=== PATIENT | male | born 1955 | race Two or more races ===

== ENCOUNTER 2016-11-09 20:05 | Emergency (ER) | payer MEDICAID ==
[2016-11-09 20:11] VITALS: BP 90/58; BMI 29.2
--- NOTE | 2016-11-09 20:56 | DR.GENAD ---
HPI - PCP Primary Care Physician: NÉSTOR PECK - Complaint/Symptoms Chief Complaint:: PT C/O RT CHEST AND RT ARM NECK PAIN FOR 3 MONTHS, PT STATES" THE DR SAID I HAD A PINCHED NERVE i DON'T BELIEVE IT. THE PAIN KEEPS ME AWAKE AT NIGHT" - Source History Provided: Patient - Mode of Arrival Mode of Arrival: Ambulatory - Timing Onset of Chief Complaint: 08/23/16 PMH - PMH Past Medical History: Yes Past Medical History: Anxiety, Arthritis Past Surgical History: Yes Surgical History: Appendectomy, CABG/Valve Surgery, Cholecystectomy, Lithotripsy - Family History History of Family Medical Conditions: Yes Family Medical History: Diabetes Mellitus, Cancer, [place], Hypertension - Social History Alcohol Use: None Do you use any recreational Drugs:: No Lives With: Family Lives Where: Home - infectious screening In the last 2 months have you had wt loss of >10#?: NO Have you had fever, night sweats or hemotysis?: No Have you traveled outside the country in the last 6 months?: No Isolation: Standard ROS - Review of Systems Constitutional: No Symptoms Reported Eyes: No Symptoms Reported ENTM: No Symptoms Reported Respiratoy: No Symptoms Reported Cardiovascular: No Symptoms Reported Gastrointestinal/Abdominal: No Symptoms Reported Genitourinary: No Symptoms Reported Neurological: No Symptoms Reported Musculoskeletal: Back Pain, Neck, Arm Integumentary: No Symptoms Reported Hematologic/Lymphatic: No Symptoms Reported Endocrine: No Symptoms Reported Psychiatric: No Symptoms Reported All Other Systems: Reviewed and Negative PE - Vital Signs Vitals: Temperature 98.6 F Pulse Rate 71 Respiratory Rate 18 Blood Pressure [Left Arm] 121/72 Blood Pressure 90/58 O2 Sat by Pulse Oximetry 100 - General Limitations: No Limitations General Appearance: Alert, In No Apparent Distress - Head Head Exam: Normal Inspection, Atraumatic - Eyes Eye exam: Normal Appearance, PERRL, EOMI - ENT ENT Exam: Normal Exam External Ear Exam: Normal External Inspection TM/Canal Exam: Bilateral Normal Nose Exam: Normal Nose Exam Mouth Exam: Normal Inspection Throat Exam: Normal Inspection - Neck Neck Exam: Normal Inspection, Tenderness - Chest Chest Inspection: Normal Inspection - Respiratory Respiratory Exam: Normal Lung Sounds Bilat Respiratory Exam: Bilateral Clear to Auscultation - Cardiovascular Cardiovascular Exam: Regular Rate, Normal Rhythm - Abdominal Exam Abdominal Exam: Normal Inspection Abdominal Tenderness: negative: RUQ, RLQ, LUQ, LLQ, Epigastrium, Suprapubic, Diffuse, Mild, Moderate, Severe, Other - Extremities Extremities Exam: Normal Inspection, Full ROM - Back Back Exam: Normal Inspection - Neurologic Neurological Exam: Alert, Oriented X3, CN II-XII Intact MDM - Additional Information Findings: Reviewed with patient the many previous x rays and or MRI taken and discuss ROR - XRAY XRAY Interpreted by: Radiologist (Review of previous results MRI dated 04/17/14: C3-C4;broad based, posterior, disc osteophyte complex which combines with facet DJD to create moderate spinal canal narrowing and moderate bilateral narrowing.C4-C5; Broad-based, posterior, disc osteophyte complex with combbiines with facet DJD to create moderate spinal canal narrowing and moderate bilateral foraminal narrowing.C5-C6; Broad based, posterior disc osteophyte complex which combines with facet DJD to create moderate spinal canal narrowing and moderate bilateral foraminal narrowing./C6-C7; browa-based, posterior, disc osteophyte complex which combines with facet DJD to create moderate spinal canal narrowing and moderate bilateral foraminal narrowing.: M oderate cervical spondylotic change with C3-C7 central disc osteophyte complexes and facet DJD which creates ,pderate fprra,mckenzie; amd s[mckenzie; cama; marrpwomg at tje ;bernabe;s as detaomed/) - Diagnosis Discharge Problem: DJD (degenerative joint disease), cervical DJD (degenerative joint disease) of cervical spine Qualifiers: Spinal osteoarthritis complication: with radiculopathy Qualified Code(s): M47.22 - Other spondylosis with radiculopathy, cervical region - Discharge Plan Condition: Stable - Follow ups/Referrals Follow ups/Referrals: NFD,None [Primary Care Provider] - 3 days - Instructions
[2016-11-09] MEDS ORDERED: TORADOL 60 MG VIAL IM ONE (21:27)
[2016-11-09] MEDS ORDERED: TORADOL 60 MG VIAL ONE (21:29)
== END 2016-11-09 21:42 | disposition home or self-care (01) ==
LOC: ER 20:05
DX: M47.22 Other spondylosis with radiculopathy, cervical region (principal)
CPT/HCPCS: 96372; 99282; 99283; J1885

== ENCOUNTER 2016-11-28 22:37 | Emergency (ER) | payer SELFPAY ==
[2016-11-28 22:45] VITALS: BP 93/60; BMI 30.9
== END 2016-11-29 01:10 | disposition left against medical advice (07) ==
LOC: ER 22:37
DX: R05 Cough (principal)
CPT/HCPCS: 99281

== ENCOUNTER → 2017-02-12 | Outpatient (CLI) | payer SELFPAY ==
--- NOTE | 2017-02-13 08:08 | RAD ---
HISTORY: Arthrosis, right arm pain Study: Right shoulder three view Comparison: None Findings: The appearance of the clavicle and AC joint are unremarkable. The glenohumeral articulation is norm al in its appearance. No acute cortical disruption or dislocation can be identified. The visualize d portions of the scapula are unremarkable. In addition, the visualized portions of the right hemit horax appear normal. IMPRESSION: 1. Negative exam. Reported By:
--- NOTE | 2017-02-13 08:28 | RAD ---
HISTORY: Right shoulder pain Study: Cervical spine four view Comparison: None Findings: The prevertebral soft tissues are normal. The alignment is normal. The vertebral bodies are of avera ge height. The disc spaces are preserved. The posterior elements are intact. The joints are normal. Bilateral carotid vascular calcifications are incidentally noted. Clinical correlation should determ ine the need for carotid sonography. IMPRESSION: No significant abnormality Reported By:
== END ==
LOC: RAD 17:37
PROVIDERS: ATTEND Nurse Practitioner Family
DX: M19.011 Primary osteoarthritis, right shoulder (principal)
CPT/HCPCS: 72040; 73030

== ENCOUNTER → 2017-03-12 | Outpatient (CLI) | payer SELFPAY ==
[2017-03-12 09:43] LABS: HEMOGLOBIN A1C 10.1 % (4.5-6.2)
[2017-03-12 09:48] LABS: BASOPHILS # (AUTO) 0.1 X10^3/uL (0.0-0.1); BASOPHILS % (AUTO) 1.5 % (0.2-1.0); EOSINOPHILS # (AUTO) 0.2 x10^3/uL (0.0-0.2); EOSINOPHILS % (AUTO) 2.8 % (0.9-2.9); HEMATOCRIT 47.2 % (42.0-54.0); HEMOGLOBIN 16.7 g/dL (13.5-18.0); LYMPHOCYTES # (AUTO) 1.8 X10^3/uL (1.3-2.9); LYMPHOCYTES % (AUTO) 23.6 % (21.0-51.0); MEAN CORPUSCULAR HEMOGLOBIN 31.1 pg (27.0-34.0); MEAN CORPUSCULAR HGB CONC 35.4 g/dL (33.0-35.0); MEAN CORPUSCULAR VOLUME 87.9 fL (80.0-100.0); MEAN PLATELET VOLUME 10.4 fL (7.4-11.0); MONOCYTES # (AUTO) 0.5 x10^3/uL (0.3-0.8); MONOCYTES % (AUTO) 6.3 % (0.0-13.0); NEUTROPHILS # (AUTO) 5.2 x10^3/uL (2.2-4.8); NEUTROPHILS % (AUTO) 65.8 % (42.0-75.0); PLATELET COUNT 205 X10^3/uL (150.0-450.0); RED BLOOD COUNT 5.37 X10^6/uL (4.7-6.0); RED CELL DISTRIBUTION WIDTH 13.2 % (11.6-16.5); WHITE BLOOD COUNT 7.8 X10^3/uL (3.6-10.0)
[2017-03-12 09:52] LABS: ALANINE AMINOTRANSFERASE 68 Units/L (12-78); ALBUMIN 3.9 g/dL (3.4-5.0); ALKALINE PHOSPHATASE 138 Units/L (46-116); ASPARTATE AMINO TRANSFERASE 31 Units/L (15-37); BLOOD UREA NITROGEN 10 mg/dL (7-18); CALCIUM 8.9 mg/dL (8.5-10.1); CARBON DIOXIDE 28.4 mmol/L (21-32); CHLORIDE 97 mmol/L (98-107); CHOLESTEROL 256 mg/dL (0-200); COR NA(FOR HYPERGLY) 141 mmol/L (136-145); CREATININE 0.98 mg/dL (0.70-1.30); GLUCOSE 319 mg/dL (65-99); HDL CHOLESTEROL 43 mg/dL (40-60); SODIUM 136 mmol/L (136-145); TOTAL PROTEIN 8.1 g/dL (6.4-8.2); TRIGLYCERIDES 280 mg/dL (0-150); eGFR BLACK RACES > 60 (>60); eGFR NON BLACK RACES > 60 (>60)
== END | disposition home or self-care (01) | DRG 305 ==
LOC: LAB 09:16
PROVIDERS: ATTEND Nurse Practitioner Family
DX: I10 Essential (primary) hypertension (principal); E78.00 Pure hypercholesterolemia, unspecified; E11.65 Type 2 diabetes mellitus with hyperglycemia; E11.40 Type 2 diabetes mellitus with diabetic neuropathy, unspecified
CPT/HCPCS: 36415; 80053; 80061; 83036; 85025

== ENCOUNTER → 2017-03-18 | Outpatient (CLI) | payer SELFPAY ==
--- NOTE | 2017-03-18 12:05 | VAS ---
HISTORY: Dizziness Study: Carotid ultrasound Comparison: April 01, 2015 Technique: Multiple pearson scale and color flow Doppler images of the right and left carotid arterial system were obtained. The vertebral arterial system was evaluated as well. Findings: Scattered plaque is demonstrated within the carotid bulbs bilaterally left greater than right. The p eak systolic velocity of the right ICA is 75 cm/sec. The peak systolic velocity of the left ICA is 1 03 cm/sec. The ICA/CCA ratio on the right is 1.0. The ICA/CCA ratio on the left is 1.1. Bilateral an tegrade vertebral flow was noted. IMPRESSION: 1. No hemodynamically significant stenosis is appreciated. Reported By:
== END ==
LOC: RAD 09:55
PROVIDERS: ATTEND Nurse Practitioner Family
DX: R42 Dizziness and giddiness (principal); R93.7 Abnormal findings on diagnostic imaging of other parts of musculoskeletal system
CPT/HCPCS: 93880

== ENCOUNTER 2017-04-07 14:49 | Inpatient (IN) | payer SELFPAY ==
[2017-04-07] MEDS ORDERED: NS 1000 ML 1,000 ML ONE ×2 (14:54→15:11)
[2017-04-07] MEDS ORDERED: NS 1000 ML 1,000 ML IV ONE ×2 (15:07→15:16)
--- NOTE | 2017-04-07 15:08 | DR.GENAD ---
HPI - Nurses notes reviewed Nurses Notes Review: Yes PMH - PMH Past Medical History: [place] Past Surgical History: Yes Surgical History: Appendectomy, CABG/Valve Surgery, Cholecystectomy - Family History Family Medical History: Diabetes Mellitus, Cancer, [place], Heart Failure, Hypertension - Social History Do you use any recreational Drugs:: No PE - Vital Signs Vitals: Temperature 98.7 F Pulse Rate [Right Brachial] 82 Pulse Rate 90 Respiratory Rate 16 Blood Pressure [Left Arm] 135/74 Blood Pressure 57/38 O2 Sat by Pulse Oximetry 99 ROR - Labs Reviewed Result Diagrams: 04/07/17 14:59 04/07/17 14:59 Laboratory: WBC 13.1 X10^3/uL (3.6-10.0) H 04/07/17 14:59 RBC 5.58 X10^6/uL (4.7-6.0) 04/07/17 14:59 Hgb 17.1 g/dL (13.5-18.0) 04/07/17 14:59 Hct 48.9 % (42.0-54.0) 04/07/17 14:59 MCV 87.6 fL (80.0-100.0) 04/07/17 14:59 MCH 30.7 pg (27.0-34.0) 04/07/17 14:59 MCHC 35.0 g/dL (33.0-35.0) 04/07/17 14:59 RDW 13.2 % (11.6-16.5) 04/07/17 14:59 Plt Count 231 X10^3/uL (150.0-450.0) 04/07/17 14:59 MPV 10.1 fL (7.4-11.0) 04/07/17 14:59 Neut % 71.9 % (42.0-75.0) 04/07/17 14:59 Lymph % 20.7 % (21.0-51.0) L 04/07/17 14:59 [place] % 4.6 % (0.0-13.0) 04/07/17 14:59 Eos % 1.6 % (0.9-2.9) 04/07/17 14:59 Baso % 1.2 % (0.2-1.0) H 04/07/17 14:59 Neut # 9.4 x10^3/uL (2.2-4.8) H 04/07/17 14:59 Lymph # 2.7 X10^3/uL (1.3-2.9) 04/07/17 14:59 [place] # 0.6 x10^3/uL (0.3-0.8) 04/07/17 14:59 Eos # 0.2 x10^3/uL (0.0-0.2) 04/07/17 14:59 Baso # 0.2 X10^3/uL (0.0-0.1) H 04/07/17 14:59 Absolute Nucleated RBC 0.1 /100WBC 04/07/17 14:59 INR Target Range - 04/07/17 14:59 INR 1.01 (0.8-1.3) 04/07/17 14:59 PTT 27.0 SECONDS (22.9-36.5) 04/07/17 14:59 PTT Comment - 04/07/17 14:59 Sodium 135 mmol/L (136-145) L 04/07/17 14:59 Corrected Sodium 136 mmol/L (136-145) 04/07/17 14:59 Potassium 3.8 mmol/L (3.5-5.1) 04/07/17 14:59 Chloride 97 mmol/L (98-107) L 04/07/17 14:59 Carbon Dioxide 25.0 mmol/L (21-32) 04/07/17 14:59 BUN 29 mg/dL (7-18) H 04/07/17 14:59 Creatinine 2.54 mg/dL (0.70-1.30) H 04/07/17 14:59 Est GFR (MDRD) Af Amer 33 (>60) L 04/07/17 14:59 Est GFR (MDRD) Non-Af 27 (>60) L 04/07/17 14:59 Glucose 160 mg/dL (65-99) H 04/07/17 14:59 Calcium 8.8 mg/dL (8.5-10.1) 04/07/17 14:59 Corrected Calcium TNP 04/07/17 14:59 Total Bilirubin 1.30 mg/dL (0.2-1.0) H 04/07/17 14:59 AST 25 Units/L (15-37) 04/07/17 14:59 ALT 33 Units/L (12-78) 04/07/17 14:59 Alkaline Phosphatase 92 Units/L (46-116) 04/07/17 14:59 Creatine Kinase 34 Units/L (39-308) L 04/07/17 14:59 CK-MB (CK-2) < 1.0 ng/mL (0-4.0) 04/07/17 14:59 CK/CKMB % Calc 2.9 % (<4) 04/07/17 14:59 Troponin I < 0.02 ng/mL (0-1.5) 04/07/17 14:59 Total Protein 7.9 g/dL (6.4-8.2) 04/07/17 14:59 Albumin 4.0 g/dL (3.4-5.0) 04/07/17 14:59 Globulin 3.9 g/dL (2.5-4.5) 04/07/17 14:59 Albumin/Globulin Ratio 1.0 Ratio (1.1-2.1) L 04/07/17 14:59 - Discharge Plan Condition: Stable - Follow ups/Referrals Follow ups/Referrals: CORNELIUS KOLB [Primary Care Provider] - 3 days - Instructions
[2017-04-07 15:17] VITALS: BMI 29.9
[2017-04-07 15:24] LABS: BASOPHILS # (AUTO) 0.2 X10^3/uL (0.0-0.1); BASOPHILS % (AUTO) 1.2 % (0.2-1.0); EOSINOPHILS # (AUTO) 0.2 x10^3/uL (0.0-0.2); EOSINOPHILS % (AUTO) 1.6 % (0.9-2.9); HEMATOCRIT 48.9 % (42.0-54.0); HEMOGLOBIN 17.1 g/dL (13.5-18.0); LYMPHOCYTES # (AUTO) 2.7 X10^3/uL (1.3-2.9); LYMPHOCYTES % (AUTO) 20.7 % (21.0-51.0); MEAN CORPUSCULAR HEMOGLOBIN 30.7 pg (27.0-34.0); MEAN CORPUSCULAR VOLUME 87.6 fL (80.0-100.0); MEAN PLATELET VOLUME 10.1 fL (7.4-11.0); MONOCYTES # (AUTO) 0.6 x10^3/uL (0.3-0.8); MONOCYTES % (AUTO) 4.6 % (0.0-13.0); NEUTROPHILS # (AUTO) 9.4 x10^3/uL (2.2-4.8); NEUTROPHILS % (AUTO) 71.9 % (42.0-75.0); PLATELET COUNT 231 X10^3/uL (150.0-450.0); RED BLOOD COUNT 5.58 X10^6/uL (4.7-6.0); RED CELL DISTRIBUTION WIDTH 13.2 % (11.6-16.5); WHITE BLOOD COUNT 13.1 X10^3/uL (3.6-10.0)
--- NOTE | 2017-04-07 15:25 | RAD ---
HISTORY: Chest pain Study: Chest one view Comparison: September 07, 2016 Findings: The trachea is midline. The cardiac silhouette is unremarkable. The lungs are hypoinflated but merced ar.. The bony thorax is unremarkable. The patient is status post median sternotomy and CABG. IMPRESSION: Lungs mildly hypoinflated but free of acute infiltrates Reported By:
[2017-04-07 15:36] LABS: BLOOD UREA NITROGEN 29 mg/dL (7-18); CALCIUM 8.8 mg/dL (8.5-10.1); CHLORIDE 97 mmol/L (98-107); COR NA(FOR HYPERGLY) 136 mmol/L (136-145); CREATININE 2.54 mg/dL (0.70-1.30); GLUCOSE 160 mg/dL (65-99); SODIUM 135 mmol/L (136-145); TROPONIN I < 0.02 ng/mL (0-1.5); eGFR BLACK RACES 33 (>60); eGFR NON BLACK RACES 27 (>60)
[2017-04-07 15:40] LABS: ALANINE AMINOTRANSFERASE 33 Units/L (12-78); ALKALINE PHOSPHATASE 92 Units/L (46-116); ASPARTATE AMINO TRANSFERASE 25 Units/L (15-37); CKMB % 2.9 % (<4); CREATINE KINASE 34 Units/L (39-308); CREATINE KINASE MB < 1.0 ng/mL (0-4.0); TOTAL PROTEIN 7.9 g/dL (6.4-8.2)
[2017-04-07] MEDS ORDERED: ZOFRAN INJ 4 MG VIAL IVP PRN (16:55)
[2017-04-07] MEDS ORDERED: PHENERGAN INJ 25 MG IVP PRN (16:55)
[2017-04-07] MEDS ORDERED: PEPCID 20 MG IV PREMIX* 20 MG/50 ML BAG IV PRN (16:55)
[2017-04-07] MEDS ORDERED: MORPHINE SULFATE INJ 2 MG IVP PRN (17:00)
[2017-04-07] MEDS: NS 1000 ML 1,000 ML IV SCH (18:27)
[2017-04-07 19:45] LABS: BILIRUBIN,URINE NEGATIVE (NEGATIVE); BLOOD/HEMOGLOBIN,URINE 1+ (NEGATIVE); GLUCOSE, URINE 2+ (NEGATIVE); KETONES,URINE NEGATIVE (NEGATIVE); LEUKOCYTE ESTERASE ,URINE 1+ (NEGATIVE); NITRITES,URINE NEGATIVE (NEGATIVE); PROTEIN,URINE 1+ (NEGATIVE); UROBILINOGEN,URINE NORMAL (NORMAL)
[2017-04-07 19:52] LABS: APPEARANCE,URINE HAZY (CLEAR); BACTERIA,URINE TRACE /HPF (NEGATIVE); COLOR,URINE YELLOW (YELLOW); RBC,URINE 0-2 /HPF (NEGATIVE); SQUAMOUS EPITHELIAL CELL,UR FEW /HPF (NEGATIVE)
[2017-04-07 20:57] LABS: CRYPTOSPORIDIUM PARVUM ANTIGEN NEGATIVE (NEGATIVE); GIARDIA LAMBLIA ANTIGEN NEGATIVE (NEGATIVE)
[2017-04-07] MEDS ORDERED: HumuLIN R SUBCUT PRN (21:04)
[2017-04-08] MEDS: NS 1000 ML 1,000 ML IV SCH ×3 (03:00→14:08)
[2017-04-08 05:58] LABS: ALANINE AMINOTRANSFERASE 30 Units/L (12-78); ALBUMIN 3.2 g/dL (3.4-5.0); ALKALINE PHOSPHATASE 88 Units/L (46-116); ASPARTATE AMINO TRANSFERASE 23 Units/L (15-37); BLOOD UREA NITROGEN 18 mg/dL (7-18); CALCIUM 8.1 mg/dL (8.5-10.1); CARBON DIOXIDE 26.7 mmol/L (21-32); CHLORIDE 105 mmol/L (98-107); COR CA(FOR HYPOALB) 8.7 mg/dL (8.5-10.1); COR NA(FOR HYPERGLY) 141 mmol/L (136-145); CREATININE 1.08 mg/dL (0.70-1.30); GLUCOSE 176 mg/dL (65-99); SODIUM 139 mmol/L (136-145); TOTAL PROTEIN 6.7 g/dL (6.4-8.2); eGFR BLACK RACES > 60 (>60); eGFR NON BLACK RACES > 60 (>60)
[2017-04-08 06:09] LABS: BASOPHILS # (AUTO) 0.1 X10^3/uL (0.0-0.1); BASOPHILS % (AUTO) 1.1 % (0.2-1.0); EOSINOPHILS # (AUTO) 0.3 x10^3/uL (0.0-0.2); EOSINOPHILS % (AUTO) 2.8 % (0.9-2.9); HEMATOCRIT 43.8 % (42.0-54.0); HEMOGLOBIN 15.4 g/dL (13.5-18.0); LYMPHOCYTES # (AUTO) 2.3 X10^3/uL (1.3-2.9); LYMPHOCYTES % (AUTO) 25.2 % (21.0-51.0); MEAN CORPUSCULAR HEMOGLOBIN 30.7 pg (27.0-34.0); MEAN CORPUSCULAR HGB CONC 35.2 g/dL (33.0-35.0); MEAN CORPUSCULAR VOLUME 87.1 fL (80.0-100.0); MEAN PLATELET VOLUME 10.4 fL (7.4-11.0); MONOCYTES # (AUTO) 0.5 x10^3/uL (0.3-0.8); MONOCYTES % (AUTO) 5.4 % (0.0-13.0); NEUTROPHILS # (AUTO) 5.9 x10^3/uL (2.2-4.8); NEUTROPHILS % (AUTO) 65.5 % (42.0-75.0); PLATELET COUNT 180 X10^3/uL (150.0-450.0); RED BLOOD COUNT 5.03 X10^6/uL (4.7-6.0); RED CELL DISTRIBUTION WIDTH 12.9 % (11.6-16.5)
--- NOTE | 2017-04-08 09:53 | CT ---
STUDY: CT HEAD WITHOUT CONTRAST HISTORY: Dizziness. Hypertension. COMPARISON: Head CT dated August 14, 2015. TECHNIQUE: Multiple axial images of the head were obtained from the skull base to the vertex without administration of IV contrast. Automated exposure control (AEC) was utilized to adjust the MA and/o r kV. Findings: The sulci, cisterns and ventricles are prominent consistent with mild diffuse volume loss. There are scattered foci of low attenuation in the periventricular and subcortical white matter of both hemispheres. This is a nonspecific finding which likely represents microangiopathic change in a patient of this age. There is no evidence of acute territorial infarction, hemorrhage, mass, mass effect or midline shift . There are no abnormal extra-axial fluid collections. There is no evidence of acute osseous abnorma lity or significant soft tissue swelling. IMPRESSION: 1. No evidence of acute intracranial abnormality. 2. Nonspecific white matter change and mild volume loss as described. 3. If there remains strong clinical concern for acute intracranial abnormality, then an MRI examinat ion should be considered for further evaluation. Reported By:
[2017-04-08 12:59] VITALS: BP 167/83
[2017-04-08] MEDS ORDERED: SNACK - Diabetic Appropriate PO SCH (20:00)
== END 2017-04-08 14:25 | disposition home or self-care (01) | DRG 312 ==
LOC: ER 14:58 → MED/SURG 16:52
PROVIDERS: ADMIT Internal Medicine; ATTEND Internal Medicine
DX: R55 Syncope and collapse (principal); E78.2 Mixed hyperlipidemia; R53.1 Weakness; I25.810 Atherosclerosis of coronary artery bypass graft(s) without angina pectoris; E11.65 Type 2 diabetes mellitus with hyperglycemia; I95.89 Other hypotension; E86.0 Dehydration; K52.89 Other specified noninfective gastroenteritis and colitis; R19.7 Diarrhea, unspecified; R94.31 Abnormal electrocardiogram [ECG] [EKG]; Z79.899 Other long term (current) drug therapy
CPT/HCPCS: 36415; 70450; 71010; 80053; 81001; 82270; 82550; 82553; 84484; 85025; 85610; 85730; 87040; 87045; 87205; 87328; 87329; 87336; 87427; 87493; 87899; 93005; 93010; 96365; 96367; 96374; 99284; A4222; J2270

== ENCOUNTER → 2017-07-01 | Outpatient (CLI) | payer SELFPAY ==
[2017-07-01 10:07] LABS: BASOPHILS # (AUTO) 0.1 X10^3/uL (0.0-0.1); BASOPHILS % (AUTO) 1.2 % (0.2-1.0); EOSINOPHILS # (AUTO) 0.2 x10^3/uL (0.0-0.2); EOSINOPHILS % (AUTO) 2.3 % (0.9-2.9); HEMATOCRIT 45.7 % (42.0-54.0); LYMPHOCYTES # (AUTO) 1.6 X10^3/uL (1.3-2.9); LYMPHOCYTES % (AUTO) 19.3 % (21.0-51.0); MEAN CORPUSCULAR HEMOGLOBIN 31.5 pg (27.0-34.0); MEAN CORPUSCULAR HGB CONC 35.1 g/dL (33.0-35.0); MEAN CORPUSCULAR VOLUME 89.7 fL (80.0-100.0); MEAN PLATELET VOLUME 9.3 fL (7.4-11.0); MONOCYTES # (AUTO) 0.4 x10^3/uL (0.3-0.8); MONOCYTES % (AUTO) 4.8 % (0.0-13.0); NEUTROPHILS # (AUTO) 5.9 x10^3/uL (2.2-4.8); NEUTROPHILS % (AUTO) 72.4 % (42.0-75.0); PLATELET COUNT 236 X10^3/uL (150.0-450.0); RED CELL DISTRIBUTION WIDTH 13.5 % (11.6-16.5); WHITE BLOOD COUNT 8.2 X10^3/uL (3.6-10.0)
[2017-07-01 10:13] LABS: CREATININE,URINE 192.58 mg/dL (40-278); MICROALBUMIN,URINE 61.9 mg/L
[2017-07-01 10:15] LABS: ALANINE AMINOTRANSFERASE 44 Units/L (12-78); ALBUMIN 3.7 g/dL (3.4-5.0); ALKALINE PHOSPHATASE 106 Units/L (46-116); ASPARTATE AMINO TRANSFERASE 27 Units/L (15-37); BLOOD UREA NITROGEN 14 mg/dL (7-18); CARBON DIOXIDE 31.5 mmol/L (21-32); CHLORIDE 99 mmol/L (98-107); CHOL/HDL RATIO 5.2 (0.0-5.0); CHOLESTEROL 213 mg/dL (0-200); COR NA(FOR HYPERGLY) 141 mmol/L (136-145); CREATININE 0.97 mg/dL (0.70-1.30); HDL CHOLESTEROL 41 mg/dL (40-60); HEMOGLOBIN A1C 8.6 % (4.5-6.2); SODIUM 138 mmol/L (136-145); TOTAL PROTEIN 7.5 g/dL (6.4-8.2); TRIGLYCERIDES 159 mg/dL (0-150); eGFR BLACK RACES > 60 (>60); eGFR NON BLACK RACES > 60 (>60)
== END ==
LOC: LAB 09:29
PROVIDERS: ATTEND Nurse Practitioner Family
DX: I10 Essential (primary) hypertension (principal); E11.40 Type 2 diabetes mellitus with diabetic neuropathy, unspecified; E11.65 Type 2 diabetes mellitus with hyperglycemia
CPT/HCPCS: 36415; 80053; 80061; 82043; 83036; 85025

== ENCOUNTER 2017-07-08 08:12 | Observation (INO) | payer SELFPAY ==
[2017-07-08 08:17] VITALS: BMI 28.3
--- NOTE | 2017-07-08 08:50 | DR.GENAD ---
HPI - PCP Primary Care Physician: Jose KOLB - HPI Comment HPI Comment: Hurting in head, neck and right shoulder. He that his right knee gave out this morning while he was on the porch at home. He tumbled down unto the concrete striking his head. He claims to have lost consciousness. Duration unknown (but maybe for a few minutes). He feels whoozy still. There was no associated papitations, diaphoresis or c/p preceeding this event. Event happened about 0615 hrs today. - Complaint/Symptoms Chief Complaint:: PT. FELL OFF OF A 3 FOOT PORCH THIS MORNING, LOSING CONSCIOUSNESS AND HITTING THE DIRT. PT. C/O HEADACHE, NECK PAIN, RIGHT ARM PAIN , AND DIZZINESS. ABRASION NOTED TO TOP RIGHT SIDE OF HEAD. - Nurses notes reviewed Nurses Notes Review: Yes - Source History Provided: Patient - Mode of Arrival Mode of Arrival: Ambulatory - Timing Onset of Chief Complaint: 07/08/17 Came on: Suddenly - Modifying Factors Worsens:: nothing Improves:: nothing - Associated Signs and Symptoms Associated Signs and Symptoms: dizziness PMH - PMH Past Medical History: Yes Past Medical History: Coronary Artery Disease, Diabetes, Hypertension, [place] Past Surgical History: Yes Surgical History: Appendectomy, CABG/Valve Surgery, Cholecystectomy - Family History History of Family Medical Conditions: Yes Family Medical History: Diabetes Mellitus, Cancer, [place], Heart Failure, Hypertension - Social History Does patient currently use any type of tobacco product: Yes Have you used tobacco products in the last 12 months: Yes Type of Tobacco Use: Cigarettes Does any household member use tobacco: Yes Alcohol Use: None Do you use any recreational Drugs:: No Lives With: Significant Other Lives Where: Home - infectious screening In the last 2 months have you had wt loss of >10#?: NO Have you had fever, night sweats or hemotysis?: No Have you traveled outside the country in the last 6 months?: No Isolation: Standard ROS - Review of Systems Constitutional: No Symptoms Reported Eyes: No Symptoms Reported ENTM: No Symptoms Reported Respiratoy: No Symptoms Reported Cardiovascular: No Symptoms Reported Gastrointestinal/Abdominal: No Symptoms Reported Genitourinary: No Symptoms Reported Neurological: Headache, Dizziness Musculoskeletal: Neck Pain, Shoulder (right side) Integumentary: Other (abrasion on right side of forehead) Hematologic/Lymphatic: No Symptoms Reported Endocrine: No Symptoms Reported Psychiatric: No Symptoms Reported All Other Systems: Reviewed and Negative PE - Vital Signs Vitals: Temperature 97 F Pulse Rate [Left Brachial] 57 Pulse Rate 68 Respiratory Rate 17 Blood Pressure [Right Arm] 122/61 Blood Pressure [Left Arm] 112/63 Blood Pressure 120/60 O2 Sat by Pulse Oximetry 98 ROR - Labs Reviewed Result Diagrams: 07/08/17 09:16 07/08/17 09:16 Laboratory: Sodium 134 mmol/L (136-145) L 07/08/17 09:16 Corrected Sodium 140 mmol/L (136-145) 07/08/17 09:16 Potassium 3.5 mmol/L (3.5-5.1) 07/08/17 09:16 Chloride 95 mmol/L (98-107) L 07/08/17 09:16 Carbon Dioxide 27.6 mmol/L (21-32) 07/08/17 09:16 BUN 12 mg/dL (7-18) 07/08/17 09:16 Creatinine 0.91 mg/dL (0.70-1.30) 07/08/17 09:16 Est GFR (MDRD) Af Amer > 60 (>60) 07/08/17 09:16 Est GFR (MDRD) Non-Af > 60 (>60) 07/08/17 09:16 Glucose 362 mg/dL (65-99) H 07/08/17 09:16 Calcium 9.0 mg/dL (8.5-10.1) 07/08/17 09:16 Corrected Calcium TNP 07/08/17 09:16 Total Bilirubin 0.80 mg/dL (0.2-1.0) 07/08/17 09:16 AST 65 Units/L (15-37) H 07/08/17 09:16 ALT 72 Units/L (12-78) 07/08/17 09:16 Alkaline Phosphatase 139 Units/L (46-116) H 07/08/17 09:16 Total Protein 7.4 g/dL (6.4-8.2) 07/08/17 09:16 Albumin 3.6 g/dL (3.4-5.0) 07/08/17 09:16 Globulin 3.8 g/dL (2.5-4.5) 07/08/17 09:16 Albumin/Globulin Ratio 0.9 Ratio (1.1-2.1) L 07/08/17 09:16 - XRAY XRAY Interpreted by: Radiologist (1). X-Ray rt. Shoulder: OA, calcific peritendonitis. 2). CT C-Spine: normal allignment, no fractureor acute disease. 3). CT Brain: No intracranial disease.) - Diagnosis Discharge Problem: Syncope and collapse - Discharge Plan Disposition: ADMITTED INPATIENT Condition: Stable - Follow ups/Referrals Follow ups/Referrals: CORNELIUS KOLB [Primary Care Provider] - 3 days - Instructions
[2017-07-08] MEDS ORDERED: ANTIVERT TAB 25 MG PO ONE (09:14)
[2017-07-08] MEDS ORDERED: FIORICET TAB PO ONE ×2 (09:32)
[2017-07-08] MEDS ORDERED: ANTIVERT TAB 25 MG ONE (09:32)
--- NOTE | 2017-07-08 09:52 | RAD ---
Examination: Right shoulder, three views History: Fell Comparison reference: 02/12/2017 Findings:There is no evidence for fracture or dislocation. There is degenerative narrowing of glenohu meral and AC joints. There is a faint calcification suggested in the soft tissues adjacent to the gre ater tuberosity. Sternal wires are present from previous surgery; 1 of the manubrial wires is fractur ed. Impression: No acute shoulder injury identified. Osteoarthritis. Minimal periarticular calcification consistent with calcific peritendinitis. Reported By:
[2017-07-08 10:02] LABS: ALANINE AMINOTRANSFERASE 72 Units/L (12-78); ALBUMIN 3.6 g/dL (3.4-5.0); ALKALINE PHOSPHATASE 139 Units/L (46-116); ASPARTATE AMINO TRANSFERASE 65 Units/L (15-37); BLOOD UREA NITROGEN 12 mg/dL (7-18); CARBON DIOXIDE 27.6 mmol/L (21-32); CHLORIDE 95 mmol/L (98-107); COR NA(FOR HYPERGLY) 140 mmol/L (136-145); CREATININE 0.91 mg/dL (0.70-1.30); SODIUM 134 mmol/L (136-145); TOTAL PROTEIN 7.4 g/dL (6.4-8.2); eGFR BLACK RACES > 60 (>60); eGFR NON BLACK RACES > 60 (>60)
--- NOTE | 2017-07-08 10:24 | CT ---
History: Fall from porch with pain right side of neck and head Study: CT head without contrast. Sagittal and coronal reformations were provided. Comparison: April 08, 2017 Findings: There is no interval change. The ventricles and sulci are minimally prominent without mass effect. There is no intracranial hemorrhage or mass or edema or subdural collection of fluid. The sybil varium is intact. The mastoid sinuses and paranasal sinuses are grossly clear. Impression: No acute intracranial disease Reported By:
--- NOTE | 2017-07-08 10:26 | CT ---
History: Fall off porch with right neck pain Study: CT cervical spine without contrast. Sagittal and coronal reformations were provided. Findings: There is normal alignment without fracture. There is moderate anterior osteophyte formation at T1-2. There are mild degenerative osteophytes about the lower cervical facet joints. The spinous processes are intact. There is heavy atherosclerotic calcification in the common carotid bifurcations and carotid sinuses. Impression: No evidence for fracture or acute disease. Reported By:
[2017-07-08 11:43] LABS: BASOPHILS # (AUTO) 0.1 X10^3/uL (0.0-0.1); BASOPHILS % (AUTO) 1.1 % (0.2-1.0); EOSINOPHILS # (AUTO) 0.2 x10^3/uL (0.0-0.2); HEMATOCRIT 44.1 % (42.0-54.0); HEMOGLOBIN 15.4 g/dL (13.5-18.0); LYMPHOCYTES % (AUTO) 18.2 % (21.0-51.0); MEAN CORPUSCULAR HEMOGLOBIN 31.3 pg (27.0-34.0); MEAN CORPUSCULAR VOLUME 89.5 fL (80.0-100.0); MEAN PLATELET VOLUME 10.4 fL (7.4-11.0); MONOCYTES # (AUTO) 0.6 x10^3/uL (0.3-0.8); MONOCYTES % (AUTO) 5.3 % (0.0-13.0); NEUTROPHILS # (AUTO) 8.1 x10^3/uL (2.2-4.8); NEUTROPHILS % (AUTO) 73.4 % (42.0-75.0); PLATELET COUNT 215 X10^3/uL (150.0-450.0); RED BLOOD COUNT 4.93 X10^6/uL (4.7-6.0); RED CELL DISTRIBUTION WIDTH 13.3 % (11.6-16.5)
[2017-07-08 12:03] LABS: CKMB % 1.2 % (<4); CREATINE KINASE 81 Units/L (39-308); CREATINE KINASE MB < 1.0 ng/mL (0-4.0); TROPONIN I < 0.02 ng/mL (0-1.5)
[2017-07-08] MEDS: NS 1000 ML 1,000 ML IV SCH (12:36)
[2017-07-08] MEDS: HumuLIN R SUBCUT PRN ×3 (13:57→20:18)
[2017-07-08] MEDS: ROXICODONE TAB 15 MG PO PRN (20:19)
[2017-07-09] MEDS: NS 1000 ML 1,000 ML IV SCH (00:12)
[2017-07-09 05:44] LABS: BASOPHILS # (AUTO) 0.1 X10^3/uL (0.0-0.1); BASOPHILS % (AUTO) 1.2 % (0.2-1.0); EOSINOPHILS # (AUTO) 0.3 x10^3/uL (0.0-0.2); EOSINOPHILS % (AUTO) 3.5 % (0.9-2.9); HEMATOCRIT 42.5 % (42.0-54.0); HEMOGLOBIN 14.6 g/dL (13.5-18.0); LYMPHOCYTES # (AUTO) 2.3 X10^3/uL (1.3-2.9); LYMPHOCYTES % (AUTO) 28.7 % (21.0-51.0); MEAN CORPUSCULAR HEMOGLOBIN 31.3 pg (27.0-34.0); MEAN CORPUSCULAR HGB CONC 34.4 g/dL (33.0-35.0); MEAN CORPUSCULAR VOLUME 90.9 fL (80.0-100.0); MEAN PLATELET VOLUME 10.1 fL (7.4-11.0); MONOCYTES # (AUTO) 0.4 x10^3/uL (0.3-0.8); MONOCYTES % (AUTO) 4.7 % (0.0-13.0); NEUTROPHILS # (AUTO) 4.9 x10^3/uL (2.2-4.8); NEUTROPHILS % (AUTO) 61.9 % (42.0-75.0); PLATELET COUNT 224 X10^3/uL (150.0-450.0); RED BLOOD COUNT 4.68 X10^6/uL (4.7-6.0); RED CELL DISTRIBUTION WIDTH 12.9 % (11.6-16.5); WHITE BLOOD COUNT 7.9 X10^3/uL (3.6-10.0)
[2017-07-09] MEDS: ROXICODONE TAB 15 MG PO PRN (05:47)
[2017-07-09] MEDS: HumuLIN R SUBCUT PRN (05:47)
[2017-07-09 06:08] LABS: ALANINE AMINOTRANSFERASE 57 Units/L (12-78); ALBUMIN 3.2 g/dL (3.4-5.0); ALKALINE PHOSPHATASE 110 Units/L (46-116); ASPARTATE AMINO TRANSFERASE 50 Units/L (15-37); BLOOD UREA NITROGEN 12 mg/dL (7-18); CALCIUM 8.5 mg/dL (8.5-10.1); CARBON DIOXIDE 27.3 mmol/L (21-32); CHLORIDE 102 mmol/L (98-107); COR CA(FOR HYPOALB) 9.1 mg/dL (8.5-10.1); COR NA(FOR HYPERGLY) 143 mmol/L (136-145); SODIUM 139 mmol/L (136-145); TOTAL PROTEIN 6.5 g/dL (6.4-8.2); eGFR BLACK RACES > 60 (>60); eGFR NON BLACK RACES > 60 (>60)
[2017-07-09 08:09] VITALS: BP 127/73
[2017-07-09] MEDS ORDERED: GLUCOVANCE 5/500MG PO SCH (09:00)
[2017-07-09] MEDS ORDERED: ZESTRIL TAB 10 MG PO SCH (09:00)
[2017-07-09] MEDS ORDERED: ZANTAC PO SCH (09:00)
[2017-07-09] MEDS ORDERED: TOPROL XL PO SCH (09:00)
[2017-07-09] MEDS ORDERED: CLARITIN PO SCH (09:00)
[2017-07-09] MEDS ORDERED: POTASSIUM CHLORIDE LIQ 20 MEQ UDC PO PRN (09:45)
[2017-07-09] MEDS ORDERED: K-RIDER 10 MEQ/NS 100 ML 10 MEQ/100 ML BAG IV PRN (09:45)
[2017-07-09] MEDS ORDERED: K-LYTE EFFERVESCENT PO PRN (09:45)
--- NOTE | 2017-07-09 11:30 | DR.CARTERS ---
Short Stay Summary - Short Stay Summary for: Short Stay Summary for Date of:: 07/09/17 - Admission Date Date of Admission: 07/08/17 - Discharge Date Discharge Date: 07/09/17 - Admission Diagnoses (1) Syncope and collapse Status: Acute - Hospital Course Hospital Course: DAY 1 OF STAY: IS A 62 YEAR OLD MALE, PATIENT OF [facility]. HE PRESENTED TO THE EMERGENCY ROOM WITH COMPLAINTS OF FALLING OFF OF A PORCH , HITTING HIS HEAD, AND LOSING CONSCIOUSNESS APPROXIMATELY 2 HOURS PRIOR TO ARRIVAL. ON ARRIVAL TO THE ER, HE REPORTED HEADACHE, NECK PAIN, RIGHT ARM PAIN, DIZZINESS, AND AN ABRASION TO THE TOP RIGHT SIDE OF HEAD. HE DENIED PALPITATIONS , DIAPHORESIS, OR CHEST PAIN PRECEEDING THE EVENT. ON EXAMINATION, PUPILS PERRLA. HE IS NOTED WITH GOOD STRENGTH TO BILATERAL UPPER AND LOWER EXTREMITIES. LUNGS WERE CLEAR TO AUSCULTATION. ABDOMEN ROUND, SOFT, AND NON- TENDER WITH NORMAL BOWEL SOUNDS NOTED IN ALL QUADRANTS. VITALS ON ARRIVAL WERE 97.0-68-17-97%-120/60. ABNORMAL LAB VALUES INCLUDE THE FOLLOWING: WBC 11.0, SODIUM 134, CHLORIDE 95, GLUCOSE 362, AST 65, ALK PHOS 139, A/G RATIO 0.9. CARDIAC ENZYMES UNREMARKABLE. BRAIN CT REPORTED NO ACUTE INTRACRANIAL DISEASE. CERVICAL SPINE CT REPORTED NO EVIDENCE FOR FRACTURE OR ACUTE DISEASE, HOWEVER, HEAVY ATHEROSCLEROTIC CALCIFICATION IN THE COMMON CAROTID BIFURCATIONS AND CAROTID SINUSES NOTED. SHOULDER XRAY REPORTED NO ACUTE SHOULDER INJURY IDENTIFIED. OSTEROARTHRITIS. MINIMAL PERIARTICULAR CALCIFICATION CONSISTENT WITH CALCIFIC PERITENDINITIS. EKG REPORTED SINUS RHYTHM WITH HR 60. HE WAS GIVEN FIORICET 2 TABS AND ANTIVERT 25MG IN THE ER WITH NO IMPROVEMENT IN SYMPTOMS NOTED. HE WAS ADMITTED FOR FURTHER TREATMENT AND EVALUATION. HE WAS STARTED ON NORMAL SALINE AT 80ML/HR, ROXICODONE 15MG PO QID PRN (HOME MEDICATION ) WAS RESUMED, AND HUMULIN R SLIDING SCALE. WE PLANNED TO FOLLOW UP WITH AM LABS AND CONTINUE TO MONITOR PATIENT. DAY 2 OF STAY: PATIENT IS ALERT AND ORIENTED, LYING IN BED ON MORNING ROUNDS. HE DENIES COMPLAINTS OF HEADACHE OR DIZZINESS THIS MORNING. HE DOES CONTINUE WITH RIGHT ARM/SHOULDER PAIN, BUT REPORTS THAT IT HAS IMPROVED. ON EXAMINATION, LUNGS ARE CLEAR TO AUSCULTATION. ABDOMEN ROUND, SOFT, NON-TENDER WITH NORMAL BOWEL SOUNDS NOTED IN ALL QUADRANTS. VITAL SIGNS THIS MORNING ARE 97.7-60-20-94% -127/73. ABNORMAL LAB VALUES INCLUDE THE FOLLOWING: RBC 4.68, POTASSIUM 3.3, GLUCOSE 247, AST 50, ALBUMIN 3.2. WE PLANNED FOR DISCHARGE. INSTRUCTIONS FOR MEDICATIONS AND FOLLOW UP WERE DISCUSSED WITH PATIENT. HE VERBALIZED UNDERSTANDING. WE WILL DISCHARGE HIM ON ECOTRIN 325MG PO DAILY AND ATORVASTATIN 20MG PO HS FOR FINDINGS OF ATHEROSCLEROTIC CALCIFICATION. WE WILL ORDER FOR AN ECHO, BRAIN CTA, CAROTID US, AND NUCLEAR STRESS TEST TO BE DONE ON AN OUTPAITENT BASIS. HE IS INSTRUCTED TO FOLLOW UP WITH SALBADOR MAGANA ON AT 2:00PM. PATIENT DISCHARGED TO HOME WITH FAMILY IN STABLE CONDITION. - Discharge Medications Discharge Medications: Metoprolol Succinate Ext Rel [TOPROL XL 25 MG *] 1 tab PO DAILY 07/08/17 [ History] Aspirin EC [ECOTRIN 325 MG *] 325 mg PO DAILY #90 tab 07/09/17 [Rx] Atorvastatin Calcium [Lipitor] 20 mg PO HS #30 tab 07/09/17 [Rx] - Discharge Plan Disposition: HOME, SELF-CARE Condition: Stable Prescriptions: Aspirin EC [ECOTRIN 325 MG *] 325 mg PO DAILY #90 tab Atorvastatin Calcium [Lipitor] 20 mg PO HS #30 tab - Follow up/Referrals Follow up/Referrals: CORNELIUS KOLB [Primary Care Provider] - 07/20/17 2:00 pm - Instructions Instructions: Smoking Cessation, Tips for Success, [id number], Fall Prevention in the Home, [id number], Transient Ischemic Attack, Iahw-hb-Odgi, Type 2 Diabetes Mellitus, Adult, [id number]-Vhmc, Syncope, [id number] Additional Instructions: SCHEDULE APPOINTMENTS OUTPATIENT FOR CAROTID US, CTA HEAD, ECHO, NUCLEAR STRESS TEST. ACTIVITY TOLERATED. DIET TOLERATED. Forms: Patient Portal
[2017-07-09] MEDS ORDERED: NEURONTIN CAP 400 MG PO SCH (14:00)
[2017-07-09] MEDS ORDERED: LANTUS SC SCH (21:00)
== END 2017-07-09 11:40 | disposition home or self-care (01) | DRG 312 ==
LOC: ER 08:21 → MED/SURG 11:47
PROVIDERS: ADMIT Internal Medicine; ATTEND Internal Medicine
DX: R55 Syncope and collapse (principal); R51 Headache; M54.2 Cervicalgia; R42 Dizziness and giddiness; W17.89XA Other fall from one level to another, initial encounter; Y92.098 Other place in other non-institutional residence as the place of occurrence of the external cause; S00.81XA Abrasion of other part of head, initial encounter; R94.31 Abnormal electrocardiogram [ECG] [EKG]
CPT/HCPCS: 36415; 70450; 72125; 73030; 80053; 82550; 82553; 84484; 85025; 93005; 93010; 96365; 99284; A4222; G0378; J1815

== ENCOUNTER → 2017-10-21 | Outpatient (CLI) | payer SELFPAY ==
[2017-10-21 10:59] LABS: BASOPHILS # (AUTO) 0.1 X10^3/uL (0.0-0.1); BASOPHILS % (AUTO) 1.4 % (0.2-1.0); EOSINOPHILS # (AUTO) 0.3 x10^3/uL (0.0-0.2); EOSINOPHILS % (AUTO) 3.3 % (0.9-2.9); HEMATOCRIT 45.6 % (42.0-54.0); HEMOGLOBIN 16.1 g/dL (13.5-18.0); LYMPHOCYTES # (AUTO) 1.7 X10^3/uL (1.3-2.9); LYMPHOCYTES % (AUTO) 19.7 % (21.0-51.0); MEAN CORPUSCULAR HGB CONC 35.3 g/dL (33.0-35.0); MEAN CORPUSCULAR VOLUME 87.8 fL (80.0-100.0); MEAN PLATELET VOLUME 9.5 fL (7.4-11.0); MONOCYTES # (AUTO) 0.5 x10^3/uL (0.3-0.8); MONOCYTES % (AUTO) 5.5 % (0.0-13.0); NEUTROPHILS % (AUTO) 70.1 % (42.0-75.0); PLATELET COUNT 257 X10^3/uL (150.0-450.0); RED BLOOD COUNT 5.19 X10^6/uL (4.7-6.0); RED CELL DISTRIBUTION WIDTH 12.6 % (11.6-16.5); WHITE BLOOD COUNT 8.6 X10^3/uL (3.6-10.0)
[2017-10-21 11:11] LABS: CREATININE,URINE 70.86 mg/dL (40-278); MICROALBUMIN,URINE 12.3 mg/L
[2017-10-21 11:14] LABS: HEMOGLOBIN A1C 9.7 %
[2017-10-21 11:18] LABS: ALANINE AMINOTRANSFERASE 74 Units/L (12-78); ALBUMIN 3.9 g/dL (3.4-5.0); ALKALINE PHOSPHATASE 162 Units/L (46-116); ASPARTATE AMINO TRANSFERASE 66 Units/L (15-37); BLOOD UREA NITROGEN 15 mg/dL (7-18); CALCIUM 8.8 mg/dL (8.5-10.1); CARBON DIOXIDE 29.7 mmol/L (21-32); CHLORIDE 95 mmol/L (98-107); CHOL/HDL RATIO 2.8 (0.0-5.0); CHOLESTEROL 135 mg/dL (0-200); COR NA(FOR HYPERGLY) 140 mmol/L (136-145); CREATININE 1.05 mg/dL (0.70-1.30); HDL CHOLESTEROL 48 mg/dL (40-60); SODIUM 134 mmol/L (136-145); TRIGLYCERIDES 113 mg/dL (0-150); eGFR BLACK RACES > 60 (>60); eGFR NON BLACK RACES > 60 (>60)
[2017-10-21 11:27] LABS: TOTAL PSA 0.27 ng/mL (0.13-4.0)
== END ==
LOC: LAB 10:28
PROVIDERS: ATTEND Nurse Practitioner Family
DX: R35.8 Other polyuria (principal); I10 Essential (primary) hypertension; E11.40 Type 2 diabetes mellitus with diabetic neuropathy, unspecified; E11.65 Type 2 diabetes mellitus with hyperglycemia
CPT/HCPCS: 36415; 80053; 80061; 82043; 83036; 84153; 85025

== ENCOUNTER 2018-07-04 16:15 | Observation (INO) ==
[2018-07-04] MEDS ORDERED: NS 1000 ML 1,000 ML IV ONE ×3 (16:35→22:10)
[2018-07-04] MEDS ORDERED: NS 1000 ML 1,000 ML ONE ×3 (16:37→22:10)
[2018-07-04 16:38] LABS: BASOPHILS % (AUTO) 0.3 % (0.2-1.0); EOSINOPHILS # (AUTO) 0.3 x10^3/uL (0.0-0.2); EOSINOPHILS % (AUTO) 3.2 % (0.9-2.9); HEMATOCRIT 46.9 % (42.0-54.0); HEMOGLOBIN 16.5 g/dL (13.5-18.0); LYMPHOCYTES # (AUTO) 1.8 X10^3/uL (1.3-2.9); LYMPHOCYTES % (AUTO) 20.8 % (21.0-51.0); MEAN CORPUSCULAR HGB CONC 35.2 g/dL (33.0-35.0); MEAN CORPUSCULAR VOLUME 90.9 fL (80.0-100.0); MEAN PLATELET VOLUME 10.1 fL (7.4-11.0); MONOCYTES # (AUTO) 0.5 x10^3/uL (0.3-0.8); MONOCYTES % (AUTO) 5.7 % (0.0-13.0); PLATELET COUNT 268 X10^3/uL (150.0-450.0); RED BLOOD COUNT 5.16 X10^6/uL (4.7-6.0); RED CELL DISTRIBUTION WIDTH 12.8 % (11.6-16.5); WHITE BLOOD COUNT 8.6 X10^3/uL (3.6-10.0)
--- NOTE | 2018-07-04 16:49 | DR.DIZZY ---
HPI Time seen Time Seen by Provider: 07/04/18 16:49 PCP Primary Care Physician: SALBADOR GARCIA Complaint Chief Complaint Doctor Comments: HYPOTENSION NOTED AT PATIENTS [employer] OFFICE WHERE HE WENT FOR CONSULTATION FOR FLU SHOT. Chief Complaint:: EMS OUT TO PT WITH LOW B/P AT THE [facility] AND UPON ARRIVAL OF EMS PTS B/P WAS 78/48 AND PT DID NOT WANT TO COME TO ER AND JENNIFER TOLD HIM TO COME AND BE CHECKED OUT ,,, PT WAS AT THE [facility] FOR A FLU APPT AND PT HAD A NEAR SYNCOME EPISODE AND HIS BP WAS FOUND TO BE LOW.. Self Treatment fo Chief Complaint: UPON ARRIVAL PT IS ALERT ORIENTED SKIN W/D NO DISTRESS NOTED ,,BR Nurses Notes Reviewed Nurses Notes Review: Yes Source History Provided: Patient Mode of Arrival Mode of Arrival: EMS Timing Onset of Chief Complaint: 07/04/18 Came on: Suddenly Duration Duration: Constant Location of Weakness Weakness Location: Generalized Context Onset: At rest Does pt take pot. toxic medication?: No History of: DM and ND Stroke Symptoms: None Severity Severity: Normal activity level Modifying factors Worsens: Change in Position PMH PMH Past Medical History: Yes Past Medical History: Coronary Artery Disease, Diabetes, Hypertension and ND Past Surgical History: Yes Surgical History: Angioplasty/Stents, Appendectomy, CABG/Valve Surgery and Cholecystectomy Family History History of Family Medical Conditions: Yes Family Medical History: Diabetes Mellitus, Cancer, ND, Coronary Artery Disease and Hypertension Social History Does patient currently use any type of tobacco product: Yes Have you used tobacco products in the last 12 months: Yes Type of Tobacco Use: Cigarettes How many years tobacco product used: 20 Does any household member use tobacco: No Alcohol Use: None Do you use any recreational Drugs:: No Lives With: Family Lives Where: Home infectious screening In the last 2 months have you had wt loss of >10#?: NO Have you had fever, night sweats or hemotysis?: No Have you traveled outside the country in the last 6 months?: No Isolation: Standard ROS Review of Systems Constitutional: Weakness and Fatigue Eyes: No Symptoms Reported ENTM: No Symptoms Reported Respiratoy: No Symptoms Reported Cardiovascular: No Symptoms Reported Gastrointestinal/Abdominal: No Symptoms Reported Genitourinary: No Symptoms Reported Neurological: Weakness Musculoskeletal: No Symptoms Reported Integumentary: No Symptoms Reported Hematologic/Lymphatic: No Symptoms Reported Endocrine: No Symptoms Reported Psychiatric: No Symptoms Reported All Other Systems: Reviewed and Negative PE Vital Signs Vitals: Temperature 98.1 F Pulse Rate [Apical] 67 Pulse Rate [Left Brachial] 58 Pulse Rate 61 Respiratory Rate 17 Blood Pressure [Right Arm] 163/77 Blood Pressure [Left Arm] 106/51 Blood Pressure 93/52 O2 Sat by Pulse Oximetry 99 General Limitations: No Limitations General Appearance: In No Apparent Distress Head Head Exam: Normal Inspection and Atraumatic Eyes Eye exam: Normal Appearance, PERRL and EOMI; negative Scleral Icterus and Conjunctival Injection Pupils: Regular, Round: Bilateral and Reactive: Bilateral Sclera/Conjunctival: Normal Inspection: Bilateral ENT ENT Exam: Normal Exam and Normal Oropharynx Neck Neck Exam: Normal Inspection and Trachea Midline Chest Chest Inspection: Symmetric Chest Wall Rise Respiratory Respiratory Exam: Normal Lung Sounds Bilat Respiratory Exam: Bilateral: Clear to Auscultation Cardiovascular Cardiovascular Exam: Regular Rate and Normal Rhythm Abdominal Exam Abdominal Exam: Normal Inspection, Normal Bowel Sounds and Soft; negative Tende rness Rectal Rectal Exam: Deferred Extremeties Extremities Exam: Normal Inspection Back Back Exam: Normal Inspection Neurologic Neurological Exam: Alert and Oriented X3; negative Motor Sensory Deficit Patient Oriented To: Person, Place and Time Cranial Nerve Exam: EOM Function (II, III, IV, ): Normal, Facial Sensation (V): Normal, Facial Palsy (VII): Normal, Gag reflex (XI): Normal and Tongue Deviation: Normal Motor Strength - LUE: 5/5 Motor Strength - RUE: 5/5 Motor Strength - LLE: 5/5 Motor Strength - RLE: 5/5 Psychiatric Psychiatric Exam: Normal Affect and Normal Mood Skin Skin Exam: Dry MDM Additional Information Obtained Additional Information Obtained From: Family Differential Diagnosis Differential Diagnosis: Anemia, CVA, Dehydration, Dysrhythmia, Electrolyte disorder, Hypoglycemia, Myocardial infarction, Pulmonary embolus and TIA COURSE Treatment Treatment: SEE ORDERS. Education/Counseling Education/Counseling: Patient and Family Educated On: Diagnosis ROR Labs Reviewed Laboratory Results Reviewed?: Yes Result Diagrams: 07/05/18 05:45 07/05/18 05:45 Laboratory: WBC 7.0 X10^3/uL (3.6-10.0) 07/05/18 05:45 RBC 4.84 X10^6/uL (4.7-6.0) 07/05/18 05:45 Hgb 15.2 g/dL (13.5-18.0) 07/05/18 05:45 Hct 43.8 % (42.0-54.0) 07/05/18 05:45 MCV 90.5 fL (80.0-100.0) 07/05/18 05:45 MCH 31.4 pg (27.0-34.0) 07/05/18 05:45 MCHC 34.7 g/dL (33.0-35.0) 07/05/18 05:45 RDW 13.1 % (11.6-16.5) 07/05/18 05:45 Plt Count 214 X10^3/uL (150.0-450.0) 07/05/18 05:45 MPV 10.6 fL (7.4-11.0) 07/05/18 05:45 Neut % (Auto) 65.3 % (42.0-75.0) 07/05/18 05:45 Lymph % (Auto) 23.4 % (21.0-51.0) 07/05/18 05:45 [place] % (Auto) 6.0 % (0.0-13.0) 07/05/18 05:45 Eos % (Auto) 4.0 % (0.9-2.9) H 07/05/18 05:45 Baso % (Auto) 1.3 % (0.2-1.0) H 07/05/18 05:45 Neut # (Auto) 4.6 x10^3/uL (2.2-4.8) 07/05/18 05:45 Lymph # (Auto) 1.6 X10^3/uL (1.3-2.9) 07/05/18 05:45 [place] # (Auto) 0.4 x10^3/uL (0.3-0.8) 07/05/18 05:45 Eos # (Auto) 0.3 x10^3/uL (0.0-0.2) H 07/05/18 05:45 Baso # (Auto) 0.1 X10^3/uL (0.0-0.1) 07/05/18 05:45 Absolute Nucleated RBC 0.0 /100WBC 07/05/18 05:45 INR Target Range - 11/12/18 16:15 INR 0.95 (0.8-1.3) 07/04/18 16:15 APTT 28.4 SECONDS (22.9-36.5) 07/04/18 16:15 PTT Comment - 07/04/18 16:15 Sodium 135 mmol/L (136-145) L 07/05/18 05:45 Corrected Sodium 142 mmol/L (136-145) 07/05/18 05:45 Potassium 3.8 mmol/L (3.5-5.1) 07/05/18 05:45 Chloride 103 mmol/L (98-107) 07/05/18 05:45 Carbon Dioxide 23.8 mmol/L (21-32) 07/05/18 05:45 BUN 8 mg/dL (7-18) 07/05/18 05:45 Creatinine 0.74 mg/dL (0.70-1.30) 07/05/18 05:45 Est GFR (MDRD) Af Amer > 60 (>60) 07/05/18 05:45 Est GFR (MDRD) Non-Af > 60 (>60) 07/05/18 05:45 Glucose 376 mg/dL (65-99) H 07/05/18 05:45 POC Glucose (mg/dL) 313 mg/dL (65-99) H 07/05/18 11:49 Hemoglobin A1c 10.4 % 07/05/18 05:45 Lactic Acid 1.5 mmol/L (0.4-2.0) 07/04/18 16:45 Calcium 7.4 mg/dL (8.5-10.1) L 07/05/18 05:45 Corrected Calcium 8.4 mg/dL (8.5-10.1) L 07/05/18 05:45 Magnesium 1.8 mg/dL (1.7-2.9) 07/04/18 16:15 Total Bilirubin 0.80 mg/dL (0.2-1.0) 07/05/18 05:45 AST 90 Units/L (15-37) H 07/05/18 05:45 ALT 100 Units/L (12-78) H 07/05/18 05:45 Alkaline Phosphatase 271 Units/L (46-116) H 07/05/18 05:45 Creatine Kinase 38 Units/L (39-308) L 07/05/18 05:45 CK-MB (CK-2) < 1.0 ng/mL (0-4.0) 07/05/18 05:45 CK/CKMB % Calc 2.6 % (<4) 07/05/18 05:45 Troponin I < 0.02 ng/mL (0-1.5) 07/05/18 05:45 Total Protein 6.3 g/dL (6.4-8.2) L 07/05/18 05:45 Albumin 2.8 g/dL (3.4-5.0) L 07/05/18 05:45 Globulin 3.5 g/dL (2.5-4.5) 07/05/18 05:45 Albumin/Globulin Ratio 0.8 Ratio (1.1-2.1) L 07/05/18 05:45 Specimen Type Random urine 07/04/18 22:03 Urine Color Yellow (YELLOW) 07/04/18 22: Urine Appearance Clear (CLEAR) 07/04/18 22: Urine pH 5.0 (5.0 - 8.0) 07/04/18 22:03 Ur Specific [place] 1.010 (1.000-1.030) 07/04/18 22:03 Urine Protein 1+ (NEGATIVE) 07/04/18 22: Urine Glucose (UA) 4+ (NEGATIVE) 07/04/18 22: Urine Ketones Negative (NEGATIVE) 07/04/18 22:03 Urine Occult Blood Negative (NEGATIVE) 07/04/18 22: Urine Nitrite Negative (NEGATIVE) 07/04/18 22: Urine Bilirubin Negative (NEGATIVE) 07/04/18 22: Urine Urobilinogen Normal (NORMAL) 07/04/18 22:03 Ur Leukocyte Esterase Negative (NEGATIVE) 07/04/18 22:03 Urine RBC 3-5 /HPF (NONE SEEN) 07/04/18 22:03 Urine WBC 0-2 /HPF (NONE SEEN) 07/04/18 22:03 Ur Squamous Epith Cells Negative /HPF (NEGATIVE) 07/04/18 22:03 Urine Bacteria Trace /HPF (NEGATIVE) 07/04/18 22:03 Urine Sperm Few /HPF (NEGATIVE) 07/04/18 22:03 Ur Culture Indicated? No/not indicated 07/04/18 22:03 Urine Opiates Screen Negative (NEG=<300) 07/04/18 22:03 Urine Methadone Screen Negative (NEG=<300) 07/04/18 22:03 Ur Barbiturates Screen Negative (NEG=<200) 07/04/18 22:03 Ur Phencyclidine Scrn Negative (NEG=<25) 07/04/18 22:03 Ur Amphetamines Screen Negative (NEG=<1000) 07/04/18 22:03 U Benzodiazepines Scrn Negative (NEG=<200) 07/04/18 22:03 Urine Cocaine Screen Negative (NEG=<300) 07/04/18 22:03 U Marijuana (THC) Screen Negative (NEG=<50) 07/04/18 22:03 Acetone, Semi-Quant Negative (NEGATIVE) 07/04/18 16:15 Hepatitis A IgM Ab Negative (Negative) 07/04/18 16:15 Hep Bs Antigen Negative (Negative) 07/04/18 16:15 Hep Bs Ag Confirmation TNP 07/04/18 16:15 Hep B Core IgM Ab Negative (Negative) 07/04/18 16:15 Hepatitis C Ab Index 0.08 IV 07/04/18 16:15 Hepatitis C Interp Negative (Negative) 07/04/18 16:15 Hepatitis Interpret See note 07/04/18 16:15 XRAY XRAY Interpreted by: Radiologist XRAY Findings: REPORT NOTED. Diagnosis Discharge Problem: Acute hypotension, Hyperglycemia Instructions Instructions: Steps to Quit Smoking, Skrs-lw-[id number] Hypotension, Xodq-gh-Hjot Near-Syncope, Thws-dm-Vmoo Forms: Patient Portal
[2018-07-04 17:07] LABS: BLOOD UREA NITROGEN 10 mg/dL (7-18); CALCIUM 8.6 mg/dL (8.5-10.1); CARBON DIOXIDE 27.7 mmol/L (21-32); CHLORIDE 96 mmol/L (98-107); COR NA(FOR HYPERGLY) 136 mmol/L (136-145); CREATININE 1.18 mg/dL (0.70-1.30); SODIUM 130 mmol/L (136-145); TROPONIN I < 0.02 ng/mL (0-1.5); eGFR NON BLACK RACES > 60 (>60)
[2018-07-04 17:11] LABS: ALANINE AMINOTRANSFERASE 96 Units/L (12-78); ALBUMIN 3.7 g/dL (3.4-5.0); ALKALINE PHOSPHATASE 264 Units/L (46-116); ASPARTATE AMINO TRANSFERASE 59 Units/L (15-37); CKMB % 2.6 % (<4); CREATINE KINASE 38 Units/L (39-308); CREATINE KINASE MB < 1.0 ng/mL (0-4.0); MAGNESIUM 1.8 mg/dL (1.7-2.9); TOTAL PROTEIN 7.7 g/dL (6.4-8.2)
--- NOTE | 2018-07-04 17:16 | CT ---
HISTORY: Low back pressure, near syncope, headache Study: CT brain without contrast Comparison: May 04, 2018 Technique: Multiple axial images of the brain were obtained from the skull base to the vertex without administration of IV contrast. Findings: Imaging of the brain demonstrates no intracranial hemorrhage, mass effect, or midline shift. No extra-axial fluid collection is identified. There is no CT evidence to suggest acute or early subacute infarct. Global atrophy is noted with mild ex vacuo dilatation of the ventricles. There are low attenuating foci within the periventricular white matter, likely reflecting chronic small vessel disease. The basilar cisterns are patent. The bony structures are intact. IMPRESSION: 1. No acute intraparenchymal cyst evident. Chronic changes as above Reported By:
--- NOTE | 2018-07-04 18:53 | RAD ---
HISTORY: Hypotension, near syncope Study: Single view chest Comparison: 05/26/2018 Findings: Chronic sternotomy changes are noted post CABG. No infiltrate, effusion or pneumothorax identified. The cardiac and mediastinal contours are within normal limits. The soft tissues are unremarkable. IMPRESSION: 1. No acute cardiopulmonary abnormality. Reported By:
[2018-07-04 22:20] LABS: BILIRUBIN,URINE NEGATIVE (NEGATIVE); BLOOD/HEMOGLOBIN,URINE NEGATIVE (NEGATIVE); GLUCOSE, URINE 4+ (NEGATIVE); KETONES,URINE NEGATIVE (NEGATIVE); LEUKOCYTE ESTERASE ,URINE NEGATIVE (NEGATIVE); NITRITES,URINE NEGATIVE (NEGATIVE); PROTEIN,URINE 1+ (NEGATIVE); UROBILINOGEN,URINE NORMAL (NORMAL)
[2018-07-04 22:25] LABS: APPEARANCE,URINE CLEAR (CLEAR); BACTERIA,URINE TRACE /HPF (NEGATIVE); COLOR,URINE YELLOW (YELLOW); SPERM,URINE FEW /HPF (NEGATIVE); SQUAMOUS EPITHELIAL CELL,UR NEGATIVE /HPF (NEGATIVE)
[2018-07-04] MEDS ORDERED: ROXICODONE TAB 15 MG PO PRN (23:11)
[2018-07-04] MEDS ORDERED: ELAVIL PO SCH (23:11)
[2018-07-04] MEDS ORDERED: ANTIVERT TAB 25 MG PO PRN (23:11)
[2018-07-04 23:16] VITALS: BMI 28.3
[2018-07-04] MEDS: NS 1000 ML 1,000 ML IV SCH (23:23)
[2018-07-04] MEDS: NEURONTIN CAP 400 MG PO SCH (23:27)
[2018-07-05 00:09] LABS: CKMB % 2.6 % (<4); CREATINE KINASE 38 Units/L (39-308); CREATINE KINASE MB < 1.0 ng/mL (0-4.0); TROPONIN I < 0.02 ng/mL (0-1.5)
[2018-07-05] MEDS ORDERED: ROXICODONE TAB 5 MG PO PRN ×2 (05:29→13:38)
[2018-07-05] MEDS: NEURONTIN CAP 400 MG PO SCH (05:38)
[2018-07-05 06:35] LABS: BASOPHILS # (AUTO) 0.1 X10^3/uL (0.0-0.1); BASOPHILS % (AUTO) 1.3 % (0.2-1.0); EOSINOPHILS # (AUTO) 0.3 x10^3/uL (0.0-0.2); HEMATOCRIT 43.8 % (42.0-54.0); HEMOGLOBIN 15.2 g/dL (13.5-18.0); LYMPHOCYTES # (AUTO) 1.6 X10^3/uL (1.3-2.9); LYMPHOCYTES % (AUTO) 23.4 % (21.0-51.0); MEAN CORPUSCULAR HEMOGLOBIN 31.4 pg (27.0-34.0); MEAN CORPUSCULAR HGB CONC 34.7 g/dL (33.0-35.0); MEAN CORPUSCULAR VOLUME 90.5 fL (80.0-100.0); MEAN PLATELET VOLUME 10.6 fL (7.4-11.0); MONOCYTES # (AUTO) 0.4 x10^3/uL (0.3-0.8); NEUTROPHILS # (AUTO) 4.6 x10^3/uL (2.2-4.8); NEUTROPHILS % (AUTO) 65.3 % (42.0-75.0); PLATELET COUNT 214 X10^3/uL (150.0-450.0); RED BLOOD COUNT 4.84 X10^6/uL (4.7-6.0); RED CELL DISTRIBUTION WIDTH 13.1 % (11.6-16.5)
[2018-07-05 07:02] LABS: ALANINE AMINOTRANSFERASE 100 Units/L (12-78); ALBUMIN 2.8 g/dL (3.4-5.0); ALKALINE PHOSPHATASE 271 Units/L (46-116); ASPARTATE AMINO TRANSFERASE 90 Units/L (15-37); BLOOD UREA NITROGEN 8 mg/dL (7-18); CALCIUM 7.4 mg/dL (8.5-10.1); CARBON DIOXIDE 23.8 mmol/L (21-32); CHLORIDE 103 mmol/L (98-107); COR CA(FOR HYPOALB) 8.4 mg/dL (8.5-10.1); COR NA(FOR HYPERGLY) 142 mmol/L (136-145); CREATININE 0.74 mg/dL (0.70-1.30); SODIUM 135 mmol/L (136-145); TOTAL PROTEIN 6.3 g/dL (6.4-8.2); eGFR NON BLACK RACES > 60 (>60)
[2018-07-05 07:41] LABS: CKMB % 2.6 % (<4); CREATINE KINASE 38 Units/L (39-308); CREATINE KINASE MB < 1.0 ng/mL (0-4.0); TROPONIN I < 0.02 ng/mL (0-1.5)
[2018-07-05] MEDS ORDERED: ASPIRIN EC 81 MG PO SCH (09:00)
[2018-07-05] MEDS ORDERED: CLARITIN PO SCH (09:00)
[2018-07-05] MEDS ORDERED: ZANTAC PO SCH (09:00)
[2018-07-05] MEDS ORDERED: LIPITOR TAB 40 MG PO SCH (09:00)
[2018-07-05] MEDS: NS 1000 ML 1,000 ML IV SCH (12:05)
[2018-07-05] MEDS ORDERED: HumuLIN R SUBCUT PRN ×2 (12:57→13:37)
[2018-07-05] MEDS ORDERED: HumuLIN R SC PRN (13:24)
[2018-07-05] MEDS ORDERED: NEURONTIN CAP 400 MG PO SCH (14:00)
[2018-07-05 14:49] VITALS: BP 163/77
[2018-07-05] MEDS ORDERED: SNACK - Diabetic Appropriate PO SCH ×2 (20:00)
[2018-07-05] MEDS ORDERED: LANTUS SC SCH (21:00)
[2018-07-05] MEDS ORDERED: FLEXERIL TAB 10 MG PO SCH (21:00)
[2018-07-05] MEDS ORDERED: TRICOR TAB 145 MG PO SCH (21:00)
[2018-07-05] MEDS ORDERED: FENOFIBRATE 120 MG PO SCH (21:00)
[2018-07-05] MEDS ORDERED: ELAVIL PO SCH (21:00)
[2018-07-06] MEDS ORDERED: NS 1000 ML 1,000 ML IV SCH
[2018-07-06] MEDS ORDERED: LIPITOR TAB 40 MG PO SCH (09:00)
[2018-07-06] MEDS ORDERED: ASPIRIN EC 81 MG PO SCH (09:00)
[2018-07-06] MEDS ORDERED: CLARITIN PO SCH (09:00)
[2018-07-06] MEDS ORDERED: ZANTAC PO SCH (09:00)
[2018-07-08 00:40] LABS: HEPATITIS A ANTIBODY IGM Negative (Negative)
[2018-07-09 07:19] LABS: HEPATITIS B CORE IGM Negative (Negative); HEPATITIS B SURFACE ANTIGEN Negative (Negative)
--- NOTE | 2018-07-13 02:20 | DR.CARTERS ---
Short Stay Summary - Short Stay Summary for: Short Stay Summary for Date of:: 07/04/18 - Admission Date Date of Admission: 07/04/18 - Discharge Date Discharge Date: 07/05/18 - Admission Diagnoses (1) Near syncope Status: Acute (2) Acute hypotension Status: Acute (3) Hyperglycemia Status: Acute - Hospital Course Hospital Course: PATIENT PRESENTED TO ED VIA EMS WITH LOW B/P AT THE [facility] AND UPON ARRIVAL OF EMS PTS B/P WAS 78/48 AND PT DID NOT WANT TO COME TO ER AND JENNIFER,[employer] JOU[employer] TOLD HIM TO COME AND BE CHECKED OUT. PATIENT WAS ADMITTED FOR OBSERVATION. PATIENTS BP DID IMPROVE. GENTLE HYDRATION WAS GIVEN. LABS WERE MONITORED INCLUDING BS WHICH WAS ELEVATED. SYMPTOMS RESOLVED AND PATIENT WAS DISCHARGED HOME. - Discharge Medications Discharge Medications: Home Medication List aspirin [Aspir-81] 81 mg PO DAILY 07/04/18 [History] butalbital-acetaminophen 1 tab PO Q8H PRN 07/04/18 [History] fenofibrate 120 mg PO HS 07/04/18 [History] nitroglycerin 0.4 mg SUBLINGUAL PRN PRN 07/04/18 [History] Glucovance 5/500mg 2 tab PO HS #60 tab 07/05/18 [Rx] lisinopril 10 mg PO QDAY #30 tab 07/05/18 [Rx] metoprolol succinate 12.5 mg PO QDAY 30 Days #30 tab 07/05/18 [Rx] Prescriptions: Glucovance 5/500mg MICHAEL,ANDREA lisinopril MICHAEL,ANDREA metoprolol succinate MICHAEL,ANDREA - Discharge Plan Disposition: 01 HOME, SELF-CARE Condition: Stable Prescriptions: Glucovance 5/500mg 2 tab PO HS #60 tab lisinopril 10 mg PO QDAY #30 tab metoprolol succinate 12.5 mg PO QDAY 30 Days #30 tab - Follow up/Referrals Follow up/Referrals: CORNELIUS KOLB [Primary Care Provider] - 07/08/18 9:30 am - Instructions Instructions: Steps to Quit Smoking, Vuzh-dc-Imdc, Hypotension, Lxsm-ek-Rucl, Near-Syncope, Eaza-yw-Wcsi Additional Instructions: RESUME HOME MEDICATION BLOOD SUGAR CONTROL BLOOD PRESSURE CONTROL ENCOURAGE ORAL HYDRATION FOLLOW UP WITH DR THORPE follow UP WITH PCP OR DR SMITH IN ONE WEEK FOR BLOOD SUGAR MANAGEMENT Forms: Patient Portal
== END 2018-07-05 14:20 | disposition home or self-care (01) ==
LOC: ER 16:15 → ICU 16:15
PROVIDERS: ADMIT Internal Medicine; ATTEND Internal Medicine
CPT/HCPCS: 36415; 70450; 71010; 71045; 80053; 80074; 80307; 81001; 82009; 82550; 82553; 83036; 83605; 83735; 84484; 85025; 85610; 85730; 93005; 93010; 96365; 96367; 99217; 99284; A4222; G0378; G0434; J7030

== ENCOUNTER 2018-12-18 16:19 | Inpatient (IN) ==
[2018-12-18] MEDS ORDERED: NS 1000 ML 1,000 ML IV ONE ×2 (16:35→17:37)
--- NOTE | 2018-12-18 16:46 | DR.GENAD ---
HPI Time Seen Time Seen by Provider: 12/18/18 16:31 PMH PMH Past Medical History: Coronary Artery Disease, Diabetes, Hypertension and ID Past Surgical History: Yes Surgical History: Cholecystectomy and Other Family History Family Medical History: Diabetes Mellitus, Cancer and Hypertension Social History Do you use any recreational Drugs:: No PE Vital Signs Vitals: Temperature 98.2 F Pulse Rate [Right Brachial] 72 Pulse Rate 72 Respiratory Rate 24 Blood Pressure [Right Arm] 119/61 Blood Pressure [Left Arm] 106/51 Blood Pressure 76/52 O2 Sat by Pulse Oximetry 97 ROR Labs Reviewed Result Diagrams: 12/18/18 16:30 12/18/18 16:30 Laboratory: WBC 29.8 X10^3/uL (3.6-10.0) H 12/18/18 16:30 RBC 5.19 X10^6/uL (4.7-6.0) 12/18/18 16:30 Hgb 16.1 g/dL (13.5-18.0) 12/18/18 16:30 Hct 47.4 % (42.0-54.0) 12/18/18 16:30 MCV 91.3 fL (80.0-100.0) 12/18/18 16:30 MCH 31.1 pg (27.0-34.0) 12/18/18 16:30 MCHC 34.1 g/dL (33.0-35.0) 12/18/18 16:30 RDW 13.7 % (11.6-16.5) 12/18/18 16:30 Plt Count 205 X10^3/uL (150.0-450.0) 12/18/18 16:30 Plt Count Comment Adequate (ADEQUATE) 12/18/18 16:30 MPV 10.0 fL (7.4-11.0) 12/18/18 16:30 Neut % (Auto) 95.3 % (42.0-75.0) H 12/18/18 16:30 Lymph % (Auto) 1.4 % (21.0-51.0) L 12/18/18 16:30 [place] % (Auto) 3.0 % (0.0-13.0) 12/18/18 16:30 Eos % (Auto) 0.1 % (0.9-2.9) L 12/18/18 16:30 Baso % (Auto) 0.2 % (0.2-1.0) 12/18/18 16:30 Neut # (Auto) 28.4 x10^3/uL (2.2-4.8) H 12/18/18 16:30 Lymph # (Auto) 0.4 X10^3/uL (1.3-2.9) L 12/18/18 16:30 [place] # (Auto) 0.9 x10^3/uL (0.3-0.8) H 12/18/18 16:30 Eos # (Auto) 0.0 x10^3/uL (0.0-0.2) 12/18/18 16:30 Baso # (Auto) 0.1 X10^3/uL (0.0-0.1) 12/18/18 16:30 Absolute Nucleated RBC 0.0 /100WBC 12/18/18 16:30 Total Counted 100 12/18/18 16:30 Neutrophils % (Manual) 73 % (39-76) 12/18/18 16:30 Band Neutrophils % 21 % (0-10) H 12/18/18 16:30 Lymphocytes % (Manual) 3 % (13-43) L 12/18/18 16:30 Monocytes % (Manual) 3 % (4-9) L 12/18/18 16:30 Plt Morphology Comment Normal (NORMAL) 12/18/18 16:30 RBC Morphology Normal (NORMAL) 12/18/18 16:30 INR Target Range - 12/18/18 16:30 INR 1.31 (0.8-1.3) H 12/18/18 16:30 APTT 33.7 SECONDS (22.9-36.5) 12/18/18 16:30 PTT Comment - 12/18/18 16:30 D-Dimer 904 ng/mL (0-400) H* 12/18/18 16:30 Sodium 137 mmol/L (136-145) 12/18/18 16:30 Corrected Sodium 139 mmol/L (136-145) 12/18/18 16:30 Potassium 3.7 mmol/L (3.5-5.1) 12/18/18 16:30 Chloride 98 mmol/L (98-107) 12/18/18 16:30 Carbon Dioxide 22.7 mmol/L (21-32) 12/18/18 16:30 BUN 21 mg/dL (7-18) H 12/18/18 16:30 Creatinine 1.83 mg/dL (0.70-1.30) H 12/18/18 16:30 Est GFR (MDRD) Af Amer 48 (>60) L 12/18/18 16:30 Est GFR (MDRD) Non-Af 40 (>60) L 12/18/18 16:30 Glucose 187 mg/dL (65-99) H 12/18/18 16:30 Lactic Acid 2.3 mmol/L (0.4-2.0) H 12/18/18 17:36 Calcium 9.0 mg/dL (8.5-10.1) 12/18/18 16:30 Corrected Calcium TNP 12/18/18 16:30 Magnesium 1.0 mg/dL (1.7-2.9) L 12/18/18 16:30 Total Bilirubin 8.50 mg/dL (0.2-1.0) H 12/18/18 16:30 AST 118 Units/L (15-37) H 12/18/18 16:30 ALT 167 Units/L (12-78) H 12/18/18 16:30 Alkaline Phosphatase 274 Units/L (46-116) H 12/18/18 16:30 Creatine Kinase 45 Units/L (39-308) 12/18/18 16:30 CK-MB (CK-2) < 1.0 ng/mL (0-4.0) 12/18/18 16:30 CK/CKMB % Calc 2.2 % (<4) 12/18/18 16:30 Troponin I < 0.02 ng/mL (0-1.5) 12/18/18 16:30 Total Protein 7.4 g/dL (6.4-8.2) 12/18/18 16:30 Albumin 3.5 g/dL (3.4-5.0) 12/18/18 16:30 Globulin 3.9 g/dL (2.5-4.5) 12/18/18 16:30 Albumin/Globulin Ratio 0.9 Ratio (1.1-2.1) L 12/18/18 16:30 Specimen Type Clean catch urine 12/18/18 18:31 Urine Color Brown (YELLOW) 12/18/18 18:31 Urine Appearance Cloudy (CLEAR) 12/18/18 18:31 Urine pH 6.0 (5.0 - 8.0) 12/18/18 18:31 Ur Specific [place] 1.015 (1.000-1.030) 12/18/18 18:31 Urine Protein 3+ (NEGATIVE) 12/18/18 18:31 Urine Glucose (UA) 1+ (NEGATIVE) 12/18/18 18:31 Urine Ketones 1+ (NEGATIVE) 12/18/18 18:31 Urine Occult Blood 2+ (NEGATIVE) 12/18/18 18:31 Urine Nitrite Positive (NEGATIVE) 12/18/18 18:31 Urine Bilirubin 3+ (NEGATIVE) 12/18/18 18:31 Urine Urobilinogen 3+ (NORMAL) 12/18/18 18:31 Ur Leukocyte Esterase 2+ (NEGATIVE) 12/18/18 18:31 Urine RBC 0-2 /HPF (NONE SEEN) 12/18/18 18:31 Urine WBC 5-10 /HPF (NONE SEEN) 12/18/18 18:31 Ur Squamous Epith Cells Many /HPF (NEGATIVE) 12/18/18 18:31 Ur Transition Epith Cell Many /HPF (NEGATIVE) 12/18/18 18:31 Ur Renal Epithelial Cell Rare /HPF (NEGATIVE) 12/18/18 18:31 Amorphous Sediment 2+ /HPF (NEGATIVE) 12/18/18 18:31 Urine Bacteria 1+ /HPF (NEGATIVE) 12/18/18 18:31 Hyaline Casts Few /LPF (NEGATIVE) 12/18/18 18:31 Granular Casts Few /LPF (NEGATIVE) 12/18/18 18:31 Urine Mucus Moderate /HPF (NEGATIVE) 12/18/18 18:31 Ur Culture Indicated? Yes/culture set up 12/18/18 18:31 Urine Opiates Screen Negative (NEG=<300) 12/18/18 19:13 Urine Methadone Screen Negative (NEG=<300) 12/18/18 19:13 Ur Barbiturates Screen Negative (NEG=<200) 12/18/18 19:13 Ur Phencyclidine Scrn Negative (NEG=<25) 12/18/18 19:13 Ur Amphetamines Screen Negative (NEG=<1000) 12/18/18 19:13 U Benzodiazepines Scrn Negative (NEG=<200) 12/18/18 19:13 Urine Cocaine Screen Negative (NEG=<300) 12/18/18 19:13 U Marijuana (THC) Screen Negative (NEG=<50) 12/18/18 19:13
[2018-12-18 16:49] LABS: BASOPHILS # (AUTO) 0.1 X10^3/uL (0.0-0.1); BASOPHILS % (AUTO) 0.2 % (0.2-1.0); EOSINOPHILS % (AUTO) 0.1 % (0.9-2.9); HEMATOCRIT 47.4 % (42.0-54.0); HEMOGLOBIN 16.1 g/dL (13.5-18.0); LYMPHOCYTES # (AUTO) 0.4 X10^3/uL (1.3-2.9); LYMPHOCYTES % (AUTO) 1.4 % (21.0-51.0); MEAN CORPUSCULAR HEMOGLOBIN 31.1 pg (27.0-34.0); MEAN CORPUSCULAR HGB CONC 34.1 g/dL (33.0-35.0); MEAN CORPUSCULAR VOLUME 91.3 fL (80.0-100.0); MONOCYTES # (AUTO) 0.9 x10^3/uL (0.3-0.8); NEUTROPHILS # (AUTO) 28.4 x10^3/uL (2.2-4.8); NEUTROPHILS % (AUTO) 95.3 % (42.0-75.0); PLATELET COUNT 205 X10^3/uL (150.0-450.0); RED BLOOD COUNT 5.19 X10^6/uL (4.7-6.0); RED CELL DISTRIBUTION WIDTH 13.7 % (11.6-16.5); WHITE BLOOD COUNT 29.8 X10^3/uL (3.6-10.0)
[2018-12-18 16:55] LABS: BAND NEUTROPHILS % 21 % (0-10); PLATELET MORPHOLOGY COMMENT NORMAL (NORMAL)
[2018-12-18 16:59] LABS: BLOOD UREA NITROGEN 21 mg/dL (7-18); CARBON DIOXIDE 22.7 mmol/L (21-32); CHLORIDE 98 mmol/L (98-107); COR NA(FOR HYPERGLY) 139 mmol/L (136-145); CREATININE 1.83 mg/dL (0.70-1.30); SODIUM 137 mmol/L (136-145); TROPONIN I < 0.02 ng/mL (0-1.5); eGFR NON BLACK RACES 40 (>60)
[2018-12-18 17:03] LABS: ALANINE AMINOTRANSFERASE 167 Units/L (12-78); ALBUMIN 3.5 g/dL (3.4-5.0); ALKALINE PHOSPHATASE 274 Units/L (46-116); ASPARTATE AMINO TRANSFERASE 118 Units/L (15-37); CREATINE KINASE 45 Units/L (39-308); CREATINE KINASE MB < 1.0 ng/mL (0-4.0); TOTAL PROTEIN 7.4 g/dL (6.4-8.2)
--- NOTE | 2018-12-18 17:05 | RAD ---
Examination: Portable AP chest History: Chest and back pain Comparison 07/04/2018 Findings: The heart is not significantly enlarged. Sternal wires again noted, 1 of the manubrial wires is fractured. The lungs are grossly clear. There is no definite consolidation, pneumothorax or large pleural effusion. Impression: No acute chest abnormality identified on portable examination. Reported By:
[2018-12-18 17:09] LABS: CKMB % 2.2 % (<4)
[2018-12-18] MEDS ORDERED: NS 1000 ML 1,000 ML ONE ×2 (17:34→20:32)
[2018-12-18 18:51] LABS: BILIRUBIN,URINE 3+ (NEGATIVE); BLOOD/HEMOGLOBIN,URINE 2+ (NEGATIVE); GLUCOSE, URINE 1+ (NEGATIVE); KETONES,URINE 1+ (NEGATIVE); LEUKOCYTE ESTERASE ,URINE 2+ (NEGATIVE); NITRITES,URINE POSITIVE (NEGATIVE); PROTEIN,URINE 3+ (NEGATIVE); UROBILINOGEN,URINE 3+ (NORMAL)
--- NOTE | 2018-12-18 19:20 | CT ---
HISTORY: Abdominal pain Study: CT abdomen and pelvis without contrast Comparison: MRCP dated 10/10/2018. CT chest dated 05/26/2018. Technique: Multiple axial images of the abdomen and pelvis were obtained from the lung bases to the pubic symphysis without the administration of IV contrast. Findings: Basilar scar formation is evident with possible mild developing fibrotic change. The gallbladder is surgically absent. No focal hepatic abnormality. Spleen, adrenals and pancreas are unremarkable. Mild bilateral perinephric stranding may be seen with chronic medical renal disease without suspicious mass or convincing evidence of acute process. No obstructive uropathy identified. The appendix is surgically absent. Stool is present within the colon. The prostate is mildly prominent. Urinary bladder is unremarkable. Moderate severity aortoiliac atherosclerotic disease is observed. 12 mm left basilar pulmonary nodule is again demonstrated and similar in appearance to prior examination. Small fat filled periumbilical hernia. Bilateral L5 pars defects and grade 1 anterolisthesis observed. IMPRESSION: No acute abnormality identified within the abdomen or pelvis to explain pain. Prior appendectomy and cholecystectomy. Additional ancillary findings as above. Reported By:
[2018-12-18 20:15] LABS: APPEARANCE,URINE CLOUDY (CLEAR); COLOR,URINE BROWN (YELLOW)
[2018-12-18 20:16] LABS: AMORPHOUS SEDIMENT,UR 2+ /HPF (NEGATIVE); BACTERIA,URINE 1+ /HPF (NEGATIVE); GRANULAR CASTS,URINE FEW /LPF (NEGATIVE); HYALINE CASTS, URINE FEW /LPF (NEGATIVE); RBC,URINE 0-2 /HPF (NONE SEEN); RENAL EPITHELIAL CELLS,URINE RARE /HPF (NEGATIVE); SQUAMOUS EPITHELIAL CELL,UR MANY /HPF (NEGATIVE); TRANSITIONAL EPI CELLS,URINE MANY /HPF (NEGATIVE)
[2018-12-18 20:17] LABS: MUCUS,URINE MODERATE /HPF (NEGATIVE)
[2018-12-18] MEDS ORDERED: MAXIPIME VIAL 1 GRAM IVP ONE (20:27)
[2018-12-18] MEDS ORDERED: MAXIPIME VIAL 1 GRAM ONE (20:32)
[2018-12-18] MEDS: NS 1000 ML 1,000 ML IV SCH (20:41)
[2018-12-18 22:39] VITALS: BMI 28.7
[2018-12-18] MEDS: NICOTINE PATCH TD SCH (22:53)
[2018-12-18] MEDS ORDERED: VANCOMYCIN HCL 1 GM VIAL 1 G in D5W 250 ML IV 250 ML IV SCH (23:13)
[2018-12-18] MEDS ORDERED: VANCOMYCIN HCL 500 MG VIAL 750 MG in NS 250 ML IV 250 ML IV SCH (23:30)
[2018-12-18] MEDS ORDERED: PHARMACY CONSULT - VANCOMYCIN XX SCH (23:45)
[2018-12-18] MEDS: ROXICODONE TAB 5 MG PO PRN (23:56)
[2018-12-19] MEDS ORDERED: MICRO K EXTEN CAP 10 MEQ PO PRN (00:56)
[2018-12-19] MEDS ORDERED: POTASSIUM CHL 40 MEQ/NS 0.45% 500 ML IV PRN (00:56)
[2018-12-19] MEDS ORDERED: POTASSIUM CHL 60 MEQ/NS 0.45% 500 ML IV PRN (00:56)
[2018-12-19] MEDS ORDERED: KLOR-CON PO PRN (00:56)
[2018-12-19] MEDS ORDERED: K-RIDER 10 MEQ/NS 100 ML 10 MEQ/100 ML BAG IV PRN (00:56)
[2018-12-19] MEDS ORDERED: POTASSIUM CHLORIDE LIQ 20 MEQ UDC PO PRN (00:56)
[2018-12-19] MEDS ORDERED: K-DUR TAB 20 MEQ ONE (00:59)
[2018-12-19] MEDS ORDERED: MAGNESIUM SULFATE 1 GRAM/100 mL PREMIX 1 G/100 ML BAG IV ONE ×4 (01:00→04:01)
[2018-12-19] MEDS: K-DUR TAB 20 MEQ PO PRN ×2 (01:01→05:49)
[2018-12-19] MEDS: MAGNESIUM SULFATE 1 GRAM/100 mL PREMIX 1 GM/100 ML BAG IV PRN ×6 (01:02→06:00)
[2018-12-19] MEDS ORDERED: MAGNESIUM SULFATE 1 GRAM/100 mL PREMIX 2 G/200 ML BAG IV ONE (04:55)
[2018-12-19 05:20] LABS: BASOPHILS # (AUTO) 0.1 X10^3/uL (0.0-0.1); BASOPHILS % (AUTO) 0.5 % (0.2-1.0); HEMATOCRIT 43.2 % (42.0-54.0); HEMOGLOBIN 14.7 g/dL (13.5-18.0); LYMPHOCYTES # (AUTO) 0.4 X10^3/uL (1.3-2.9); LYMPHOCYTES % (AUTO) 1.6 % (21.0-51.0); MEAN CORPUSCULAR HEMOGLOBIN 30.9 pg (27.0-34.0); MEAN PLATELET VOLUME 9.8 fL (7.4-11.0); MONOCYTES # (AUTO) 0.6 x10^3/uL (0.3-0.8); MONOCYTES % (AUTO) 2.3 % (0.0-13.0); NEUTROPHILS # (AUTO) 22.8 x10^3/uL (2.2-4.8); NEUTROPHILS % (AUTO) 95.6 % (42.0-75.0); PLATELET COUNT 141 X10^3/uL (150.0-450.0); RED BLOOD COUNT 4.75 X10^6/uL (4.7-6.0); RED CELL DISTRIBUTION WIDTH 13.7 % (11.6-16.5); WHITE BLOOD COUNT 23.9 X10^3/uL (3.6-10.0)
[2018-12-19 05:33] LABS: ALANINE AMINOTRANSFERASE 111 Units/L (12-78); ALBUMIN 2.6 g/dL (3.4-5.0); ALKALINE PHOSPHATASE 201 Units/L (46-116); ASPARTATE AMINO TRANSFERASE 65 Units/L (15-37); BLOOD UREA NITROGEN 16 mg/dL (7-18); CALCIUM 8.1 mg/dL (8.5-10.1); CARBON DIOXIDE 23.2 mmol/L (21-32); CHLORIDE 100 mmol/L (98-107); COR CA(FOR HYPOALB) 9.2 mg/dL (8.5-10.1); COR NA(FOR HYPERGLY) 138 mmol/L (136-145); CREATININE 0.92 mg/dL (0.70-1.30); MAGNESIUM 2.3 mg/dL (1.7-2.9); SODIUM 135 mmol/L (136-145); eGFR NON BLACK RACES > 60 (>60)
[2018-12-19] MEDS: HumuLIN R SC PRN ×2 (05:46→11:55)
[2018-12-19 06:20] LABS: BAND NEUTROPHILS % 15 % (0-10); PLATELET MORPHOLOGY COMMENT NORMAL (NORMAL)
[2018-12-19] MEDS: ROXICODONE TAB 5 MG PO PRN ×2 (07:31→16:23)
[2018-12-19] MEDS: CHECK PATCH XX SCH ×2 (09:15→21:28)
[2018-12-19] MEDS: MAXIPIME 1 GM IV SCH (09:17)
[2018-12-19] MEDS: NICOTINE PATCH TD SCH (09:17)
[2018-12-19] MEDS: VANCOMYCIN HCL 1 GM VIAL 1 G in NS 250 ML IV 250 ML IV SCH ×2 (09:18→21:26)
[2018-12-19] MEDS: MOTRIN TAB 600 MG PO PRN ×2 (10:08→20:41)
[2018-12-19] MEDS: NS 1000 ML 1,000 ML IV SCH (16:24)
[2018-12-19] MEDS: MORPHINE SULFATE INJ 2 MG INJ IVP PRN (18:36)
[2018-12-20] MEDS: NS 1000 ML 1,000 ML IV SCH ×6 (00:47→23:53)
[2018-12-20 06:17] LABS: BASOPHILS % (AUTO) 0.2 % (0.2-1.0); EOSINOPHILS # (AUTO) 0.2 x10^3/uL (0.0-0.2); EOSINOPHILS % (AUTO) 1.3 % (0.9-2.9); HEMATOCRIT 38.2 % (42.0-54.0); LYMPHOCYTES # (AUTO) 0.5 X10^3/uL (1.3-2.9); MEAN CORPUSCULAR HEMOGLOBIN 30.9 pg (27.0-34.0); MEAN CORPUSCULAR HGB CONC 34.2 g/dL (33.0-35.0); MEAN CORPUSCULAR VOLUME 90.5 fL (80.0-100.0); MEAN PLATELET VOLUME 10.4 fL (7.4-11.0); MONOCYTES # (AUTO) 0.5 x10^3/uL (0.3-0.8); MONOCYTES % (AUTO) 3.4 % (0.0-13.0); NEUTROPHILS # (AUTO) 14.4 x10^3/uL (2.2-4.8); NEUTROPHILS % (AUTO) 92.1 % (42.0-75.0); PLATELET COUNT 99 X10^3/uL (150.0-450.0); RED BLOOD COUNT 4.22 X10^6/uL (4.7-6.0); RED CELL DISTRIBUTION WIDTH 13.6 % (11.6-16.5)
[2018-12-20 06:36] LABS: WHITE BLOOD COUNT 15.6 X10^3/uL (3.6-10.0)
[2018-12-20 06:44] LABS: ALANINE AMINOTRANSFERASE 71 Units/L (12-78); ALBUMIN 2.1 g/dL (3.4-5.0); ALKALINE PHOSPHATASE 194 Units/L (46-116); ASPARTATE AMINO TRANSFERASE 47 Units/L (15-37); BLOOD UREA NITROGEN 15 mg/dL (7-18); CALCIUM 8.1 mg/dL (8.5-10.1); CARBON DIOXIDE 21.2 mmol/L (21-32); CHLORIDE 104 mmol/L (98-107); COR CA(FOR HYPOALB) 9.6 mg/dL (8.5-10.1); COR NA(FOR HYPERGLY) 138 mmol/L (136-145); CREATININE 0.98 mg/dL (0.70-1.30); SODIUM 137 mmol/L (136-145); TOTAL PROTEIN 5.6 g/dL (6.4-8.2); eGFR NON BLACK RACES > 60 (>60)
[2018-12-20 06:58] LABS: BAND NEUTROPHILS % 2 % (0-10); PLATELET MORPHOLOGY COMMENT NORMAL (NORMAL)
[2018-12-20] MEDS ORDERED: PHARMACY COMMENT IV NR (08:30)
[2018-12-20] MEDS: ACTOS PO SCH (08:57)
[2018-12-20] MEDS: MAXIPIME 1 GM IV SCH (08:57)
[2018-12-20] MEDS: NICOTINE PATCH TD SCH (08:57)
[2018-12-20 09:49] LABS: CREATININE 1.06 mg/dL (0.70-1.30)
[2018-12-20 09:52] LABS: VANCOMYCIN,TROUGH 10.1 ug/mL (15-20)
[2018-12-20] MEDS: CHECK PATCH XX SCH ×2 (09:52→20:29)
[2018-12-20] MEDS: ROXICODONE TAB 5 MG PO PRN (11:11)
[2018-12-20] MEDS: HumuLIN R SC PRN ×2 (11:40→21:18)
[2018-12-20] MEDS: MORPHINE SULFATE INJ 2 MG INJ IVP PRN ×2 (18:27→22:48)
[2018-12-20] MEDS: MOTRIN TAB 600 MG PO PRN (19:41)
[2018-12-20] MEDS: PHENERGAN INJ 25 MG IM PRN (20:10)
[2018-12-20] MEDS: K-DUR TAB 20 MEQ PO PRN (20:29)
[2018-12-20] MEDS: COLACE CAP 100 MG PO SCH (20:29)
[2018-12-20] MEDS: MILK OF MAGNESIA PO SCH (20:30)
[2018-12-21 06:17] LABS: BASOPHILS % (AUTO) 0.4 % (0.2-1.0); EOSINOPHILS # (AUTO) 0.1 x10^3/uL (0.0-0.2); EOSINOPHILS % (AUTO) 0.7 % (0.9-2.9); HEMATOCRIT 41.2 % (42.0-54.0); HEMOGLOBIN 13.9 g/dL (13.5-18.0); LYMPHOCYTES # (AUTO) 0.6 X10^3/uL (1.3-2.9); LYMPHOCYTES % (AUTO) 5.3 % (21.0-51.0); MEAN CORPUSCULAR HEMOGLOBIN 30.5 pg (27.0-34.0); MEAN CORPUSCULAR HGB CONC 33.7 g/dL (33.0-35.0); MEAN CORPUSCULAR VOLUME 90.7 fL (80.0-100.0); MEAN PLATELET VOLUME 10.8 fL (7.4-11.0); MONOCYTES # (AUTO) 0.7 x10^3/uL (0.3-0.8); MONOCYTES % (AUTO) 5.9 % (0.0-13.0); NEUTROPHILS # (AUTO) 10.6 x10^3/uL (2.2-4.8); NEUTROPHILS % (AUTO) 87.7 % (42.0-75.0); PLATELET COUNT 98 X10^3/uL (150.0-450.0); RED BLOOD COUNT 4.54 X10^6/uL (4.7-6.0); RED CELL DISTRIBUTION WIDTH 13.9 % (11.6-16.5); WHITE BLOOD COUNT 12.1 X10^3/uL (3.6-10.0)
[2018-12-21 06:33] LABS: ALANINE AMINOTRANSFERASE 51 Units/L (12-78); ALKALINE PHOSPHATASE 185 Units/L (46-116); ASPARTATE AMINO TRANSFERASE 40 Units/L (15-37); BLOOD UREA NITROGEN 14 mg/dL (7-18); CALCIUM 8.1 mg/dL (8.5-10.1); CARBON DIOXIDE 24.1 mmol/L (21-32); CHLORIDE 106 mmol/L (98-107); COR CA(FOR HYPOALB) 9.7 mg/dL (8.5-10.1); SODIUM 139 mmol/L (136-145); TOTAL PROTEIN 5.7 g/dL (6.4-8.2); eGFR NON BLACK RACES > 60 (>60)
[2018-12-21] MEDS: MORPHINE SULFATE INJ 2 MG INJ IVP PRN (06:33)
[2018-12-21] MEDS: K-DUR TAB 20 MEQ PO PRN (06:41)
[2018-12-21 06:56] LABS: BAND NEUTROPHILS % 4 % (0-10)
[2018-12-21 06:57] LABS: PLATELET MORPHOLOGY COMMENT NORMAL (NORMAL)
[2018-12-21] MEDS: PHENERGAN INJ 25 MG IM PRN (08:15)
[2018-12-21] MEDS: NS 1000 ML 1,000 ML IV SCH ×3 (08:16→21:45)
[2018-12-21] MEDS: CHECK PATCH XX SCH ×2 (08:21→20:18)
[2018-12-21] MEDS: NICOTINE PATCH TD SCH (08:21)
[2018-12-21] MEDS: MAXIPIME 1 GM IV SCH (08:29)
[2018-12-21] MEDS: MILK OF MAGNESIA PO SCH ×2 (09:30→20:08)
[2018-12-21] MEDS ORDERED: FLEET ENEMA ADULT PR ONE (09:37)
[2018-12-21] MEDS: GLUCOPHAGE XR PO SCH ×2 (10:05→20:09)
[2018-12-21] MEDS: ACTOS PO SCH (10:05)
[2018-12-21] MEDS: ZESTRIL TAB 10 MG PO SCH (10:06)
--- NOTE | 2018-12-21 11:36 | RAD ---
History: Abdominal pain and vomiting Study: Acute abdominal series Comparison: December 18. CT exam and plain film examination of November 29 Findings: There is limited inspiration of the lungs which accentuates vascular markings. There is no pleural effusion. There is mild cardiomegaly status post CABG. However the heart size is probably accentuated by the limited inspiration. The bowel gas pattern is unremarkable. There are cholecystectomy clips. There is no abnormal soft tissue calcification. There is no free air. Impression: No evidence for acute disease Reported By:
[2018-12-21] MEDS: ROXICODONE TAB 5 MG PO PRN (17:07)
[2018-12-21] MEDS ORDERED: ZOFRAN TAB 4 MG SL PRN (19:14)
[2018-12-21] MEDS: MOTRIN TAB 600 MG PO PRN (20:08)
[2018-12-21] MEDS: COLACE CAP 100 MG PO SCH (20:09)
[2018-12-22] MEDS: NS 1000 ML 1,000 ML IV SCH ×5 (00:30→13:05)
[2018-12-22 05:29] LABS: BASOPHILS # (AUTO) 0.1 X10^3/uL (0.0-0.1); BASOPHILS % (AUTO) 0.7 % (0.2-1.0); EOSINOPHILS # (AUTO) 0.1 x10^3/uL (0.0-0.2); EOSINOPHILS % (AUTO) 1.1 % (0.9-2.9); HEMATOCRIT 37.9 % (42.0-54.0); HEMOGLOBIN 13.2 g/dL (13.5-18.0); LYMPHOCYTES # (AUTO) 0.8 X10^3/uL (1.3-2.9); LYMPHOCYTES % (AUTO) 7.6 % (21.0-51.0); MEAN CORPUSCULAR HEMOGLOBIN 31.3 pg (27.0-34.0); MEAN CORPUSCULAR HGB CONC 34.7 g/dL (33.0-35.0); MEAN CORPUSCULAR VOLUME 90.3 fL (80.0-100.0); MEAN PLATELET VOLUME 10.7 fL (7.4-11.0); MONOCYTES # (AUTO) 1.1 x10^3/uL (0.3-0.8); MONOCYTES % (AUTO) 10.3 % (0.0-13.0); NEUTROPHILS # (AUTO) 8.3 x10^3/uL (2.2-4.8); NEUTROPHILS % (AUTO) 80.3 % (42.0-75.0); PLATELET COUNT 109 X10^3/uL (150.0-450.0); RED CELL DISTRIBUTION WIDTH 13.6 % (11.6-16.5); WHITE BLOOD COUNT 10.3 X10^3/uL (3.6-10.0)
[2018-12-22 05:42] LABS: ALANINE AMINOTRANSFERASE 32 Units/L (12-78); ALBUMIN 1.6 g/dL (3.4-5.0); ALKALINE PHOSPHATASE 169 Units/L (46-116); ASPARTATE AMINO TRANSFERASE 26 Units/L (15-37); BLOOD UREA NITROGEN 12 mg/dL (7-18); CALCIUM 7.8 mg/dL (8.5-10.1); CARBON DIOXIDE 21.2 mmol/L (21-32); CHLORIDE 106 mmol/L (98-107); COR CA(FOR HYPOALB) 9.7 mg/dL (8.5-10.1); COR NA(FOR HYPERGLY) 139 mmol/L (136-145); CREATININE 0.85 mg/dL (0.70-1.30); SODIUM 138 mmol/L (136-145); eGFR NON BLACK RACES > 60 (>60)
[2018-12-22] MEDS: K-DUR TAB 20 MEQ PO PRN (05:48)
[2018-12-22 05:55] LABS: BAND NEUTROPHILS % 2 % (0-10); PLATELET MORPHOLOGY COMMENT NORMAL (NORMAL)
[2018-12-22] MEDS: ROXICODONE TAB 5 MG PO PRN ×2 (07:33→17:11)
[2018-12-22] MEDS: GLUCOPHAGE XR PO SCH ×2 (09:40→20:00)
[2018-12-22] MEDS: MAXIPIME 1 GM IV SCH (09:41)
[2018-12-22] MEDS: NICOTINE PATCH TD SCH (09:41)
[2018-12-22] MEDS: ACTOS PO SCH (09:41)
[2018-12-22] MEDS: CHECK PATCH XX SCH ×2 (10:00→20:00)
[2018-12-22] MEDS: ZESTRIL TAB 10 MG PO SCH (10:00)
[2018-12-22] MEDS: PHENERGAN INJ 25 MG IM PRN (14:59)
[2018-12-22] MEDS: MOTRIN TAB 600 MG PO PRN (17:11)
[2018-12-22] MEDS ORDERED: COLACE CAP 100 MG PO PRN (19:33)
[2018-12-23] MEDS: NS 1000 ML 1,000 ML IV SCH (05:41)
[2018-12-23 06:20] LABS: BASOPHILS # (AUTO) 0.1 X10^3/uL (0.0-0.1); BASOPHILS % (AUTO) 1.3 % (0.2-1.0); EOSINOPHILS # (AUTO) 0.1 x10^3/uL (0.0-0.2); EOSINOPHILS % (AUTO) 0.8 % (0.9-2.9); HEMATOCRIT 37.8 % (42.0-54.0); MEAN CORPUSCULAR HEMOGLOBIN 31.1 pg (27.0-34.0); MEAN CORPUSCULAR HGB CONC 34.4 g/dL (33.0-35.0); MEAN CORPUSCULAR VOLUME 90.6 fL (80.0-100.0); MEAN PLATELET VOLUME 10.3 fL (7.4-11.0); MONOCYTES # (AUTO) 1.1 x10^3/uL (0.3-0.8); MONOCYTES % (AUTO) 10.2 % (0.0-13.0); NEUTROPHILS # (AUTO) 8.5 x10^3/uL (2.2-4.8); NEUTROPHILS % (AUTO) 78.7 % (42.0-75.0); PLATELET COUNT 130 X10^3/uL (150.0-450.0); RED BLOOD COUNT 4.17 X10^6/uL (4.7-6.0); RED CELL DISTRIBUTION WIDTH 14.2 % (11.6-16.5); WHITE BLOOD COUNT 10.9 X10^3/uL (3.6-10.0)
[2018-12-23 06:41] LABS: BAND NEUTROPHILS % 4 % (0-10); PLATELET MORPHOLOGY COMMENT NORMAL (NORMAL)
[2018-12-23 06:45] LABS: ALANINE AMINOTRANSFERASE 31 Units/L (12-78); ALBUMIN 1.7 g/dL (3.4-5.0); ALKALINE PHOSPHATASE 197 Units/L (46-116); ASPARTATE AMINO TRANSFERASE 32 Units/L (15-37); BLOOD UREA NITROGEN 12 mg/dL (7-18); CALCIUM 8.1 mg/dL (8.5-10.1); CHLORIDE 105 mmol/L (98-107); COR CA(FOR HYPOALB) 9.9 mg/dL (8.5-10.1); COR NA(FOR HYPERGLY) 140 mmol/L (136-145); SODIUM 139 mmol/L (136-145); TOTAL PROTEIN 5.2 g/dL (6.4-8.2); eGFR NON BLACK RACES > 60 (>60)
[2018-12-23] MEDS: NICOTINE PATCH TD SCH (08:12)
[2018-12-23] MEDS: MAXIPIME 1 GM IV SCH (08:12)
[2018-12-23] MEDS: ACTOS PO SCH (08:13)
[2018-12-23] MEDS: ROXICODONE TAB 5 MG PO PRN (08:13)
[2018-12-23] MEDS: ZESTRIL TAB 10 MG PO SCH (08:13)
[2018-12-23] MEDS: GLUCOPHAGE XR PO SCH (08:13)
[2018-12-23] MEDS: CHECK PATCH XX SCH (09:16)
[2018-12-23] MEDS: MOTRIN TAB 600 MG PO PRN (11:49)
[2018-12-23 11:50] VITALS: BP 140/72
== END 2018-12-23 12:25 | disposition home or self-care (01) | DRG 872 ==
LOC: ER 16:20 → ICU 21:22
PROVIDERS: ADMIT Obstetrics & Gynecology Obstetrics; ATTEND Obstetrics & Gynecology Obstetrics
DX: I95.89 Other hypotension; R94.4 Abnormal results of kidney function studies; I10 Essential (primary) hypertension; A41.51 Sepsis due to Escherichia coli [E. coli]; R94.31 Abnormal electrocardiogram [ECG] [EKG]; R26.89 Other abnormalities of gait and mobility; N12 Tubulo-interstitial nephritis, not specified as acute or chronic; I25.10 Atherosclerotic heart disease of native coronary artery without angina pectoris; E80.6 Other disorders of bilirubin metabolism; N39.0 Urinary tract infection, site not specified; E11.65 Type 2 diabetes mellitus with hyperglycemia; B96.29 Other Escherichia coli [E. coli] as the cause of diseases classified elsewhere
CPT/HCPCS: 36415; 71010; 71045; 74022; 74176; 80053; 80202; 80307; 81001; 82550; 82553; 82565; 83605; 83735; 84132; 84484; 85025; 85378; 85610; 85730; 87040; 87077; 87086; 87088; 87186; 93005; 96365; 96367; 96374; 97116; 97162; 97166; 99285; A4222; G0434; J0692; J1815; J2270; J2550; J3370; J3475; J7030; J7050; S0119; S0181

== ENCOUNTER 2019-01-17 15:59 | Inpatient (IN) ==
--- NOTE | 2019-01-17 16:24 | DR.N/VMALE ---
HPI Time Seen Time Seen by Provider: 01/17/19 16:23 Primary Care Physician Primary Care Physician: JENNIFER KOLB HPI Comment HPI Comment: PATIENT IS 63YR OLD MALE WITH FEVER AND VOMITING TIMES 3 DAYS. PATIENT HAS LOW BLOOD PRESSURE AND HISTORY OF LIVER DISEASE. HE WAS RECENTLY HOSPITALISED FOR E COLI UROSEPSIS. HE IS WEAK AND NOT HOLDING DOWN HIS MEDI CATIONS. DENIES DYSURIA. Complaints Chief Complaint Doctors Comments: FEVER, VOMITING TIMES 3 DAYS. Chief Complaint:: PT C/O FEVER AND VOMITTING X 3 DAYS Reviewed Nurses Notes Reviewed: Yes Source History Provided: Patient Mode of Arrival Mode of Arrival: Wheelchair Timing Onset of Chief Complaint: 01/14/19 Context Onset: Spontaneous Recent: None History of: None Quality Quality: Food Particles Associated Signs and Symptoms Abdominal Pain Quality: Sharp Abdominal Pain Location: Diffuse Symptoms: Abdominal Pain PMH PMH Past Medical History: Yes Past Medical History: Coronary Artery Disease, Diabetes, Hypertension and [place] Past Surgical History: Yes Surgical History: Cholecystectomy and Other Family History History of Family Medical Conditions: Yes Family Medical History: Diabetes Mellitus, Cancer and Hypertension Social History Does patient currently use any type of tobacco product: No Have you used tobacco products in the last 12 months: No Type of Tobacco Use: None Does any household member use tobacco: No Alcohol Use: None Do you use any recreational Drugs:: No Lives With: Family Lives Where: Home infectious screening In the last 2 months have you had wt loss of >10#?: NO Have you had fever, night sweats or hemotysis?: No Have you traveled outside the country in the last 6 months?: No Isolation: Standard ROS Review of Systems Constitutional: See HPI, Weakness, Fatigue and Loss of Appetite; negative Diaphoresis and Fever Eyes: No Symptoms Reported and See HPI; negative Eye Pain, Blurred Vision, Tearing and Discharge ENTM: See HPI; negative Ear Pain, Nose Discharge, Nose Congestion and Throat Pain Respiratoy: See HPI; negative Non-Productive Cough, Short of Breath and Wheezing Cardiovascular: See HPI; negative Chest Pain, Edema and Palpitations Gastrointestinal/Abdominal: See HPI, Abdominal Pain, Nausea and Vomiting; negative Constipation and Diarrhea Genitourinary: See HPI; negative Dysuria, Frequency and Hematuria Neurological: See HPI, Weakness and Dizziness; negative Headache Musculoskeletal: See HPI and Muscle Pain; negative Back Pain Integumentary: See HPI and Dryness Hematologic/Lymphatic: See HPI; negative Easy Bruising, Swollen Glands and Lymphadenopathy Endocrine: No Symptoms Reported and See HPI Psychiatric: No Symptoms Reported and See HPI All Other Systems: Reviewed and Negative PE Vital Signs Vitals: Temperature 98.4 F Pulse Rate [Apical] 95 Pulse Rate 72 Respiratory Rate 16 Blood Pressure [Right Arm] 124/55 Blood Pressure [Left Arm] 121/60 Blood Pressure 121/58 O2 Sat by Pulse Oximetry 98 General Limitations: No Limitations General Appearance: Alert and In No Apparent Distress Head Head Exam: Normal Inspection, Atraumatic and Normocephalic Eyes Eye exam: Normal Appearance and PERRL; negative Scleral Icterus and Conjunctival Injection ENT ENT Exam: Normal Oropharynx, Normal External Ear Exam and TM's Normal Bilaterally Neck Neck Exam: Normal Inspection and Trachea Midline; negative Tenderness and Lymphadenopathy Chest Chest Inspection: Symmetric Chest Wall Rise; negative Tenderness Respiratory Respiratory Exam: Normal Lung Sounds Bilat; negative Accessory Muscle Use, Chest Wall Tenderness and Respiratory Distress Respiratory Exam: Bilateral: Rhonchi and Lower: Rhonchi Cardiovascular Cardiovascular Exam: Regular Rate, Normal Rhythm and Normal Heart Sounds; negative Systolic Murmur and Diastolic Murmur Abdominal Exam Abdominal Exam: Normal Bowel Sounds, Soft and Tenderness Abdominal Tenderness: Diffuse and Moderate Rectal Rectal Exam: Deferred Exam: Male: Deferred Extremities Extremities Exam: Normal Inspection and Normal Capillary Refill; negative Tenderness, Edema and Calf Tenderness Back Back Exam: Normal Inspection Neurologic Neurological Exam: Alert and Oriented X3; negative Motor Sensory Deficit Psychiatric Psychiatric Exam: Normal Affect and Normal Mood Skin Skin Exam: Dry MDM Differential Diagnosis Differential Diagnosis: Considerations may Include:: Bowel Obstruction, Cholecystitis, Gastritis, Gastroenteritis, Pancreatitis, PUD, Urinary Tract Infection and Urolithiasis COURSE Treatment Treatment: SEE ORDERS. 16:34 : MORPHIN 4 MG IV, ZOFRAN 4 MG IV AND NORMAL SALINE 1 LITER IV. 18:00 : ZOSYN 3.375 MG IVPB. Education/Counseling Education/Counseling: Patient Educated On: Diagnosis and Needs for Follow Up ROR Labs Reviewed Laboratory Results Reviewed?: Yes Result Diagrams: 01/30/19 05:11 01/30/19 05:11 Laboratory: 01/24/19 13:10 Aspirate Wound Culture - Final Escherichia Coli 01/22/19 14:14 Stool Stool Culture - Final 01/22/19 14:14 Stool - Final 01/17/19 16:35 Blood Blood Culture - Final Escherichia Coli 01/17/19 16:30 Blood Blood Culture - Final Escherichia Coli 01/18/19 15:30 Urine,Clean Catch Urine Culture - Final WBC 11.2 X10^3/uL (3.6-10.0) H 01/30/19 05:11 RBC 2.69 X10^6/uL (4.7-6.0) L 01/30/19 05:11 Hgb 8.3 g/dL (13.5-18.0) L 01/30/19 05:11 Hct 24.9 % (42.0-54.0) L 01/30/19 05:11 MCV 92.5 fL (80.0-100.0) 01/30/19 05:11 MCH 30.9 pg (27.0-34.0) 01/30/19 05:11 MCHC 33.4 g/dL (33.0-35.0) 01/30/19 05:11 RDW 15.6 % (11.6-16.5) 01/30/19 05:11 Plt Count 393 X10^3/uL (150.0-450.0) 01/30/19 05:11 Plt Count Comment Adequate (ADEQUATE) 01/29/19 05:07 MPV 9.8 fL (7.4-11.0) 01/30/19 05:11 Neut % (Auto) 72.2 % (42.0-75.0) 01/30/19 05:11 Lymph % (Auto) 16.6 % (21.0-51.0) L 01/30/19 05:11 [place] % (Auto) 5.3 % (0.0-13.0) 01/30/19 05:11 Eos % (Auto) 4.4 % (0.9-2.9) H 01/30/19 05:11 Baso % (Auto) 1.5 % (0.2-1.0) H 01/30/19 05:11 Neut # (Auto) 8.1 x10^3/uL (2.2-4.8) H 01/30/19 05:11 Lymph # (Auto) 1.9 X10^3/uL (1.3-2.9) 01/30/19 05:11 [place] # (Auto) 0.6 x10^3/uL (0.3-0.8) 01/30/19 05:11 Eos # (Auto) 0.5 x10^3/uL (0.0-0.2) H 01/30/19 05:11 Baso # (Auto) 0.2 X10^3/uL (0.0-0.1) H 01/30/19 05:11 Absolute Nucleated RBC 0.0 /100WBC 01/30/19 05:11 Total Counted 100 01/27/19 05:34 Neutrophils % (Manual) 88 % (39-76) H 01/27/19 05:34 Band Neutrophils % 5 % (0-10) 01/25/19 04:32 Lymphocytes % (Manual) 9 % (13-43) L 01/27/19 05:34 Monocytes % (Manual) 3 % (4-9) L 01/27/19 05:34 Eosinophils % (Manual) 6 % (0-6) 01/23/19 05:08 Basophils % (Manual) 1 % (0-1) 01/21/19 03:58 Metamyelocytes % 2 01/22/19 04:00 Plt Morphology Comment Normal (NORMAL) 01/29/19 05:07 RBC Morphology Normal (NORMAL) 01/29/19 05:07 Hypochromasia 1+ A 01/27/19 05:34 INR Target Range - 01/18/19 05:08 INR 1.62 (0.8-1.3) H 01/18/19 05:08 APTT 37.1 SECONDS (22.9-36.5) H 01/18/19 05:08 PTT Comment - 01/18/19 05:08 Sodium 138 mmol/L (136-145) 01/30/19 05:11 Corrected Sodium 141 mmol/L (136-145) 01/30/19 05:11 Potassium 3.7 mmol/L (3.5-5.1) 01/30/19 05:11 Chloride 103 mmol/L (98-107) 01/30/19 05:11 Carbon Dioxide 26.6 mmol/L (21-32) 01/30/19 05:11 BUN 3 mg/dL (7-18) L 01/30/19 05:11 Creatinine 0.76 mg/dL (0.70-1.30) 01/30/19 05:11 Est GFR (MDRD) Af Amer > 60 (>60) 01/30/19 05:11 Est GFR (MDRD) Non-Af > 60 (>60) 01/30/19 05:11 Glucose 205 mg/dL (65-99) H 01/30/19 05:11 POC Glucose (mg/dL) 173 mg/dL (65-99) H 01/30/19 16:47 Lactic Acid 1.2 mmol/L (0.4-2.0) 01/19/19 05:38 Calcium 8.5 mg/dL (8.5-10.1) 01/30/19 05:11 Corrected Calcium 9.3 mg/dL (8.5-10.1) 01/30/19 05:11 Magnesium 1.1 mg/dL (1.7-2.9) L 01/30/19 05:11 Total Bilirubin 2.10 mg/dL (0.2-1.0) H 01/30/19 05:11 Direct Bilirubin 4.00 mg/dL (0-0.2) H 01/25/19 04:32 Indirect Bilirubin 1.60 mg/dL (0.2-0.8) H 01/25/19 04:32 AST 14 Units/L (15-37) L 01/30/19 05:11 ALT 15 Units/L (12-78) 01/30/19 05:11 Alkaline Phosphatase 154 Units/L (46-116) H 01/30/19 05:11 Ammonia 42 umol/L (11-32) H 01/28/19 05:14 Creatine Kinase 25 Units/L (39-308) L 01/17/19 16:35 CK-MB (CK-2) < 1.0 ng/mL (0-4.0) 01/17/19 16:35 CK/CKMB % Calc 4.0 % (<4) 01/17/19 16:35 Troponin I < 0.02 ng/mL (0-1.5) 01/17/19 16:35 C-Reactive Protein 64.90 mg/L (0-3.0) H 01/23/19 05:08 Total Protein 6.5 g/dL (6.4-8.2) 01/30/19 05:11 Albumin 3.0 g/dL (3.4-5.0) L 01/30/19 05:11 Globulin 3.5 g/dL (2.5-4.5) 01/30/19 05:11 Albumin/Globulin Ratio 0.9 Ratio (1.1-2.1) L 01/30/19 05:11 Amylase 57 Units/L (25-115) 01/28/19 05:14 Lipase 190 Units/L (73-393) 01/28/19 05:14 Specimen Type Catherized urine 01/24/19 12:18 Urine Color Yellow (YELLOW) 01/24/19 12:18 Urine Appearance Clear (CLEAR) 01/24/19 12:18 Urine pH 8.0 (5.0 - 8.0) 01/24/19 12:18 Ur Specific [place] 1.010 (1.000-1.030) 01/24/19 12:18 Urine Protein Negative (NEGATIVE) 01/24/19 12:18 Urine Glucose (UA) 1+ (NEGATIVE) 01/24/19 12:18 Urine Ketones Negative (NEGATIVE) 01/24/19 12:18 Urine Occult Blood Negative (NEGATIVE) 01/24/19 12:18 Urine Nitrite Negative (NEGATIVE) 01/24/19 12:18 Urine Bilirubin Negative (NEGATIVE) 01/24/19 12:18 Urine Urobilinogen Normal (NORMAL) 01/24/19 12:18 Ur Leukocyte Esterase Negative (NEGATIVE) 01/24/19 12:18 Urine RBC 0-2 /HPF (NONE SEEN) 01/17/19 19:11 Urine WBC None seen /HPF (NONE SEEN) 01/17/19 19:11 Ur Squamous Epith Cells Few /HPF (NEGATIVE) 01/17/19 19:11 Amorphous Sediment 1+ /HPF (NEGATIVE) 01/17/19 19:11 Urine Bacteria Trace /HPF (NEGATIVE) 01/17/19 19:11 Ur Culture Indicated? No/not indicated 01/17/19 19:11 Stool Description 85g,liquid,beige 01/22/19 14:14 Stl Occult Blood (IFOB) Negative (NEGATIVE) 01/22/19 14:14 Stool for White Cells Positive (NEGATIVE) A 01/22/19 14:08 Stl C. diff Tox B Gene Negative (NEGATIVE) 01/22/19 14:08 Stl C. diff [id number]-[id number] Negative (NEGATIVE) 01/22/19 14:08 Urine Opiates Screen Positive (NEG=<300) 01/17/19 19:11 Urine Methadone Screen Negative (NEG=<300) 01/17/19 19:11 Ur Barbiturates Screen Negative (NEG=<200) 01/17/19 19:11 Ur Phencyclidine Scrn Negative (NEG=<25) 01/17/19 19:11 Ur Amphetamines Screen Negative (NEG=<1000) 01/17/19 19:11 U Benzodiazepines Scrn Negative (NEG=<200) 01/17/19 19:11 Urine Cocaine Screen Negative (NEG=<300) 01/17/19 19:11 U Marijuana (THC) Screen Negative (NEG=<50) 01/17/19 19:11 Acetone, Semi-Quant Negative (NEGATIVE) 01/17/19 16:35 Cryptosporid parvum Ag Negative (NEGATIVE) 01/22/19 14:14 Giardia lamblia Ag Negative (NEGATIVE) 01/22/19 14:14 Hepatitis A IgM Ab Negative (Negative) 01/22/19 08:50 Hep Bs Antigen Negative (Negative) 01/22/19 08:50 Hep Bs Ag Confirmation TNP 01/22/19 08:50 Hep B Core IgM Ab Negative (Negative) 01/22/19 08:50 Hepatitis C Ab Index 0.05 IV 01/22/19 08:50 Hepatitis C Interp Negative (Negative) 01/22/19 08:50 Hepatitis Interpret See note 01/22/19 08:50 Blood Type B POSITIVE 01/24/19 11:30 Antibody Screen Negative 01/24/19 11:30 XRAY XRAY Interpreted by: Radiologist XRAY Findings: REPORT ON THIS RECORD NOTED AND DISCUSSED WITH PATIENT AND FAMILY Diagnosis Discharge Problem: Leukocytosis, Acute pyelonephritis Hypotension Qualifiers: Hypotension type: unspecified hypotension type Qualified Code(s): I95.9 - Hypotension, unspecified Instructions Instructions: Steps to Quit Smoking, [id number] Fall Prevention in the Home, Adult, [id number] Coping with Quitting Smoking Health Risks of Smoking Personal Hygiene Hypotension, Zhzb-om-[id number] Exploratory Laparotomy, Adult, Care After Incentive Spirometer Hypokalemia Leukocytosis Wound Check Hand Washing, [id number] Type 2 Diabetes Mellitus, Self Care, Adult, Eqjj-co-[id number] How to Change Your Dressing, [id number]-du-[id number] Central Line, Adult, [id number] Forms: Patient Portal
[2019-01-17] MEDS ORDERED: MORPHINE SULFATE INJ 4 MG IVP ONE (16:34)
[2019-01-17] MEDS ORDERED: NS 1000 ML 1,000 ML IV ONE (16:34)
[2019-01-17] MEDS ORDERED: ZOFRAN INJ 4 MG VIAL IVP ONE (16:34)
[2019-01-17] MEDS ORDERED: NS 1000 ML 1,000 ML ONE (16:44)
[2019-01-17] MEDS ORDERED: ZOFRAN INJ 4 MG VIAL ONE (16:44)
[2019-01-17] MEDS ORDERED: MORPHINE SULFATE INJ 4 MG ONE (16:45)
[2019-01-17 16:50] LABS: BASOPHILS # (AUTO) 0.1 X10^3/uL (0.0-0.1); BASOPHILS % (AUTO) 0.2 % (0.2-1.0); HEMATOCRIT 40.5 % (42.0-54.0); HEMOGLOBIN 13.6 g/dL (13.5-18.0); LYMPHOCYTES # (AUTO) 0.5 X10^3/uL (1.3-2.9); LYMPHOCYTES % (AUTO) 1.9 % (21.0-51.0); MEAN CORPUSCULAR HEMOGLOBIN 30.3 pg (27.0-34.0); MEAN CORPUSCULAR HGB CONC 33.5 g/dL (33.0-35.0); MEAN CORPUSCULAR VOLUME 90.4 fL (80.0-100.0); MEAN PLATELET VOLUME 9.3 fL (7.4-11.0); MONOCYTES # (AUTO) 0.2 x10^3/uL (0.3-0.8); MONOCYTES % (AUTO) 0.7 % (0.0-13.0); NEUTROPHILS # (AUTO) 24.3 x10^3/uL (2.2-4.8); NEUTROPHILS % (AUTO) 97.2 % (42.0-75.0); PLATELET COUNT 346 X10^3/uL (150.0-450.0); RED BLOOD COUNT 4.48 X10^6/uL (4.7-6.0); RED CELL DISTRIBUTION WIDTH 14.1 % (11.6-16.5)
[2019-01-17 17:06] LABS: BAND NEUTROPHILS % 16 % (0-10); PLATELET MORPHOLOGY COMMENT NORMAL (NORMAL)
[2019-01-17 17:10] LABS: BLOOD UREA NITROGEN 20 mg/dL (7-18); CALCIUM 9.8 mg/dL (8.5-10.1); CARBON DIOXIDE 21.5 mmol/L (21-32); CHLORIDE 92 mmol/L (98-107); COR NA(FOR HYPERGLY) 141 mmol/L (136-145); CREATININE 1.78 mg/dL (0.70-1.30); SODIUM 134 mmol/L (136-145); TROPONIN I < 0.02 ng/mL (0-1.5); eGFR NON BLACK RACES 41 (>60)
[2019-01-17 17:14] LABS: ALANINE AMINOTRANSFERASE 117 Units/L (12-78); ALBUMIN 3.7 g/dL (3.4-5.0); ALKALINE PHOSPHATASE 367 Units/L (46-116); AMYLASE 47 Units/L (25-115); ASPARTATE AMINO TRANSFERASE 121 Units/L (15-37); CREATINE KINASE 25 Units/L (39-308); CREATINE KINASE MB < 1.0 ng/mL (0-4.0); LIPASE 139 Units/L (73-393)
[2019-01-17] MEDS ORDERED: ZOSYN VIAL 3.375 GRAMS 3.375 G in NS 100 ML IV + SPIKE MINIBAG* 100 ML IV ONE (18:01)
[2019-01-17] MEDS ORDERED: NS 100 ML IV + SPIKE MINIBAG* 100 ML ONE (18:04)
[2019-01-17] MEDS ORDERED: ZOSYN VIAL 3.375 GRAMS IV ONE (18:04)
[2019-01-17] MEDS: NS 1000 ML 1,000 ML IV SCH ×2 (18:09→21:30)
--- NOTE | 2019-01-17 18:21 | CT ---
CT abdomen and pelvis without contrast Indication: Abdominal pain, vomiting Technique: Helical CT images of the abdomen and pelvis were obtained without IV contrast. Reformatted images in the coronal and sagittal planes were also generated for review. Comparison: 12/18/2018 Findings: There is stable mild scarring versus atelectasis of the bilateral lung bases. A 1.2 cm pleural-based nodule within the left lower lobe is unchanged on axial image 10. Bilateral L5 pars defects with grade 1 associated anterolisthesis of L5 on S1 is stable. No acute osseous abnormality is identified. Gallbladder is absent. Within the limits of a noncontrast exam, the unenhanced liver, spleen, pancreas and adrenals are unremarkable. There is stable nonspecific bilateral perinephric stranding. Both kidneys are otherwise unremarkable without urolithiasis or obstructive uropathy. Evaluation of the GI tract is limited without oral contrast. Accounting for this, there is no bowel obstruction or gross inflammation. The appendix is not identified and may be absent. The abdominal aorta is moderately calcified without aneurysm. The urinary bladder is grossly normal without stones. The prostate is mildly prominent, unchanged. No free air, free fluid or bulky lymphadenopathy is identified. Impression: No acute abnormality identified within the limitations of a noncontrast exam. Stable chronic findings as above. Reported By:
[2019-01-17 19:29] LABS: BILIRUBIN,URINE 1+ (NEGATIVE); BLOOD/HEMOGLOBIN,URINE 2+ (NEGATIVE); GLUCOSE, URINE 4+ (NEGATIVE); KETONES,URINE NEGATIVE (NEGATIVE); LEUKOCYTE ESTERASE ,URINE NEGATIVE (NEGATIVE); NITRITES,URINE NEGATIVE (NEGATIVE); PROTEIN,URINE 3+ (NEGATIVE); UROBILINOGEN,URINE 2+ (NORMAL)
[2019-01-17 19:38] LABS: APPEARANCE,URINE CLEAR (CLEAR); COLOR,URINE AMBER (YELLOW)
[2019-01-17 19:39] LABS: BACTERIA,URINE TRACE /HPF (NEGATIVE); RBC,URINE 0-2 /HPF (NONE SEEN); SQUAMOUS EPITHELIAL CELL,UR FEW /HPF (NEGATIVE)
[2019-01-17 19:40] LABS: AMORPHOUS SEDIMENT,UR 1+ /HPF (NEGATIVE)
[2019-01-17] MEDS ORDERED: INVANZ INJ 1 GM VIAL 0.5 GM in NS 50 ML IV 50 ML IV SCH (21:00)
[2019-01-17] MEDS: HumuLIN R SC SCH (21:30)
[2019-01-18] MEDS: NS 1000 ML 1,000 ML IV SCH ×5 (01:28→18:43)
[2019-01-18] MEDS ORDERED: NS 1000 ML 1,000 ML IV ONE ×3 (01:35→04:51)
[2019-01-18 05:36] LABS: BASOPHILS # (AUTO) 0.1 X10^3/uL (0.0-0.1); BASOPHILS % (AUTO) 0.1 % (0.2-1.0); HEMATOCRIT 30.7 % (42.0-54.0); LYMPHOCYTES # (AUTO) 0.6 X10^3/uL (1.3-2.9); LYMPHOCYTES % (AUTO) 1.6 % (21.0-51.0); MEAN CORPUSCULAR HEMOGLOBIN 30.8 pg (27.0-34.0); MEAN CORPUSCULAR VOLUME 90.5 fL (80.0-100.0); MONOCYTES # (AUTO) 0.9 x10^3/uL (0.3-0.8); MONOCYTES % (AUTO) 2.1 % (0.0-13.0); NEUTROPHILS # (AUTO) 40.2 x10^3/uL (2.2-4.8); NEUTROPHILS % (AUTO) 96.2 % (42.0-75.0); PLATELET COUNT 170 X10^3/uL (150.0-450.0); RED BLOOD COUNT 3.39 X10^6/uL (4.7-6.0)
[2019-01-18 05:42] LABS: ALBUMIN 2.2 g/dL (3.4-5.0); CALCIUM 7.3 mg/dL (8.5-10.1); CARBON DIOXIDE 17.8 mmol/L (21-32); COR CA(FOR HYPOALB) 8.7 mg/dL (8.5-10.1); CREATININE 1.82 mg/dL (0.70-1.30); MAGNESIUM 0.7 mg/dL (1.7-2.9); TOTAL PROTEIN 5.8 g/dL (6.4-8.2)
[2019-01-18] MEDS: HumuLIN R SC SCH ×4 (05:47→20:43)
[2019-01-18 06:04] LABS: WHITE BLOOD COUNT 41.8 X10^3/uL (3.6-10.0)
[2019-01-18 06:07] LABS: BAND NEUTROPHILS % 18 % (0-10); HEMOGLOBIN 10.4 g/dL (13.5-18.0)
[2019-01-18 06:08] LABS: PLATELET MORPHOLOGY COMMENT NORMAL (NORMAL)
[2019-01-18] MEDS ORDERED: POTASSIUM CHLORIDE LIQ 20 MEQ UDC PO PRN (06:59)
[2019-01-18] MEDS ORDERED: POTASSIUM CHL 40 MEQ/NS 0.45% 500 ML IV PRN (06:59)
[2019-01-18] MEDS ORDERED: POTASSIUM CHL 60 MEQ/NS 0.45% 500 ML IV PRN (06:59)
[2019-01-18] MEDS ORDERED: KLOR-CON PO PRN (06:59)
[2019-01-18] MEDS ORDERED: MICRO K EXTEN CAP 10 MEQ PO PRN (06:59)
[2019-01-18] MEDS: MAGNESIUM SULFATE 1 GRAM/100 mL PREMIX 1 GM/100 ML BAG IV PRN ×2 (08:43→10:04)
[2019-01-18] MEDS: ZOSYN VIAL 3.375 GRAMS 3.375 G in NS 100 ML IV + SPIKE MINIBAG* 100 ML IV SCH ×3 (10:07→21:04)
[2019-01-18] MEDS: MAG-OX TAB PO SCH ×2 (10:08→17:41)
[2019-01-18] MEDS: NS 1000 ML 1,000 ML with THIAMINE HCL INJ 100 MG, MAGNESIUM SULFATE 50% INJ 1 G, MVI IN... IV SCH ×5 (11:37)
[2019-01-18] MEDS: K-DUR TAB 20 MEQ PO PRN (11:42)
[2019-01-18] MEDS: ROXICODONE TAB 5 MG PO PRN ×2 (13:57→23:55)
--- NOTE | 2019-01-18 18:11 | DR.H&P ---
H&P - History & Physical for Day of: H&P Date: 01/17/19 - Chief Complaint Chief Complaint: FEVER, NAUSEA, VOMITING - History of Present Illness History of Present Illness: IS A 63 YEAR OLD PATIENT OF [facility]. HE PRESENTED TO THE ER WITH COMPLAINTS OF FEVER, NAUSEA, AND VOMITING X 3 DAYS. HE WAS HOSPITALIZED ONE MONTH AGO DUE TO E.COLI IN THE BLOOD AND URINE. MEDICAL HISTORY INCLUDES DIABETES, HTN, GERD, AND CHRONIC BACK PAIN. ON ARRIVAL, VITALS WERE 99.1-122-22-98%-88/52. LABS WERE OBTAINED. ABNORMAL LAB VALUES INCLUDE THE FOLLOWING: WBC 25.0, RBC 4.48, HCT 40.5, INR 1.62, PTT 37.1, SODIUM 134, CHLORIDE 92, BUN 20, CREATININE 1.78, GLUCOSE 410, TOTAL BILI 7.00, AST 121, ALT 117, ALK PHOS 367, CREATINE KINASE 25, CRP 219.10, TOTAL PROTEIN 9.0, GLOBULIN 5.3, LACTIC ACID 6.0. ACETONES NEGATIVE. BLOOD AND URINE CULTURES WERE OBTAINED. EKG OBTAINED AND REVEALED: SINUS TACHYCARDIA WITH HR 132. AN ABDOMEN/PELVIS CT WITHOUT CONTRAST WAS OBTAINED AND REVEALED: No acute abnormality identified within the limitations of a noncontrast exam. Stable chronic findings as above. HE WAS GIVEN A NORMAL SALINE BOLUS AND STARTED ON INVANZ 0.5G IV BID. HE WAS ADMITTED FOR LEUKOCYTOSIS, HYPOTENSION, ABNORMAL LIVER ENZYMES, AND SEPSIS. WE WILL ADMINISTER THREE ADDITIONAL BOLUSES. OTHERWISE, WE WILL FOLLOW UP WITH AM LABS AND CONTINUE TO MONITOR. - Past Medical History Past Medical History: [place], Coronary Artery Disease, Hypertension, Diabetes - Past Surgical History Surgical History: Appendectomy, Cholecystectomy - Family History Family Medical History: Diabetes Mellitus, Heart Failure, Sudden Cardiac - Social History Does patient currently use any type of tobacco product: Yes Have you used tobacco products in the last 12 months: Yes Type of Tobacco Use: Cigarettes How many years tobacco product used: 43 Does any household member use tobacco: No Alcohol Use: None Drug Use: Prescription Drugs - Medications Home Medications: No Known Drug Allergies Allergy (Verified 10/05/18 09:42) CONTINUE taking the following medications atorvastatin 10 mg PO HS 01/18/19 [History] glipizide-metformin 1 tab PO TID 01/18/19 [History] insulin aspart U-100 [Novolog U-100 Insulin aspart] 1 unit SUBCUT .[facility] PROTOCOL PRN 01/18/19 [History] insulin glargine [Lantus U-100 Insulin] 1 unit SUBCUT .[facility] PROTOCOL PRN 01/18/19 [History] linaclotide [Linzess] 145 mcg PO QDAY 01/18/19 [History] meclizine 25 mg PO TID PRN 01/18/19 [History] - Review of Systems Constitutional: Fever, Weakness Eyes: No Symptoms Reported ENT: No Symptoms Reported Respiratory: No Symptoms Reported Cardiovascular: No Symptoms Reported Gastrointestinal: See HPI, Nausea, Vomiting, Abdominal Pain Genitourinary: No Symptoms Reported Musculoskeletal: No Symptoms Reported Skin: No Symptoms Reported Neurological: Weakness - Physical Exam Vital Signs: Temperature 98.7 F Pulse Rate [Apical] 94 Pulse Rate 122 Respiratory Rate 19 Blood Pressure [Right Arm] 124/55 Blood Pressure [Left Arm] 156/79 Blood Pressure 88/52 O2 Sat by Pulse Oximetry 97 Oriented: Normal Eyes: Normal Ear: Normal Nose: Normal Throat: Normal Respiratory: Diminished Throughout Cardiovascular: Tachycardia. negative: S3, S4, Murmur, Edema : Normal Auscultation: Bowel Sounds: Normal Palpation: Normal Tenderness: Diffuse, Mild. negative: Rebound, Guarding, Rigidity Skin: Normal Musculoskeletal: Normal Psychiatric: Normal Mood Description: Calm Affect: Normal Speech Pattern: Clear - Assessment/Plan (1) Sepsis Qualifiers: Sepsis type: sepsis due to unspecified organism Qualified Code(s): A41.9 - Sepsis, unspecified organism Status: Acute Plan: IV FLUIDS, IV ANTIBIOTICS, MONITOR LABS (2) Leukocytosis Qualifiers: Leukocytosis type: unspecified Qualified Code(s): D72.829 - Elevated white blood cell count, unspecified Status: Acute (3) Dehydration Status: Acute Plan: IV FLUIDS, CONTINUE TO MONITOR (4) Abnormal liver function test Status: Acute Plan: OBTAIN ABDOMEN/PELVIS CT WITH CONTRAST IN AM, CONTINUE TO MONITOR (5) Hypotension Qualifiers: Hypotension type: unspecified hypotension type Qualified Code(s): I95.9 - Hypotension, unspecified Status: Acute Plan: IV FLUIDS, CONTINUE TO MONITOR - Allergies Allergies/Adverse Reactions: Allergies Allergy/AdvReac Type Severity Reaction Status Date / Time No Known Drug Allergies Allergy Verified 10/05/18 09:42
[2019-01-18] MEDS ORDERED: ANTIVERT TAB 25 MG PO PRN (18:14)
[2019-01-18] MEDS: ZOFRAN INJ 4 MG VIAL IVP PRN (19:32)
[2019-01-18] MEDS ORDERED: INVANZ INJ 1 GM VIAL 0.5 GM in NS 50 ML IV 50 ML IV SCH (21:00)
[2019-01-18] MEDS: LIPITOR TAB 10 MG PO SCH (21:04)
[2019-01-19] MEDS: NS 1000 ML 1,000 ML IV SCH ×3 (01:21→20:44)
[2019-01-19 06:12] LABS: BASOPHILS # (AUTO) 0.1 X10^3/uL (0.0-0.1); BASOPHILS % (AUTO) 0.5 % (0.2-1.0); EOSINOPHILS # (AUTO) 0.1 x10^3/uL (0.0-0.2); EOSINOPHILS % (AUTO) 0.4 % (0.9-2.9); HEMATOCRIT 32.3 % (42.0-54.0); HEMOGLOBIN 11.1 g/dL (13.5-18.0); LYMPHOCYTES # (AUTO) 0.6 X10^3/uL (1.3-2.9); LYMPHOCYTES % (AUTO) 2.1 % (21.0-51.0); MEAN CORPUSCULAR HEMOGLOBIN 30.5 pg (27.0-34.0); MEAN CORPUSCULAR HGB CONC 34.5 g/dL (33.0-35.0); MEAN CORPUSCULAR VOLUME 88.4 fL (80.0-100.0); MEAN PLATELET VOLUME 10.3 fL (7.4-11.0); MONOCYTES # (AUTO) 0.5 x10^3/uL (0.3-0.8); MONOCYTES % (AUTO) 1.7 % (0.0-13.0); NEUTROPHILS # (AUTO) 25.9 x10^3/uL (2.2-4.8); NEUTROPHILS % (AUTO) 95.3 % (42.0-75.0); PLATELET COUNT 137 X10^3/uL (150.0-450.0); RED BLOOD COUNT 3.65 X10^6/uL (4.7-6.0); RED CELL DISTRIBUTION WIDTH 13.8 % (11.6-16.5); WHITE BLOOD COUNT 27.2 X10^3/uL (3.6-10.0)
[2019-01-19] MEDS: ZOSYN VIAL 3.375 GRAMS 3.375 G in NS 100 ML IV + SPIKE MINIBAG* 100 ML IV SCH ×3 (06:18→21:15)
[2019-01-19] MEDS: HumuLIN R SC SCH ×4 (06:18→20:20)
[2019-01-19] MEDS: MAG-OX TAB PO SCH ×2 (06:19→17:26)
[2019-01-19 06:24] LABS: LACTIC ACID 1.2 mmol/L (0.4-2.0)
[2019-01-19 06:26] LABS: ALANINE AMINOTRANSFERASE 53 Units/L (12-78); ALBUMIN 2.3 g/dL (3.4-5.0); ALKALINE PHOSPHATASE 194 Units/L (46-116); ASPARTATE AMINO TRANSFERASE 45 Units/L (15-37); BLOOD UREA NITROGEN 15 mg/dL (7-18); CALCIUM 8.1 mg/dL (8.5-10.1); CARBON DIOXIDE 23.2 mmol/L (21-32); CHLORIDE 105 mmol/L (98-107); COR CA(FOR HYPOALB) 9.5 mg/dL (8.5-10.1); COR NA(FOR HYPERGLY) 139 mmol/L (136-145); MAGNESIUM 1.7 mg/dL (1.7-2.9); SODIUM 138 mmol/L (136-145); TOTAL PROTEIN 6.3 g/dL (6.4-8.2); eGFR NON BLACK RACES > 60 (>60)
[2019-01-19 06:33] LABS: BAND NEUTROPHILS % 5 % (0-10); PLATELET MORPHOLOGY COMMENT NORMAL (NORMAL)
[2019-01-19] MEDS: LINZESS PO SCH (12:56)
[2019-01-19] MEDS: PROTONIX TAB 40 MG PO SCH (12:57)
[2019-01-19] MEDS: ZANTAC PO SCH (12:57)
--- NOTE | 2019-01-19 13:42 | CT ---
CT chest with contrast Indication: Abdominal pain with nausea, vomiting and diarrhea. Elevated liver enzymes. Dyspnea. Sepsis. Comparison: 01/17/2019 CT abdomen and pelvis. 05/26/2018 CT chest Technique: Helical images through the chest after IV contrast. Coronal and sagittal reformats provided. Abdominal CT dictated separately Findings: Limited images through the upper abdomen demonstrate patchy enhancement of the kidneys suggesting pyelonephritis. See separately dictated CT abdomen. Review of bone windows shows no destructive osseous lesion. Sternotomy changes are noted. Chest: The heart size is enlarged with sternotomy change and CABG clips noted. Teller coronary artery calcifications noted. Few aortic arch branch vessel calcifications are noted. No mediastinal adenopathy seen. Dependent atelectasis and trace effusions noted, new from the recent prior CT abdomen. Pulmonary arteries are normal centrally. There is no pneumothorax. Scarring with peribronchial thickening and increased interstitial markings noted. Nodular density in the left lower lung possibly represent scarring, but merits follow-up. This is unchanged from the recent prior CT. Impression: 1. Cardiomegaly and chronic lung changes. Correlate for signs of CHF. 2. Developing effusions and scarring in the bases. Underlying nodules difficult to exclude. See previously dictated CT. Recommend nonemergent outpatient CT chest follow-up after resolution of acute symptoms. 3. Probable pyelonephritis. See separately dictated CT abdomen and pelvis from the same day. Reported By:
--- NOTE | 2019-01-19 13:46 | CT ---
CT abdomen and pelvis with contrast Indication: Abdominal pain with nausea, vomiting and diarrhea. Sepsis. Elevated liver enzymes Comparison: 01/17/2029 CT abdomen and pelvis and CT from 08/10/2018 Technique: Helical images through the abdomen and pelvis after IV contrast. Coronal and sagittal reformats provided. Oral contrast given. Findings: Review of bone windows shows spine degenerative change with pars defects at L5. Anterolisthesis of L5 on S1 noted. Limited images through the lower chest show cardiomegaly, increased interstitial markings and effusion. Nodular density in the left lower lung merits follow-up. Abdomen: Cholecystectomy clips noted. The common bile duct and intrahepatic biliary tree is dilated, probably similar to the prior. No large liver lesion convincingly demonstrated. Few tiny scattered hepatic hypodensities are noted. These appear new from the prior of 08/10/2018. Liver is also heterogeneous. The follow-up will be needed to exclude neoplasia. The pancreas, adrenal glands, spleen, stomach and small bowel show no acute abnormality. The colon shows no acute abnormality. Appendix is absent. Aorta and branch vessel plaque is noted. Patchy wedge-shaped poor enhancement of the kidneys is noted bilaterally suggesting pyelonephritis. No hydronephrosis seen. Pelvis: The urinary bladder is minimally thick-walled and collapsed. The rectum is normal. Prostate gland is normal. There is free fluid in the pelvis. Impression: 1. Patchy enhancement of the kidneys, most compatible with pyelonephritis. Urinary bladder is also thick-walled and urinary tract infection is favored. 2. New scattered hypodensities in the liver, not convincingly demonstrated on prior imaging. Given history of sepsis, developing microabscesses are not excluded. Close clinical and imaging follow-up recommended. Underlying neoplasia needs to be excluded as well. 3. Biliary dilatation, similar to the prior. Correlate with hepatic biochemical profile for any evidence of biliary obstruction. 4. Cardiomegaly and chronic lung changes suggesting CHF. 5. Spine DJD, pars defects at L5, vascular calcifications and other findings as above. Reported By:
[2019-01-19] MEDS: NS 1000 ML 1,000 ML with THIAMINE HCL INJ 100 MG, MAGNESIUM SULFATE 50% INJ 1 G, MVI IN... IV SCH ×5 (14:00)
[2019-01-19] MEDS: ROXICODONE TAB 5 MG PO PRN (17:53)
[2019-01-19] MEDS ORDERED: BUTT CREAM (COMPOUND) TOP PRN (20:17)
[2019-01-19] MEDS: LIPITOR TAB 10 MG PO SCH (20:38)
[2019-01-19] MEDS: K-DUR TAB 20 MEQ PO PRN (20:39)
[2019-01-20] MEDS: NS 1000 ML 1,000 ML IV SCH ×3 (03:00→20:09)
[2019-01-20 05:43] LABS: BASOPHILS # (AUTO) 0.1 X10^3/uL (0.0-0.1); BASOPHILS % (AUTO) 0.7 % (0.2-1.0); EOSINOPHILS # (AUTO) 0.2 x10^3/uL (0.0-0.2); HEMATOCRIT 31.2 % (42.0-54.0); HEMOGLOBIN 10.7 g/dL (13.5-18.0); LYMPHOCYTES # (AUTO) 0.9 X10^3/uL (1.3-2.9); LYMPHOCYTES % (AUTO) 5.6 % (21.0-51.0); MEAN CORPUSCULAR HEMOGLOBIN 30.7 pg (27.0-34.0); MEAN CORPUSCULAR HGB CONC 34.4 g/dL (33.0-35.0); MEAN CORPUSCULAR VOLUME 89.3 fL (80.0-100.0); MONOCYTES # (AUTO) 0.7 x10^3/uL (0.3-0.8); MONOCYTES % (AUTO) 4.3 % (0.0-13.0); NEUTROPHILS # (AUTO) 14.3 x10^3/uL (2.2-4.8); NEUTROPHILS % (AUTO) 88.4 % (42.0-75.0); PLATELET COUNT 120 X10^3/uL (150.0-450.0); RED BLOOD COUNT 3.49 X10^6/uL (4.7-6.0); RED CELL DISTRIBUTION WIDTH 13.7 % (11.6-16.5); WHITE BLOOD COUNT 16.2 X10^3/uL (3.6-10.0)
[2019-01-20 06:03] LABS: ALANINE AMINOTRANSFERASE 38 Units/L (12-78); ALBUMIN 2.1 g/dL (3.4-5.0); ALKALINE PHOSPHATASE 193 Units/L (46-116); ASPARTATE AMINO TRANSFERASE 26 Units/L (15-37); BLOOD UREA NITROGEN 11 mg/dL (7-18); CALCIUM 8.2 mg/dL (8.5-10.1); CARBON DIOXIDE 21.6 mmol/L (21-32); CHLORIDE 104 mmol/L (98-107); COR CA(FOR HYPOALB) 9.7 mg/dL (8.5-10.1); COR NA(FOR HYPERGLY) 139 mmol/L (136-145); CREATININE 0.96 mg/dL (0.70-1.30); SODIUM 137 mmol/L (136-145); TOTAL PROTEIN 6.1 g/dL (6.4-8.2); eGFR NON BLACK RACES > 60 (>60)
[2019-01-20] MEDS: ZOSYN VIAL 3.375 GRAMS 3.375 G in NS 100 ML IV + SPIKE MINIBAG* 100 ML IV SCH ×3 (06:04→21:05)
[2019-01-20] MEDS: MAG-OX TAB PO SCH ×2 (06:05→17:51)
[2019-01-20] MEDS: HumuLIN R SC SCH ×4 (06:05→20:32)
[2019-01-20] MEDS ORDERED: K-LYTE EFFERVESCENT PO ONE (07:25)
[2019-01-20] MEDS: PROTONIX TAB 40 MG PO SCH (08:12)
[2019-01-20] MEDS: ZANTAC PO SCH (08:12)
[2019-01-20] MEDS: LINZESS PO SCH (08:13)
[2019-01-20] MEDS: ROXICODONE TAB 5 MG PO PRN ×2 (09:44→20:48)
[2019-01-20] MEDS: NS 1000 ML 1,000 ML with THIAMINE HCL INJ 100 MG, MAGNESIUM SULFATE 50% INJ 1 G, MVI IN... IV SCH ×5 (16:34)
[2019-01-20] MEDS: LIPITOR TAB 10 MG PO SCH (20:32)
[2019-01-20] MEDS: ZOFRAN INJ 4 MG VIAL IVP PRN (20:48)
[2019-01-20] MEDS ORDERED: TYLENOL 325 MG TAB PO PRN (22:48)
[2019-01-20] MEDS ORDERED: TYLENOL 325 MG TAB PO ONE (22:55)
[2019-01-21 05:40] LABS: BASOPHILS # (AUTO) 0.2 X10^3/uL (0.0-0.1); BASOPHILS % (AUTO) 1.4 % (0.2-1.0); EOSINOPHILS # (AUTO) 0.5 x10^3/uL (0.0-0.2); EOSINOPHILS % (AUTO) 4.3 % (0.9-2.9); HEMATOCRIT 29.3 % (42.0-54.0); HEMOGLOBIN 10.3 g/dL (13.5-18.0); LYMPHOCYTES # (AUTO) 1.5 X10^3/uL (1.3-2.9); LYMPHOCYTES % (AUTO) 13.6 % (21.0-51.0); MEAN CORPUSCULAR HEMOGLOBIN 31.3 pg (27.0-34.0); MEAN CORPUSCULAR HGB CONC 35.3 g/dL (33.0-35.0); MEAN CORPUSCULAR VOLUME 88.7 fL (80.0-100.0); MEAN PLATELET VOLUME 11.8 fL (7.4-11.0); MONOCYTES # (AUTO) 1.2 x10^3/uL (0.3-0.8); MONOCYTES % (AUTO) 11.3 % (0.0-13.0); NEUTROPHILS # (AUTO) 7.6 x10^3/uL (2.2-4.8); NEUTROPHILS % (AUTO) 69.4 % (42.0-75.0); PLATELET COUNT 113 X10^3/uL (150.0-450.0); RED BLOOD COUNT 3.31 X10^6/uL (4.7-6.0); RED CELL DISTRIBUTION WIDTH 14.1 % (11.6-16.5)
[2019-01-21] MEDS: NS 1000 ML 1,000 ML IV SCH ×3 (05:44→18:56)
[2019-01-21 05:52] LABS: ALANINE AMINOTRANSFERASE 14 Units/L (12-78); ALBUMIN 1.9 g/dL (3.4-5.0); ALKALINE PHOSPHATASE 220 Units/L (46-116); ASPARTATE AMINO TRANSFERASE 22 Units/L (15-37); BLOOD UREA NITROGEN 9 mg/dL (7-18); CALCIUM 7.9 mg/dL (8.5-10.1); CARBON DIOXIDE 26.6 mmol/L (21-32); CHLORIDE 106 mmol/L (98-107); COR CA(FOR HYPOALB) 9.6 mg/dL (8.5-10.1); COR NA(FOR HYPERGLY) 141 mmol/L (136-145); CREATININE 0.89 mg/dL (0.70-1.30); MAGNESIUM 1.5 mg/dL (1.7-2.9); SODIUM 140 mmol/L (136-145); TOTAL PROTEIN 5.7 g/dL (6.4-8.2); eGFR NON BLACK RACES > 60 (>60)
[2019-01-21 06:30] LABS: BAND NEUTROPHILS % 4 % (0-10); BASOPHILS % (MANUAL) 1 % (0-1)
[2019-01-21 06:31] LABS: HYPOCHROMASIA 1+; PLATELET MORPHOLOGY COMMENT NORMAL (NORMAL)
[2019-01-21] MEDS: HumuLIN R SC SCH ×4 (06:34→20:03)
[2019-01-21] MEDS: ZOSYN VIAL 3.375 GRAMS 3.375 G in NS 100 ML IV + SPIKE MINIBAG* 100 ML IV SCH ×3 (06:34→21:02)
[2019-01-21] MEDS: MAG-OX TAB PO SCH ×2 (06:35→17:12)
[2019-01-21] MEDS ORDERED: K-LYTE EFFERVESCENT ONE (07:53)
[2019-01-21] MEDS: LINZESS PO SCH (08:37)
[2019-01-21] MEDS: ZANTAC PO SCH (08:37)
[2019-01-21] MEDS: PROTONIX TAB 40 MG PO SCH (08:37)
[2019-01-21] MEDS: NS 1000 ML 1,000 ML with THIAMINE HCL INJ 100 MG, MAGNESIUM SULFATE 50% INJ 1 G, MVI IN... IV SCH ×10 (10:21→17:14)
[2019-01-21] MEDS: K-RIDER 10 MEQ/NS 100 ML 10 MEQ/100 ML BAG IV PRN (10:23)
[2019-01-21] MEDS: ROXICODONE TAB 5 MG PO PRN ×2 (15:44→23:24)
[2019-01-21] MEDS: LIPITOR TAB 10 MG PO SCH (20:03)
--- NOTE | 2019-01-21 22:56 | PCM.PROG ---
Progress Note - Progress Note for Day of Date of Exam: 01/19/19 - Subjective Subjective: WAS ADMITTED FOR SEPSIS, DEHYDRATION, HYPOTENSION, AND ABNORMAL LIVER FUNCTION TESTS. TODAY, HE IS ALERT AND ORIENTED, LYING IN BED ON MORNING ROUNDS. HE REPORTS GENERALIZED WEAKNESS TODAY. HE CONTINUES WITH WEAKNESS AND REPORTS MILD ABDOMINAL PAIN. ON EXAMINATION, HEART IS REGULAR IN RATE AND RHYTHM. BILATERAL LUNGS ARE NOTED WITH DIMINISHED LUNG SOUNDS THROUGHOUT. ABDOMEN IS ROUND, SOFT, AND NOTED WITH MILD SUPRAPUBIC TENDERNESS. NORMAL BOWEL SOUNDS ARE NOTED IN ALL QUADRANTS. HIS VITALS THIS MORNING ARE: 98.1-84-25-100%-113/57. LABS WERE OBTAINED. ABNORMAL LAB VALUES INCLUDE THE FOLLOWING: WBC DECREASED TO 27.2, RBC 3.65, HGB 11.1, HCT 32.3, PLT COUNT 137, POTASSIUM 3.4, GLUCOSE 157, CALCIUM 8.1, TOTAL BILI 4.80, AST 45, ALK PHOS 194, CRP 297.60, TOTAL PROTEIN 6.3, ALBUMIN 2.3. BLOOD AND URINE CULTURES ARE PENDING. ABDOMEN/PELVIS CT WITH CONTRAST WAS OBTAINED AND REVEALED: Patchy enhancement of the kidneys, most compatible with pyelonephritis. Urinary bladder is also thick-walled and urinary tract infection is favored. New scattered hypodensities in the liver, not convincingly demonstrated on prior imaging. Given history of sepsis, developing microabscesses are not excluded. Close clinical and imaging follow-up recommended. 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 Biliary dilatation, similar to the prior. Correlate with hepatic biochemical profile for any evidence of biliary obstruction. Cardiomegaly and chronic lung changes suggesting CHF. Spine DJD, pars defects at L5, vascular calcifications and other findings as above. A CHEST CT WAS OBTAINED AND REVEALED: Cardiomegaly and chronic lung changes. Correlate for signs of CHF. Developing effusions and scarring in the bases. Underlying nodules difficult to exclude. See previously dictated CT. Recommend nonemergent outpatient CT chest follow-up after resolution of acute symptoms. HE IS CURRENTLY RECEIVING IV FLUIDS, IV ANTIBIOTICS, AND HOME MEDICATIONS WERE RESUMED. WE WILL CONTINUE WITH CURRENT PLAN OF CARE TODAY. OTHERWISE, WE PLAN TO FOLLOW-UP WITH AM LABS AND CONTINUE TO MONITOR. - Past Medical Family Social History Past Med/Fam/Surg Hx: No changes since H&P Allergies: Allergies No Known Drug Allergies Allergy (Verified 10/05/18 09:42) - Review of Systems ROS: No change since H&P - Vital Signs and I&O's Vital Signs: Temperature 98.0 F Pulse Rate [Apical] 85 Pulse Rate 69 Respiratory Rate 11 Blood Pressure [Right Arm] 124/55 Blood Pressure [Left Arm] 109/52 Blood Pressure 135/69 O2 Sat by Pulse Oximetry 96 Intake and Output: Intake & Output 01/19/19 01/20/19 01/21/19 01/22/19 11:59 11:59 11:59 11:59 Intake Total 3163 / 3163 3749 / 3749 3613 / 3613 1612 / 1612 Output Total 1425 / 1425 1308 / 1308 2570 / 2570 400 / 400 Balance 1738 / 1738 2441 / 2441 1043 / 1043 1212 / 1212 - Physical Exam Oriented: Normal Eyes: Normal Ear: Normal Nose: Normal Throat: Normal Respiratory: Diminished Cardiovascular: Normal. negative: S3, S4, Murmur, Edema : Normal Auscultation: Bowel Sounds: Normal Palpation: Normal Tenderness: Diffuse, Mild. negative: Rebound, Guarding, Rigidity Skin: Normal Musculoskeletal: Normal Psychiatric: Normal Mood Description: Calm Affect: Normal Speech Pattern: Clear - Laboratory and Diagnostics Result Diagrams: 01/21/19 03:58 01/21/19 21:06 Labs: 01/17/19 16:35 Blood Blood Culture - Final Escherichia Coli 01/17/19 16:30 Blood Blood Culture - Final Escherichia Coli 01/18/19 15:30 Urine,Clean Catch Urine Culture - Final Laboratory WBC 11.0 X10^3/uL (3.6-10.0) H 01/21/19 03:58 RBC 3.31 X10^6/uL (4.7-6.0) L 01/21/19 03:58 Hgb 10.3 g/dL (13.5-18.0) L 01/21/19 03:58 Hct 29.3 % (42.0-54.0) L 01/21/19 03:58 MCV 88.7 fL (80.0-100.0) 01/21/19 03:58 MCH 31.3 pg (27.0-34.0) 01/21/19 03:58 MCHC 35.3 g/dL (33.0-35.0) H 01/21/19 03:58 RDW 14.1 % (11.6-16.5) 01/21/19 03:58 Plt Count 113 X10^3/uL (150.0-450.0) L 01/21/19 03:58 Plt Count Comment Decreased (ADEQUATE) 01/21/19 03:58 MPV 11.8 fL (7.4-11.0) H 01/21/19 03:58 Neut % (Auto) 69.4 % (42.0-75.0) 01/21/19 03:58 Lymph % (Auto) 13.6 % (21.0-51.0) L 01/21/19 03:58 [place] % (Auto) 11.3 % (0.0-13.0) 01/21/19 03:58 Eos % (Auto) 4.3 % (0.9-2.9) H 01/21/19 03:58 Baso % (Auto) 1.4 % (0.2-1.0) H 01/21/19 03:58 Neut # (Auto) 7.6 x10^3/uL (2.2-4.8) H 01/21/19 03:58 Lymph # (Auto) 1.5 X10^3/uL (1.3-2.9) 01/21/19 03:58 [place] # (Auto) 1.2 x10^3/uL (0.3-0.8) H 01/21/19 03:58 Eos # (Auto) 0.5 x10^3/uL (0.0-0.2) H 01/21/19 03:58 Baso # (Auto) 0.2 X10^3/uL (0.0-0.1) H 01/21/19 03:58 Absolute Nucleated RBC 0.1 /100WBC 01/21/19 03:58 Total Counted 100 01/21/19 03:58 Neutrophils % (Manual) 54 % (39-76) 01/21/19 03:58 Band Neutrophils % 4 % (0-10) 01/21/19 03:58 Lymphocytes % (Manual) 25 % (13-43) 01/21/19 03:58 Monocytes % (Manual) 12 % (4-9) H 01/21/19 03:58 Eosinophils % (Manual) 4 % (0-6) 01/21/19 03:58 Basophils % (Manual) 1 % (0-1) 01/21/19 03:58 Plt Morphology Comment Normal (NORMAL) 01/21/19 03:58 RBC Morphology Abnormal (NORMAL) 01/21/19 03:58 Hypochromasia 1+ A 01/21/19 03:58 INR Target Range - 01/18/19 05:08 INR 1.62 (0.8-1.3) H 01/18/19 05:08 APTT 37.1 SECONDS (22.9-36.5) H 01/18/19 05:08 PTT Comment - 01/18/19 05:08 Sodium 140 mmol/L (136-145) 01/21/19 03:58 Corrected Sodium 141 mmol/L (136-145) 01/21/19 03:58 Potassium 3.9 mmol/L (3.5-5.1) 01/21/19 21:06 Chloride 106 mmol/L (98-107) 01/21/19 03:58 Carbon Dioxide 26.6 mmol/L (21-32) 01/21/19 03:58 BUN 9 mg/dL (7-18) 01/21/19 03:58 Creatinine 0.89 mg/dL (0.70-1.30) 01/21/19 03:58 Est GFR (MDRD) Af Amer > 60 (>60) 01/21/19 03:58 Est GFR (MDRD) Non-Af > 60 (>60) 01/21/19 03:58 Glucose 144 mg/dL (65-99) H 01/21/19 03:58 POC Glucose (mg/dL) 166 mg/dL (65-99) H 01/21/19 19:59 Lactic Acid 1.2 mmol/L (0.4-2.0) 01/19/19 05:38 Calcium 7.9 mg/dL (8.5-10.1) L 01/21/19 03:58 Corrected Calcium 9.6 mg/dL (8.5-10.1) 01/21/19 03:58 Magnesium 1.5 mg/dL (1.7-2.9) L 01/21/19 03:58 Total Bilirubin 7.00 mg/dL (0.2-1.0) H 01/21/19 03:58 AST 22 Units/L (15-37) 01/21/19 03:58 ALT 14 Units/L (12-78) 01/21/19 03:58 Alkaline Phosphatase 220 Units/L (46-116) H 01/21/19 03:58 Creatine Kinase 25 Units/L (39-308) L 01/17/19 16:35 CK-MB (CK-2) < 1.0 ng/mL (0-4.0) 01/17/19 16:35 CK/CKMB % Calc 4.0 % (<4) 01/17/19 16:35 Troponin I < 0.02 ng/mL (0-1.5) 01/17/19 16:35 C-Reactive Protein 297.60 mg/L (0-3.0) H 01/19/19 05:38 Total Protein 5.7 g/dL (6.4-8.2) L 01/21/19 03:58 Albumin 1.9 g/dL (3.4-5.0) L 01/21/19 03:58 Globulin 3.8 g/dL (2.5-4.5) 01/21/19 03:58 Albumin/Globulin Ratio 0.5 Ratio (1.1-2.1) L 01/21/19 03:58 Amylase 47 Units/L (25-115) 01/17/19 16:35 Lipase 139 Units/L (73-393) 01/17/19 16:35 Specimen Type Random urine 01/17/19 19:11 Urine Color [place]ja (YELLOW) 01/17/19 19:11 Urine Appearance Clear (CLEAR) 01/17/19 19:11 Urine pH 6.0 (5.0 - 8.0) 01/17/19 19:11 Ur Specific [place] 1.010 (1.000-1.030) 01/17/19 19:11 Urine Protein 3+ (NEGATIVE) 01/17/19 19:11 Urine Glucose (UA) 4+ (NEGATIVE) 01/17/19 19:11 Urine Ketones Negative (NEGATIVE) 01/17/19 19:11 Urine Occult Blood 2+ (NEGATIVE) 01/17/19 19:11 Urine Nitrite Negative (NEGATIVE) 01/17/19 19:11 Urine Bilirubin 1+ (NEGATIVE) 01/17/19 19:11 Urine Urobilinogen 2+ (NORMAL) 01/17/19 19:11 Ur Leukocyte Esterase Negative (NEGATIVE) 01/17/19 19:11 Urine RBC 0-2 /HPF (NONE SEEN) 01/17/19 19:11 Urine WBC None seen /HPF (NONE SEEN) 01/17/19 19:11 Ur Squamous Epith Cells Few /HPF (NEGATIVE) 01/17/19 19:11 Amorphous Sediment 1+ /HPF (NEGATIVE) 01/17/19 19:11 Urine Bacteria Trace /HPF (NEGATIVE) 01/17/19 19:11 Ur Culture Indicated? No/not indicated 01/17/19 19:11 Urine Opiates Screen Positive (NEG=<300) 01/17/19 19:11 Urine Methadone Screen Negative (NEG=<300) 01/17/19 19:11 Ur Barbiturates Screen Negative (NEG=<200) 01/17/19 19:11 Ur Phencyclidine Scrn Negative (NEG=<25) 01/17/19 19:11 Ur Amphetamines Screen Negative (NEG=<1000) 01/17/19 19:11 U Benzodiazepines Scrn Negative (NEG=<200) 01/17/19 19:11 Urine Cocaine Screen Negative (NEG=<300) 01/17/19 19:11 U Marijuana (THC) Screen Negative (NEG=<50) 01/17/19 19:11 Acetone, Semi-Quant Negative (NEGATIVE) 01/17/19 16:35 - Plan (1) Sepsis Status: Acute Qualifiers: Sepsis type: sepsis due to unspecified organism Qualified Code(s): A41.9 - Sepsis, unspecified organism Plan: IV FLUIDS, IV ANTIBIOTICS, MONITOR LABS (2) Leukocytosis Status: Acute Qualifiers: Leukocytosis type: unspecified Qualified Code(s): D72.829 - Elevated white blood cell count, unspecified (3) Dehydration Status: Acute Plan: IV FLUIDS, CONTINUE TO MONITOR (4) Abnormal liver function test Status: Acute Plan: CONTINUE TO MONITOR (5) Hypotension Status: Acute Qualifiers: Hypotension type: unspecified hypotension type Qualified Code(s): I95.9 - Hypotension, unspecified Plan: IV FLUIDS, CONTINUE TO MONITOR
[2019-01-22] MEDS: NS 1000 ML 1,000 ML IV SCH ×4 (02:00→18:55)
[2019-01-22 05:31] LABS: BASOPHILS # (AUTO) 0.2 X10^3/uL (0.0-0.1); BASOPHILS % (AUTO) 1.5 % (0.2-1.0); EOSINOPHILS # (AUTO) 0.8 x10^3/uL (0.0-0.2); HEMATOCRIT 35.5 % (42.0-54.0); HEMOGLOBIN 11.8 g/dL (13.5-18.0); LYMPHOCYTES # (AUTO) 2.3 X10^3/uL (1.3-2.9); LYMPHOCYTES % (AUTO) 15.5 % (21.0-51.0); MEAN CORPUSCULAR HEMOGLOBIN 29.7 pg (27.0-34.0); MEAN CORPUSCULAR HGB CONC 33.2 g/dL (33.0-35.0); MEAN CORPUSCULAR VOLUME 89.5 fL (80.0-100.0); MEAN PLATELET VOLUME 11.8 fL (7.4-11.0); MONOCYTES # (AUTO) 1.1 x10^3/uL (0.3-0.8); MONOCYTES % (AUTO) 7.3 % (0.0-13.0); NEUTROPHILS # (AUTO) 10.7 x10^3/uL (2.2-4.8); NEUTROPHILS % (AUTO) 70.7 % (42.0-75.0); PLATELET COUNT 161 X10^3/uL (150.0-450.0); RED BLOOD COUNT 3.97 X10^6/uL (4.7-6.0); RED CELL DISTRIBUTION WIDTH 14.2 % (11.6-16.5); WHITE BLOOD COUNT 15.1 X10^3/uL (3.6-10.0)
[2019-01-22 05:38] LABS: ALANINE AMINOTRANSFERASE 33 Units/L (12-78); ALBUMIN 2.3 g/dL (3.4-5.0); ALKALINE PHOSPHATASE 334 Units/L (46-116); ASPARTATE AMINO TRANSFERASE 32 Units/L (15-37); BLOOD UREA NITROGEN 5 mg/dL (7-18); CALCIUM 8.6 mg/dL (8.5-10.1); CARBON DIOXIDE 26.1 mmol/L (21-32); CHLORIDE 104 mmol/L (98-107); COR NA(FOR HYPERGLY) 142 mmol/L (136-145); CREATININE 0.86 mg/dL (0.70-1.30); MAGNESIUM 1.4 mg/dL (1.7-2.9); SODIUM 141 mmol/L (136-145); TOTAL PROTEIN 6.8 g/dL (6.4-8.2); eGFR NON BLACK RACES > 60 (>60)
[2019-01-22] MEDS: ZOSYN VIAL 3.375 GRAMS 3.375 G in NS 100 ML IV + SPIKE MINIBAG* 100 ML IV SCH ×3 (06:16→21:46)
[2019-01-22] MEDS: HumuLIN R SC SCH ×4 (06:18→20:51)
[2019-01-22] MEDS: MAG-OX TAB PO SCH ×2 (06:19→16:11)
[2019-01-22 06:45] LABS: BAND NEUTROPHILS % 15 % (0-10); METAMYELOCYTES % 2; PLATELET MORPHOLOGY COMMENT NORMAL (NORMAL)
[2019-01-22] MEDS: PROTONIX TAB 40 MG PO SCH (08:43)
[2019-01-22] MEDS: LINZESS PO SCH (08:43)
[2019-01-22] MEDS: ZANTAC PO SCH (08:44)
[2019-01-22] MEDS: MAGNESIUM SULFATE 1 GRAM/100 mL PREMIX 1 GM/100 ML BAG IV PRN ×4 (08:45→15:56)
[2019-01-22] MEDS: NS 1000 ML 1,000 ML with THIAMINE HCL INJ 100 MG, MAGNESIUM SULFATE 50% INJ 1 G, MVI IN... IV SCH ×10 (10:58→15:54)
[2019-01-22] MEDS ORDERED: NS 100 ML IV 100 ML ONE (12:46)
[2019-01-22 16:09] LABS: CRYPTOSPORIDIUM PARVUM ANTIGEN NEGATIVE (NEGATIVE); GIARDIA LAMBLIA ANTIGEN NEGATIVE (NEGATIVE)
[2019-01-22 16:09] LABS: STOOL FOR WBC POSITIVE (NEGATIVE)
--- NOTE | 2019-01-22 17:26 | PCM.PROG ---
Progress Note - Progress Note for Day of Date of Exam: 01/20/19 - Subjective Subjective: WAS ADMITTED FOR SEPSIS, DEHYDRATION, HYPOTENSION, AND ABNORMAL LIVER FUNCTION TESTS. TODAY, HE IS ALERT AND ORIENTED, LYING IN BED ON MORNING ROUNDS. HE CONTINUES WITH GENERALIZED WEAKNESS TODAY. HE ALSO CONTINUES TO REPORT MILD ABDOMINAL PAIN. ON EXAMINATION, HEART IS REGULAR IN RATE AND RHYTHM. BILATERAL LUNGS ARE NOTED WITH DIMINISHED LUNG SOUNDS THROUGHOUT. ABDOMEN IS ROUND, SOFT, AND NOTED WITH MILD SUPRAPUBIC TENDERNESS. NORMAL BOWEL SOUNDS ARE NOTED IN ALL QUADRANTS. HIS VITALS THIS MORNING ARE: 98.2-15-80-96-115/66. LABS WERE OBTAINED. ABNORMAL LAB VALUES INCLUDE THE FOLLOWING: WBC 16.2, RBC 3.49, HGB 10.7, HCT 31.2, PLT COUNT 120, POTASSIUM 3.2, GLUCOSE 195, CALCIUM 8.2, TOTAL BILI 6.90, ALK PHOS 193, TOTAL PROTEIN 6.1, ALBUMIN 2.1. BLOOD AND URINE CULTURES REPORT GROWTH OF E.COLI. HE IS CURRENTLY RECEIVING IV FLUIDS, IV ANTIBIOTICS, AND HOME MEDICATIONS. WE WILL CONTINUE WITH CURRENT PLAN OF CARE TODAY. OTHERWISE, WE PLAN TO FOLLOW-UP WITH AM LABS AND CONTINUE TO MONITOR. - Past Medical Family Social History Past Med/Fam/Surg Hx: No changes since H&P Allergies: Allergies No Known Drug Allergies Allergy (Verified 10/05/18 09:42) - Review of Systems ROS: No change since H&P - Vital Signs and I&O's Vital Signs: Temperature 99.7 F Pulse Rate [Apical] 85 Pulse Rate 74 Respiratory Rate 22 Blood Pressure [Right Arm] 124/55 Blood Pressure [Left Arm] 109/52 Blood Pressure 157/69 O2 Sat by Pulse Oximetry 98 Intake and Output: Intake & Output 01/20/19 01/21/19 01/22/19 01/23/19 11:59 11:59 11:59 11:59 Intake Total 3749 / 3749 3613 / 3613 4904 / 4904 2275 / 2275 Output Total 1308 / 1308 2570 / 2570 3500 / 3500 500 / 500 Balance 2441 / 2441 1043 / 1043 1404 / 1404 1775 / 1775 - Physical Exam Oriented: Normal Eyes: Normal Ear: Normal Nose: Normal Throat: Normal Respiratory: Diminished Cardiovascular: Normal. negative: S3, S4, Murmur, Edema : Normal Auscultation: Bowel Sounds: Normal Palpation: Normal Tenderness: Diffuse, Mild. negative: Rebound, Guarding, Rigidity Skin: Normal Musculoskeletal: Normal Psychiatric: Normal Mood Description: Calm Affect: Normal Speech Pattern: Clear - Laboratory and Diagnostics Result Diagrams: 01/22/19 04:00 01/22/19 04:00 Labs: 01/22/19 14:14 Stool - Final 01/17/19 16:35 Blood Blood Culture - Final Escherichia Coli 01/17/19 16:30 Blood Blood Culture - Final Escherichia Coli 01/18/19 15:30 Urine,Clean Catch Urine Culture - Final Laboratory WBC 15.1 X10^3/uL (3.6-10.0) H 01/22/19 04:00 RBC 3.97 X10^6/uL (4.7-6.0) L 01/22/19 04:00 Hgb 11.8 g/dL (13.5-18.0) L 01/22/19 04:00 Hct 35.5 % (42.0-54.0) L 01/22/19 04:00 MCV 89.5 fL (80.0-100.0) 01/22/19 04:00 MCH 29.7 pg (27.0-34.0) 01/22/19 04:00 MCHC 33.2 g/dL (33.0-35.0) 01/22/19 04:00 RDW 14.2 % (11.6-16.5) 01/22/19 04:00 Plt Count 161 X10^3/uL (150.0-450.0) 01/22/19 04:00 Plt Count Comment Adequate (ADEQUATE) 01/22/19 04:00 MPV 11.8 fL (7.4-11.0) H 01/22/19 04:00 Neut % (Auto) 70.7 % (42.0-75.0) 01/22/19 04:00 Lymph % (Auto) 15.5 % (21.0-51.0) L 01/22/19 04:00 [place] % (Auto) 7.3 % (0.0-13.0) 01/22/19 04:00 Eos % (Auto) 5.0 % (0.9-2.9) H 01/22/19 04:00 Baso % (Auto) 1.5 % (0.2-1.0) H 01/22/19 04:00 Neut # (Auto) 10.7 x10^3/uL (2.2-4.8) H 01/22/19 04:00 Lymph # (Auto) 2.3 X10^3/uL (1.3-2.9) 01/22/19 04:00 [place] # (Auto) 1.1 x10^3/uL (0.3-0.8) H 01/22/19 04:00 Eos # (Auto) 0.8 x10^3/uL (0.0-0.2) H 01/22/19 04:00 Baso # (Auto) 0.2 X10^3/uL (0.0-0.1) H 01/22/19 04:00 Absolute Nucleated RBC 0.1 /100WBC 01/22/19 04:00 Total Counted 100 01/22/19 04:00 Neutrophils % (Manual) 47 % (39-76) 01/22/19 04:00 Band Neutrophils % 15 % (0-10) H 01/22/19 04:00 Lymphocytes % (Manual) 23 % (13-43) 01/22/19 04:00 Monocytes % (Manual) 7 % (4-9) 01/22/19 04:00 Eosinophils % (Manual) 6 % (0-6) 01/22/19 04:00 Basophils % (Manual) 1 % (0-1) 01/21/19 03:58 Metamyelocytes % 2 01/22/19 04:00 Plt Morphology Comment Normal (NORMAL) 01/22/19 04:00 RBC Morphology Normal (NORMAL) 01/22/19 04:00 Hypochromasia 1+ A 01/21/19 03:58 INR Target Range - 01/18/19 05:08 INR 1.62 (0.8-1.3) H 01/18/19 05:08 APTT 37.1 SECONDS (22.9-36.5) H 01/18/19 05:08 PTT Comment - 01/18/19 05:08 Sodium 141 mmol/L (136-145) 01/22/19 04:00 Corrected Sodium 142 mmol/L (136-145) 01/22/19 04:00 Potassium 3.6 mmol/L (3.5-5.1) 01/22/19 04:00 Chloride 104 mmol/L (98-107) 01/22/19 04:00 Carbon Dioxide 26.1 mmol/L (21-32) 01/22/19 04:00 BUN 5 mg/dL (7-18) L 01/22/19 04:00 Creatinine 0.86 mg/dL (0.70-1.30) 01/22/19 04:00 Est GFR (MDRD) Af Amer > 60 (>60) 01/22/19 04:00 Est GFR (MDRD) Non-Af > 60 (>60) 01/22/19 04:00 Glucose 150 mg/dL (65-99) H 01/22/19 04:00 POC Glucose (mg/dL) 197 mg/dL (65-99) H 01/22/19 15:51 Lactic Acid 1.2 mmol/L (0.4-2.0) 01/19/19 05:38 Calcium 8.6 mg/dL (8.5-10.1) 01/22/19 04:00 Corrected Calcium 10.0 mg/dL (8.5-10.1) 01/22/19 04:00 Magnesium 1.4 mg/dL (1.7-2.9) L 01/22/19 04:00 Total Bilirubin 9.00 mg/dL (0.2-1.0) H 01/22/19 04:00 AST 32 Units/L (15-37) 01/22/19 04:00 ALT 33 Units/L (12-78) 01/22/19 04:00 Alkaline Phosphatase 334 Units/L (46-116) H 01/22/19 04:00 Ammonia 20 umol/L (11-32) 01/22/19 08:50 Creatine Kinase 25 Units/L (39-308) L 01/17/19 16:35 CK-MB (CK-2) < 1.0 ng/mL (0-4.0) 01/17/19 16:35 CK/CKMB % Calc 4.0 % (<4) 01/17/19 16:35 Troponin I < 0.02 ng/mL (0-1.5) 01/17/19 16:35 C-Reactive Protein 297.60 mg/L (0-3.0) H 01/19/19 05:38 Total Protein 6.8 g/dL (6.4-8.2) 01/22/19 04:00 Albumin 2.3 g/dL (3.4-5.0) L 01/22/19 04:00 Globulin 4.5 g/dL (2.5-4.5) 01/22/19 04:00 Albumin/Globulin Ratio 0.5 Ratio (1.1-2.1) L 01/22/19 04:00 Amylase 47 Units/L (25-115) 01/17/19 16:35 Lipase 139 Units/L (73-393) 01/17/19 16:35 Specimen Type Random urine 01/17/19 19:11 Urine Color [place]ja (YELLOW) 01/17/19 19:11 Urine Appearance Clear (CLEAR) 01/17/19 19:11 Urine pH 6.0 (5.0 - 8.0) 01/17/19 19:11 Ur Specific [place] 1.010 (1.000-1.030) 01/17/19 19:11 Urine Protein 3+ (NEGATIVE) 01/17/19 19:11 Urine Glucose (UA) 4+ (NEGATIVE) 01/17/19 19:11 Urine Ketones Negative (NEGATIVE) 01/17/19 19:11 Urine Occult Blood 2+ (NEGATIVE) 01/17/19 19:11 Urine Nitrite Negative (NEGATIVE) 01/17/19 19:11 Urine Bilirubin 1+ (NEGATIVE) 01/17/19 19:11 Urine Urobilinogen 2+ (NORMAL) 01/17/19 19:11 Ur Leukocyte Esterase Negative (NEGATIVE) 01/17/19 19:11 Urine RBC 0-2 /HPF (NONE SEEN) 01/17/19 19:11 Urine WBC None seen /HPF (NONE SEEN) 01/17/19 19:11 Ur Squamous Epith Cells Few /HPF (NEGATIVE) 01/17/19 19:11 Amorphous Sediment 1+ /HPF (NEGATIVE) 01/17/19 19:11 Urine Bacteria Trace /HPF (NEGATIVE) 01/17/19 19:11 Ur Culture Indicated? No/not indicated 01/17/19 19:11 Stool Description 85g,liquid,beige 01/22/19 14:14 Stl Occult Blood (IFOB) Negative (NEGATIVE) 01/22/19 14:14 Stool for White Cells Positive (NEGATIVE) A 01/22/19 14:08 Stl C. diff Tox B Gene Negative (NEGATIVE) 01/22/19 14:08 Stl C. diff [id number] Negative (NEGATIVE) 01/22/19 14:08 Urine Opiates Screen Positive (NEG=<300) 01/17/19 19:11 Urine Methadone Screen Negative (NEG=<300) 01/17/19 19:11 Ur Barbiturates Screen Negative (NEG=<200) 01/17/19 19:11 Ur Phencyclidine Scrn Negative (NEG=<25) 01/17/19 19:11 Ur Amphetamines Screen Negative (NEG=<1000) 01/17/19 19:11 U Benzodiazepines Scrn Negative (NEG=<200) 01/17/19 19:11 Urine Cocaine Screen Negative (NEG=<300) 01/17/19 19:11 U Marijuana (THC) Screen Negative (NEG=<50) 01/17/19 19:11 Acetone, Semi-Quant Negative (NEGATIVE) 01/17/19 16:35 Cryptosporid parvum Ag Negative (NEGATIVE) 01/22/19 14:14 Giardia lamblia Ag Negative (NEGATIVE) 01/22/19 14:14 - Plan (1) Sepsis Status: Acute Qualifiers: Sepsis type: Escherichia coli Qualified Code(s): A41.51 - Sepsis due to Escherichia coli [E. coli] Plan: IV FLUIDS, IV ANTIBIOTICS, MONITOR LABS (2) Pyelonephritis due to Escherichia coli Status: Acute Plan: IV FLUIDS, IV ANTIBIOTICS, CONTINUE TO MONITOR (3) Leukocytosis Status: Acute Qualifiers: Leukocytosis type: unspecified Qualified Code(s): D72.829 - Elevated white blood cell count, unspecified (4) Dehydration Status: Acute Plan: IV FLUIDS, CONTINUE TO MONITOR (5) Abnormal liver function test Status: Acute Plan: CONTINUE TO MONITOR (6) Hypotension Status: Acute Qualifiers: Hypotension type: unspecified hypotension type Qualified Code(s): I95.9 - Hypotension, unspecified Plan: IV FLUIDS, CONTINUE TO MONITOR
--- NOTE | 2019-01-22 18:18 | CT ---
HISTORY: History of choledocholithiasis and prior cholecystectomy with epigastric pain Study: CT abdomen and pelvis with contrast Comparison: Numerous prior comparisons, most recent CT abdomen pelvis with contrast dated 01/19/2019. Technique: Multiple axial images of the abdomen and pelvis were obtained from the lung bases to the pubic symphysis after the administration of IV contrast. Oral contrast was also administered Findings: Chronic choledocholithiasis is redemonstrated with increasing common bile duct dilatation now measuring up to 16 mm at the hepatic hilum with increasing intrahepatic biliary ductal dilatation and enlarging intrahepatic micro abscesses. Biliary enhancement consistent with cholangitis. The left portal vein does not appear to opacify. Additionally, there is either extrinsic mass effect upon the left portal vein or developing portal vein thrombus. No pancreatic ductal dilatation. Spleen, pancreas adrenals and kidneys are unchanged. No new also is identified. Enteric contrast material is noted without evidence of obstruction. Moderate severity atheromatous and atherosclerotic disease of the aorta and branch vessels observed. Small right basilar pleural effusion. IMPRESSION: Chronic appearing choledocholithiasis is observed with resulting worsening intra and extrahepatic biliary ductal dilatation, ascending cholangitis and enlarging intrahepatic micro abscesses. Extrinsic mass effect and/or developing portal vein thrombus within the right lobe of the liver is observed. No left portal vein enhancement is demonstrated. Findings favor left portal vein thrombosis given prior appearances. Continued interval follow-up needed. GI consultation and ERCP needed. Please correlate with biochemical analysis. Reported By:
[2019-01-22] MEDS: LIPITOR TAB 10 MG PO SCH (20:52)
--- NOTE | 2019-01-22 21:58 | PCM.PROG ---
Progress Note - Progress Note for Day of Date of Exam: 01/21/19 - Subjective Subjective: WAS ADMITTED FOR SEPSIS, DEHYDRATION, HYPOTENSION, PYELONEPHRITIS, AND ABNORMAL LIVER FUNCTION TESTS. TODAY, HE IS ALERT AND ORIENTED, LYING IN BED ON MORNING ROUNDS. HE CONTINUES WITH GENERALIZED WEAKNESS TODAY. HE ALSO CONTINUES TO REPORT MILD ABDOMINAL PAIN. ON EXAMINATION, HEART IS REGULAR IN RATE AND RHYTHM. BILATERAL LUNGS ARE NOTED WITH DIMINISHED LUNG SOUNDS THROUGHOUT. ABDOMEN IS ROUND, SOFT, AND NOTED WITH MILD SUPRAPUBIC TENDERNESS. NORMAL BOWEL SOUNDS ARE NOTED IN ALL QUADRANTS. HIS VITALS THIS MORNING ARE: [id number]%-133/63. LABS WERE OBTAINED. ABNORMAL LAB VALUES INCLUDE THE FOLLOWING: WBC 11.0, RBC 3.31, HGB 10.3, HCT 29.3, PLT COUNT 113, POTASSIUM 2.9, GLUCOSE 144, CALCIUM 7.9, MAGNESIUM 1.5, TOTAL BILI 7.00, TOTAL PROTEIN 5.7, ALBUMIN 1.9. BLOOD AND URINE CULTURES REPORT GROWTH OF E.COLI. HE IS CURRENTLY RECEIVING IV FLUIDS, IV ANTIBIOTICS, AND HOME MEDICATIONS. WE WILL CONTINUE WITH CURRENT PLAN OF CARE TODAY. OTHERWISE, WE PLAN TO FOLLOW-UP WITH A M LABS AND CONTINUE TO MONITOR. - Past Medical Family Social History Past Med/Fam/Surg Hx: No changes since H&P Allergies: Allergies No Known Drug Allergies Allergy (Verified 10/05/18 09:42) - Review of Systems ROS: No change since H&P - Vital Signs and I&O's Vital Signs: Temperature 98.2 F Pulse Rate [Apical] 85 Pulse Rate 66 Respiratory Rate 19 Blood Pressure [Right Arm] 124/55 Blood Pressure [Left Arm] 109/52 Blood Pressure 135/66 O2 Sat by Pulse Oximetry 98 Intake and Output: Intake & Output 01/20/19 01/21/19 01/22/19 01/23/19 11:59 11:59 11:59 11:59 Intake Total 3749 / 3749 3613 / 3613 4904 / 4904 2275 / 2275 Output Total 1308 / 1308 2570 / 2570 3500 / 3500 500 / 500 Balance 2441 / 2441 1043 / 1043 1404 / 1404 1775 / 1775 - Physical Exam Oriented: Normal Eyes: Normal Ear: Normal Nose: Normal Throat: Normal Respiratory: Diminished Cardiovascular: Normal. negative: S3, S4, Murmur, Edema : Normal Auscultation: Bowel Sounds: Normal Tenderness: Diffuse, Mild. negative: Rebound, Guarding, Rigidity Skin: Normal Musculoskeletal: Normal Psychiatric: Normal Mood Description: Calm Affect: Normal Speech Pattern: Clear - Laboratory and Diagnostics Result Diagrams: 01/22/19 04:00 01/22/19 04:00 Labs: 01/22/19 14:14 Stool - Final 01/17/19 16:35 Blood Blood Culture - Final Escherichia Coli 01/17/19 16:30 Blood Blood Culture - Final Escherichia Coli 01/18/19 15:30 Urine,Clean Catch Urine Culture - Final Laboratory WBC 15.1 X10^3/uL (3.6-10.0) H 01/22/19 04:00 RBC 3.97 X10^6/uL (4.7-6.0) L 01/22/19 04:00 Hgb 11.8 g/dL (13.5-18.0) L 01/22/19 04:00 Hct 35.5 % (42.0-54.0) L 01/22/19 04:00 MCV 89.5 fL (80.0-100.0) 01/22/19 04:00 MCH 29.7 pg (27.0-34.0) 01/22/19 04:00 MCHC 33.2 g/dL (33.0-35.0) 01/22/19 04:00 RDW 14.2 % (11.6-16.5) 01/22/19 04:00 Plt Count 161 X10^3/uL (150.0-450.0) 01/22/19 04:00 Plt Count Comment Adequate (ADEQUATE) 01/22/19 04:00 MPV 11.8 fL (7.4-11.0) H 01/22/19 04:00 Neut % (Auto) 70.7 % (42.0-75.0) 01/22/19 04:00 Lymph % (Auto) 15.5 % (21.0-51.0) L 01/22/19 04:00 [place] % (Auto) 7.3 % (0.0-13.0) 01/22/19 04:00 Eos % (Auto) 5.0 % (0.9-2.9) H 01/22/19 04:00 Baso % (Auto) 1.5 % (0.2-1.0) H 01/22/19 04:00 Neut # (Auto) 10.7 x10^3/uL (2.2-4.8) H 01/22/19 04:00 Lymph # (Auto) 2.3 X10^3/uL (1.3-2.9) 01/22/19 04:00 [place] # (Auto) 1.1 x10^3/uL (0.3-0.8) H 01/22/19 04:00 Eos # (Auto) 0.8 x10^3/uL (0.0-0.2) H 01/22/19 04:00 Baso # (Auto) 0.2 X10^3/uL (0.0-0.1) H 01/22/19 04:00 Absolute Nucleated RBC 0.1 /100WBC 01/22/19 04:00 Total Counted 100 01/22/19 04:00 Neutrophils % (Manual) 47 % (39-76) 01/22/19 04:00 Band Neutrophils % 15 % (0-10) H 01/22/19 04:00 Lymphocytes % (Manual) 23 % (13-43) 01/22/19 04:00 Monocytes % (Manual) 7 % (4-9) 01/22/19 04:00 Eosinophils % (Manual) 6 % (0-6) 01/22/19 04:00 Basophils % (Manual) 1 % (0-1) 01/21/19 03:58 Metamyelocytes % 2 01/22/19 04:00 Plt Morphology Comment Normal (NORMAL) 01/22/19 04:00 RBC Morphology Normal (NORMAL) 01/22/19 04:00 Hypochromasia 1+ A 01/21/19 03:58 INR Target Range - 01/18/19 05:08 INR 1.62 (0.8-1.3) H 01/18/19 05:08 APTT 37.1 SECONDS (22.9-36.5) H 01/18/19 05:08 PTT Comment - 01/18/19 05:08 Sodium 141 mmol/L (136-145) 01/22/19 04:00 Corrected Sodium 142 mmol/L (136-145) 01/22/19 04:00 Potassium 3.6 mmol/L (3.5-5.1) 01/22/19 04:00 Chloride 104 mmol/L (98-107) 01/22/19 04:00 Carbon Dioxide 26.1 mmol/L (21-32) 01/22/19 04:00 BUN 5 mg/dL (7-18) L 01/22/19 04:00 Creatinine 0.86 mg/dL (0.70-1.30) 01/22/19 04:00 Est GFR (MDRD) Af Amer > 60 (>60) 01/22/19 04:00 Est GFR (MDRD) Non-Af > 60 (>60) 01/22/19 04:00 Glucose 150 mg/dL (65-99) H 01/22/19 04:00 POC Glucose (mg/dL) 183 mg/dL (65-99) H 01/22/19 20:40 Lactic Acid 1.2 mmol/L (0.4-2.0) 01/19/19 05:38 Calcium 8.6 mg/dL (8.5-10.1) 01/22/19 04:00 Corrected Calcium 10.0 mg/dL (8.5-10.1) 01/22/19 04:00 Magnesium 1.4 mg/dL (1.7-2.9) L 01/22/19 04:00 Total Bilirubin 9.00 mg/dL (0.2-1.0) H 01/22/19 04:00 AST 32 Units/L (15-37) 01/22/19 04:00 ALT 33 Units/L (12-78) 01/22/19 04:00 Alkaline Phosphatase 334 Units/L (46-116) H 01/22/19 04:00 Ammonia 20 umol/L (11-32) 01/22/19 08:50 Creatine Kinase 25 Units/L (39-308) L 01/17/19 16:35 CK-MB (CK-2) < 1.0 ng/mL (0-4.0) 01/17/19 16:35 CK/CKMB % Calc 4.0 % (<4) 01/17/19 16:35 Troponin I < 0.02 ng/mL (0-1.5) 01/17/19 16:35 C-Reactive Protein 297.60 mg/L (0-3.0) H 01/19/19 05:38 Total Protein 6.8 g/dL (6.4-8.2) 01/22/19 04:00 Albumin 2.3 g/dL (3.4-5.0) L 01/22/19 04:00 Globulin 4.5 g/dL (2.5-4.5) 01/22/19 04:00 Albumin/Globulin Ratio 0.5 Ratio (1.1-2.1) L 01/22/19 04:00 Amylase 47 Units/L (25-115) 01/17/19 16:35 Lipase 139 Units/L (73-393) 01/17/19 16:35 Specimen Type Random urine 01/17/19 19:11 Urine Color Alicja (YELLOW) 01/17/19 19:11 Urine Appearance Clear (CLEAR) 01/17/19 19:11 Urine pH 6.0 (5.0 - 8.0) 01/17/19 19:11 Ur Specific [place] 1.010 (1.000-1.030) 01/17/19 19:11 Urine Protein 3+ (NEGATIVE) 01/17/19 19:11 Urine Glucose (UA) 4+ (NEGATIVE) 01/17/19 19:11 Urine Ketones Negative (NEGATIVE) 01/17/19 19:11 Urine Occult Blood 2+ (NEGATIVE) 01/17/19 19:11 Urine Nitrite Negative (NEGATIVE) 01/17/19 19:11 Urine Bilirubin 1+ (NEGATIVE) 01/17/19 19:11 Urine Urobilinogen 2+ (NORMAL) 01/17/19 19:11 Ur Leukocyte Esterase Negative (NEGATIVE) 01/17/19 19:11 Urine RBC 0-2 /HPF (NONE SEEN) 01/17/19 19:11 Urine WBC None seen /HPF (NONE SEEN) 01/17/19 19:11 Ur Squamous Epith Cells Few /HPF (NEGATIVE) 01/17/19 19:11 Amorphous Sediment 1+ /HPF (NEGATIVE) 01/17/19 19:11 Urine Bacteria Trace /HPF (NEGATIVE) 01/17/19 19:11 Ur Culture Indicated? No/not indicated 01/17/19 19:11 Stool Description 85g,liquid,beige 01/22/19 14:14 Stl Occult Blood (IFOB) Negative (NEGATIVE) 01/22/19 14:14 Stool for White Cells Positive (NEGATIVE) A 01/22/19 14:08 Stl C. diff Tox B Gene Negative (NEGATIVE) 01/22/19 14:08 Stl C. diff 027-NAP1-BI Negative (NEGATIVE) 01/22/19 14:08 Urine Opiates Screen Positive (NEG=<300) 01/17/19 19:11 Urine Methadone Screen Negative (NEG=<300) 01/17/19 19:11 Ur Barbiturates Screen Negative (NEG=<200) 01/17/19 19:11 Ur Phencyclidine Scrn Negative (NEG=<25) 01/17/19 19:11 Ur Amphetamines Screen Negative (NEG=<1000) 01/17/19 19:11 U Benzodiazepines Scrn Negative (NEG=<200) 01/17/19 19:11 Urine Cocaine Screen Negative (NEG=<300) 01/17/19 19:11 U Marijuana (THC) Screen Negative (NEG=<50) 01/17/19 19:11 Acetone, Semi-Quant Negative (NEGATIVE) 01/17/19 16:35 Cryptosporid parvum Ag Negative (NEGATIVE) 01/22/19 14:14 Giardia lamblia Ag Negative (NEGATIVE) 01/22/19 14:14 - Plan (1) Sepsis Status: Acute Qualifiers: Sepsis type: Escherichia coli Qualified Code(s): A41.51 - Sepsis due to Escherichia coli [E. coli] Plan: IV FLUIDS, IV ANTIBIOTICS, MONITOR LABS (2) Pyelonephritis due to Escherichia coli Status: Acute Plan: IV FLUIDS, IV ANTIBIOTICS, CONTINUE TO MONITOR (3) Leukocytosis Status: Acute Qualifiers: Leukocytosis type: unspecified Qualified Code(s): D72.829 - Elevated white blood cell count, unspecified (4) Dehydration Status: Acute Plan: IV FLUIDS, CONTINUE TO MONITOR (5) Abnormal liver function test Status: Acute Plan: CONTINUE TO MONITOR (6) Hypotension Status: Acute Qualifiers: Hypotension type: unspecified hypotension type Qualified Code(s): I95.9 - Hypotension, unspecified Plan: IV FLUIDS, CONTINUE TO MONITOR
--- NOTE | 2019-01-22 22:54 | DR.PROGNOT ---
Hospital Progress Notes - Progress Note for Day of: Progress Note Date: 01/22/19 - Chief Complaint Chief Complaint: c/o RUQ pain with some nausea , no chills or fever . Bilirubin is high today 9 with elevated Alk Phos.. last CT is showing dilated both intrahepatic and CBD with choledocholithiasis .Pt had recent ERCP done at [facility] ( records were requested .) - Past Medical Family Social History Past Med/Fam/Surg Hx: No changes since H&P Allergies: Allergies No Known Drug Allergies Allergy (Verified 10/05/18 09:42) - Review Of Systems ROS: No change since H&P - Vital Signs Vital Signs: Temperature 98.2 F Pulse Rate [Apical] 85 Pulse Rate 66 Respiratory Rate 19 Blood Pressure [Right Arm] 124/55 Blood Pressure [Left Arm] 109/52 Blood Pressure 135/66 O2 Sat by Pulse Oximetry 98 - Physical Exam Oriented: Normal Eyes: Normal Ear: Normal Nose: Normal Throat: Normal Respiratory: Diminished Cardiovascular: Normal. negative: S3, S4, Murmur, Edema : Normal GI:Auscultation: Normal GI:Palpation: Normal GI: Tenderness: RUQ (soft abdomen with moderate RUQ tenderness , no rebound with + BS), Mild. negative: Rebound, Guarding, Rigidity Skin: Normal Musculoskeletal: Normal Psychiatric: Normal Mood Description: Calm Affect: Normal Speech Pattern: Clear - Laboratory and Diagnostics Result Diagrams: 01/22/19 04:00 01/22/19 04:00 Labs: 01/22/19 14:14 Stool - Final 01/17/19 16:35 Blood Blood Culture - Final Escherichia Coli 01/17/19 16:30 Blood Blood Culture - Final Escherichia Coli 01/18/19 15:30 Urine,Clean Catch Urine Culture - Final Laboratory WBC 15.1 X10^3/uL (3.6-10.0) H 01/22/19 04:00 RBC 3.97 X10^6/uL (4.7-6.0) L 01/22/19 04:00 Hgb 11.8 g/dL (13.5-18.0) L 01/22/19 04:00 Hct 35.5 % (42.0-54.0) L 01/22/19 04:00 MCV 89.5 fL (80.0-100.0) 01/22/19 04:00 MCH 29.7 pg (27.0-34.0) 01/22/19 04:00 MCHC 33.2 g/dL (33.0-35.0) 01/22/19 04:00 RDW 14.2 % (11.6-16.5) 01/22/19 04:00 Plt Count 161 X10^3/uL (150.0-450.0) 01/22/19 04:00 Plt Count Comment Adequate (ADEQUATE) 01/22/19 04:00 MPV 11.8 fL (7.4-11.0) H 01/22/19 04:00 Neut % (Auto) 70.7 % (42.0-75.0) 01/22/19 04:00 Lymph % (Auto) 15.5 % (21.0-51.0) L 01/22/19 04:00 [place] % (Auto) 7.3 % (0.0-13.0) 01/22/19 04:00 Eos % (Auto) 5.0 % (0.9-2.9) H 01/22/19 04:00 Baso % (Auto) 1.5 % (0.2-1.0) H 01/22/19 04:00 Neut # (Auto) 10.7 x10^3/uL (2.2-4.8) H 01/22/19 04:00 Lymph # (Auto) 2.3 X10^3/uL (1.3-2.9) 01/22/19 04:00 [place] # (Auto) 1.1 x10^3/uL (0.3-0.8) H 01/22/19 04:00 Eos # (Auto) 0.8 x10^3/uL (0.0-0.2) H 01/22/19 04:00 Baso # (Auto) 0.2 X10^3/uL (0.0-0.1) H 01/22/19 04:00 Absolute Nucleated RBC 0.1 /100WBC 01/22/19 04:00 Total Counted 100 01/22/19 04:00 Neutrophils % (Manual) 47 % (39-76) 01/22/19 04:00 Band Neutrophils % 15 % (0-10) H 01/22/19 04:00 Lymphocytes % (Manual) 23 % (13-43) 01/22/19 04:00 Monocytes % (Manual) 7 % (4-9) 01/22/19 04:00 Eosinophils % (Manual) 6 % (0-6) 01/22/19 04:00 Basophils % (Manual) 1 % (0-1) 01/21/19 03:58 Metamyelocytes % 2 01/22/19 04:00 Plt Morphology Comment Normal (NORMAL) 01/22/19 04:00 RBC Morphology Normal (NORMAL) 01/22/19 04:00 Hypochromasia 1+ A 01/21/19 03:58 INR Target Range - 01/18/19 05:08 INR 1.62 (0.8-1.3) H 01/18/19 05:08 APTT 37.1 SECONDS (22.9-36.5) H 01/18/19 05:08 PTT Comment - 01/18/19 05:08 Sodium 141 mmol/L (136-145) 01/22/19 04:00 Corrected Sodium 142 mmol/L (136-145) 01/22/19 04:00 Potassium 3.6 mmol/L (3.5-5.1) 01/22/19 04:00 Chloride 104 mmol/L (98-107) 01/22/19 04:00 Carbon Dioxide 26.1 mmol/L (21-32) 01/22/19 04:00 BUN 5 mg/dL (7-18) L 01/22/19 04:00 Creatinine 0.86 mg/dL (0.70-1.30) 01/22/19 04:00 Est GFR (MDRD) Af Amer > 60 (>60) 01/22/19 04:00 Est GFR (MDRD) Non-Af > 60 (>60) 01/22/19 04:00 Glucose 150 mg/dL (65-99) H 01/22/19 04:00 POC Glucose (mg/dL) 183 mg/dL (65-99) H 01/22/19 20:40 Lactic Acid 1.2 mmol/L (0.4-2.0) 01/19/19 05:38 Calcium 8.6 mg/dL (8.5-10.1) 01/22/19 04:00 Corrected Calcium 10.0 mg/dL (8.5-10.1) 01/22/19 04:00 Magnesium 1.4 mg/dL (1.7-2.9) L 01/22/19 04:00 Total Bilirubin 9.00 mg/dL (0.2-1.0) H 01/22/19 04:00 AST 32 Units/L (15-37) 01/22/19 04:00 ALT 33 Units/L (12-78) 01/22/19 04:00 Alkaline Phosphatase 334 Units/L (46-116) H 01/22/19 04:00 Ammonia 20 umol/L (11-32) 01/22/19 08:50 Creatine Kinase 25 Units/L (39-308) L 01/17/19 16:35 CK-MB (CK-2) < 1.0 ng/mL (0-4.0) 01/17/19 16:35 CK/CKMB % Calc 4.0 % (<4) 01/17/19 16:35 Troponin I < 0.02 ng/mL (0-1.5) 01/17/19 16:35 C-Reactive Protein 297.60 mg/L (0-3.0) H 01/19/19 05:38 Total Protein 6.8 g/dL (6.4-8.2) 01/22/19 04:00 Albumin 2.3 g/dL (3.4-5.0) L 01/22/19 04:00 Globulin 4.5 g/dL (2.5-4.5) 01/22/19 04:00 Albumin/Globulin Ratio 0.5 Ratio (1.1-2.1) L 01/22/19 04:00 Amylase 47 Units/L (25-115) 01/17/19 16:35 Lipase 139 Units/L (73-393) 01/17/19 16:35 Specimen Type Random urine 01/17/19 19:11 Urine Color Alicja (YELLOW) 01/17/19 19:11 Urine Appearance Clear (CLEAR) 01/17/19 19:11 Urine pH 6.0 (5.0 - 8.0) 01/17/19 19:11 Ur Specific [place] 1.010 (1.000-1.030) 01/17/19 19:11 Urine Protein 3+ (NEGATIVE) 01/17/19 19:11 Urine Glucose (UA) 4+ (NEGATIVE) 01/17/19 19:11 Urine Ketones Negative (NEGATIVE) 01/17/19 19:11 Urine Occult Blood 2+ (NEGATIVE) 01/17/19 19:11 Urine Nitrite Negative (NEGATIVE) 01/17/19 19:11 Urine Bilirubin 1+ (NEGATIVE) 01/17/19 19:11 Urine Urobilinogen 2+ (NORMAL) 01/17/19 19:11 Ur Leukocyte Esterase Negative (NEGATIVE) 01/17/19 19:11 Urine RBC 0-2 /HPF (NONE SEEN) 01/17/19 19:11 Urine WBC None seen /HPF (NONE SEEN) 01/17/19 19:11 Ur Squamous Epith Cells Few /HPF (NEGATIVE) 01/17/19 19:11 Amorphous Sediment 1+ /HPF (NEGATIVE) 01/17/19 19:11 Urine Bacteria Trace /HPF (NEGATIVE) 01/17/19 19:11 Ur Culture Indicated? No/not indicated 01/17/19 19:11 Stool Description 85g,liquid,beige 01/22/19 14:14 Stl Occult Blood (IFOB) Negative (NEGATIVE) 01/22/19 14:14 Stool for White Cells Positive (NEGATIVE) A 01/22/19 14:08 Stl C. diff Tox B Gene Negative (NEGATIVE) 01/22/19 14:08 Stl C. diff 027-NAP1-BI Negative (NEGATIVE) 01/22/19 14:08 Urine Opiates Screen Positive (NEG=<300) 01/17/19 19:11 Urine Methadone Screen Negative (NEG=<300) 01/17/19 19:11 Ur Barbiturates Screen Negative (NEG=<200) 01/17/19 19:11 Ur Phencyclidine Scrn Negative (NEG=<25) 01/17/19 19:11 Ur Amphetamines Screen Negative (NEG=<1000) 01/17/19 19:11 U Benzodiazepines Scrn Negative (NEG=<200) 01/17/19 19:11 Urine Cocaine Screen Negative (NEG=<300) 01/17/19 19:11 U Marijuana (THC) Screen Negative (NEG=<50) 01/17/19 19:11 Acetone, Semi-Quant Negative (NEGATIVE) 01/17/19 16:35 Cryptosporid parvum Ag Negative (NEGATIVE) 01/22/19 14:14 Giardia lamblia Ag Negative (NEGATIVE) 01/22/19 14:14 - Assessment and Plan 1: ascending cholangitis with CBD stones and sepsis over the past few days . recent ERCP and extraction of stone .( records were requested ). same IV ATB and hydration . repeated ERCP will be difficult. surgery might be safer. will review the records and D/W Pt and Dr Sesay .. - Problem Patient Problems: Patient Problems Sepsis (Acute) A41.9 Leukocytosis (Acute) D72.829 Abnormal liver function test (Acute) R94.5 Dehydration (Acute) E86.0 Pyelonephritis due to Escherichia coli (Acute) N12, B96.20
[2019-01-23] MEDS: NS 1000 ML 1,000 ML IV SCH ×2 (02:00→10:38)
[2019-01-23 05:26] LABS: AMMONIA 34 umol/L (11-32)
[2019-01-23 05:29] LABS: BASOPHILS # (AUTO) 0.1 X10^3/uL (0.0-0.1); EOSINOPHILS # (AUTO) 0.6 x10^3/uL (0.0-0.2); EOSINOPHILS % (AUTO) 4.8 % (0.9-2.9); HEMATOCRIT 31.3 % (42.0-54.0); HEMOGLOBIN 10.8 g/dL (13.5-18.0); LYMPHOCYTES # (AUTO) 1.7 X10^3/uL (1.3-2.9); LYMPHOCYTES % (AUTO) 14.1 % (21.0-51.0); MEAN CORPUSCULAR HEMOGLOBIN 30.8 pg (27.0-34.0); MEAN CORPUSCULAR HGB CONC 34.7 g/dL (33.0-35.0); MEAN CORPUSCULAR VOLUME 88.7 fL (80.0-100.0); MEAN PLATELET VOLUME 10.7 fL (7.4-11.0); NEUTROPHILS # (AUTO) 8.6 x10^3/uL (2.2-4.8); NEUTROPHILS % (AUTO) 72.1 % (42.0-75.0); PLATELET COUNT 220 X10^3/uL (150.0-450.0); RED BLOOD COUNT 3.52 X10^6/uL (4.7-6.0); RED CELL DISTRIBUTION WIDTH 14.7 % (11.6-16.5)
[2019-01-23 05:59] LABS: ALANINE AMINOTRANSFERASE 29 Units/L (12-78); ALBUMIN 2.1 g/dL (3.4-5.0); ALKALINE PHOSPHATASE 348 Units/L (46-116); ASPARTATE AMINO TRANSFERASE 36 Units/L (15-37); BLOOD UREA NITROGEN 4 mg/dL (7-18); CALCIUM 8.2 mg/dL (8.5-10.1); CARBON DIOXIDE 25.6 mmol/L (21-32); CHLORIDE 105 mmol/L (98-107); COR CA(FOR HYPOALB) 9.7 mg/dL (8.5-10.1); COR NA(FOR HYPERGLY) 141 mmol/L (136-145); CREATININE 0.81 mg/dL (0.70-1.30); SODIUM 140 mmol/L (136-145); TOTAL PROTEIN 6.1 g/dL (6.4-8.2); eGFR NON BLACK RACES > 60 (>60)
[2019-01-23] MEDS: ZOSYN VIAL 3.375 GRAMS 3.375 G in NS 100 ML IV + SPIKE MINIBAG* 100 ML IV SCH ×3 (06:16→21:22)
[2019-01-23] MEDS: HumuLIN R SC SCH ×4 (06:18→21:08)
[2019-01-23] MEDS: MAG-OX TAB PO SCH ×2 (06:19→18:29)
[2019-01-23 06:54] LABS: BAND NEUTROPHILS % 5 % (0-10)
[2019-01-23 06:55] LABS: PLATELET MORPHOLOGY COMMENT NORMAL (NORMAL)
[2019-01-23] MEDS: MAGNESIUM SULFATE 1 GRAM/100 mL PREMIX 1 GM/100 ML BAG IV PRN ×2 (07:47→09:25)
[2019-01-23] MEDS: LINZESS PO SCH ×2 (09:38→10:39)
[2019-01-23] MEDS: PROTONIX TAB 40 MG PO SCH (09:39)
[2019-01-23] MEDS: ZANTAC PO SCH (09:39)
[2019-01-23] MEDS: ALBUMIN HUMAN 25%- 100 ML 100 ML IV SCH (09:41)
[2019-01-23] MEDS ORDERED: NS 1000 ML 1,000 ML with POTASSIUM CHLORIDE INJ 20 MEQ VIAL 20 MEQ IV SCH ×2 (10:25)
[2019-01-23] MEDS ORDERED: NS 1000 ML 1,000 ML ONE (10:30)
[2019-01-23] MEDS: ROXICODONE TAB 5 MG PO PRN (10:44)
[2019-01-23] MEDS ORDERED: NS + KCL 20 MEQ/L 1,000 ML IV SCH (11:00)
[2019-01-23] MEDS: NS + KCL 40 MEQ/L 1,000 ML IV SCH (16:10)
[2019-01-23] MEDS: NS 1000 ML 1,000 ML with THIAMINE HCL INJ 100 MG, MAGNESIUM SULFATE 50% INJ 1 G, MVI IN... IV SCH ×5 (16:15)
--- NOTE | 2019-01-23 19:42 | PCM.PROG ---
Progress Note - Progress Note for Day of Date of Exam: 01/22/19 - Subjective Subjective: WAS ADMITTED FOR SEPSIS, DEHYDRATION, HYPOTENSION, PYELONEPHRITIS, AND ABNORMAL LIVER FUNCTION TESTS. TODAY, HE IS ALERT AND ORIENTED, LYING IN BED ON MORNING ROUNDS. HE CONTINUES WITH GENERALIZED WEAKNESS TODAY. HE ALSO CONTINUES TO REPORT MILD ABDOMINAL PAIN. ON EXAMINATION, HEART IS REGULAR IN RATE AND RHYTHM. BILATERAL LUNGS ARE NOTED WITH DIMINISHED LUNG SOUNDS THROUGHOUT. ABDOMEN IS ROUND, SOFT, AND NOTED WITH MILD SUPRAPUBIC TENDERNESS. NORMAL BOWEL SOUNDS ARE NOTED IN ALL QUADRANTS. HIS VITALS THIS MORNING ARE: 97.79-68-16-96%-161/76. LABS WERE OBTAINED. ABNORMAL LAB VALUES INCLUDE THE FOLLOWING: WBC 11.05.1, RBC 3.97, HGB 11.8, HCT 35.5, BUN 5, GLUCOSE 150, MAGNESIUM 1.4, TOTAL BILI IS UP TO 9.00, ALK PHOS 334, ALBUMIN 2.3. BLOOD AND URINE CULTURES REPORT GROWTH OF E.COLI. AN ABD/PELVIS CT WITH CONTRAST WAS REPEATED TODAY. IT REVEALED: Chronic appearing choledocholithiasis is observed with resulting worsening intra and extrahepatic biliary ductal dilatation, a scending cholangitis and enlarging intrahepatic micro abscesses. Extrinsic mass effect and/or developing portal vein thrombus within the right lobe of the liver is observed. No left portal vein enhancement is demonstrated. Findings favor left portal vein thrombosis given prior appearances. Continued interval follow- up needed. GI consultation and ERCP needed. Please correlate with biochemical analysis. HE IS CURRENTLY RECEIVING IV FLUIDS, IV ANTIBIOTICS, AND HOME MEDICATIONS. WE WILL CONTINUE WITH CURRENT PLAN OF CARE TODAY. WE WILL CONSULT GI AND GENERAL SURGERY DUE TO CT FINDINGS. WE WILL REPEAT A HEPATITIS PANEL. OTHERWISE, WE PLAN TO FOLLOW-UP WITH AM LABS AND CONTINUE TO MONITOR. - Past Medical Family Social History Past Med/Fam/Surg Hx: No changes since H&P Allergies: Allergies No Known Drug Allergies Allergy (Verified 10/05/18 09:42) - Review of Systems ROS: No change since H&P - Vital Signs and I&O's Vital Signs: Temperature 98.9 F Pulse Rate [Apical] 85 Pulse Rate 78 Respiratory Rate 22 Blood Pressure [Right Arm] 124/55 Blood Pressure [Left Arm] 109/52 Blood Pressure 135/61 O2 Sat by Pulse Oximetry 98 Intake and Output: Intake & Output 06/09/1001/22/19 01/23/19 01/24/19 11:59 11:59 11:59 11:59 Intake Total 3613 / 3613 4904 / 4904 5562 / 5562 2725 / 2725 Output Total 2570 / 2570 3500 / 3500 4000 / 4000 800 / 800 Balance 1043 / 1043 1404 / 1404 1562 / 1562 1925 / 1925 - Physical Exam Oriented: Normal Eyes: Normal Ear: Normal Nose: Normal Throat: Normal Respiratory: Diminished Cardiovascular: Normal. negative: S3, S4, Murmur, Edema : Normal Auscultation: Bowel Sounds: Normal Tenderness: RUQ (soft abdomen with moderate RUQ tenderness , no rebound with + BS), Mild. negative: Rebound, Guarding, Rigidity Skin: Normal Musculoskeletal: Normal Psychiatric: Normal Mood Description: Calm Affect: Normal Speech Pattern: Clear - Laboratory and Diagnostics Result Diagrams: 01/23/19 05:08 01/23/19 13:27 Labs: 01/22/19 14:14 Stool Stool Culture - Preliminary 01/22/19 14:14 Stool - Final 01/17/19 16:35 Blood Blood Culture - Final Escherichia Coli 01/17/19 16:30 Blood Blood Culture - Final Escherichia Coli 01/18/19 15:30 Urine,Clean Catch Urine Culture - Final Laboratory WBC 12.0 X10^3/uL (3.6-10.0) H 01/23/19 05:08 RBC 3.52 X10^6/uL (4.7-6.0) L 01/23/19 05:08 Hgb 10.8 g/dL (13.5-18.0) L 01/23/19 05:08 Hct 31.3 % (42.0-54.0) L 01/23/19 05:08 MCV 88.7 fL (80.0-100.0) 01/23/19 05:08 MCH 30.8 pg (27.0-34.0) 01/23/19 05:08 MCHC 34.7 g/dL (33.0-35.0) 01/23/19 05:08 RDW 14.7 % (11.6-16.5) 01/23/19 05:08 Plt Count 220 X10^3/uL (150.0-450.0) 01/23/19 05:08 Plt Count Comment Adequate (ADEQUATE) 01/23/19 05:08 MPV 10.7 fL (7.4-11.0) 01/23/19 05:08 Neut % (Auto) 72.1 % (42.0-75.0) 01/23/19 05:08 Lymph % (Auto) 14.1 % (21.0-51.0) L 01/23/19 05:08 [place] % (Auto) 8.0 % (0.0-13.0) 01/23/19 05:08 Eos % (Auto) 4.8 % (0.9-2.9) H 01/23/19 05:08 Baso % (Auto) 1.0 % (0.2-1.0) 01/23/19 05:08 Neut # (Auto) 8.6 x10^3/uL (2.2-4.8) H 01/23/19 05:08 Lymph # (Auto) 1.7 X10^3/uL (1.3-2.9) 01/23/19 05:08 [place] # (Auto) 1.0 x10^3/uL (0.3-0.8) H 01/23/19 05:08 Eos # (Auto) 0.6 x10^3/uL (0.0-0.2) H 01/23/19 05:08 Baso # (Auto) 0.1 X10^3/uL (0.0-0.1) 01/23/19 05:08 Absolute Nucleated RBC 0.0 /100WBC 01/23/19 05:08 Total Counted 100 01/23/19 05:08 Neutrophils % (Manual) 68 % (39-76) 01/23/19 05:08 Band Neutrophils % 5 % (0-10) 01/23/19 05:08 Lymphocytes % (Manual) 13 % (13-43) 01/23/19 05:08 Monocytes % (Manual) 8 % (4-9) 01/23/19 05:08 Eosinophils % (Manual) 6 % (0-6) 01/23/19 05:08 Basophils % (Manual) 1 % (0-1) 01/21/19 03:58 Metamyelocytes % 2 01/22/19 04:00 Plt Morphology Comment Normal (NORMAL) 01/23/19 05:08 RBC Morphology Normal (NORMAL) 01/23/19 05:08 Hypochromasia 1+ A 01/21/19 03:58 INR Target Range - 01/18/19 05:08 INR 1.62 (0.8-1.3) H 01/18/19 05:08 APTT 37.1 SECONDS (22.9-36.5) H 01/18/19 05:08 PTT Comment - 01/18/19 05:08 Sodium 140 mmol/L (136-145) 01/23/19 05:08 Corrected Sodium 141 mmol/L (136-145) 01/23/19 05:08 Potassium 3.4 mmol/L (3.5-5.1) L 01/23/19 13:27 Chloride 105 mmol/L (98-107) 01/23/19 05:08 Carbon Dioxide 25.6 mmol/L (21-32) 01/23/19 05:08 BUN 4 mg/dL (7-18) L 01/23/19 05:08 Creatinine 0.81 mg/dL (0.70-1.30) 01/23/19 05:08 Est GFR (MDRD) Af Amer > 60 (>60) 01/23/19 05:08 Est GFR (MDRD) Non-Af > 60 (>60) 01/23/19 05:08 Glucose 141 mg/dL (65-99) H 01/23/19 05:08 POC Glucose (mg/dL) 150 mg/dL (65-99) H 01/23/19 16:13 Lactic Acid 1.2 mmol/L (0.4-2.0) 01/19/19 05:38 Calcium 8.2 mg/dL (8.5-10.1) L 01/23/19 05:08 Corrected Calcium 9.7 mg/dL (8.5-10.1) 01/23/19 05:08 Magnesium 1.6 mg/dL (1.7-2.9) L 01/23/19 05:08 Total Bilirubin 8.50 mg/dL (0.2-1.0) H 01/23/19 05:08 AST 36 Units/L (15-37) 01/23/19 05:08 ALT 29 Units/L (12-78) 01/23/19 05:08 Alkaline Phosphatase 348 Units/L (46-116) H 01/23/19 05:08 Ammonia 34 umol/L (11-32) H 01/23/19 05:08 Creatine Kinase 25 Units/L (39-308) L 01/17/19 16:35 CK-MB (CK-2) < 1.0 ng/mL (0-4.0) 01/17/19 16:35 CK/CKMB % Calc 4.0 % (<4) 01/17/19 16:35 Troponin I < 0.02 ng/mL (0-1.5) 01/17/19 16:35 C-Reactive Protein 64.90 mg/L (0-3.0) H 01/23/19 05:08 Total Protein 6.1 g/dL (6.4-8.2) L 01/23/19 05:08 Albumin 2.1 g/dL (3.4-5.0) L 01/23/19 05:08 Globulin 4.0 g/dL (2.5-4.5) 01/23/19 05:08 Albumin/Globulin Ratio 0.5 Ratio (1.1-2.1) L 01/23/19 05:08 Amylase 47 Units/L (25-115) 01/17/19 16:35 Lipase 139 Units/L (73-393) 01/17/19 16:35 Specimen Type Random urine 01/17/19 19:11 Urine Color [place] (YELLOW) 01/17/19 19:11 Urine Appearance Clear (CLEAR) 01/17/19 19:11 Urine pH 6.0 (5.0 - 8.0) 01/17/19 19:11 Ur Specific [place] 1.010 (1.000-1.030) 01/17/19 19:11 Urine Protein 3+ (NEGATIVE) 01/17/19 19:11 Urine Glucose (UA) 4+ (NEGATIVE) 01/17/19 19:11 Urine Ketones Negative (NEGATIVE) 01/17/19 19:11 Urine Occult Blood 2+ (NEGATIVE) 01/17/19 19:11 Urine Nitrite Negative (NEGATIVE) 01/17/19 19:11 Urine Bilirubin 1+ (NEGATIVE) 01/17/19 19:11 Urine Urobilinogen 2+ (NORMAL) 01/17/19 19:11 Ur Leukocyte Esterase Negative (NEGATIVE) 01/17/19 19:11 Urine RBC 0-2 /HPF (NONE SEEN) 01/17/19 19:11 Urine WBC None seen /HPF (NONE SEEN) 01/17/19 19:11 Ur Squamous Epith Cells Few /HPF (NEGATIVE) 01/17/19 19:11 Amorphous Sediment 1+ /HPF (NEGATIVE) 01/17/19 19:11 Urine Bacteria Trace /HPF (NEGATIVE) 01/17/19 19:11 Ur Culture Indicated? No/not indicated 01/17/19 19:11 Stool Description 85g,liquid,beige 01/22/19 14:14 Stl Occult Blood (IFOB) Negative (NEGATIVE) 01/22/19 14:14 Stool for White Cells Positive (NEGATIVE) A 01/22/19 14:08 Stl C. diff Tox B Gene Negative (NEGATIVE) 01/22/19 14:08 Stl C. diff 027-NAP1-BI Negative (NEGATIVE) 01/22/19 14:08 Urine Opiates Screen Positive (NEG=<300) 01/17/19 19:11 Urine Methadone Screen Negative (NEG=<300) 01/17/19 19:11 Ur Barbiturates Screen Negative (NEG=<200) 01/17/19 19:11 Ur Phencyclidine Scrn Negative (NEG=<25) 01/17/19 19:11 Ur Amphetamines Screen Negative (NEG=<1000) 01/17/19 19:11 U Benzodiazepines Scrn Negative (NEG=<200) 01/17/19 19:11 Urine Cocaine Screen Negative (NEG=<300) 01/17/19 19:11 U Marijuana (THC) Screen Negative (NEG=<50) 01/17/19 19:11 Acetone, Semi-Quant Negative (NEGATIVE) 01/17/19 16:35 Cryptosporid parvum Ag Negative (NEGATIVE) 01/22/19 14:14 Giardia lamblia Ag Negative (NEGATIVE) 01/22/19 14:14 - Plan (1) Sepsis Status: Acute Qualifiers: Sepsis type: Escherichia coli Qualified Code(s): A41.51 - Sepsis due to Escherichia coli [E. coli] Plan: IV FLUIDS, IV ANTIBIOTICS, MONITOR LABS (2) Pyelonephritis due to Escherichia coli Status: Acute Plan: IV FLUIDS, IV ANTIBIOTICS, CONTINUE TO MONITOR (3) Leukocytosis Status: Acute Qualifiers: Leukocytosis type: unspecified Qualified Code(s): D72.829 - Elevated white blood cell count, unspecified (4) Dehydration Status: Acute Plan: IV FLUIDS, CONTINUE TO MONITOR (5) Abnormal liver function test Status: Acute Plan: CONTINUE TO MONITOR (6) Hypotension Status: Acute Qualifiers: Hypotension type: unspecified hypotension type Qualified Code(s): I95.9 - Hypotension, unspecified Plan: IV FLUIDS, CONTINUE TO MONITOR
[2019-01-23] MEDS ORDERED: K-DUR TAB 20 MEQ PO NR (21:00)
[2019-01-23] MEDS: LIPITOR TAB 10 MG PO SCH (21:07)
[2019-01-23] MEDS: K-DUR TAB 20 MEQ PO PRN (21:07)
[2019-01-24 05:21] LABS: BASOPHILS # (AUTO) 0.1 X10^3/uL (0.0-0.1); BASOPHILS % (AUTO) 1.1 % (0.2-1.0); EOSINOPHILS # (AUTO) 0.6 x10^3/uL (0.0-0.2); EOSINOPHILS % (AUTO) 5.9 % (0.9-2.9); HEMOGLOBIN 10.3 g/dL (13.5-18.0); LYMPHOCYTES # (AUTO) 1.9 X10^3/uL (1.3-2.9); LYMPHOCYTES % (AUTO) 17.9 % (21.0-51.0); MEAN CORPUSCULAR HEMOGLOBIN 30.8 pg (27.0-34.0); MEAN CORPUSCULAR HGB CONC 34.2 g/dL (33.0-35.0); MEAN PLATELET VOLUME 11.2 fL (7.4-11.0); MONOCYTES # (AUTO) 0.6 x10^3/uL (0.3-0.8); MONOCYTES % (AUTO) 6.2 % (0.0-13.0); NEUTROPHILS # (AUTO) 7.1 x10^3/uL (2.2-4.8); NEUTROPHILS % (AUTO) 68.9 % (42.0-75.0); PLATELET COUNT 231 X10^3/uL (150.0-450.0); RED BLOOD COUNT 3.33 X10^6/uL (4.7-6.0); RED CELL DISTRIBUTION WIDTH 14.7 % (11.6-16.5); WHITE BLOOD COUNT 10.4 X10^3/uL (3.6-10.0)
[2019-01-24] MEDS: HumuLIN R SC SCH ×4 (05:35→21:15)
[2019-01-24] MEDS: ZOSYN VIAL 3.375 GRAMS 3.375 G in NS 100 ML IV + SPIKE MINIBAG* 100 ML IV SCH ×3 (05:43→22:02)
[2019-01-24] MEDS: NS + KCL 40 MEQ/L 1,000 ML IV SCH (05:43)
[2019-01-24 05:47] LABS: ALANINE AMINOTRANSFERASE 28 Units/L (12-78); ALBUMIN 2.6 g/dL (3.4-5.0); ALKALINE PHOSPHATASE 393 Units/L (46-116); ASPARTATE AMINO TRANSFERASE 33 Units/L (15-37); BLOOD UREA NITROGEN 4 mg/dL (7-18); CALCIUM 8.3 mg/dL (8.5-10.1); CARBON DIOXIDE 24.9 mmol/L (21-32); CHLORIDE 103 mmol/L (98-107); COR CA(FOR HYPOALB) 9.4 mg/dL (8.5-10.1); COR NA(FOR HYPERGLY) 141 mmol/L (136-145); CREATININE 0.98 mg/dL (0.70-1.30); MAGNESIUM 1.6 mg/dL (1.7-2.9); SODIUM 138 mmol/L (136-145); TOTAL PROTEIN 6.6 g/dL (6.4-8.2); eGFR NON BLACK RACES > 60 (>60)
[2019-01-24] MEDS: MAG-OX TAB PO SCH ×2 (06:42→17:42)
[2019-01-24] MEDS: MAGNESIUM SULFATE 1 GRAM/100 mL PREMIX 1 GM/100 ML BAG IV PRN ×3 (08:16→09:37)
[2019-01-24] MEDS: PROTONIX TAB 40 MG PO SCH (09:48)
[2019-01-24] MEDS: ZANTAC PO SCH (09:49)
[2019-01-24] MEDS: ALBUMIN HUMAN 25%- 100 ML 100 ML IV SCH (10:00)
[2019-01-24] MEDS ORDERED: LR 1000 ML IV 1,000 ML ONE ×3 (11:26→16:28)
[2019-01-24] MEDS ORDERED: MORPHINE SULFATE INJ 10 MG ONE (11:30)
[2019-01-24] MEDS ORDERED: FENTANYL INJ 100 mcg ONE (11:30)
[2019-01-24] MEDS ORDERED: DECADRON INJ ONE (11:30)
[2019-01-24] MEDS ORDERED: BACTROBAN TOPICAL OINT ONE (11:43)
[2019-01-24] MEDS ORDERED: BACITRACIN VIAL ONE (11:44)
[2019-01-24] MEDS ORDERED: ANCEF 1 GRAM IV PREMIX* 1 G/50 ML BAG IV ONE (11:51)
[2019-01-24 12:31] LABS: BILIRUBIN,URINE NEGATIVE (NEGATIVE); BLOOD/HEMOGLOBIN,URINE NEGATIVE (NEGATIVE); GLUCOSE, URINE 1+ (NEGATIVE); KETONES,URINE NEGATIVE (NEGATIVE); LEUKOCYTE ESTERASE ,URINE NEGATIVE (NEGATIVE); NITRITES,URINE NEGATIVE (NEGATIVE); PROTEIN,URINE NEGATIVE (NEGATIVE); UROBILINOGEN,URINE NORMAL (NORMAL)
[2019-01-24] MEDS ORDERED: NS 1000 ML 1,000 ML ONE ×2 (12:31→13:12)
[2019-01-24 12:34] LABS: APPEARANCE,URINE CLEAR (CLEAR); COLOR,URINE YELLOW (YELLOW)
[2019-01-24] MEDS ORDERED: DIPRIVAN VIAL ONE (15:26)
[2019-01-24] MEDS ORDERED: NORCURON INJ 10 MG VIAL ONE (15:26)
[2019-01-24] MEDS ORDERED: NEO-SYNEPHRINE INJ ONE (15:26)
[2019-01-24] MEDS ORDERED: VERSED ONE (15:26)
[2019-01-24] MEDS ORDERED: ULTANE GAS ONE (15:26)
[2019-01-24] MEDS ORDERED: EPHEDRINE SULFATE INJ ONE ×4 (15:26→16:33)
[2019-01-24] MEDS ORDERED: ZOFRAN INJ 4 MG VIAL ONE (15:26)
[2019-01-24] MEDS ORDERED: XYLOCAINE 1 % (PLAIN) ONE (15:26)
[2019-01-24] MEDS ORDERED: QUELICIN (OR ANECTINE) ONE (15:26)
[2019-01-24] MEDS ORDERED: ROBINUL ONE (15:26)
[2019-01-24] MEDS ORDERED: NEOSTIGMINE INJ ONE (15:26)
[2019-01-24] MEDS ORDERED: PHENERGAN INJ 25 MG IM PRN (16:22)
[2019-01-24] MEDS ORDERED: ZOFRAN INJ 4 MG VIAL IVP PRN (16:22)
[2019-01-24] MEDS ORDERED: BENADRYL INJ 50 MG VIAL IVP PRN (16:22)
[2019-01-24] MEDS ORDERED: REGLAN INJ 10 MG VIAL IVP PRN (16:22)
[2019-01-24] MEDS ORDERED: DILAUDID INJ ONE (16:23)
--- NOTE | 2019-01-24 16:24 | OR.GENERIC ---
Post-Op Note Generic - Post-Op Note Operative Report: exploratory laparotomy , lysis of extensive abdominal adhesions , exploration of CBD with cholangeogram . choledocho duodenostomy . findings : extensive abdominal adhesions in the RUQ and around the liver . very thick CBD wall with sludge, stones and infected bile . obstruction of the distal CBD . EBL 200 to 250 cc . on IV ATB and IVF .and other PO care .
[2019-01-24] MEDS ORDERED: DILAUDID INJ IVP PRN (16:27)
[2019-01-24] MEDS: DILAUDID INJ IVP PRN ×4 (16:30→22:15)
[2019-01-24] MEDS: D5 1/2 NS 1000 ML 1,000 ML IV SCH (17:39)
[2019-01-24] MEDS: POTASSIUM CHLORIDE LIQ 20 MEQ UDC PO SCH (17:47)
[2019-01-24] MEDS: ZOFRAN INJ 4 MG VIAL IVP PRN (19:10)
--- NOTE | 2019-01-24 20:09 | DR.CONSULT ---
Consult - Consultation for Day of: Date: 01/24/19 - Chief Complaint Chief Complaint: Pateint referred for elevated LFTs. - History of Present Illness History of Present Illness: Patient is a 63 yo male who was referred for elevated LFTS. Patinet seen in PACU he is s/p exploratory laparotomy with lysis of extensive abdominal adhesions, exploration of CBD with cholangeogram, choledocho duodenostomy. Extensive abdominal adhesions in the RUQ and around the liver, very thick CBD wall with sludge, stones and infected bile, obstruction of the distal CBD . Patient had ERCP on 10/31/18 which showed choledocholithiasis, ssphincterotomy performed. Last colon and EGD was 08/09/18 EGD showed chronic and atrophic gastritis involving the gastric wall and fundus. Colon was very poor prep. Hgb 10.4, HCt 30.0, T. Bili 9.3, AST 33, ALT 28, Alk Phos 393. - Past Medical History Past Medical History: MS, Coronary Artery Disease, Hypertension, Diabetes - Past Surgical History Surgical History: Appendectomy, Cholecystectomy - Family History Family Medical History: Diabetes Mellitus, Heart Failure, Sudden Cardiac - Social History Does patient currently use any type of tobacco product: Yes Have you used tobacco products in the last 12 months: Yes Type of Tobacco Use: Cigarettes How many years tobacco product used: 43 Does any household member use tobacco: No Alcohol Use: None Drug Use: Prescription Drugs - Medications Home Medications: No Known Drug Allergies Allergy (Verified 10/05/18 09:42) CONTINUE taking the following medications atorvastatin 10 mg PO HS 01/18/19 [History] glipizide-metformin 1 tab PO TID 01/18/19 [History] insulin aspart U-100 [Novolog U-100 Insulin aspart] 1 unit SUBCUT .SSIC PROTOCOL PRN 01/18/19 [History] insulin glargine [Lantus U-100 Insulin] 1 unit SUBCUT .SSIC PROTOCOL PRN 01/18/19 [History] linaclotide [Linzess] 145 mcg PO QDAY 01/18/19 [History] meclizine 25 mg PO TID PRN 01/18/19 [History] - Physical Exam Vital Signs: Temperature 97.7 F Pulse Rate [Apical] 95 Pulse Rate 95 Respiratory Rate 15 Blood Pressure [Right Arm] 124/55 Blood Pressure [Left Arm] 121/60 Blood Pressure 121/60 O2 Sat by Pulse Oximetry 92 Oriented: Unable to test Eyes: Normal Ear: Normal Nose: Normal, Other (NG tube in place clamped) Throat: Normal Respiratory: Clear Throughout Cardiovascular: Normal Auscultation: Bowel Sounds: Normal Palpation: Normal. negative: Spleen Enlarged, Liver Enlarged, Mass Pulsatile Tenderness: Diffuse (s/p exploratory lap), Other (Patient noted to have drain in place, dressing noted to abdomen dry and intact, NG tube in place) Skin: Other (jaundice) Musculoskeletal: Normal Mood Description: Anxious - Plan Plan: Assessment. 1. Abnormal LFTs secondary to choledocholithiasis patient is s/p Exploratory lap with CBD exploration. Plan. 1. Monitor LFTs, Management per surgery. Plan reviewed demond Ritter - Allergies Allergies/Adverse Reactions: Allergies Allergy/AdvReac Type Severity Reaction Status Date / Time No Known Drug Allergies Allergy Verified 10/05/18 09:42
[2019-01-24 20:16] LABS: HEPATITIS A ANTIBODY IGM Negative (Negative)
--- NOTE | 2019-01-24 20:23 | PCM.PROG ---
Progress Note - Progress Note for Day of Date of Exam: 01/23/19 - Subjective Subjective: WAS ADMITTED FOR SEPSIS, DEHYDRATION, HYPOTENSION, PYELONEPHRITIS, AND ABNORMAL LIVER FUNCTION TESTS. HE HAS HAD A RECENT ERCP AND SPHINCTEROTOMY IN [place] BY . SPHINCTEROTOMY WAS SUCCESSFUS, BUT THERE WAS STILL RETAINED COMMON BILE DUCT STONES. TODAY, HE IS ALERT AND ORIENTED, LYING IN BED ON MORNING ROUNDS. HE CONTINUES WITH GENERALIZED WEAKNESS TODAY. HE ALSO CONTINUES TO REPORT MILD ABDOMINAL PAIN. ON EXAMINATION, HEART IS REGULAR IN RATE AND RHYTHM. BILATERAL LUNGS ARE NOTED WITH DIMINISHED LUNG SOUNDS THROUGHOUT. ABDOMEN IS ROUND, SOFT, AND NOTED WITH MILD SUPRAPUBIC TENDERNESS. NORMAL BOWEL SOUNDS ARE NOTED IN ALL QUADRANTS. HIS VITALS THIS MORNING ARE: 98.1-62-19-97%-150/68. LABS WERE OBTAINED. ABNORMAL LAB VALUES INCLUDE THE FOLLOWING: WBC 12.0, RBC 3.52, HGB 10.8, HCT 31.3, POTASSIUM 3.0, BUN 4, GLUCOSE 141, CALCIUM 8.2, MAGNESIUM 1.6, TOTAL BILI 8.50, ALK PHOS 348, AMMONIA 34, CRP 64.90, TOTAL PROTEIN 6.1, ALBUMIN 2.1. BLOOD AND URINE CULTURES REPORT GROWTH OF E.COLI. HE IS CURRENTLY RECEIVING IV FLUIDS, IV ANTIBIOTICS, AND HOME MEDICATIONS. PLANS TO TAKE HIM TO THE OR FOR A LAPAROTOMY AND DECOMPRESSION OF THE COMMON BILE DUCT AND EXTRACTION OF THE COMMON BILE DUCT STONES. OTHERWISE, WE PLAN TO FOLLOW-UP WITH AM LABS AND CONTINUE TO MONITOR. - Past Medical Family Social History Past Med/Fam/Surg Hx: No changes since H&P Allergies: Allergies No Known Drug Allergies Allergy (Verified 10/05/18 09:42) - Review of Systems ROS: No change since H&P - Vital Signs and I&O's Vital Signs: Temperature 97.7 F Pulse Rate [Apical] 95 Pulse Rate 95 Respiratory Rate 15 Blood Pressure [Right Arm] 124/55 Blood Pressure [Left Arm] 121/60 Blood Pressure 121/60 O2 Sat by Pulse Oximetry 92 Intake and Output: Intake & Output 01/22/19 01/23/19 01/24/19 01/25/19 11:59 11:59 11:59 11:59 Intake Total 4904 / 4904 5562 / 5562 6925 / 6925 4700 / 4700 Output Total 3500 / 3500 4000 / 4000 3300 / 3300 1685 / 1685 Balance 1404 / 1404 1562 / 1562 3625 / 3625 3015 / 3015 - Physical Exam Oriented: Normal Eyes: Normal Ear: Normal Nose: Normal Throat: Normal Respiratory: Diminished Cardiovascular: Normal. negative: S3, S4, Murmur, Edema : Normal Auscultation: Bowel Sounds: Normal Palpation: Normal Tenderness: RUQ (soft abdomen with moderate RUQ tenderness , no rebound with + BS), Mild. negative: Rebound, Guarding, Rigidity Skin: Normal Musculoskeletal: Normal Psychiatric: Normal Mood Description: Calm Affect: Normal Speech Pattern: Clear - Laboratory and Diagnostics Result Diagrams: 01/24/19 03:58 01/24/19 03:58 Labs: 01/22/19 14:14 Stool Stool Culture - Preliminary 01/22/19 14:14 Stool - Final 01/17/19 16:35 Blood Blood Culture - Final Escherichia Coli 01/17/19 16:30 Blood Blood Culture - Final Escherichia Coli 01/18/19 15:30 Urine,Clean Catch Urine Culture - Final Laboratory WBC 10.4 X10^3/uL (3.6-10.0) H 01/24/19 03:58 RBC 3.33 X10^6/uL (4.7-6.0) L 01/24/19 03:58 Hgb 10.3 g/dL (13.5-18.0) L 01/24/19 03:58 Hct 30.0 % (42.0-54.0) L 01/24/19 03:58 MCV 90.0 fL (80.0-100.0) 01/24/19 03:58 MCH 30.8 pg (27.0-34.0) 01/24/19 03:58 MCHC 34.2 g/dL (33.0-35.0) 01/24/19 03:58 RDW 14.7 % (11.6-16.5) 01/24/19 03:58 Plt Count 231 X10^3/uL (150.0-450.0) 01/24/19 03:58 Plt Count Comment Adequate (ADEQUATE) 01/23/19 05:08 MPV 11.2 fL (7.4-11.0) H 01/24/19 03:58 Neut % (Auto) 68.9 % (42.0-75.0) 01/24/19 03:58 Lymph % (Auto) 17.9 % (21.0-51.0) L 01/24/19 03:58 [place] % (Auto) 6.2 % (0.0-13.0) 01/24/19 03:58 Eos % (Auto) 5.9 % (0.9-2.9) H 01/24/19 03:58 Baso % (Auto) 1.1 % (0.2-1.0) H 01/24/19 03:58 Neut # (Auto) 7.1 x10^3/uL (2.2-4.8) H 01/24/19 03:58 Lymph # (Auto) 1.9 X10^3/uL (1.3-2.9) 01/24/19 03:58 [place] # (Auto) 0.6 x10^3/uL (0.3-0.8) 01/24/19 03:58 Eos # (Auto) 0.6 x10^3/uL (0.0-0.2) H 01/24/19 03:58 Baso # (Auto) 0.1 X10^3/uL (0.0-0.1) 01/24/19 03:58 Absolute Nucleated RBC 0.0 /100WBC 01/24/19 03:58 Total Counted 100 01/23/19 05:08 Neutrophils % (Manual) 68 % (39-76) 01/23/19 05:08 Band Neutrophils % 5 % (0-10) 01/23/19 05:08 Lymphocytes % (Manual) 13 % (13-43) 01/23/19 05:08 Monocytes % (Manual) 8 % (4-9) 01/23/19 05:08 Eosinophils % (Manual) 6 % (0-6) 01/23/19 05:08 Basophils % (Manual) 1 % (0-1) 01/21/19 03:58 Metamyelocytes % 2 01/22/19 04:00 Plt Morphology Comment Normal (NORMAL) 01/23/19 05:08 RBC Morphology Normal (NORMAL) 01/23/19 05:08 Hypochromasia 1+ A 01/21/19 03:58 INR Target Range - 01/18/19 05:08 INR 1.62 (0.8-1.3) H 01/18/19 05:08 APTT 37.1 SECONDS (22.9-36.5) H 01/18/19 05:08 PTT Comment - 01/18/19 05:08 Sodium 138 mmol/L (136-145) 01/24/19 03:58 Corrected Sodium 141 mmol/L (136-145) 01/24/19 03:58 Potassium 3.7 mmol/L (3.5-5.1) 01/24/19 03:58 Chloride 103 mmol/L (98-107) 01/24/19 03:58 Carbon Dioxide 24.9 mmol/L (21-32) 01/24/19 03:58 BUN 4 mg/dL (7-18) L 01/24/19 03:58 Creatinine 0.98 mg/dL (0.70-1.30) 01/24/19 03:58 Est GFR (MDRD) Af Amer > 60 (>60) 01/24/19 03:58 Est GFR (MDRD) Non-Af > 60 (>60) 01/24/19 03:58 Glucose 236 mg/dL (65-99) H 01/24/19 03:58 POC Glucose (mg/dL) 256 mg/dL (65-99) H 01/24/19 17:31 Lactic Acid 1.2 mmol/L (0.4-2.0) 01/19/19 05:38 Calcium 8.3 mg/dL (8.5-10.1) L 01/24/19 03:58 Corrected Calcium 9.4 mg/dL (8.5-10.1) 01/24/19 03:58 Magnesium 1.6 mg/dL (1.7-2.9) L 01/24/19 03:58 Total Bilirubin 9.30 mg/dL (0.2-1.0) H 01/24/19 03:58 AST 33 Units/L (15-37) 01/24/19 03:58 ALT 28 Units/L (12-78) 01/24/19 03:58 Alkaline Phosphatase 393 Units/L (46-116) H 01/24/19 03:58 Ammonia 34 umol/L (11-32) H 01/23/19 05:08 Creatine Kinase 25 Units/L (39-308) L 01/17/19 16:35 CK-MB (CK-2) < 1.0 ng/mL (0-4.0) 01/17/19 16:35 CK/CKMB % Calc 4.0 % (<4) 01/17/19 16:35 Troponin I < 0.02 ng/mL (0-1.5) 01/17/19 16:35 C-Reactive Protein 64.90 mg/L (0-3.0) H 01/23/19 05:08 Total Protein 6.6 g/dL (6.4-8.2) 01/24/19 03:58 Albumin 2.6 g/dL (3.4-5.0) L 01/24/19 03:58 Globulin 4.0 g/dL (2.5-4.5) 01/24/19 03:58 Albumin/Globulin Ratio 0.7 Ratio (1.1-2.1) L 01/24/19 03:58 Amylase 47 Units/L (25-115) 01/17/19 16:35 Lipase 139 Units/L (73-393) 01/17/19 16:35 Specimen Type Catherized urine 01/24/19 12:18 Urine Color Yellow (YELLOW) 01/24/19 12:18 Urine Appearance Clear (CLEAR) 01/24/19 12:18 Urine pH 8.0 (5.0 - 8.0) 01/24/19 12:18 Ur Specific [place] 1.010 (1.000-1.030) 01/24/19 12:18 Urine Protein Negative (NEGATIVE) 01/24/19 12:18 Urine Glucose (UA) 1+ (NEGATIVE) 01/24/19 12:18 Urine Ketones Negative (NEGATIVE) 01/24/19 12:18 Urine Occult Blood Negative (NEGATIVE) 01/24/19 12:18 Urine Nitrite Negative (NEGATIVE) 01/24/19 12:18 Urine Bilirubin Negative (NEGATIVE) 01/24/19 12:18 Urine Urobilinogen Normal (NORMAL) 01/24/19 12:18 Ur Leukocyte Esterase Negative (NEGATIVE) 01/24/19 12:18 Urine RBC 0-2 /HPF (NONE SEEN) 01/17/19 19:11 Urine WBC None seen /HPF (NONE SEEN) 01/17/19 19:11 Ur Squamous Epith Cells Few /HPF (NEGATIVE) 01/17/19 19:11 Amorphous Sediment 1+ /HPF (NEGATIVE) 01/17/19 19:11 Urine Bacteria Trace /HPF (NEGATIVE) 01/17/19 19:11 Ur Culture Indicated? No/not indicated 01/17/19 19:11 Stool Description 85g,liquid,beige 01/22/19 14:14 Stl Occult Blood (IFOB) Negative (NEGATIVE) 01/22/19 14:14 Stool for White Cells Positive (NEGATIVE) A 01/22/19 14:08 Stl C. diff Tox B Gene Negative (NEGATIVE) 01/22/19 14:08 Stl C. diff 027-NAP1-BI Negative (NEGATIVE) 01/22/19 14:08 Urine Opiates Screen Positive (NEG=<300) 01/17/19 19:11 Urine Methadone Screen Negative (NEG=<300) 01/17/19 19:11 Ur Barbiturates Screen Negative (NEG=<200) 01/17/19 19:11 Ur Phencyclidine Scrn Negative (NEG=<25) 01/17/19 19:11 Ur Amphetamines Screen Negative (NEG=<1000) 01/17/19 19:11 U Benzodiazepines Scrn Negative (NEG=<200) 01/17/19 19:11 Urine Cocaine Screen Negative (NEG=<300) 01/17/19 19:11 U Marijuana (THC) Screen Negative (NEG=<50) 01/17/19 19:11 Acetone, Semi-Quant Negative (NEGATIVE) 01/17/19 16:35 Cryptosporid parvum Ag Negative (NEGATIVE) 01/22/19 14:14 Giardia lamblia Ag Negative (NEGATIVE) 01/22/19 14:14 Blood Type B POSITIVE 01/24/19 11:30 Antibody Screen Negative 01/24/19 11:30 - Plan (1) Sepsis Status: Acute Qualifiers: Sepsis type: Escherichia coli Qualified Code(s): A41.51 - Sepsis due to Escherichia coli [E. coli] Plan: IV FLUIDS, IV ANTIBIOTICS, MONITOR LABS (2) Pyelonephritis due to Escherichia coli Status: Acute Plan: IV FLUIDS, IV ANTIBIOTICS, CONTINUE TO MONITOR (3) Leukocytosis Status: Acute Qualifiers: Leukocytosis type: unspecified Qualified Code(s): D72.829 - Elevated white blood cell count, unspecified (4) Dehydration Status: Acute Plan: IV FLUIDS, CONTINUE TO MONITOR (5) Abnormal liver function test Status: Acute Plan: CONTINUE TO MONITOR (6) Hypotension Status: Acute Qualifiers: Hypotension type: unspecified hypotension type Qualified Code(s): I95.9 - Hypotension, unspecified Plan: IV FLUIDS, CONTINUE TO MONITOR
[2019-01-24] MEDS: FLAGYL IV PREMIX 500 MG BAG 500 MG/100 ML BAG IV SCH (21:32)
[2019-01-24] MEDS: LIPITOR TAB 10 MG PO SCH (21:33)
[2019-01-25] MEDS: DILAUDID INJ IVP PRN ×5 (01:04→19:15)
[2019-01-25] MEDS: D5 1/2 NS 1000 ML 1,000 ML IV SCH ×2 (04:14→16:23)
[2019-01-25] MEDS: FLAGYL IV PREMIX 500 MG BAG 500 MG/100 ML BAG IV SCH ×3 (05:05→21:24)
[2019-01-25] MEDS: HumuLIN R SC SCH ×4 (05:20→21:23)
[2019-01-25 05:28] LABS: BASOPHILS # (AUTO) 0.1 X10^3/uL (0.0-0.1); BASOPHILS % (AUTO) 0.4 % (0.2-1.0); HEMATOCRIT 29.4 % (42.0-54.0); HEMOGLOBIN 9.7 g/dL (13.5-18.0); LYMPHOCYTES # (AUTO) 1.4 X10^3/uL (1.3-2.9); LYMPHOCYTES % (AUTO) 6.3 % (21.0-51.0); MEAN CORPUSCULAR HEMOGLOBIN 30.2 pg (27.0-34.0); MEAN CORPUSCULAR HGB CONC 33.2 g/dL (33.0-35.0); MEAN CORPUSCULAR VOLUME 91.2 fL (80.0-100.0); MONOCYTES % (AUTO) 4.5 % (0.0-13.0); NEUTROPHILS % (AUTO) 88.8 % (42.0-75.0); PLATELET COUNT 319 X10^3/uL (150.0-450.0); RED BLOOD COUNT 3.22 X10^6/uL (4.7-6.0); RED CELL DISTRIBUTION WIDTH 15.1 % (11.6-16.5); WHITE BLOOD COUNT 22.5 X10^3/uL (3.6-10.0)
[2019-01-25] MEDS: ZOSYN VIAL 3.375 GRAMS 3.375 G in NS 100 ML IV + SPIKE MINIBAG* 100 ML IV SCH ×3 (05:36→21:24)
[2019-01-25 05:37] LABS: ALBUMIN 2.5 g/dL (3.4-5.0); TOTAL PROTEIN 6.5 g/dL (6.4-8.2)
[2019-01-25 06:07] LABS: BAND NEUTROPHILS % 5 % (0-10); PLATELET MORPHOLOGY COMMENT NORMAL (NORMAL)
[2019-01-25] MEDS: MAG-OX TAB PO SCH ×2 (06:15→17:31)
[2019-01-25 06:43] LABS: BLOOD UREA NITROGEN 7 mg/dL (7-18); CALCIUM 8.4 mg/dL (8.5-10.1); CARBON DIOXIDE 24.7 mmol/L (21-32); CHLORIDE 104 mmol/L (98-107); COR NA(FOR HYPERGLY) 143 mmol/L (136-145); CREATININE 0.96 mg/dL (0.70-1.30); MAGNESIUM 1.5 mg/dL (1.7-2.9); SODIUM 139 mmol/L (136-145); eGFR NON BLACK RACES > 60 (>60)
[2019-01-25 07:04] LABS: HEPATITIS B CORE IGM Negative (Negative); HEPATITIS B SURFACE ANTIGEN Negative (Negative)
--- NOTE | 2019-01-25 08:21 | DR.PROGNOT ---
Hospital Progress Notes - Progress Note for Day of: Progress Note Date: 01/25/19 - Chief Complaint Chief Complaint: Post op laparotomy . CBD exploration , cholangiogram and. choledocho duodenostomy . doing fairly well . good urine out put . - Past Medical Family Social History Past Med/Fam/Surg Hx: No changes since H&P Allergies: Allergies No Known Drug Allergies Allergy (Verified 10/05/18 09:42) - Review Of Systems ROS: No change since H&P - Vital Signs Vital Signs: Temperature 97.7 F Pulse Rate [Apical] 95 Pulse Rate 69 Respiratory Rate 9 Blood Pressure [Right Arm] 124/55 Blood Pressure [Left Arm] 121/60 Blood Pressure 133/63 O2 Sat by Pulse Oximetry 100 - Physical Exam Oriented: Unable to test Eyes: Normal Ear: Normal Nose: Normal, Other (NG tube in place clamped) Throat: Normal Respiratory: Diminished Cardiovascular: Normal : Normal GI:Auscultation: Normal GI:Palpation: Normal. negative: Spleen Enlarged, Liver Enlarged, Mass Pulsatile GI: Tenderness: Diffuse (s/p exploratory lap), LUQ, Other (Patient noted to have drain in place, dressing noted to abdomen dry and intact, NG tube in place) Skin: Other (jaundice) Musculoskeletal: Normal Psychiatric: Normal Mood Description: Anxious Affect: Normal Speech Pattern: Clear - Laboratory and Diagnostics Result Diagrams: 01/25/19 04:32 01/25/19 04:32 Labs: 01/22/19 14:14 Stool Stool Culture - Preliminary 01/22/19 14:14 Stool - Final 01/17/19 16:35 Blood Blood Culture - Final Escherichia Coli 01/17/19 16:30 Blood Blood Culture - Final Escherichia Coli 01/18/19 15:30 Urine,Clean Catch Urine Culture - Final Laboratory WBC 22.5 X10^3/uL (3.6-10.0) H D 01/25/19 04:32 RBC 3.22 X10^6/uL (4.7-6.0) L 01/25/19 04:32 Hgb 9.7 g/dL (13.5-18.0) L 01/25/19 04:32 Hct 29.4 % (42.0-54.0) L 01/25/19 04:32 MCV 91.2 fL (80.0-100.0) 01/25/19 04:32 MCH 30.2 pg (27.0-34.0) 01/25/19 04:32 MCHC 33.2 g/dL (33.0-35.0) 01/25/19 04:32 RDW 15.1 % (11.6-16.5) 01/25/19 04:32 Plt Count 319 X10^3/uL (150.0-450.0) 01/25/19 04:32 Plt Count Comment Adequate (ADEQUATE) 01/25/19 04:32 MPV 11.0 fL (7.4-11.0) 01/25/19 04:32 Neut % (Auto) 88.8 % (42.0-75.0) H 01/25/19 04:32 Lymph % (Auto) 6.3 % (21.0-51.0) L 01/25/19 04:32 [place] % (Auto) 4.5 % (0.0-13.0) 01/25/19 04:32 Eos % (Auto) 0.0 % (0.9-2.9) L 01/25/19 04:32 Baso % (Auto) 0.4 % (0.2-1.0) 01/25/19 04:32 Neut # (Auto) 20.0 x10^3/uL (2.2-4.8) H 01/25/19 04:32 Lymph # (Auto) 1.4 X10^3/uL (1.3-2.9) 01/25/19 04:32 [place] # (Auto) 1.0 x10^3/uL (0.3-0.8) H 01/25/19 04:32 Eos # (Auto) 0.0 x10^3/uL (0.0-0.2) 01/25/19 04:32 Baso # (Auto) 0.1 X10^3/uL (0.0-0.1) 01/25/19 04:32 Absolute Nucleated RBC 0.0 /100WBC 01/25/19 04:32 Total Counted 100 01/25/19 04:32 Neutrophils % (Manual) 85 % (39-76) H 01/25/19 04:32 Band Neutrophils % 5 % (0-10) 01/25/19 04:32 Lymphocytes % (Manual) 9 % (13-43) L 01/25/19 04:32 Monocytes % (Manual) 1 % (4-9) L 01/25/19 04:32 Eosinophils % (Manual) 6 % (0-6) 01/23/19 05:08 Basophils % (Manual) 1 % (0-1) 01/21/19 03:58 Metamyelocytes % 2 01/22/19 04:00 Plt Morphology Comment Normal (NORMAL) 01/25/19 04:32 RBC Morphology Normal (NORMAL) 01/25/19 04:32 Hypochromasia 1+ A 01/21/19 03:58 INR Target Range - 01/18/19 05:08 INR 1.62 (0.8-1.3) H 01/18/19 05:08 APTT 37.1 SECONDS (22.9-36.5) H 01/18/19 05:08 PTT Comment - 01/18/19 05:08 Sodium 139 mmol/L (136-145) 01/25/19 04:32 Corrected Sodium 143 mmol/L (136-145) 01/25/19 04:32 Potassium 4.0 mmol/L (3.5-5.1) 01/25/19 04:32 Chloride 104 mmol/L (98-107) 01/25/19 04:32 Carbon Dioxide 24.7 mmol/L (21-32) 01/25/19 04:32 BUN 7 mg/dL (7-18) 01/25/19 04:32 Creatinine 0.96 mg/dL (0.70-1.30) 01/25/19 04:32 Est GFR (MDRD) Af Amer > 60 (>60) 01/25/19 04:32 Est GFR (MDRD) Non-Af > 60 (>60) 01/25/19 04:32 Glucose 277 mg/dL (65-99) H 01/25/19 04:32 POC Glucose (mg/dL) 265 mg/dL (65-99) H 01/25/19 05:20 Lactic Acid 1.2 mmol/L (0.4-2.0) 01/19/19 05:38 Calcium 8.4 mg/dL (8.5-10.1) L 01/25/19 04:32 Corrected Calcium 9.4 mg/dL (8.5-10.1) 01/24/19 03:58 Magnesium 1.5 mg/dL (1.7-2.9) L 01/25/19 04:32 Total Bilirubin 5.60 mg/dL (0.2-1.0) H 01/25/19 04:32 Direct Bilirubin 4.00 mg/dL (0-0.2) H 01/25/19 04:32 Indirect Bilirubin 1.60 mg/dL (0.2-0.8) H 01/25/19 04:32 AST 32 Units/L (15-37) 01/25/19 04:32 ALT 31 Units/L (12-78) 01/25/19 04:32 Alkaline Phosphatase 326 Units/L (46-116) H 01/25/19 04:32 Ammonia 34 umol/L (11-32) H 01/23/19 05:08 Creatine Kinase 25 Units/L (39-308) L 01/17/19 16:35 CK-MB (CK-2) < 1.0 ng/mL (0-4.0) 01/17/19 16:35 CK/CKMB % Calc 4.0 % (<4) 01/17/19 16:35 Troponin I < 0.02 ng/mL (0-1.5) 01/17/19 16:35 C-Reactive Protein 64.90 mg/L (0-3.0) H 01/23/19 05:08 Total Protein 6.5 g/dL (6.4-8.2) 01/25/19 04:32 Albumin 2.5 g/dL (3.4-5.0) L 01/25/19 04:32 Globulin 4.0 g/dL (2.5-4.5) 01/25/19 04:32 Albumin/Globulin Ratio 0.6 Ratio (1.1-2.1) L 01/25/19 04:32 Amylase 47 Units/L (25-115) 01/17/19 16:35 Lipase 139 Units/L (73-393) 01/17/19 16:35 Specimen Type Catherized urine 01/24/19 12:18 Urine Color Yellow (YELLOW) 01/24/19 12:18 Urine Appearance Clear (CLEAR) 01/24/19 12:18 Urine pH 8.0 (5.0 - 8.0) 01/24/19 12:18 Ur Specific [place] 1.010 (1.000-1.030) 01/24/19 12:18 Urine Protein Negative (NEGATIVE) 01/24/19 12:18 Urine Glucose (UA) 1+ (NEGATIVE) 01/24/19 12:18 Urine Ketones Negative (NEGATIVE) 01/24/19 12:18 Urine Occult Blood Negative (NEGATIVE) 01/24/19 12:18 Urine Nitrite Negative (NEGATIVE) 01/24/19 12:18 Urine Bilirubin Negative (NEGATIVE) 01/24/19 12:18 Urine Urobilinogen Normal (NORMAL) 01/24/19 12:18 Ur Leukocyte Esterase Negative (NEGATIVE) 01/24/19 12:18 Urine RBC 0-2 /HPF (NONE SEEN) 01/17/19 19:11 Urine WBC None seen /HPF (NONE SEEN) 01/17/19 19:11 Ur Squamous Epith Cells Few /HPF (NEGATIVE) 01/17/19 19:11 Amorphous Sediment 1+ /HPF (NEGATIVE) 01/17/19 19:11 Urine Bacteria Trace /HPF (NEGATIVE) 01/17/19 19:11 Ur Culture Indicated? No/not indicated 01/17/19 19:11 Stool Description 85g,liquid,beige 01/22/19 14:14 Stl Occult Blood (IFOB) Negative (NEGATIVE) 01/22/19 14:14 Stool for White Cells Positive (NEGATIVE) A 01/22/19 14:08 Stl C. diff Tox B Gene Negative (NEGATIVE) 01/22/19 14:08 Stl C. diff 027-NAP1-BI Negative (NEGATIVE) 01/22/19 14:08 Urine Opiates Screen Positive (NEG=<300) 01/17/19 19:11 Urine Methadone Screen Negative (NEG=<300) 01/17/19 19:11 Ur Barbiturates Screen Negative (NEG=<200) 01/17/19 19:11 Ur Phencyclidine Scrn Negative (NEG=<25) 01/17/19 19:11 Ur Amphetamines Screen Negative (NEG=<1000) 01/17/19 19:11 U Benzodiazepines Scrn Negative (NEG=<200) 01/17/19 19:11 Urine Cocaine Screen Negative (NEG=<300) 01/17/19 19:11 U Marijuana (THC) Screen Negative (NEG=<50) 01/17/19 19:11 Acetone, Semi-Quant Negative (NEGATIVE) 01/17/19 16:35 Cryptosporid parvum Ag Negative (NEGATIVE) 01/22/19 14:14 Giardia lamblia Ag Negative (NEGATIVE) 01/22/19 14:14 Hepatitis A IgM Ab Negative (Negative) 01/22/19 08:50 Hep Bs Antigen Negative (Negative) 01/22/19 08:50 Hep Bs Ag Confirmation TNP 01/22/19 08:50 Hep B Core IgM Ab Negative (Negative) 01/22/19 08:50 Hepatitis C Ab Index 0.05 IV 01/22/19 08:50 Hepatitis C Interp Negative (Negative) 01/22/19 08:50 Hepatitis Interpret See note 01/22/19 08:50 Blood Type B POSITIVE 01/24/19 11:30 Antibody Screen Negative 01/24/19 11:30 - Assessment and Plan 1: PO laparotomy , CBD exploration , choledocho duodenostomy .. ascending cholangitis with CBD stones and sepsis over the past few days. same po care . OOB , D/C foly , keep NGT . - Problem Patient Problems: Patient Problems Sepsis (Acute) A41.9 Leukocytosis (Acute) D72.829 Abnormal liver function test (Acute) R94.5 Dehydration (Acute) E86.0 Pyelonephritis due to Escherichia coli (Acute) N12, B96.20
[2019-01-25] MEDS: ALBUMIN HUMAN 25%- 100 ML 100 ML IV SCH (09:37)
[2019-01-25] MEDS: LOVENOX INJ 40 MG SYR SC SCH (09:38)
[2019-01-25] MEDS: POTASSIUM CHLORIDE LIQ 20 MEQ UDC PO SCH (09:39)
[2019-01-25] MEDS: PROTONIX INJ 40 MG VIAL IVP SCH (09:39)
[2019-01-25 10:45] LABS: AMYLASE 110 Units/L (25-115); LIPASE 327 Units/L (73-393)
[2019-01-25 10:46] LABS: AMMONIA < 10 umol/L (11-32)
[2019-01-25] MEDS: MAGNESIUM SULFATE 1 GRAM/100 mL PREMIX 1 GM/100 ML BAG IV PRN ×2 (11:09→12:55)
[2019-01-25] MEDS ORDERED: DILAUDID INJ IVP ONE (11:56)
[2019-01-25] MEDS: LIPITOR TAB 10 MG PO SCH (21:24)
[2019-01-26] MEDS: D5 1/2 NS 1000 ML 1,000 ML IV SCH ×3 (01:28→09:35)
[2019-01-26] MEDS: DILAUDID INJ IVP PRN ×6 (02:34→22:12)
[2019-01-26 04:23] LABS: BASOPHILS # (AUTO) 0.2 X10^3/uL (0.0-0.1); BASOPHILS % (AUTO) 0.9 % (0.2-1.0); EOSINOPHILS # (AUTO) 0.5 x10^3/uL (0.0-0.2); EOSINOPHILS % (AUTO) 2.9 % (0.9-2.9); HEMATOCRIT 26.1 % (42.0-54.0); HEMOGLOBIN 8.7 g/dL (13.5-18.0); LYMPHOCYTES # (AUTO) 1.3 X10^3/uL (1.3-2.9); LYMPHOCYTES % (AUTO) 7.2 % (21.0-51.0); MEAN CORPUSCULAR HEMOGLOBIN 30.1 pg (27.0-34.0); MEAN CORPUSCULAR HGB CONC 33.5 g/dL (33.0-35.0); MEAN CORPUSCULAR VOLUME 89.8 fL (80.0-100.0); MEAN PLATELET VOLUME 9.3 fL (7.4-11.0); MONOCYTES # (AUTO) 0.7 x10^3/uL (0.3-0.8); MONOCYTES % (AUTO) 4.3 % (0.0-13.0); NEUTROPHILS # (AUTO) 14.7 x10^3/uL (2.2-4.8); NEUTROPHILS % (AUTO) 84.7 % (42.0-75.0); PLATELET COUNT 320 X10^3/uL (150.0-450.0); RED CELL DISTRIBUTION WIDTH 15.5 % (11.6-16.5); WHITE BLOOD COUNT 17.4 X10^3/uL (3.6-10.0)
[2019-01-26 04:28] LABS: ALANINE AMINOTRANSFERASE 27 Units/L (12-78); ALBUMIN 2.9 g/dL (3.4-5.0); ALKALINE PHOSPHATASE 251 Units/L (46-116); AMYLASE 47 Units/L (25-115); ASPARTATE AMINO TRANSFERASE 20 Units/L (15-37); BLOOD UREA NITROGEN 4 mg/dL (7-18); CALCIUM 8.2 mg/dL (8.5-10.1); CARBON DIOXIDE 28.3 mmol/L (21-32); CHLORIDE 104 mmol/L (98-107); COR CA(FOR HYPOALB) 9.1 mg/dL (8.5-10.1); COR NA(FOR HYPERGLY) 142 mmol/L (136-145); CREATININE 0.86 mg/dL (0.70-1.30); LIPASE 107 Units/L (73-393); MAGNESIUM 1.4 mg/dL (1.7-2.9); SODIUM 140 mmol/L (136-145); TOTAL PROTEIN 6.6 g/dL (6.4-8.2); eGFR NON BLACK RACES > 60 (>60)
[2019-01-26 04:46] LABS: AMMONIA < 10 umol/L (11-32)
[2019-01-26] MEDS: HumuLIN R SC SCH ×4 (05:35→22:10)
[2019-01-26] MEDS: FLAGYL IV PREMIX 500 MG BAG 500 MG/100 ML BAG IV SCH ×3 (05:55→21:30)
[2019-01-26] MEDS: ZOSYN VIAL 3.375 GRAMS 3.375 G in NS 100 ML IV + SPIKE MINIBAG* 100 ML IV SCH ×3 (05:55→22:40)
[2019-01-26] MEDS: MAG-OX TAB PO SCH ×2 (06:08→17:10)
--- NOTE | 2019-01-26 07:58 | DR.PROGNOT ---
Hospital Progress Notes - Progress Note for Day of: Progress Note Date: 01/26/19 - Chief Complaint Chief Complaint: Post op laparotomy . CBD exploration , cholangiogram and. choledocho duodenostomy . no chest pain , no SOB. adequate urine OP . minimal drainaje in JESSE. - Past Medical Family Social History Past Med/Fam/Surg Hx: No changes since H&P Allergies: Allergies No Known Drug Allergies Allergy (Verified 10/05/18 09:42) - Review Of Systems ROS: No change since H&P - Vital Signs Vital Signs: Temperature 97.7 F Pulse Rate [Apical] 95 Pulse Rate 77 Respiratory Rate 18 Blood Pressure [Right Arm] 124/55 Blood Pressure [Left Arm] 121/60 Blood Pressure 124/58 O2 Sat by Pulse Oximetry 99 - Physical Exam Oriented: Unable to test Eyes: Other (mild jundice ) Ear: Normal Nose: Normal, Other (NG tube in place clamped) Throat: Normal Respiratory: Diminished Cardiovascular: Normal : Normal GI:Auscultation: Normal GI:Palpation: Normal. negative: Spleen Enlarged, Liver Enlarged, Mass Pulsatile GI: Tenderness: Diffuse (s/p exploratory lap), LUQ, Other (Patient noted to have drain in place, dressing noted to abdomen dry and intact, NG tube in place) Skin: Other (jaundice) Musculoskeletal: Normal Psychiatric: Normal Mood Description: Anxious Affect: Normal Speech Pattern: Clear - Laboratory and Diagnostics Result Diagrams: 01/26/19 04:05 01/26/19 04:05 Labs: 01/24/19 13:10 Aspirate Wound Culture - Preliminary 01/22/19 14:14 Stool Stool Culture - Final 01/22/19 14:14 Stool - Final 01/17/19 16:35 Blood Blood Culture - Final Escherichia Coli 01/17/19 16:30 Blood Blood Culture - Final Escherichia Coli 01/18/19 15:30 Urine,Clean Catch Urine Culture - Final Laboratory WBC 17.4 X10^3/uL (3.6-10.0) H 01/26/19 04:05 RBC 2.90 X10^6/uL (4.7-6.0) L 01/26/19 04:05 Hgb 8.7 g/dL (13.5-18.0) L 01/26/19 04:05 Hct 26.1 % (42.0-54.0) L 01/26/19 04:05 MCV 89.8 fL (80.0-100.0) 01/26/19 04:05 MCH 30.1 pg (27.0-34.0) 01/26/19 04:05 MCHC 33.5 g/dL (33.0-35.0) 01/26/19 04:05 RDW 15.5 % (11.6-16.5) 01/26/19 04:05 Plt Count 320 X10^3/uL (150.0-450.0) 01/26/19 04:05 Plt Count Comment Adequate (ADEQUATE) 01/25/19 04:32 MPV 9.3 fL (7.4-11.0) 01/26/19 04:05 Neut % (Auto) 84.7 % (42.0-75.0) H 01/26/19 04:05 Lymph % (Auto) 7.2 % (21.0-51.0) L 01/26/19 04:05 [place] % (Auto) 4.3 % (0.0-13.0) 01/26/19 04:05 Eos % (Auto) 2.9 % (0.9-2.9) 01/26/19 04:05 Baso % (Auto) 0.9 % (0.2-1.0) 01/26/19 04:05 Neut # (Auto) 14.7 x10^3/uL (2.2-4.8) H 01/26/19 04:05 Lymph # (Auto) 1.3 X10^3/uL (1.3-2.9) 01/26/19 04:05 [place] # (Auto) 0.7 x10^3/uL (0.3-0.8) 01/26/19 04:05 Eos # (Auto) 0.5 x10^3/uL (0.0-0.2) H 01/26/19 04:05 Baso # (Auto) 0.2 X10^3/uL (0.0-0.1) H 01/26/19 04:05 Absolute Nucleated RBC 0.0 /100WBC 01/26/19 04:05 Total Counted 100 01/25/19 04:32 Neutrophils % (Manual) 85 % (39-76) H 01/25/19 04:32 Band Neutrophils % 5 % (0-10) 01/25/19 04:32 Lymphocytes % (Manual) 9 % (13-43) L 01/25/19 04:32 Monocytes % (Manual) 1 % (4-9) L 01/25/19 04:32 Eosinophils % (Manual) 6 % (0-6) 01/23/19 05:08 Basophils % (Manual) 1 % (0-1) 01/21/19 03:58 Metamyelocytes % 2 01/22/19 04:00 Plt Morphology Comment Normal (NORMAL) 01/25/19 04:32 RBC Morphology Normal (NORMAL) 01/25/19 04:32 Hypochromasia 1+ A 01/21/19 03:58 INR Target Range - 01/18/19 05:08 INR 1.62 (0.8-1.3) H 01/18/19 05:08 APTT 37.1 SECONDS (22.9-36.5) H 01/18/19 05:08 PTT Comment - 01/18/19 05:08 Sodium 140 mmol/L (136-145) 01/26/19 04:05 Corrected Sodium 142 mmol/L (136-145) 01/26/19 04:05 Potassium 3.7 mmol/L (3.5-5.1) 01/26/19 04:05 Chloride 104 mmol/L (98-107) 01/26/19 04:05 Carbon Dioxide 28.3 mmol/L (21-32) 01/26/19 04:05 BUN 4 mg/dL (7-18) L 01/26/19 04:05 Creatinine 0.86 mg/dL (0.70-1.30) 01/26/19 04:05 Est GFR (MDRD) Af Amer > 60 (>60) 01/26/19 04:05 Est GFR (MDRD) Non-Af > 60 (>60) 01/26/19 04:05 Glucose 201 mg/dL (65-99) H 01/26/19 04:05 POC Glucose (mg/dL) 216 mg/dL (65-99) H 01/26/19 05:28 Lactic Acid 1.2 mmol/L (0.4-2.0) 01/19/19 05:38 Calcium 8.2 mg/dL (8.5-10.1) L 01/26/19 04:05 Corrected Calcium 9.1 mg/dL (8.5-10.1) 01/26/19 04:05 Magnesium 1.4 mg/dL (1.7-2.9) L 01/26/19 04:05 Total Bilirubin 4.60 mg/dL (0.2-1.0) H 01/26/19 04:05 Direct Bilirubin 4.00 mg/dL (0-0.2) H 01/25/19 04:32 Indirect Bilirubin 1.60 mg/dL (0.2-0.8) H 01/25/19 04:32 AST 20 Units/L (15-37) 01/26/19 04:05 ALT 27 Units/L (12-78) 01/26/19 04:05 Alkaline Phosphatase 251 Units/L (46-116) H 01/26/19 04:05 Ammonia < 10 umol/L (11-32) L 01/26/19 04:05 Creatine Kinase 25 Units/L (39-308) L 01/17/19 16:35 CK-MB (CK-2) < 1.0 ng/mL (0-4.0) 01/17/19 16:35 CK/CKMB % Calc 4.0 % (<4) 01/17/19 16:35 Troponin I < 0.02 ng/mL (0-1.5) 01/17/19 16:35 C-Reactive Protein 64.90 mg/L (0-3.0) H 01/23/19 05:08 Total Protein 6.6 g/dL (6.4-8.2) 01/26/19 04:05 Albumin 2.9 g/dL (3.4-5.0) L 01/26/19 04:05 Globulin 3.7 g/dL (2.5-4.5) 01/26/19 04:05 Albumin/Globulin Ratio 0.8 Ratio (1.1-2.1) L 01/26/19 04:05 Amylase 47 Units/L (25-115) 01/26/19 04:05 Lipase 107 Units/L (73-393) 01/26/19 04:05 Specimen Type Catherized urine 01/24/19 12:18 Urine Color Yellow (YELLOW) 01/24/19 12:18 Urine Appearance Clear (CLEAR) 01/24/19 12:18 Urine pH 8.0 (5.0 - 8.0) 01/24/19 12:18 Ur Specific [place] 1.010 (1.000-1.030) 01/24/19 12:18 Urine Protein Negative (NEGATIVE) 01/24/19 12:18 Urine Glucose (UA) 1+ (NEGATIVE) 01/24/19 12:18 Urine Ketones Negative (NEGATIVE) 01/24/19 12:18 Urine Occult Blood Negative (NEGATIVE) 01/24/19 12:18 Urine Nitrite Negative (NEGATIVE) 01/24/19 12:18 Urine Bilirubin Negative (NEGATIVE) 01/24/19 12:18 Urine Urobilinogen Normal (NORMAL) 01/24/19 12:18 Ur Leukocyte Esterase Negative (NEGATIVE) 01/24/19 12:18 Urine RBC 0-2 /HPF (NONE SEEN) 01/17/19 19:11 Urine WBC None seen /HPF (NONE SEEN) 01/17/19 19:11 Ur Squamous Epith Cells Few /HPF (NEGATIVE) 01/17/19 19:11 Amorphous Sediment 1+ /HPF (NEGATIVE) 01/17/19 19:11 Urine Bacteria Trace /HPF (NEGATIVE) 01/17/19 19:11 Ur Culture Indicated? No/not indicated 01/17/19 19:11 Stool Description 85g,liquid,beige 01/22/19 14:14 Stl Occult Blood (IFOB) Negative (NEGATIVE) 01/22/19 14:14 Stool for White Cells Positive (NEGATIVE) A 01/22/19 14:08 Stl C. diff Tox B Gene Negative (NEGATIVE) 01/22/19 14:08 Stl C. diff 027-NAP1-BI Negative (NEGATIVE) 01/22/19 14:08 Urine Opiates Screen Positive (NEG=<300) 01/17/19 19:11 Urine Methadone Screen Negative (NEG=<300) 01/17/19 19:11 Ur Barbiturates Screen Negative (NEG=<200) 01/17/19 19:11 Ur Phencyclidine Scrn Negative (NEG=<25) 01/17/19 19:11 Ur Amphetamines Screen Negative (NEG=<1000) 01/17/19 19:11 U Benzodiazepines Scrn Negative (NEG=<200) 01/17/19 19:11 Urine Cocaine Screen Negative (NEG=<300) 01/17/19 19:11 U Marijuana (THC) Screen Negative (NEG=<50) 01/17/19 19:11 Acetone, Semi-Quant Negative (NEGATIVE) 01/17/19 16:35 Cryptosporid parvum Ag Negative (NEGATIVE) 01/22/19 14:14 Giardia lamblia Ag Negative (NEGATIVE) 01/22/19 14:14 Hepatitis A IgM Ab Negative (Negative) 01/22/19 08:50 Hep Bs Antigen Negative (Negative) 01/22/19 08:50 Hep Bs Ag Confirmation TNP 01/22/19 08:50 Hep B Core IgM Ab Negative (Negative) 01/22/19 08:50 Hepatitis C Ab Index 0.05 IV 01/22/19 08:50 Hepatitis C Interp Negative (Negative) 01/22/19 08:50 Hepatitis Interpret See note 01/22/19 08:50 Blood Type B POSITIVE 01/24/19 11:30 Antibody Screen Negative 01/24/19 11:30 - Assessment and Plan 1: day 2 ,PO laparotomy , CBD exploration , choledocho duodenostomy .. will keep NGT . same PO care , OOB. DVT prophylaxis . IV ATB because of the cholangitis , awaiting C&S from the CBD Bile . - Problem Patient Problems: Patient Problems Sepsis (Acute) A41.9 Leukocytosis (Acute) D72.829 Abnormal liver function test (Acute) R94.5 Dehydration (Acute) E86.0 Pyelonephritis due to Escherichia coli (Acute) N12, B96.20
[2019-01-26] MEDS: ALBUMIN HUMAN 25%- 100 ML 100 ML IV SCH (08:41)
[2019-01-26] MEDS: LOVENOX INJ 40 MG SYR SC SCH (08:52)
[2019-01-26] MEDS: PROTONIX INJ 40 MG VIAL IVP SCH (08:55)
[2019-01-26] MEDS: MAGNESIUM SULFATE 1 GRAM/100 mL PREMIX 1 GM/100 ML BAG IV PRN ×4 (08:56→13:10)
[2019-01-26] MEDS: POTASSIUM CHLORIDE LIQ 20 MEQ UDC PO SCH (09:35)
--- NOTE | 2019-01-26 12:26 | PCM.PROG ---
Progress Note - Progress Note for Day of Date of Exam: 01/24/19 - Subjective Subjective: WAS ADMITTED FOR SEPSIS, DEHYDRATION, HYPOTENSION, PYELONEPHRITIS, AND ABNORMAL LIVER FUNCTION TESTS. HE HAS HAD A RECENT ERCP AND SPHINCTEROTOMY IN [place] BY . SPHINCTEROTOMY WAS SUCCESSFUS, BUT THERE WAS STILL RETAINED COMMON BILE DUCT STONES. TODAY, HE IS ALERT AND ORIENTED, LYING IN BED ON MORNING ROUNDS. HE CONTINUES WITH GENERALIZED WEAKNESS TODAY. HE ALSO CONTINUES TO REPORT MILD ABDOMINAL PAIN. ON EXAMINATION, HEART IS REGULAR IN RATE AND RHYTHM. BILATERAL LUNGS ARE NOTED WITH DIMINISHED LUNG SOUNDS THROUGHOUT. ABDOMEN IS ROUND, SOFT, AND NOTED WITH MILD SUPRAPUBIC TENDERNESS. NORMAL BOWEL SOUNDS ARE NOTED IN ALL QUADRANTS. HIS VITALS THIS MORNING ARE: 98.0-75-19-97%-138/65. LABS WERE OBTAINED. ABNORMAL LAB VALUES INCLUDE THE FOLLOWING: WBC 10.4, RBC 3.33, HGB 10.3, HCT 30.0, BUN 4, GLUCOSE 236, CALCIUM 8.3, MAGNESIUM 1.6, TOTAL BILI 9.30, ALK PHOS 393, ALBUMIN 2.6. BLOOD AND URINE CULTURES REPORT GROWTH OF E.COLI. HE IS CURRENTLY RECEIVING IV FLUIDS, IV ANTIBIOTICS, AND HOME MEDICATIONS. PLANS TO TAKE HIM TO THE OR FOR A LAPAROTOMY AND DECOMPRESSION OF THE COMMON BILE DUCT AND EXTRACTION OF THE COMMON BILE DUCT STONES TODAY. WE ARE IN AGREEMENT WITH PLAN. OTHERWISE, WE PLAN TO FOLLOW-UP WITH AM LABS AND CONTINUE TO MONITOR. - Past Medical Family Social History Past Med/Fam/Surg Hx: No changes since H&P Allergies: Allergies No Known Drug Allergies Allergy (Verified 10/05/18 09:42) - Review of Systems ROS: No change since H&P - Vital Signs and I&O's Vital Signs: Temperature 98.5 F Pulse Rate [Apical] 95 Pulse Rate 76 Respiratory Rate 16 Blood Pressure [Right Arm] 124/55 Blood Pressure [Left Arm] 121/60 Blood Pressure 112/53 O2 Sat by Pulse Oximetry 97 Intake and Output: Intake & Output 01/24/19 01/25/19 01/26/19 01/27/19 11:59 11:59 11:59 11:59 Intake Total 6925 / 6925 7215 / 7215 3353 / 3353 Output Total 3300 / 3300 3551 / 3551 2760 / 2760 Balance 3625 / 3625 3664 / 3664 593 / 593 - Physical Exam Oriented: Normal Eyes: Other (mild jundice ) Ear: Normal Nose: Other (NG tube in place clamped) Throat: Normal Respiratory: Diminished Cardiovascular: Normal : Normal Auscultation: Bowel Sounds: Normal Palpation: Normal Tenderness: Diffuse (s/p exploratory lap), Other (Patient noted to have drain in place, dressing noted to abdomen dry and intact, NG tube in place) Skin: Other (jaundice) Musculoskeletal: Normal Psychiatric: Normal Mood Description: Anxious Affect: Normal Speech Pattern: Clear - Laboratory and Diagnostics Result Diagrams: 01/26/19 04:05 01/26/19 04:05 Labs: 01/24/19 13:10 Aspirate Wound Culture - Final Escherichia Coli 01/22/19 14:14 Stool Stool Culture - Final 01/22/19 14:14 Stool - Final 01/17/19 16:35 Blood Blood Culture - Final Escherichia Coli 01/17/19 16:30 Blood Blood Culture - Final Escherichia Coli 01/18/19 15:30 Urine,Clean Catch Urine Culture - Final Laboratory WBC 17.4 X10^3/uL (3.6-10.0) H 01/26/19 04:05 RBC 2.90 X10^6/uL (4.7-6.0) L 01/26/19 04:05 Hgb 8.7 g/dL (13.5-18.0) L 01/26/19 04:05 Hct 26.1 % (42.0-54.0) L 01/26/19 04:05 MCV 89.8 fL (80.0-100.0) 01/26/19 04:05 MCH 30.1 pg (27.0-34.0) 01/26/19 04:05 MCHC 33.5 g/dL (33.0-35.0) 01/26/19 04:05 RDW 15.5 % (11.6-16.5) 01/26/19 04:05 Plt Count 320 X10^3/uL (150.0-450.0) 01/26/19 04:05 Plt Count Comment Adequate (ADEQUATE) 01/25/19 04:32 MPV 9.3 fL (7.4-11.0) 01/26/19 04:05 Neut % (Auto) 84.7 % (42.0-75.0) H 01/26/19 04:05 Lymph % (Auto) 7.2 % (21.0-51.0) L 01/26/19 04:05 [place] % (Auto) 4.3 % (0.0-13.0) 01/26/19 04:05 Eos % (Auto) 2.9 % (0.9-2.9) 01/26/19 04:05 Baso % (Auto) 0.9 % (0.2-1.0) 01/26/19 04:05 Neut # (Auto) 14.7 x10^3/uL (2.2-4.8) H 01/26/19 04:05 Lymph # (Auto) 1.3 X10^3/uL (1.3-2.9) 01/26/19 04:05 [place] # (Auto) 0.7 x10^3/uL (0.3-0.8) 01/26/19 04:05 Eos # (Auto) 0.5 x10^3/uL (0.0-0.2) H 01/26/19 04:05 Baso # (Auto) 0.2 X10^3/uL (0.0-0.1) H 01/26/19 04:05 Absolute Nucleated RBC 0.0 /100WBC 01/26/19 04:05 Total Counted 100 01/25/19 04:32 Neutrophils % (Manual) 85 % (39-76) H 01/25/19 04:32 Band Neutrophils % 5 % (0-10) 01/25/19 04:32 Lymphocytes % (Manual) 9 % (13-43) L 01/25/19 04:32 Monocytes % (Manual) 1 % (4-9) L 01/25/19 04:32 Eosinophils % (Manual) 6 % (0-6) 01/23/19 05:08 Basophils % (Manual) 1 % (0-1) 01/21/19 03:58 Metamyelocytes % 2 01/22/19 04:00 Plt Morphology Comment Normal (NORMAL) 01/25/19 04:32 RBC Morphology Normal (NORMAL) 01/25/19 04:32 Hypochromasia 1+ A 01/21/19 03:58 INR Target Range - 01/18/19 05:08 INR 1.62 (0.8-1.3) H 01/18/19 05:08 APTT 37.1 SECONDS (22.9-36.5) H 01/18/19 05:08 PTT Comment - 01/18/19 05:08 Sodium 140 mmol/L (136-145) 01/26/19 04:05 Corrected Sodium 142 mmol/L (136-145) 01/26/19 04:05 Potassium 3.7 mmol/L (3.5-5.1) 01/26/19 04:05 Chloride 104 mmol/L (98-107) 01/26/19 04:05 Carbon Dioxide 28.3 mmol/L (21-32) 01/26/19 04:05 BUN 4 mg/dL (7-18) L 01/26/19 04:05 Creatinine 0.86 mg/dL (0.70-1.30) 01/26/19 04:05 Est GFR (MDRD) Af Amer > 60 (>60) 01/26/19 04:05 Est GFR (MDRD) Non-Af > 60 (>60) 01/26/19 04:05 Glucose 201 mg/dL (65-99) H 01/26/19 04:05 POC Glucose (mg/dL) 172 mg/dL (65-99) H 01/26/19 11:34 Lactic Acid 1.2 mmol/L (0.4-2.0) 01/19/19 05:38 Calcium 8.2 mg/dL (8.5-10.1) L 01/26/19 04:05 Corrected Calcium 9.1 mg/dL (8.5-10.1) 01/26/19 04:05 Magnesium 1.4 mg/dL (1.7-2.9) L 01/26/19 04:05 Total Bilirubin 4.60 mg/dL (0.2-1.0) H 01/26/19 04:05 Direct Bilirubin 4.00 mg/dL (0-0.2) H 01/25/19 04:32 Indirect Bilirubin 1.60 mg/dL (0.2-0.8) H 01/25/19 04:32 AST 20 Units/L (15-37) 01/26/19 04:05 ALT 27 Units/L (12-78) 01/26/19 04:05 Alkaline Phosphatase 251 Units/L (46-116) H 01/26/19 04:05 Ammonia < 10 umol/L (11-32) L 01/26/19 04:05 Creatine Kinase 25 Units/L (39-308) L 01/17/19 16:35 CK-MB (CK-2) < 1.0 ng/mL (0-4.0) 01/17/19 16:35 CK/CKMB % Calc 4.0 % (<4) 01/17/19 16:35 Troponin I < 0.02 ng/mL (0-1.5) 01/17/19 16:35 C-Reactive Protein 64.90 mg/L (0-3.0) H 01/23/19 05:08 Total Protein 6.6 g/dL (6.4-8.2) 01/26/19 04:05 Albumin 2.9 g/dL (3.4-5.0) L 01/26/19 04:05 Globulin 3.7 g/dL (2.5-4.5) 01/26/19 04:05 Albumin/Globulin Ratio 0.8 Ratio (1.1-2.1) L 01/26/19 04:05 Amylase 47 Units/L (25-115) 01/26/19 04:05 Lipase 107 Units/L (73-393) 01/26/19 04:05 Specimen Type Catherized urine 01/24/19 12:18 Urine Color Yellow (YELLOW) 01/24/19 12:18 Urine Appearance Clear (CLEAR) 01/24/19 12:18 Urine pH 8.0 (5.0 - 8.0) 01/24/19 12:18 Ur Specific [place] 1.010 (1.000-1.030) 01/24/19 12:18 Urine Protein Negative (NEGATIVE) 01/24/19 12:18 Urine Glucose (UA) 1+ (NEGATIVE) 01/24/19 12:18 Urine Ketones Negative (NEGATIVE) 01/24/19 12:18 Urine Occult Blood Negative (NEGATIVE) 01/24/19 12:18 Urine Nitrite Negative (NEGATIVE) 01/24/19 12:18 Urine Bilirubin Negative (NEGATIVE) 01/24/19 12:18 Urine Urobilinogen Normal (NORMAL) 01/24/19 12:18 Ur Leukocyte Esterase Negative (NEGATIVE) 01/24/19 12:18 Urine RBC 0-2 /HPF (NONE SEEN) 01/17/19 19:11 Urine WBC None seen /HPF (NONE SEEN) 01/17/19 19:11 Ur Squamous Epith Cells Few /HPF (NEGATIVE) 01/17/19 19:11 Amorphous Sediment 1+ /HPF (NEGATIVE) 01/17/19 19:11 Urine Bacteria Trace /HPF (NEGATIVE) 01/17/19 19:11 Ur Culture Indicated? No/not indicated 01/17/19 19:11 Stool Description 85g,liquid,beige 01/22/19 14:14 Stl Occult Blood (IFOB) Negative (NEGATIVE) 01/22/19 14:14 Stool for White Cells Positive (NEGATIVE) A 01/22/19 14:08 Stl C. diff Tox B Gene Negative (NEGATIVE) 01/22/19 14:08 Stl C. diff 027-NAP1-BI Negative (NEGATIVE) 01/22/19 14:08 Urine Opiates Screen Positive (NEG=<300) 01/17/19 19:11 Urine Methadone Screen Negative (NEG=<300) 01/17/19 19:11 Ur Barbiturates Screen Negative (NEG=<200) 01/17/19 19:11 Ur Phencyclidine Scrn Negative (NEG=<25) 01/17/19 19:11 Ur Amphetamines Screen Negative (NEG=<1000) 01/17/19 19:11 U Benzodiazepines Scrn Negative (NEG=<200) 01/17/19 19:11 Urine Cocaine Screen Negative (NEG=<300) 01/17/19 19:11 U Marijuana (THC) Screen Negative (NEG=<50) 01/17/19 19:11 Acetone, Semi-Quant Negative (NEGATIVE) 01/17/19 16:35 Cryptosporid parvum Ag Negative (NEGATIVE) 01/22/19 14:14 Giardia lamblia Ag Negative (NEGATIVE) 01/22/19 14:14 Hepatitis A IgM Ab Negative (Negative) 01/22/19 08:50 Hep Bs Antigen Negative (Negative) 01/22/19 08:50 Hep Bs Ag Confirmation TNP 01/22/19 08:50 Hep B Core IgM Ab Negative (Negative) 01/22/19 08:50 Hepatitis C Ab Index 0.05 IV 01/22/19 08:50 Hepatitis C Interp Negative (Negative) 01/22/19 08:50 Hepatitis Interpret See note 01/22/19 08:50 Blood Type B POSITIVE 01/24/19 11:30 Antibody Screen Negative 01/24/19 11:30 - Plan (1) Sepsis Status: Acute Qualifiers: Sepsis type: Escherichia coli Qualified Code(s): A41.51 - Sepsis due to Escherichia coli [E. coli] Plan: IV FLUIDS, IV ANTIBIOTICS, MONITOR LABS (2) Pyelonephritis due to Escherichia coli Status: Acute Plan: IV FLUIDS, IV ANTIBIOTICS, CONTINUE TO MONITOR (3) Leukocytosis Status: Acute Qualifiers: Leukocytosis type: unspecified Qualified Code(s): D72.829 - Elevated white blood cell count, unspecified (4) Dehydration Status: Acute Plan: IV FLUIDS, CONTINUE TO MONITOR (5) Abnormal liver function test Status: Acute Plan: CONTINUE TO MONITOR (6) Hypotension Status: Acute Qualifiers: Hypotension type: unspecified hypotension type Qualified Code(s): I95.9 - Hypotension, unspecified Plan: IV FLUIDS, CONTINUE TO MONITOR
--- NOTE | 2019-01-26 13:52 | PCM.PROG ---
Progress Note - Progress Note for Day of Date of Exam: 01/25/19 - Subjective Subjective: WAS ADMITTED FOR SEPSIS, DEHYDRATION, HYPOTENSION, PYELONEPHRITIS, AND ABNORMAL LIVER FUNCTION TESTS. HE IS STATUS POST CHOLEDOCHODUODENOSTOMY AND ANASTOMOSIS. AN NG TUBE WAS PLACED DURING SURGERY WELL A IVANNA HOROWITZ DRAIN.TODAY, HE IS ALERT AND ORIENTED, LYING IN BED ON MORNING ROUNDS. HE CONTINUES WITH GENERALIZED WEAKNESS AND DIFFUSE ABDOMINAL PAIN. ON EXAMINATION, HEART IS REGULAR IN RATE AND RHYTHM. BILATERAL LUNGS ARE NOTED WITH DIMINISHED LUNG SOUNDS THROUGHOUT. ABDOMEN IS ROUND, SOFT, AND NOTED WITH MILD SUPRAPUBIC TENDERNESS. JESSE DRAIN NOTED. BOWEL SOUNDS ARE NOTED IN ALL QUADRANTS. HIS VITALS THIS MORNING ARE: 97.0-72-13-100%-149/66. LABS WERE OBTAINED. ABNORMAL LAB VALUES INCLUDE THE FOLLOWING: WBC 22.5, RBC 3.22, HGB 9.7, HCT 29.4, GLUCOSE 277, CALCIUM 8.4, MAGNESIUM 1.5, TOTAL [place] 5.60, DIRECT BILI 4.00, INDIRECT BILI 1.60, ALK PHOS 326, ALBUMIN 2.5. BLOOD AND URINE CULTURES REPORT GROWTH OF E.COLI. HE IS CURRENTLY RECEIVING IV FLUIDS, IV ANTIBIOTICS, AND HOME MEDICATIONS. WE WILL CONTINUE WITH CURRENT PLAN OF CARE TODAY. OTHERWISE, WE PLAN TO FOLLOW-UP WITH AM LABS AND CONTINUE TO MONITOR. - Past Medical Family Social History Past Med/Fam/Surg Hx: No changes since H&P Allergies: Allergies No Known Drug Allergies Allergy (Verified 10/05/18 09:42) - Review of Systems ROS: No change since H&P - Vital Signs and I&O's Vital Signs: Temperature 98.5 F Pulse Rate [Apical] 95 Pulse Rate 76 Respiratory Rate 18 Blood Pressure [Right Arm] 124/55 Blood Pressure [Left Arm] 121/60 Blood Pressure 112/53 O2 Sat by Pulse Oximetry 97 Intake and Output: Intake & Output 01/24/19 01/25/19 01/26/19 01/27/19 11:59 11:59 11:59 11:59 Intake Total 6925 / 6925 7215 / 7215 3353 / 3353 Output Total 3300 / 3300 3551 / 3551 2760 / 2760 Balance 3625 / 3625 3664 / 3664 593 / 593 - Physical Exam Oriented: Normal Eyes: Other (mild jundice ) Ear: Normal Nose: Other (NG tube in place clamped) Throat: Normal Respiratory: Diminished Cardiovascular: Normal : Normal Auscultation: Bowel Sounds: Normal Tenderness: Diffuse (s/p exploratory lap), Other (Patient noted to have drain in place, dressing noted to abdomen dry and intact, NG tube in place) Skin: Other (jaundice) Musculoskeletal: Normal Psychiatric: Normal Mood Description: Anxious Affect: Normal Speech Pattern: Clear - Laboratory and Diagnostics Result Diagrams: 01/26/19 04:05 01/26/19 04:05 Labs: 01/24/19 13:10 Aspirate Wound Culture - Final Escherichia Coli 01/22/19 14:14 Stool Stool Culture - Final 01/22/19 14:14 Stool - Final 01/17/19 16:35 Blood Blood Culture - Final Escherichia Coli 01/17/19 16:30 Blood Blood Culture - Final Escherichia Coli 01/18/19 15:30 Urine,Clean Catch Urine Culture - Final Laboratory WBC 17.4 X10^3/uL (3.6-10.0) H 01/26/19 04:05 RBC 2.90 X10^6/uL (4.7-6.0) L 01/26/19 04:05 Hgb 8.7 g/dL (13.5-18.0) L 01/26/19 04:05 Hct 26.1 % (42.0-54.0) L 01/26/19 04:05 MCV 89.8 fL (80.0-100.0) 01/26/19 04:05 MCH 30.1 pg (27.0-34.0) 01/26/19 04:05 MCHC 33.5 g/dL (33.0-35.0) 01/26/19 04:05 RDW 15.5 % (11.6-16.5) 01/26/19 04:05 Plt Count 320 X10^3/uL (150.0-450.0) 01/26/19 04:05 Plt Count Comment Adequate (ADEQUATE) 01/25/19 04:32 MPV 9.3 fL (7.4-11.0) 01/26/19 04:05 Neut % (Auto) 84.7 % (42.0-75.0) H 01/26/19 04:05 Lymph % (Auto) 7.2 % (21.0-51.0) L 01/26/19 04:05 [place] % (Auto) 4.3 % (0.0-13.0) 01/26/19 04:05 Eos % (Auto) 2.9 % (0.9-2.9) 01/26/19 04:05 Baso % (Auto) 0.9 % (0.2-1.0) 01/26/19 04:05 Neut # (Auto) 14.7 x10^3/uL (2.2-4.8) H 01/26/19 04:05 Lymph # (Auto) 1.3 X10^3/uL (1.3-2.9) 01/26/19 04:05 [place] # (Auto) 0.7 x10^3/uL (0.3-0.8) 01/26/19 04:05 Eos # (Auto) 0.5 x10^3/uL (0.0-0.2) H 01/26/19 04:05 Baso # (Auto) 0.2 X10^3/uL (0.0-0.1) H 01/26/19 04:05 Absolute Nucleated RBC 0.0 /100WBC 01/26/19 04:05 Total Counted 100 01/25/19 04:32 Neutrophils % (Manual) 85 % (39-76) H 01/25/19 04:32 Band Neutrophils % 5 % (0-10) 01/25/19 04:32 Lymphocytes % (Manual) 9 % (13-43) L 01/25/19 04:32 Monocytes % (Manual) 1 % (4-9) L 01/25/19 04:32 Eosinophils % (Manual) 6 % (0-6) 01/23/19 05:08 Basophils % (Manual) 1 % (0-1) 01/21/19 03:58 Metamyelocytes % 2 01/22/19 04:00 Plt Morphology Comment Normal (NORMAL) 01/25/19 04:32 RBC Morphology Normal (NORMAL) 01/25/19 04:32 Hypochromasia 1+ A 01/21/19 03:58 INR Target Range - 01/18/19 05:08 INR 1.62 (0.8-1.3) H 01/18/19 05:08 APTT 37.1 SECONDS (22.9-36.5) H 01/18/19 05:08 PTT Comment - 01/18/19 05:08 Sodium 140 mmol/L (136-145) 01/26/19 04:05 Corrected Sodium 142 mmol/L (136-145) 01/26/19 04:05 Potassium 3.7 mmol/L (3.5-5.1) 01/26/19 04:05 Chloride 104 mmol/L (98-107) 01/26/19 04:05 Carbon Dioxide 28.3 mmol/L (21-32) 01/26/19 04:05 BUN 4 mg/dL (7-18) L 01/26/19 04:05 Creatinine 0.86 mg/dL (0.70-1.30) 01/26/19 04:05 Est GFR (MDRD) Af Amer > 60 (>60) 01/26/19 04:05 Est GFR (MDRD) Non-Af > 60 (>60) 01/26/19 04:05 Glucose 201 mg/dL (65-99) H 01/26/19 04:05 POC Glucose (mg/dL) 172 mg/dL (65-99) H 01/26/19 11:34 Lactic Acid 1.2 mmol/L (0.4-2.0) 01/19/19 05:38 Calcium 8.2 mg/dL (8.5-10.1) L 01/26/19 04:05 Corrected Calcium 9.1 mg/dL (8.5-10.1) 01/26/19 04:05 Magnesium 1.4 mg/dL (1.7-2.9) L 01/26/19 04:05 Total Bilirubin 4.60 mg/dL (0.2-1.0) H 01/26/19 04:05 Direct Bilirubin 4.00 mg/dL (0-0.2) H 01/25/19 04:32 Indirect Bilirubin 1.60 mg/dL (0.2-0.8) H 01/25/19 04:32 AST 20 Units/L (15-37) 01/26/19 04:05 ALT 27 Units/L (12-78) 01/26/19 04:05 Alkaline Phosphatase 251 Units/L (46-116) H 01/26/19 04:05 Ammonia < 10 umol/L (11-32) L 01/26/19 04:05 Creatine Kinase 25 Units/L (39-308) L 01/17/19 16:35 CK-MB (CK-2) < 1.0 ng/mL (0-4.0) 01/17/19 16:35 CK/CKMB % Calc 4.0 % (<4) 01/17/19 16:35 Troponin I < 0.02 ng/mL (0-1.5) 01/17/19 16:35 C-Reactive Protein 64.90 mg/L (0-3.0) H 01/23/19 05:08 Total Protein 6.6 g/dL (6.4-8.2) 01/26/19 04:05 Albumin 2.9 g/dL (3.4-5.0) L 01/26/19 04:05 Globulin 3.7 g/dL (2.5-4.5) 01/26/19 04:05 Albumin/Globulin Ratio 0.8 Ratio (1.1-2.1) L 01/26/19 04:05 Amylase 47 Units/L (25-115) 01/26/19 04:05 Lipase 107 Units/L (73-393) 01/26/19 04:05 Specimen Type Catherized urine 01/24/19 12:18 Urine Color Yellow (YELLOW) 01/24/19 12:18 Urine Appearance Clear (CLEAR) 01/24/19 12:18 Urine pH 8.0 (5.0 - 8.0) 01/24/19 12:18 Ur Specific [place] 1.010 (1.000-1.030) 01/24/19 12:18 Urine Protein Negative (NEGATIVE) 01/24/19 12:18 Urine Glucose (UA) 1+ (NEGATIVE) 01/24/19 12:18 Urine Ketones Negative (NEGATIVE) 01/24/19 12:18 Urine Occult Blood Negative (NEGATIVE) 01/24/19 12:18 Urine Nitrite Negative (NEGATIVE) 01/24/19 12:18 Urine Bilirubin Negative (NEGATIVE) 01/24/19 12:18 Urine Urobilinogen Normal (NORMAL) 01/24/19 12:18 Ur Leukocyte Esterase Negative (NEGATIVE) 01/24/19 12:18 Urine RBC 0-2 /HPF (NONE SEEN) 01/17/19 19:11 Urine WBC None seen /HPF (NONE SEEN) 01/17/19 19:11 Ur Squamous Epith Cells Few /HPF (NEGATIVE) 01/17/19 19:11 Amorphous Sediment 1+ /HPF (NEGATIVE) 01/17/19 19:11 Urine Bacteria Trace /HPF (NEGATIVE) 01/17/19 19:11 Ur Culture Indicated? No/not indicated 01/17/19 19:11 Stool Description 85g,liquid,beige 01/22/19 14:14 Stl Occult Blood (IFOB) Negative (NEGATIVE) 01/22/19 14:14 Stool for White Cells Positive (NEGATIVE) A 01/22/19 14:08 Stl C. diff Tox B Gene Negative (NEGATIVE) 01/22/19 14:08 Stl C. diff 027-NAP1-BI Negative (NEGATIVE) 01/22/19 14:08 Urine Opiates Screen Positive (NEG=<300) 01/17/19 19:11 Urine Methadone Screen Negative (NEG=<300) 01/17/19 19:11 Ur Barbiturates Screen Negative (NEG=<200) 01/17/19 19:11 Ur Phencyclidine Scrn Negative (NEG=<25) 01/17/19 19:11 Ur Amphetamines Screen Negative (NEG=<1000) 01/17/19 19:11 U Benzodiazepines Scrn Negative (NEG=<200) 01/17/19 19:11 Urine Cocaine Screen Negative (NEG=<300) 01/17/19 19:11 U Marijuana (THC) Screen Negative (NEG=<50) 01/17/19 19:11 Acetone, Semi-Quant Negative (NEGATIVE) 01/17/19 16:35 Cryptosporid parvum Ag Negative (NEGATIVE) 01/22/19 14:14 Giardia lamblia Ag Negative (NEGATIVE) 01/22/19 14:14 Hepatitis A IgM Ab Negative (Negative) 01/22/19 08:50 Hep Bs Antigen Negative (Negative) 01/22/19 08:50 Hep Bs Ag Confirmation TNP 01/22/19 08:50 Hep B Core IgM Ab Negative (Negative) 01/22/19 08:50 Hepatitis C Ab Index 0.05 IV 01/22/19 08:50 Hepatitis C Interp Negative (Negative) 01/22/19 08:50 Hepatitis Interpret See note 01/22/19 08:50 Blood Type B POSITIVE 01/24/19 11:30 Antibody Screen Negative 01/24/19 11:30 - Plan (1) Sepsis Status: Acute Qualifiers: Sepsis type: Escherichia coli Qualified Code(s): A41.51 - Sepsis due to Escherichia coli [E. coli] Plan: IV FLUIDS, IV ANTIBIOTICS, MONITOR LABS (2) Pyelonephritis due to Escherichia coli Status: Acute Plan: IV FLUIDS, IV ANTIBIOTICS, CONTINUE TO MONITOR (3) Leukocytosis Status: Acute Qualifiers: Leukocytosis type: unspecified Qualified Code(s): D72.829 - Elevated white blood cell count, unspecified (4) Dehydration Status: Acute Plan: IV FLUIDS, CONTINUE TO MONITOR (5) Abnormal liver function test Status: Acute Plan: CONTINUE TO MONITOR (6) Hypotension Status: Acute Qualifiers: Hypotension type: unspecified hypotension type Qualified Code(s): I95.9 - Hypotension, unspecified Plan: IV FLUIDS, CONTINUE TO MONITOR
[2019-01-26] MEDS: K-RIDER 10 MEQ/NS 100 ML 10 MEQ/100 ML BAG IV PRN ×2 (16:00→17:42)
[2019-01-26] MEDS: LIPITOR TAB 10 MG PO SCH (21:29)
[2019-01-27] MEDS: D5 1/2 NS 1000 ML 1,000 ML IV SCH ×6 (01:05→17:02)
[2019-01-27] MEDS: FLAGYL IV PREMIX 500 MG BAG 500 MG/100 ML BAG IV SCH ×3 (05:12→21:30)
[2019-01-27] MEDS: ZOSYN VIAL 3.375 GRAMS 3.375 G in NS 100 ML IV + SPIKE MINIBAG* 100 ML IV SCH (05:47)
[2019-01-27] MEDS: HumuLIN R SC SCH ×4 (05:47→21:37)
[2019-01-27 05:48] LABS: BASOPHILS # (AUTO) 0.2 X10^3/uL (0.0-0.1); BASOPHILS % (AUTO) 1.5 % (0.2-1.0); EOSINOPHILS # (AUTO) 0.4 x10^3/uL (0.0-0.2); EOSINOPHILS % (AUTO) 3.1 % (0.9-2.9); HEMATOCRIT 24.9 % (42.0-54.0); HEMOGLOBIN 8.4 g/dL (13.5-18.0); LYMPHOCYTES # (AUTO) 1.7 X10^3/uL (1.3-2.9); LYMPHOCYTES % (AUTO) 12.8 % (21.0-51.0); MEAN CORPUSCULAR HEMOGLOBIN 30.6 pg (27.0-34.0); MEAN CORPUSCULAR HGB CONC 33.9 g/dL (33.0-35.0); MEAN CORPUSCULAR VOLUME 90.4 fL (80.0-100.0); MONOCYTES # (AUTO) 0.6 x10^3/uL (0.3-0.8); MONOCYTES % (AUTO) 4.8 % (0.0-13.0); NEUTROPHILS # (AUTO) 10.2 x10^3/uL (2.2-4.8); NEUTROPHILS % (AUTO) 77.8 % (42.0-75.0); PLATELET COUNT 348 X10^3/uL (150.0-450.0); RED BLOOD COUNT 2.75 X10^6/uL (4.7-6.0); RED CELL DISTRIBUTION WIDTH 15.4 % (11.6-16.5); WHITE BLOOD COUNT 13.1 X10^3/uL (3.6-10.0)
[2019-01-27 06:03] LABS: AMMONIA 20 umol/L (11-32)
[2019-01-27] MEDS: MAG-OX TAB PO SCH ×2 (06:07→16:27)
[2019-01-27 06:08] LABS: ALANINE AMINOTRANSFERASE 20 Units/L (12-78); ALBUMIN 2.6 g/dL (3.4-5.0); ALKALINE PHOSPHATASE 199 Units/L (46-116); AMYLASE 48 Units/L (25-115); ASPARTATE AMINO TRANSFERASE 19 Units/L (15-37); BLOOD UREA NITROGEN 2 mg/dL (7-18); CALCIUM 8.4 mg/dL (8.5-10.1); CARBON DIOXIDE 27.2 mmol/L (21-32); CHLORIDE 106 mmol/L (98-107); COR CA(FOR HYPOALB) 9.5 mg/dL (8.5-10.1); COR NA(FOR HYPERGLY) 145 mmol/L (136-145); CREATININE 0.74 mg/dL (0.70-1.30); LIPASE 149 Units/L (73-393); SODIUM 142 mmol/L (136-145); TOTAL PROTEIN 6.2 g/dL (6.4-8.2); eGFR NON BLACK RACES > 60 (>60)
[2019-01-27 06:18] LABS: PLATELET MORPHOLOGY COMMENT NORMAL (NORMAL)
[2019-01-27 06:19] LABS: HYPOCHROMASIA 1+
[2019-01-27] MEDS: MAGNESIUM SULFATE 1 GRAM/100 mL PREMIX 1 GM/100 ML BAG IV PRN ×4 (06:33→09:55)
[2019-01-27] MEDS: K-RIDER 10 MEQ/NS 100 ML 10 MEQ/100 ML BAG IV PRN ×5 (06:35→12:47)
[2019-01-27] MEDS ORDERED: NS 500 ML IV 500 ML ONE (07:19)
[2019-01-27] MEDS: DILAUDID INJ IVP PRN ×3 (07:40→16:30)
[2019-01-27] MEDS: PROTONIX INJ 40 MG VIAL IVP SCH (08:14)
[2019-01-27] MEDS: LOVENOX INJ 40 MG SYR SC SCH (08:26)
[2019-01-27] MEDS: ALBUMIN HUMAN 25%- 100 ML 100 ML IV SCH (08:26)
--- NOTE | 2019-01-27 08:34 | DR.PROGNOT ---
Hospital Progress Notes - Progress Note for Day of: Progress Note Date: 01/27/19 - Chief Complaint Chief Complaint: PO day 3. improving with less pain . mild drainage in NGT . no bile in JESSE drainage . bilir 3.9 Alk phos 199 . K 3.0. afebrile . - Past Medical Family Social History Past Med/Fam/Surg Hx: No changes since H&P Allergies: Allergies No Known Drug Allergies Allergy (Verified 10/05/18 09:42) - Review Of Systems ROS: No change since H&P - Vital Signs Vital Signs: Temperature 98.7 F Pulse Rate [Apical] 95 Pulse Rate 78 Respiratory Rate 22 Blood Pressure [Right Arm] 124/55 Blood Pressure [Left Arm] 121/60 Blood Pressure 148/67 O2 Sat by Pulse Oximetry 98 - Physical Exam Oriented: Normal Eyes: Other (mild jundice ) Ear: Normal Nose: Other (NG tube in place clamped) Throat: Normal Respiratory: Diminished Cardiovascular: Normal : Normal GI:Auscultation: Normal GI:Palpation: Normal GI: Tenderness: Diffuse (s/p exploratory lap), Other (Patient noted to have drain in place, dressing noted to abdomen dry and intact, NG tube in place) Skin: Other (jaundice) Musculoskeletal: Normal Psychiatric: Normal Mood Description: Anxious Affect: Normal Speech Pattern: Clear - Laboratory and Diagnostics Result Diagrams: 01/27/19 05:34 01/27/19 05:34 Labs: 01/24/19 13:10 Aspirate Wound Culture - Final Escherichia Coli 01/22/19 14:14 Stool Stool Culture - Final 01/22/19 14:14 Stool - Final 01/17/19 16:35 Blood Blood Culture - Final Escherichia Coli 01/17/19 16:30 Blood Blood Culture - Final Escherichia Coli 01/18/19 15:30 Urine,Clean Catch Urine Culture - Final Laboratory WBC 13.1 X10^3/uL (3.6-10.0) H 01/27/19 05:34 RBC 2.75 X10^6/uL (4.7-6.0) L 01/27/19 05:34 Hgb 8.4 g/dL (13.5-18.0) L 01/27/19 05:34 Hct 24.9 % (42.0-54.0) L 01/27/19 05:34 MCV 90.4 fL (80.0-100.0) 01/27/19 05:34 MCH 30.6 pg (27.0-34.0) 01/27/19 05:34 MCHC 33.9 g/dL (33.0-35.0) 01/27/19 05:34 RDW 15.4 % (11.6-16.5) 01/27/19 05:34 Plt Count 348 X10^3/uL (150.0-450.0) 01/27/19 05:34 Plt Count Comment Adequate (ADEQUATE) 01/27/19 05:34 MPV 9.0 fL (7.4-11.0) 01/27/19 05:34 Neut % (Auto) 77.8 % (42.0-75.0) H 01/27/19 05:34 Lymph % (Auto) 12.8 % (21.0-51.0) L 01/27/19 05:34 [place] % (Auto) 4.8 % (0.0-13.0) 01/27/19 05:34 Eos % (Auto) 3.1 % (0.9-2.9) H 01/27/19 05:34 Baso % (Auto) 1.5 % (0.2-1.0) H 01/27/19 05:34 Neut # (Auto) 10.2 x10^3/uL (2.2-4.8) H 01/27/19 05:34 Lymph # (Auto) 1.7 X10^3/uL (1.3-2.9) 01/27/19 05:34 [place] # (Auto) 0.6 x10^3/uL (0.3-0.8) 01/27/19 05:34 Eos # (Auto) 0.4 x10^3/uL (0.0-0.2) H 01/27/19 05:34 Baso # (Auto) 0.2 X10^3/uL (0.0-0.1) H 01/27/19 05:34 Absolute Nucleated RBC 0.0 /100WBC 01/27/19 05:34 Total Counted 100 01/27/19 05:34 Neutrophils % (Manual) 88 % (39-76) H 01/27/19 05:34 Band Neutrophils % 5 % (0-10) 01/25/19 04:32 Lymphocytes % (Manual) 9 % (13-43) L 01/27/19 05:34 Monocytes % (Manual) 3 % (4-9) L 01/27/19 05:34 Eosinophils % (Manual) 6 % (0-6) 01/23/19 05:08 Basophils % (Manual) 1 % (0-1) 01/21/19 03:58 Metamyelocytes % 2 01/22/19 04:00 Plt Morphology Comment Normal (NORMAL) 01/27/19 05:34 RBC Morphology Abnormal (NORMAL) 01/27/19 05:34 Hypochromasia 1+ A 01/27/19 05:34 INR Target Range - 01/18/19 05:08 INR 1.62 (0.8-1.3) H 01/18/19 05:08 APTT 37.1 SECONDS (22.9-36.5) H 01/18/19 05:08 PTT Comment - 01/18/19 05:08 Sodium 142 mmol/L (136-145) 01/27/19 05:34 Corrected Sodium 145 mmol/L (136-145) 01/27/19 05:34 Potassium 3.0 mmol/L (3.5-5.1) L* 01/27/19 05:34 Chloride 106 mmol/L (98-107) 01/27/19 05:34 Carbon Dioxide 27.2 mmol/L (21-32) 01/27/19 05:34 BUN 2 mg/dL (7-18) L 01/27/19 05:34 Creatinine 0.74 mg/dL (0.70-1.30) 01/27/19 05:34 Est GFR (MDRD) Af Amer > 60 (>60) 01/27/19 05:34 Est GFR (MDRD) Non-Af > 60 (>60) 01/27/19 05:34 Glucose 221 mg/dL (65-99) H 01/27/19 05:34 POC Glucose (mg/dL) 199 mg/dL (65-99) H 01/27/19 05:33 Lactic Acid 1.2 mmol/L (0.4-2.0) 01/19/19 05:38 Calcium 8.4 mg/dL (8.5-10.1) L 01/27/19 05:34 Corrected Calcium 9.5 mg/dL (8.5-10.1) 01/27/19 05:34 Magnesium 1.5 mg/dL (1.7-2.9) L 01/27/19 05:34 Total Bilirubin 3.90 mg/dL (0.2-1.0) H 01/27/19 05:34 Direct Bilirubin 4.00 mg/dL (0-0.2) H 01/25/19 04:32 Indirect Bilirubin 1.60 mg/dL (0.2-0.8) H 01/25/19 04:32 AST 19 Units/L (15-37) 01/27/19 05:34 ALT 20 Units/L (12-78) 01/27/19 05:34 Alkaline Phosphatase 199 Units/L (46-116) H 01/27/19 05:34 Ammonia 20 umol/L (11-32) 01/27/19 05:34 Creatine Kinase 25 Units/L (39-308) L 01/17/19 16:35 CK-MB (CK-2) < 1.0 ng/mL (0-4.0) 01/17/19 16:35 CK/CKMB % Calc 4.0 % (<4) 01/17/19 16:35 Troponin I < 0.02 ng/mL (0-1.5) 01/17/19 16:35 C-Reactive Protein 64.90 mg/L (0-3.0) H 01/23/19 05:08 Total Protein 6.2 g/dL (6.4-8.2) L 01/27/19 05:34 Albumin 2.6 g/dL (3.4-5.0) L 01/27/19 05:34 Globulin 3.6 g/dL (2.5-4.5) 01/27/19 05:34 Albumin/Globulin Ratio 0.7 Ratio (1.1-2.1) L 01/27/19 05:34 Amylase 48 Units/L (25-115) 01/27/19 05:34 Lipase 149 Units/L (73-393) 01/27/19 05:34 Specimen Type Catherized urine 01/24/19 12:18 Urine Color Yellow (YELLOW) 01/24/19 12:18 Urine Appearance Clear (CLEAR) 01/24/19 12:18 Urine pH 8.0 (5.0 - 8.0) 01/24/19 12:18 Ur Specific [place] 1.010 (1.000-1.030) 01/24/19 12:18 Urine Protein Negative (NEGATIVE) 01/24/19 12:18 Urine Glucose (UA) 1+ (NEGATIVE) 01/24/19 12:18 Urine Ketones Negative (NEGATIVE) 01/24/19 12:18 Urine Occult Blood Negative (NEGATIVE) 01/24/19 12:18 Urine Nitrite Negative (NEGATIVE) 01/24/19 12:18 Urine Bilirubin Negative (NEGATIVE) 01/24/19 12:18 Urine Urobilinogen Normal (NORMAL) 01/24/19 12:18 Ur Leukocyte Esterase Negative (NEGATIVE) 01/24/19 12:18 Urine RBC 0-2 /HPF (NONE SEEN) 01/17/19 19:11 Urine WBC None seen /HPF (NONE SEEN) 01/17/19 19:11 Ur Squamous Epith Cells Few /HPF (NEGATIVE) 01/17/19 19:11 Amorphous Sediment 1+ /HPF (NEGATIVE) 01/17/19 19:11 Urine Bacteria Trace /HPF (NEGATIVE) 01/17/19 19:11 Ur Culture Indicated? No/not indicated 01/17/19 19:11 Stool Description 85g,liquid,beige 01/22/19 14:14 Stl Occult Blood (IFOB) Negative (NEGATIVE) 01/22/19 14:14 Stool for White Cells Positive (NEGATIVE) A 01/22/19 14:08 Stl C. diff Tox B Gene Negative (NEGATIVE) 01/22/19 14:08 Stl C. diff 027-NAP1-BI Negative (NEGATIVE) 01/22/19 14:08 Urine Opiates Screen Positive (NEG=<300) 01/17/19 19:11 Urine Methadone Screen Negative (NEG=<300) 01/17/19 19:11 Ur Barbiturates Screen Negative (NEG=<200) 01/17/19 19:11 Ur Phencyclidine Scrn Negative (NEG=<25) 01/17/19 19:11 Ur Amphetamines Screen Negative (NEG=<1000) 01/17/19 19:11 U Benzodiazepines Scrn Negative (NEG=<200) 01/17/19 19:11 Urine Cocaine Screen Negative (NEG=<300) 01/17/19 19:11 U Marijuana (THC) Screen Negative (NEG=<50) 01/17/19 19:11 Acetone, Semi-Quant Negative (NEGATIVE) 01/17/19 16:35 Cryptosporid parvum Ag Negative (NEGATIVE) 01/22/19 14:14 Giardia lamblia Ag Negative (NEGATIVE) 01/22/19 14:14 Hepatitis A IgM Ab Negative (Negative) 01/22/19 08:50 Hep Bs Antigen Negative (Negative) 01/22/19 08:50 Hep Bs Ag Confirmation TNP 01/22/19 08:50 Hep B Core IgM Ab Negative (Negative) 01/22/19 08:50 Hepatitis C Ab Index 0.05 IV 01/22/19 08:50 Hepatitis C Interp Negative (Negative) 01/22/19 08:50 Hepatitis Interpret See note 01/22/19 08:50 Blood Type B POSITIVE 01/24/19 11:30 Antibody Screen Negative 01/24/19 11:30 - Assessment and Plan 1: day 3 ,PO laparotomy , CBD exploration , choledocho duodenostomy .. same PO care , OOB. DVT prophylaxis . IV ATB because of the cholangitis , awaiting C&S from the CBD Bile . NGT was removed , will start clear liquid . reduce IVF to 100cc /h - Problem Patient Problems: Patient Problems Sepsis (Acute) A41.9 Leukocytosis (Acute) D72.829 Abnormal liver function test (Acute) R94.5 Dehydration (Acute) E86.0 Pyelonephritis due to Escherichia coli (Acute) N12, B96.20
[2019-01-27] MEDS: K-DUR TAB 20 MEQ PO SCH ×2 (12:54→20:22)
[2019-01-27] MEDS: INVANZ INJ 1 GM VIAL 1 GM in NS 100 ML IV + SPIKE MINIBAG* 100 ML IV SCH (13:00)
[2019-01-27] MEDS: POTASSIUM CHLORIDE LIQ 20 MEQ UDC PO SCH (13:01)
[2019-01-27] MEDS: LIPITOR TAB 10 MG PO SCH (20:22)
[2019-01-27] MEDS: ROXICODONE TAB 5 MG PO PRN (20:22)
[2019-01-28] MEDS: D5 1/2 NS 1000 ML 1,000 ML IV SCH ×4 (01:05→16:58)
[2019-01-28] MEDS: DILAUDID INJ IVP PRN ×2 (02:02→11:10)
[2019-01-28] MEDS: HumuLIN R SC SCH ×4 (05:54→20:52)
[2019-01-28] MEDS: FLAGYL IV PREMIX 500 MG BAG 500 MG/100 ML BAG IV SCH ×3 (05:54→21:58)
[2019-01-28] MEDS: MAG-OX TAB PO SCH ×2 (06:00→17:20)
[2019-01-28 06:11] LABS: BASOPHILS % (AUTO) 0.1 % (0.2-1.0); EOSINOPHILS # (AUTO) 0.3 x10^3/uL (0.0-0.2); EOSINOPHILS % (AUTO) 2.3 % (0.9-2.9); HEMATOCRIT 23.7 % (42.0-54.0); HEMOGLOBIN 8.1 g/dL (13.5-18.0); LYMPHOCYTES # (AUTO) 1.9 X10^3/uL (1.3-2.9); LYMPHOCYTES % (AUTO) 15.6 % (21.0-51.0); MEAN CORPUSCULAR HEMOGLOBIN 31.4 pg (27.0-34.0); MEAN CORPUSCULAR HGB CONC 34.1 g/dL (33.0-35.0); MEAN CORPUSCULAR VOLUME 92.1 fL (80.0-100.0); MONOCYTES # (AUTO) 0.5 x10^3/uL (0.3-0.8); MONOCYTES % (AUTO) 4.1 % (0.0-13.0); NEUTROPHILS # (AUTO) 9.4 x10^3/uL (2.2-4.8); NEUTROPHILS % (AUTO) 77.9 % (42.0-75.0); PLATELET COUNT 369 X10^3/uL (150.0-450.0); RED BLOOD COUNT 2.57 X10^6/uL (4.7-6.0); RED CELL DISTRIBUTION WIDTH 16.1 % (11.6-16.5); WHITE BLOOD COUNT 12.1 X10^3/uL (3.6-10.0)
[2019-01-28 06:18] LABS: AMMONIA 42 umol/L (11-32)
[2019-01-28 06:26] LABS: ALANINE AMINOTRANSFERASE 22 Units/L (12-78); ALBUMIN 2.7 g/dL (3.4-5.0); ALKALINE PHOSPHATASE 186 Units/L (46-116); AMYLASE 57 Units/L (25-115); ASPARTATE AMINO TRANSFERASE 16 Units/L (15-37); BLOOD UREA NITROGEN 1 mg/dL (7-18); CALCIUM 8.1 mg/dL (8.5-10.1); CARBON DIOXIDE 28.2 mmol/L (21-32); CHLORIDE 106 mmol/L (98-107); COR CA(FOR HYPOALB) 9.1 mg/dL (8.5-10.1); COR NA(FOR HYPERGLY) 144 mmol/L (136-145); LIPASE 190 Units/L (73-393); MAGNESIUM 1.4 mg/dL (1.7-2.9); SODIUM 142 mmol/L (136-145); TOTAL PROTEIN 5.6 g/dL (6.4-8.2); eGFR NON BLACK RACES > 60 (>60)
[2019-01-28] MEDS: ROXICODONE TAB 5 MG PO PRN (08:00)
[2019-01-28] MEDS: INVANZ INJ 1 GM VIAL 1 GM in NS 100 ML IV + SPIKE MINIBAG* 100 ML IV SCH (09:43)
[2019-01-28] MEDS: ALBUMIN HUMAN 25%- 100 ML 100 ML IV SCH (09:43)
[2019-01-28] MEDS: PROTONIX INJ 40 MG VIAL IVP SCH (09:44)
[2019-01-28] MEDS: LOVENOX INJ 40 MG SYR SC SCH (09:44)
[2019-01-28] MEDS: K-DUR TAB 20 MEQ PO SCH ×2 (09:45→20:52)
--- NOTE | 2019-01-28 18:55 | PCM.PROG ---
Progress Note - Progress Note for Day of Date of Exam: 01/26/19 - Subjective Subjective: WAS ADMITTED FOR SEPSIS, DEHYDRATION, HYPOTENSION, PYELONEPHRITIS, AND ABNORMAL LIVER FUNCTION TESTS. HE IS STATUS POST CHOLEDOCHODUODENOSTOMY AND ANASTOMOSIS. AN NG TUBE WAS PLACED DURING SURGERY WELL A IVANNA HOROWITZ DRAIN.. TODAY, HE IS ALERT AND ORIENTED, LYING IN BED ON MORNING ROUNDS. HE CONTINUES WITH GENERALIZED WEAKNESS AND DIFFUSE ABDOMINAL PAIN. ON EXAMINATION, HEART IS REGULAR IN RATE AND RHYTHM. BILATERAL LUNGS ARE NOTED WITH DIMINISHED LUNG SOUNDS THROUGHOUT. ABDOMEN IS ROUND, SOFT, AND NOTED WITH MILD SUPRAPUBIC TENDERNESS. JESSE DRAIN NOTED. BOWEL SOUNDS ARE NOTED IN ALL QUADRANTS. NG TUBE AND JESSE DRAIN HAVE MINIMAL DRAINAGE TODAY. HIS VITALS THIS MORNING ARE: 98.5-98-16-100%-153/68. LABS WERE OBTAINED. ABNORMAL LAB VALUES INCLUDE THE FOLLOWING: WBC 17.4, RBC 2.90, HGB 8.7, HCT 26.1, BUN 4, GLUCOSE 201, CALCIUM 8.2, MAGNESIUM 1.4, TOTAL BILI 4.60, ALK PHOS 251, ALBUMIN 2.9. BLOOD AND URINE CULTURES REPORT GROWTH OF E.COLI. HE IS CURRENTLY RECEIVING IV FLUIDS, IV ANTIBIOTICS, AND HOME MEDICATIONS. WE WILL CONTINUE WITH CURRENT PLAN OF CARE TODAY. OTHERWISE, WE PLAN TO FOLLOW-UP WITH AM LABS AND CONTINUE TO MONITOR. - Past Medical Family Social History Past Med/Fam/Surg Hx: No changes since H&P Allergies: Allergies No Known Drug Allergies Allergy (Verified 10/05/18 09:42) - Review of Systems ROS: No change since H&P - Vital Signs and I&O's Vital Signs: Temperature 98.4 F Pulse Rate [Apical] 95 Pulse Rate 86 Respiratory Rate 20 Blood Pressure [Right Arm] 124/55 Blood Pressure [Left Arm] 121/60 Blood Pressure 159/64 O2 Sat by Pulse Oximetry 98 Intake and Output: Intake & Output 01/26/19 01/27/19 01/28/19 01/29/19 11:59 11:59 11:59 11:59 Intake Total 3353 / 3353 3643 / 3643 3608 / 3608 1466 / 1466 Output Total 2760 / 2760 5790 / 5790 3220 / 3220 2360 / 2360 Balance 593 / 593 -2147 / -2147 388 / 388 -894 / -894 - Physical Exam Oriented: Normal Eyes: Other (mild jundice ) Ear: Normal Nose: Other (NG tube in place clamped) Throat: Normal Respiratory: Diminished Cardiovascular: Normal : Normal Auscultation: Bowel Sounds: Normal Tenderness: Diffuse (s/p exploratory lap), Other (Patient noted to have drain in place, dressing noted to abdomen dry and intact, NG tube in place) Skin: Other (jaundice) Musculoskeletal: Normal Psychiatric: Normal Mood Description: Anxious Affect: Normal Speech Pattern: Clear - Laboratory and Diagnostics Result Diagrams: 01/28/19 05:14 01/28/19 05:14 Labs: 01/24/19 13:10 Aspirate Wound Culture - Final Escherichia Coli 01/22/19 14:14 Stool Stool Culture - Final 01/22/19 14:14 Stool - Final 01/17/19 16:35 Blood Blood Culture - Final Escherichia Coli 01/17/19 16:30 Blood Blood Culture - Final Escherichia Coli 01/18/19 15:30 Urine,Clean Catch Urine Culture - Final Laboratory WBC 12.1 X10^3/uL (3.6-10.0) H 01/28/19 05:14 RBC 2.57 X10^6/uL (4.7-6.0) L 01/28/19 05:14 Hgb 8.1 g/dL (13.5-18.0) L 01/28/19 05:14 Hct 23.7 % (42.0-54.0) L 01/28/19 05:14 MCV 92.1 fL (80.0-100.0) 01/28/19 05:14 MCH 31.4 pg (27.0-34.0) 01/28/19 05:14 MCHC 34.1 g/dL (33.0-35.0) 01/28/19 05:14 RDW 16.1 % (11.6-16.5) 01/28/19 05:14 Plt Count 369 X10^3/uL (150.0-450.0) 01/28/19 05:14 Plt Count Comment Adequate (ADEQUATE) 01/27/19 05:34 MPV 10.0 fL (7.4-11.0) 01/28/19 05:14 Neut % (Auto) 77.9 % (42.0-75.0) H 01/28/19 05:14 Lymph % (Auto) 15.6 % (21.0-51.0) L 01/28/19 05:14 [place] % (Auto) 4.1 % (0.0-13.0) 01/28/19 05:14 Eos % (Auto) 2.3 % (0.9-2.9) 01/28/19 05:14 Baso % (Auto) 0.1 % (0.2-1.0) L 01/28/19 05:14 Neut # (Auto) 9.4 x10^3/uL (2.2-4.8) H 01/28/19 05:14 Lymph # (Auto) 1.9 X10^3/uL (1.3-2.9) 01/28/19 05:14 [place] # (Auto) 0.5 x10^3/uL (0.3-0.8) 01/28/19 05:14 Eos # (Auto) 0.3 x10^3/uL (0.0-0.2) H 01/28/19 05:14 Baso # (Auto) 0.0 X10^3/uL (0.0-0.1) 01/28/19 05:14 Absolute Nucleated RBC 0.0 /100WBC 01/28/19 05:14 Total Counted 100 01/27/19 05:34 Neutrophils % (Manual) 88 % (39-76) H 01/27/19 05:34 Band Neutrophils % 5 % (0-10) 01/25/19 04:32 Lymphocytes % (Manual) 9 % (13-43) L 01/27/19 05:34 Monocytes % (Manual) 3 % (4-9) L 01/27/19 05:34 Eosinophils % (Manual) 6 % (0-6) 01/23/19 05:08 Basophils % (Manual) 1 % (0-1) 01/21/19 03:58 Metamyelocytes % 2 01/22/19 04:00 Plt Morphology Comment Normal (NORMAL) 01/27/19 05:34 RBC Morphology Abnormal (NORMAL) 01/27/19 05:34 Hypochromasia 1+ A 01/27/19 05:34 INR Target Range - 01/18/19 05:08 INR 1.62 (0.8-1.3) H 01/18/19 05:08 APTT 37.1 SECONDS (22.9-36.5) H 01/18/19 05:08 PTT Comment - 01/18/19 05:08 Sodium 142 mmol/L (136-145) 01/28/19 05:14 Corrected Sodium 144 mmol/L (136-145) 01/28/19 05:14 Potassium 3.9 mmol/L (3.5-5.1) 01/28/19 05:14 Chloride 106 mmol/L (98-107) 01/28/19 05:14 Carbon Dioxide 28.2 mmol/L (21-32) 01/28/19 05:14 BUN 1 mg/dL (7-18) L 01/28/19 05:14 Creatinine 0.70 mg/dL (0.70-1.30) 01/28/19 05:14 Est GFR (MDRD) Af Amer > 60 (>60) 01/28/19 05:14 Est GFR (MDRD) Non-Af > 60 (>60) 01/28/19 05:14 Glucose 195 mg/dL (65-99) H 01/28/19 05:14 POC Glucose (mg/dL) 175 mg/dL (65-99) H 01/28/19 16:47 Lactic Acid 1.2 mmol/L (0.4-2.0) 01/19/19 05:38 Calcium 8.1 mg/dL (8.5-10.1) L 01/28/19 05:14 Corrected Calcium 9.1 mg/dL (8.5-10.1) 01/28/19 05:14 Magnesium 1.4 mg/dL (1.7-2.9) L 01/28/19 05:14 Total Bilirubin 3.10 mg/dL (0.2-1.0) H 01/28/19 05:14 Direct Bilirubin 4.00 mg/dL (0-0.2) H 01/25/19 04:32 Indirect Bilirubin 1.60 mg/dL (0.2-0.8) H 01/25/19 04:32 AST 16 Units/L (15-37) 01/28/19 05:14 ALT 22 Units/L (12-78) 01/28/19 05:14 Alkaline Phosphatase 186 Units/L (46-116) H 01/28/19 05:14 Ammonia 42 umol/L (11-32) H 01/28/19 05:14 Creatine Kinase 25 Units/L (39-308) L 01/17/19 16:35 CK-MB (CK-2) < 1.0 ng/mL (0-4.0) 01/17/19 16:35 CK/CKMB % Calc 4.0 % (<4) 01/17/19 16:35 Troponin I < 0.02 ng/mL (0-1.5) 01/17/19 16:35 C-Reactive Protein 64.90 mg/L (0-3.0) H 01/23/19 05:08 Total Protein 5.6 g/dL (6.4-8.2) L 01/28/19 05:14 Albumin 2.7 g/dL (3.4-5.0) L 01/28/19 05:14 Globulin 2.9 g/dL (2.5-4.5) 01/28/19 05:14 Albumin/Globulin Ratio 0.9 Ratio (1.1-2.1) L 01/28/19 05:14 Amylase 57 Units/L (25-115) 01/28/19 05:14 Lipase 190 Units/L (73-393) 01/28/19 05:14 Specimen Type Catherized urine 01/24/19 12:18 Urine Color Yellow (YELLOW) 01/24/19 12:18 Urine Appearance Clear (CLEAR) 01/24/19 12:18 Urine pH 8.0 (5.0 - 8.0) 01/24/19 12:18 Ur Specific [place] 1.010 (1.000-1.030) 01/24/19 12:18 Urine Protein Negative (NEGATIVE) 01/24/19 12:18 Urine Glucose (UA) 1+ (NEGATIVE) 01/24/19 12:18 Urine Ketones Negative (NEGATIVE) 01/24/19 12:18 Urine Occult Blood Negative (NEGATIVE) 01/24/19 12:18 Urine Nitrite Negative (NEGATIVE) 01/24/19 12:18 Urine Bilirubin Negative (NEGATIVE) 01/24/19 12:18 Urine Urobilinogen Normal (NORMAL) 01/24/19 12:18 Ur Leukocyte Esterase Negative (NEGATIVE) 01/24/19 12:18 Urine RBC 0-2 /HPF (NONE SEEN) 01/17/19 19:11 Urine WBC None seen /HPF (NONE SEEN) 01/17/19 19:11 Ur Squamous Epith Cells Few /HPF (NEGATIVE) 01/17/19 19:11 Amorphous Sediment 1+ /HPF (NEGATIVE) 01/17/19 19:11 Urine Bacteria Trace /HPF (NEGATIVE) 01/17/19 19:11 Ur Culture Indicated? No/not indicated 01/17/19 19:11 Stool Description 85g,liquid,beige 01/22/19 14:14 Stl Occult Blood (IFOB) Negative (NEGATIVE) 01/22/19 14:14 Stool for White Cells Positive (NEGATIVE) A 01/22/19 14:08 Stl C. diff Tox B Gene Negative (NEGATIVE) 01/22/19 14:08 Stl C. diff 027-NAP1-BI Negative (NEGATIVE) 01/22/19 14:08 Urine Opiates Screen Positive (NEG=<300) 01/17/19 19:11 Urine Methadone Screen Negative (NEG=<300) 01/17/19 19:11 Ur Barbiturates Screen Negative (NEG=<200) 01/17/19 19:11 Ur Phencyclidine Scrn Negative (NEG=<25) 01/17/19 19:11 Ur Amphetamines Screen Negative (NEG=<1000) 01/17/19 19:11 U Benzodiazepines Scrn Negative (NEG=<200) 01/17/19 19:11 Urine Cocaine Screen Negative (NEG=<300) 01/17/19 19:11 U Marijuana (THC) Screen Negative (NEG=<50) 01/17/19 19:11 Acetone, Semi-Quant Negative (NEGATIVE) 01/17/19 16:35 Cryptosporid parvum Ag Negative (NEGATIVE) 01/22/19 14:14 Giardia lamblia Ag Negative (NEGATIVE) 01/22/19 14:14 Hepatitis A IgM Ab Negative (Negative) 01/22/19 08:50 Hep Bs Antigen Negative (Negative) 01/22/19 08:50 Hep Bs Ag Confirmation TNP 01/22/19 08:50 Hep B Core IgM Ab Negative (Negative) 01/22/19 08:50 Hepatitis C Ab Index 0.05 IV 01/22/19 08:50 Hepatitis C Interp Negative (Negative) 01/22/19 08:50 Hepatitis Interpret See note 01/22/19 08:50 Blood Type B POSITIVE 01/24/19 11:30 Antibody Screen Negative 01/24/19 11:30 - Plan (1) Sepsis Status: Acute Qualifiers: Sepsis type: Escherichia coli Qualified Code(s): A41.51 - Sepsis due to Escherichia coli [E. coli] Plan: IV FLUIDS, IV ANTIBIOTICS, MONITOR LABS (2) Pyelonephritis due to Escherichia coli Status: Acute Plan: IV FLUIDS, IV ANTIBIOTICS, CONTINUE TO MONITOR (3) Leukocytosis Status: Acute Qualifiers: Leukocytosis type: unspecified Qualified Code(s): D72.829 - Elevated white blood cell count, unspecified (4) Dehydration Status: Acute Plan: IV FLUIDS, CONTINUE TO MONITOR (5) Abnormal liver function test Status: Acute Plan: CONTINUE TO MONITOR (6) Hypotension Status: Acute Qualifiers: Hypotension type: unspecified hypotension type Qualified Code(s): I95.9 - Hypotension, unspecified Plan: IV FLUIDS, CONTINUE TO MONITOR
[2019-01-28] MEDS: PERCOCET TAB 5/325 MG PO PRN (19:39)
[2019-01-28] MEDS: COLACE CAP 100 MG PO SCH (20:51)
[2019-01-28] MEDS: LIPITOR TAB 10 MG PO SCH (20:52)
[2019-01-29] MEDS: D5 1/2 NS 1000 ML 1,000 ML IV SCH ×4 (00:55→17:05)
[2019-01-29] MEDS: PERCOCET TAB 5/325 MG PO PRN ×4 (04:01→20:24)
[2019-01-29] MEDS: FLAGYL IV PREMIX 500 MG BAG 500 MG/100 ML BAG IV SCH ×3 (05:26→21:02)
[2019-01-29] MEDS: HumuLIN R SC SCH ×4 (05:40→20:45)
[2019-01-29] MEDS: MAG-OX TAB PO SCH ×2 (06:08→16:07)
[2019-01-29 06:24] LABS: BASOPHILS # (AUTO) 0.1 X10^3/uL (0.0-0.1); BASOPHILS % (AUTO) 0.7 % (0.2-1.0); EOSINOPHILS # (AUTO) 0.3 x10^3/uL (0.0-0.2); EOSINOPHILS % (AUTO) 2.4 % (0.9-2.9); HEMATOCRIT 23.7 % (42.0-54.0); HEMOGLOBIN 7.9 g/dL (13.5-18.0); MEAN CORPUSCULAR HEMOGLOBIN 30.7 pg (27.0-34.0); MEAN CORPUSCULAR HGB CONC 33.4 g/dL (33.0-35.0); MEAN CORPUSCULAR VOLUME 91.7 fL (80.0-100.0); MEAN PLATELET VOLUME 9.7 fL (7.4-11.0); MONOCYTES # (AUTO) 0.8 x10^3/uL (0.3-0.8); MONOCYTES % (AUTO) 5.6 % (0.0-13.0); NEUTROPHILS # (AUTO) 11.3 x10^3/uL (2.2-4.8); NEUTROPHILS % (AUTO) 77.3 % (42.0-75.0); PLATELET COUNT 378 X10^3/uL (150.0-450.0); RED BLOOD COUNT 2.58 X10^6/uL (4.7-6.0); WHITE BLOOD COUNT 14.6 X10^3/uL (3.6-10.0)
[2019-01-29 06:33] LABS: ALANINE AMINOTRANSFERASE 17 Units/L (12-78); ALBUMIN 2.8 g/dL (3.4-5.0); ALKALINE PHOSPHATASE 167 Units/L (46-116); ASPARTATE AMINO TRANSFERASE 16 Units/L (15-37); BLOOD UREA NITROGEN 2 mg/dL (7-18); CALCIUM 8.4 mg/dL (8.5-10.1); CHLORIDE 104 mmol/L (98-107); COR CA(FOR HYPOALB) 9.4 mg/dL (8.5-10.1); COR NA(FOR HYPERGLY) 142 mmol/L (136-145); CREATININE 0.73 mg/dL (0.70-1.30); PLATELET MORPHOLOGY COMMENT NORMAL (NORMAL); SODIUM 139 mmol/L (136-145); TOTAL PROTEIN 6.1 g/dL (6.4-8.2); eGFR NON BLACK RACES > 60 (>60)
[2019-01-29] MEDS: ALBUMIN HUMAN 25%- 100 ML 100 ML IV SCH (08:15)
[2019-01-29] MEDS: LOVENOX INJ 40 MG SYR SC SCH (08:16)
[2019-01-29] MEDS: K-DUR TAB 20 MEQ PO SCH ×2 (08:17→20:23)
[2019-01-29] MEDS: INVANZ INJ 1 GM VIAL 1 GM in NS 100 ML IV + SPIKE MINIBAG* 100 ML IV SCH (08:58)
[2019-01-29] MEDS: PROTONIX INJ 40 MG VIAL IVP SCH (09:05)
[2019-01-29 12:57] VITALS: BMI 25.7
--- NOTE | 2019-01-29 13:10 | PCM.PROG ---
Progress Note - Progress Note for Day of Date of Exam: 01/27/19 - Subjective Subjective: WAS ADMITTED FOR SEPSIS, DEHYDRATION, HYPOTENSION, PYELONEPHRITIS, AND ABNORMAL LIVER FUNCTION TESTS. HE IS STATUS POST CHOLEDOCHODUODENOSTOMY AND ANASTOMOSIS. HE NO LONGER HAS THE NG TUBE. TODAY, HE IS ALERT AND ORIENTED, LYING IN BED ON MORNING ROUNDS. HE CONTINUES WITH GENERALIZED WEAKNESS AND DIFFUSE ABDOMINAL PAIN. ON EXAMINATION, HEART IS REGULAR IN RATE AND RHYTHM. BILATERAL LUNGS ARE NOTED WITH DIMINISHED LUNG SOUNDS THROUGHOUT. ABDOMEN IS ROUND, SOFT, AND NOTED WITH MILD SUPRAPUBIC TENDERNESS. JESSE DRAIN NOTED. BOWEL SOUNDS ARE NOTED IN ALL QUADRANTS. JESSE DRAIN HAS MINIMAL DRAINAGE TODAY. HIS VITALS THIS MORNING ARE: 98.7-66-18-98%-118/68. LABS WERE OBTAINED. ABNORMAL LAB VALUES INCLUDE THE FOLLOWING: WBC 13.1, RBC 2.75, HGB 8.4, HCT 24.9, POTASSIUM 3.0, BUN 2, GLUCOSE 221, CALCIUM 8.4, MAGNESIUM 1.5, TOTAL BILI 3.90, ALK PHOS 199, TOTAL PROTEIN 6.2, ALBUMIN 2.6. B LOOD, URINE, AND WOUND CULTURES REPORT GROWTH OF E.COLI. HE IS CURRENTLY RECEIVING IV FLUIDS, IV ZOSYN, AND HOME MEDICATIONS. INVANZ APPEARS TO BE THE BEST ANTIBIOTIC CHOICE. WE WILL CHANGE ANTIBIOTICS TO INVANZ 1G IV DAILY. OTHERWISE, WE WILL CONTINUE WITH CURRENT PLAN OF CARE TODAY. WE PLAN TO FOLLOW- UP WITH AM LABS AND CONTINUE TO MONITOR. - Past Medical Family Social History Past Med/Fam/Surg Hx: No changes since H&P Allergies: Allergies No Known Drug Allergies Allergy (Verified 10/05/18 09:42) - Review of Systems ROS: No change since H&P - Vital Signs and I&O's Vital Signs: Temperature 99.4 F Pulse Rate [Apical] 95 Pulse Rate 82 Respiratory Rate 21 Blood Pressure [Right Arm] 124/55 Blood Pressure [Left Arm] 121/60 Blood Pressure 148/71 O2 Sat by Pulse Oximetry 100 Intake and Output: Intake & Output 01/27/19 01/28/19 01/29/19 01/30/19 11:59 11:59 11:59 11:59 Intake Total 3643 / 3643 3608 / 3608 3566 / 3566 Output Total 5790 / 5790 3220 / 3220 3800 / 3800 Balance -2147 / -2147 388 / 388 -234 / -234 - Physical Exam Oriented: Normal Eyes: Other (mild jundice ) Ear: Normal Nose: Other (NG tube in place clamped) Throat: Normal Respiratory: Diminished Cardiovascular: Normal : Normal Auscultation: Bowel Sounds: Normal Palpation: Normal Tenderness: Diffuse (s/p exploratory lap), Other (Patient noted to have drain in place, dressing noted to abdomen dry and intact, NG tube in place) Skin: Other (jaundice) Musculoskeletal: Normal Psychiatric: Normal Mood Description: Anxious Affect: Normal Speech Pattern: Appropriate - Laboratory and Diagnostics Result Diagrams: 01/29/19 05:07 01/29/19 05:07 Labs: 01/24/19 13:10 Aspirate Wound Culture - Final Escherichia Coli 01/22/19 14:14 Stool Stool Culture - Final 01/22/19 14:14 Stool - Final 01/17/19 16:35 Blood Blood Culture - Final Escherichia Coli 01/17/19 16:30 Blood Blood Culture - Final Escherichia Coli 01/18/19 15:30 Urine,Clean Catch Urine Culture - Final Laboratory WBC 14.6 X10^3/uL (3.6-10.0) H 01/29/19 05:07 RBC 2.58 X10^6/uL (4.7-6.0) L 01/29/19 05:07 Hgb 7.9 g/dL (13.5-18.0) L 01/29/19 05:07 Hct 23.7 % (42.0-54.0) L 01/29/19 05:07 MCV 91.7 fL (80.0-100.0) 01/29/19 05:07 MCH 30.7 pg (27.0-34.0) 01/29/19 05:07 MCHC 33.4 g/dL (33.0-35.0) 01/29/19 05:07 RDW 16.0 % (11.6-16.5) 01/29/19 05:07 Plt Count 378 X10^3/uL (150.0-450.0) 01/29/19 05:07 Plt Count Comment Adequate (ADEQUATE) 01/29/19 05:07 MPV 9.7 fL (7.4-11.0) 01/29/19 05:07 Neut % (Auto) 77.3 % (42.0-75.0) H 01/29/19 05:07 Lymph % (Auto) 14.0 % (21.0-51.0) L 01/29/19 05:07 [place] % (Auto) 5.6 % (0.0-13.0) 01/29/19 05:07 Eos % (Auto) 2.4 % (0.9-2.9) 01/29/19 05:07 Baso % (Auto) 0.7 % (0.2-1.0) 01/29/19 05:07 Neut # (Auto) 11.3 x10^3/uL (2.2-4.8) H 01/29/19 05:07 Lymph # (Auto) 2.0 X10^3/uL (1.3-2.9) 01/29/19 05:07 [place] # (Auto) 0.8 x10^3/uL (0.3-0.8) 01/29/19 05:07 Eos # (Auto) 0.3 x10^3/uL (0.0-0.2) H 01/29/19 05:07 Baso # (Auto) 0.1 X10^3/uL (0.0-0.1) 01/29/19 05:07 Absolute Nucleated RBC 0.1 /100WBC 01/29/19 05:07 Total Counted 100 01/27/19 05:34 Neutrophils % (Manual) 88 % (39-76) H 01/27/19 05:34 Band Neutrophils % 5 % (0-10) 01/25/19 04:32 Lymphocytes % (Manual) 9 % (13-43) L 01/27/19 05:34 Monocytes % (Manual) 3 % (4-9) L 01/27/19 05:34 Eosinophils % (Manual) 6 % (0-6) 01/23/19 05:08 Basophils % (Manual) 1 % (0-1) 01/21/19 03:58 Metamyelocytes % 2 01/22/19 04:00 Plt Morphology Comment Normal (NORMAL) 01/29/19 05:07 RBC Morphology Normal (NORMAL) 01/29/19 05:07 Hypochromasia 1+ A 01/27/19 05:34 INR Target Range - 01/18/19 05:08 INR 1.62 (0.8-1.3) H 01/18/19 05:08 APTT 37.1 SECONDS (22.9-36.5) H 01/18/19 05:08 PTT Comment - 01/18/19 05:08 Sodium 139 mmol/L (136-145) 01/29/19 05:07 Corrected Sodium 142 mmol/L (136-145) 01/29/19 05:07 Potassium 3.4 mmol/L (3.5-5.1) L 01/29/19 05:07 Chloride 104 mmol/L (98-107) 01/29/19 05:07 Carbon Dioxide 27.0 mmol/L (21-32) 01/29/19 05:07 BUN 2 mg/dL (7-18) L 01/29/19 05:07 Creatinine 0.73 mg/dL (0.70-1.30) 01/29/19 05:07 Est GFR (MDRD) Af Amer > 60 (>60) 01/29/19 05:07 Est GFR (MDRD) Non-Af > 60 (>60) 01/29/19 05:07 Glucose 211 mg/dL (65-99) H 01/29/19 05:07 POC Glucose (mg/dL) 202 mg/dL (65-99) H 01/29/19 11:11 Lactic Acid 1.2 mmol/L (0.4-2.0) 01/19/19 05:38 Calcium 8.4 mg/dL (8.5-10.1) L 01/29/19 05:07 Corrected Calcium 9.4 mg/dL (8.5-10.1) 01/29/19 05:07 Magnesium 1.4 mg/dL (1.7-2.9) L 01/28/19 05:14 Total Bilirubin 2.70 mg/dL (0.2-1.0) H 01/29/19 05:07 Direct Bilirubin 4.00 mg/dL (0-0.2) H 01/25/19 04:32 Indirect Bilirubin 1.60 mg/dL (0.2-0.8) H 01/25/19 04:32 AST 16 Units/L (15-37) 01/29/19 05:07 ALT 17 Units/L (12-78) 01/29/19 05:07 Alkaline Phosphatase 167 Units/L (46-116) H 01/29/19 05:07 Ammonia 42 umol/L (11-32) H 01/28/19 05:14 Creatine Kinase 25 Units/L (39-308) L 01/17/19 16:35 CK-MB (CK-2) < 1.0 ng/mL (0-4.0) 01/17/19 16:35 CK/CKMB % Calc 4.0 % (<4) 01/17/19 16:35 Troponin I < 0.02 ng/mL (0-1.5) 01/17/19 16:35 C-Reactive Protein 64.90 mg/L (0-3.0) H 01/23/19 05:08 Total Protein 6.1 g/dL (6.4-8.2) L 01/29/19 05:07 Albumin 2.8 g/dL (3.4-5.0) L 01/29/19 05:07 Globulin 3.3 g/dL (2.5-4.5) 01/29/19 05:07 Albumin/Globulin Ratio 0.8 Ratio (1.1-2.1) L 01/29/19 05:07 Amylase 57 Units/L (25-115) 01/28/19 05:14 Lipase 190 Units/L (73-393) 01/28/19 05:14 Specimen Type Catherized urine 01/24/19 12:18 Urine Color Yellow (YELLOW) 01/24/19 12:18 Urine Appearance Clear (CLEAR) 01/24/19 12:18 Urine pH 8.0 (5.0 - 8.0) 01/24/19 12:18 Ur Specific [place] 1.010 (1.000-1.030) 01/24/19 12:18 Urine Protein Negative (NEGATIVE) 01/24/19 12:18 Urine Glucose (UA) 1+ (NEGATIVE) 01/24/19 12:18 Urine Ketones Negative (NEGATIVE) 01/24/19 12:18 Urine Occult Blood Negative (NEGATIVE) 01/24/19 12:18 Urine Nitrite Negative (NEGATIVE) 01/24/19 12:18 Urine Bilirubin Negative (NEGATIVE) 01/24/19 12:18 Urine Urobilinogen Normal (NORMAL) 01/24/19 12:18 Ur Leukocyte Esterase Negative (NEGATIVE) 01/24/19 12:18 Urine RBC 0-2 /HPF (NONE SEEN) 01/17/19 19:11 Urine WBC None seen /HPF (NONE SEEN) 01/17/19 19:11 Ur Squamous Epith Cells Few /HPF (NEGATIVE) 01/17/19 19:11 Amorphous Sediment 1+ /HPF (NEGATIVE) 01/17/19 19:11 Urine Bacteria Trace /HPF (NEGATIVE) 01/17/19 19:11 Ur Culture Indicated? No/not indicated 01/17/19 19:11 Stool Description 85g,liquid,beige 01/22/19 14:14 Stl Occult Blood (IFOB) Negative (NEGATIVE) 01/22/19 14:14 Stool for White Cells Positive (NEGATIVE) A 01/22/19 14:08 Stl C. diff Tox B Gene Negative (NEGATIVE) 01/22/19 14:08 Stl C. diff 027-NAP1-BI Negative (NEGATIVE) 01/22/19 14:08 Urine Opiates Screen Positive (NEG=<300) 01/17/19 19:11 Urine Methadone Screen Negative (NEG=<300) 01/17/19 19:11 Ur Barbiturates Screen Negative (NEG=<200) 01/17/19 19:11 Ur Phencyclidine Scrn Negative (NEG=<25) 01/17/19 19:11 Ur Amphetamines Screen Negative (NEG=<1000) 01/17/19 19:11 U Benzodiazepines Scrn Negative (NEG=<200) 01/17/19 19:11 Urine Cocaine Screen Negative (NEG=<300) 01/17/19 19:11 U Marijuana (THC) Screen Negative (NEG=<50) 01/17/19 19:11 Acetone, Semi-Quant Negative (NEGATIVE) 01/17/19 16:35 Cryptosporid parvum Ag Negative (NEGATIVE) 01/22/19 14:14 Giardia lamblia Ag Negative (NEGATIVE) 01/22/19 14:14 Hepatitis A IgM Ab Negative (Negative) 01/22/19 08:50 Hep Bs Antigen Negative (Negative) 01/22/19 08:50 Hep Bs Ag Confirmation TNP 01/22/19 08:50 Hep B Core IgM Ab Negative (Negative) 01/22/19 08:50 Hepatitis C Ab Index 0.05 IV 01/22/19 08:50 Hepatitis C Interp Negative (Negative) 01/22/19 08:50 Hepatitis Interpret See note 01/22/19 08:50 Blood Type B POSITIVE 01/24/19 11:30 Antibody Screen Negative 01/24/19 11:30 - Plan (1) Sepsis Status: Acute Qualifiers: Sepsis type: Escherichia coli Qualified Code(s): A41.51 - Sepsis due to Escherichia coli [E. coli] Plan: IV FLUIDS, IV ANTIBIOTICS, MONITOR LABS (2) Pyelonephritis due to Escherichia coli Status: Acute Plan: IV FLUIDS, IV ANTIBIOTICS, CONTINUE TO MONITOR (3) Leukocytosis Status: Acute Qualifiers: Leukocytosis type: unspecified Qualified Code(s): D72.829 - Elevated white blood cell count, unspecified (4) Dehydration Status: Acute Plan: IV FLUIDS, CONTINUE TO MONITOR (5) Abnormal liver function test Status: Acute Plan: CONTINUE TO MONITOR (6) Hypotension Status: Acute Qualifiers: Hypotension type: unspecified hypotension type Qualified Code(s): I95.9 - Hypotension, unspecified Plan: IV FLUIDS, CONTINUE TO MONITOR
[2019-01-29] MEDS: COLACE CAP 100 MG PO SCH (20:23)
[2019-01-29] MEDS: LIPITOR TAB 10 MG PO SCH (20:24)
[2019-01-30] MEDS: D5 1/2 NS 1000 ML 1,000 ML IV SCH ×3 (01:21→18:19)
[2019-01-30] MEDS: FLAGYL IV PREMIX 500 MG BAG 500 MG/100 ML BAG IV SCH ×2 (05:22→13:48)
[2019-01-30] MEDS: HumuLIN R SC SCH ×3 (05:30→17:37)
[2019-01-30 05:48] LABS: BASOPHILS # (AUTO) 0.2 X10^3/uL (0.0-0.1); BASOPHILS % (AUTO) 1.5 % (0.2-1.0); EOSINOPHILS # (AUTO) 0.5 x10^3/uL (0.0-0.2); EOSINOPHILS % (AUTO) 4.4 % (0.9-2.9); HEMATOCRIT 24.9 % (42.0-54.0); HEMOGLOBIN 8.3 g/dL (13.5-18.0); LYMPHOCYTES # (AUTO) 1.9 X10^3/uL (1.3-2.9); LYMPHOCYTES % (AUTO) 16.6 % (21.0-51.0); MEAN CORPUSCULAR HEMOGLOBIN 30.9 pg (27.0-34.0); MEAN CORPUSCULAR HGB CONC 33.4 g/dL (33.0-35.0); MEAN CORPUSCULAR VOLUME 92.5 fL (80.0-100.0); MEAN PLATELET VOLUME 9.8 fL (7.4-11.0); MONOCYTES # (AUTO) 0.6 x10^3/uL (0.3-0.8); MONOCYTES % (AUTO) 5.3 % (0.0-13.0); NEUTROPHILS # (AUTO) 8.1 x10^3/uL (2.2-4.8); NEUTROPHILS % (AUTO) 72.2 % (42.0-75.0); PLATELET COUNT 393 X10^3/uL (150.0-450.0); RED BLOOD COUNT 2.69 X10^6/uL (4.7-6.0); RED CELL DISTRIBUTION WIDTH 15.6 % (11.6-16.5); WHITE BLOOD COUNT 11.2 X10^3/uL (3.6-10.0)
[2019-01-30 05:56] LABS: ALANINE AMINOTRANSFERASE 15 Units/L (12-78); ALKALINE PHOSPHATASE 154 Units/L (46-116); ASPARTATE AMINO TRANSFERASE 14 Units/L (15-37); BLOOD UREA NITROGEN 3 mg/dL (7-18); CALCIUM 8.5 mg/dL (8.5-10.1); CARBON DIOXIDE 26.6 mmol/L (21-32); CHLORIDE 103 mmol/L (98-107); COR CA(FOR HYPOALB) 9.3 mg/dL (8.5-10.1); COR NA(FOR HYPERGLY) 141 mmol/L (136-145); CREATININE 0.76 mg/dL (0.70-1.30); MAGNESIUM 1.1 mg/dL (1.7-2.9); SODIUM 138 mmol/L (136-145); TOTAL PROTEIN 6.5 g/dL (6.4-8.2); eGFR NON BLACK RACES > 60 (>60)
[2019-01-30] MEDS: MAGNESIUM SULFATE 1 GRAM/100 mL PREMIX 1 GM/100 ML BAG IV PRN ×5 (06:25→16:20)
[2019-01-30] MEDS: MAG-OX TAB PO SCH ×2 (06:26→17:38)
[2019-01-30] MEDS: DILAUDID INJ IVP PRN (08:00)
[2019-01-30] MEDS: ZOFRAN INJ 4 MG VIAL IVP PRN (08:00)
--- NOTE | 2019-01-30 09:14 | CT ---
HISTORY: Follow-up choledocholithiasis, choledocho duodenostomy Study: CT abdomen pelvis with contrast Comparison: 01/22/2019 Technique: Axial post-contrast images with coronal and sagittal reformats. Dose reduction procedures were used with mA/kv adjusted for body size. Findings: The lung bases were clear. Coronary artery calcifications are present. The liver is normal in size and configuration. There has been significant improvement in the picture of biliary ductal dilatation and hepatic microabscesses. The common bile duct measures 12 mm as compared to 19.5 mm on the prior examination. No definite biliary enhancement is identified. There is a subhepatic drain present. In the anterior peritoneum best visualized on series 5, image 34 and series 8 image 30 for is a 4.1 by 1.6 by 3.1 cm gas and fluid collection intraperitoneal immediately under the left rectus musculature. This could represent a seroma or developing abscess. Follow-up is recommended. The spleen, adrenal glands, and pancreas are within normal limits. The kidneys are unobstructed and without stones or masses. No ureteral calculi are identified. Calcific atherosclerotic changes present in a nondilated abdominal aorta. There are no findings suggestive of enteritis, diverticulitis, or colitis. Examination of the pelvis demonstrated no evidence for pelvic masses, pelvic fluid, or pelvic lymphadenopathy. No bladder abnormality is identified. A small amount of air within the bladder is likely due to instrumentation. No lytic or blastic skeletal lesions are identified. IMPRESSION: 4.1 x 1.6 x 3.1 cm well-marginated gas and fluid collection in the anterior peritoneum immediately deep to the left rectus musculature. This could represent seroma or abscess. Significant improvement in the previously detected biliary ductal dilatation and biliary enhancement and hepatic microabscesses. Reported By:
[2019-01-30] MEDS: ALBUMIN HUMAN 25%- 100 ML 100 ML IV SCH (09:38)
[2019-01-30] MEDS: INVANZ INJ 1 GM VIAL 1 GM in NS 100 ML IV + SPIKE MINIBAG* 100 ML IV SCH (09:40)
[2019-01-30] MEDS: K-DUR TAB 20 MEQ PO SCH (09:40)
[2019-01-30] MEDS: LOVENOX INJ 40 MG SYR SC SCH (09:41)
[2019-01-30] MEDS: PROTONIX INJ 40 MG VIAL IVP SCH (09:41)
[2019-01-30] MEDS: MILK OF MAGNESIA PO SCH ×2 (09:42→10:20)
--- NOTE | 2019-01-30 09:51 | PCM.PROG ---
Progress Note - Progress Note for Day of Date of Exam: 01/28/19 - Subjective Subjective: WAS ADMITTED FOR SEPSIS, DEHYDRATION, HYPOTENSION, PYELONEPHRITIS, AND ABNORMAL LIVER FUNCTION TESTS. HE IS STATUS POST CHOLEDOCHODUODENOSTOMY AND ANASTOMOSIS. HE NO LONGER HAS THE NG TUBE. TODAY, HE IS ALERT AND ORIENTED, LYING IN BED ON MORNING ROUNDS. HE CONTINUES WITH GENERALIZED WEAKNESS AND DIFFUSE ABDOMINAL PAIN. ON EXAMINATION, HEART IS REGULAR IN RATE AND RHYTHM. BILATERAL LUNGS ARE NOTED WITH DIMINISHED LUNG SOUNDS THROUGHOUT. ABDOMEN IS ROUND, SOFT, AND NOTED WITH MILD SUPRAPUBIC TENDERNESS. JESSE DRAIN NOTED. BOWEL SOUNDS ARE NOTED IN ALL QUADRANTS. JESSE DRAIN HAS MINIMAL DRAINAGE TODAY. HIS VITALS THIS MORNING ARE: 98.6-72-18-97%-115/70. LABS WERE OBTAINED. ABNORMAL LAB VALUES INCLUDE THE FOLLOWING: WBC 12.1, RBC 2.57, HGB 8.1, HCT 23.7, BUN 1, GLUCOSE 195, CALCIUM 8.1, MAGNESIUM 1.4, TOTAL BILI 3.10, ALK PHOS 186, AMMONIA 42, TOTAL PROTEIN 5.6, ALBUMIN 2.7. BLOOD, URINE, AND WOUND CULTURES REPORT GROWTH OF E.COLI. HE IS CURRENTLY RECEIVING IV FLUIDS, IV INVANZ, AND HOME MEDICATIONS. WE WILL CONTINUE WITH CURRENT PLAN OF CARE TODAY. WE PLAN TO REPEAT AN ABDOMEN/PELVIS CT WITH CONTRAST ON WEDNESDAY. OTHERWISE, WE WILL FOLLOW-UP WITH AM LABS AND CONTINUE TO MONITOR. - Past Medical Family Social History Past Med/Fam/Surg Hx: No changes since H&P Allergies: Allergies No Known Drug Allergies Allergy (Verified 10/05/18 09:42) - Review of Systems ROS: No change since H&P - Vital Signs and I&O's Vital Signs: Temperature 97.9 F Pulse Rate [Apical] 95 Pulse Rate 63 Respiratory Rate 16 Blood Pressure [Right Arm] 124/55 Blood Pressure [Left Arm] 121/60 Blood Pressure 112/57 O2 Sat by Pulse Oximetry 98 Intake and Output: Intake & Output 01/27/19 01/28/19 01/29/19 01/30/19 11:59 11:59 11:59 11:59 Intake Total 3643 / 3643 3608 / 3608 3566 / 3566 3250 / 3250 Output Total 5790 / 5790 3220 / 3220 3800 / 3800 2488 / 2488 Balance -2147 / -2147 388 / 388 -234 / -234 762 / 762 - Physical Exam Oriented: Normal Eyes: Other (mild jundice ) Ear: Normal Nose: Other (NG tube in place clamped) Throat: Normal Respiratory: Diminished Cardiovascular: Normal : Normal Auscultation: Bowel Sounds: Normal Tenderness: Diffuse (s/p exploratory lap), Other (Patient noted to have drain in place, dressing noted to abdomen dry and intact, NG tube in place) Skin: Other (jaundice) Musculoskeletal: Normal Psychiatric: Normal Mood Description: Anxious Affect: Normal Speech Pattern: Clear, Appropriate - Laboratory and Diagnostics Result Diagrams: 01/30/19 05:11 01/30/19 05:11 Labs: 01/24/19 13:10 Aspirate Wound Culture - Final Escherichia Coli 01/22/19 14:14 Stool Stool Culture - Final 01/22/19 14:14 Stool - Final 01/17/19 16:35 Blood Blood Culture - Final Escherichia Coli 01/17/19 16:30 Blood Blood Culture - Final Escherichia Coli 01/18/19 15:30 Urine,Clean Catch Urine Culture - Final Laboratory WBC 11.2 X10^3/uL (3.6-10.0) H 01/30/19 05:11 RBC 2.69 X10^6/uL (4.7-6.0) L 01/30/19 05:11 Hgb 8.3 g/dL (13.5-18.0) L 01/30/19 05:11 Hct 24.9 % (42.0-54.0) L 01/30/19 05:11 MCV 92.5 fL (80.0-100.0) 01/30/19 05:11 MCH 30.9 pg (27.0-34.0) 01/30/19 05:11 MCHC 33.4 g/dL (33.0-35.0) 01/30/19 05:11 RDW 15.6 % (11.6-16.5) 01/30/19 05:11 Plt Count 393 X10^3/uL (150.0-450.0) 01/30/19 05:11 Plt Count Comment Adequate (ADEQUATE) 01/29/19 05:07 MPV 9.8 fL (7.4-11.0) 01/30/19 05:11 Neut % (Auto) 72.2 % (42.0-75.0) 01/30/19 05:11 Lymph % (Auto) 16.6 % (21.0-51.0) L 01/30/19 05:11 [place] % (Auto) 5.3 % (0.0-13.0) 01/30/19 05:11 Eos % (Auto) 4.4 % (0.9-2.9) H 01/30/19 05:11 Baso % (Auto) 1.5 % (0.2-1.0) H 01/30/19 05:11 Neut # (Auto) 8.1 x10^3/uL (2.2-4.8) H 01/30/19 05:11 Lymph # (Auto) 1.9 X10^3/uL (1.3-2.9) 01/30/19 05:11 [place] # (Auto) 0.6 x10^3/uL (0.3-0.8) 01/30/19 05:11 Eos # (Auto) 0.5 x10^3/uL (0.0-0.2) H 01/30/19 05:11 Baso # (Auto) 0.2 X10^3/uL (0.0-0.1) H 01/30/19 05:11 Absolute Nucleated RBC 0.0 /100WBC 01/30/19 05:11 Total Counted 100 01/27/19 05:34 Neutrophils % (Manual) 88 % (39-76) H 01/27/19 05:34 Band Neutrophils % 5 % (0-10) 01/25/19 04:32 Lymphocytes % (Manual) 9 % (13-43) L 01/27/19 05:34 Monocytes % (Manual) 3 % (4-9) L 01/27/19 05:34 Eosinophils % (Manual) 6 % (0-6) 01/23/19 05:08 Basophils % (Manual) 1 % (0-1) 01/21/19 03:58 Metamyelocytes % 2 01/22/19 04:00 Plt Morphology Comment Normal (NORMAL) 01/29/19 05:07 RBC Morphology Normal (NORMAL) 01/29/19 05:07 Hypochromasia 1+ A 01/27/19 05:34 INR Target Range - 01/18/19 05:08 INR 1.62 (0.8-1.3) H 01/18/19 05:08 APTT 37.1 SECONDS (22.9-36.5) H 01/18/19 05:08 PTT Comment - 01/18/19 05:08 Sodium 138 mmol/L (136-145) 01/30/19 05:11 Corrected Sodium 141 mmol/L (136-145) 01/30/19 05:11 Potassium 3.7 mmol/L (3.5-5.1) 01/30/19 05:11 Chloride 103 mmol/L (98-107) 01/30/19 05:11 Carbon Dioxide 26.6 mmol/L (21-32) 01/30/19 05:11 BUN 3 mg/dL (7-18) L 01/30/19 05:11 Creatinine 0.76 mg/dL (0.70-1.30) 01/30/19 05:11 Est GFR (MDRD) Af Amer > 60 (>60) 01/30/19 05:11 Est GFR (MDRD) Non-Af > 60 (>60) 01/30/19 05:11 Glucose 205 mg/dL (65-99) H 01/30/19 05:11 POC Glucose (mg/dL) 189 mg/dL (65-99) H 01/30/19 05:17 Lactic Acid 1.2 mmol/L (0.4-2.0) 01/19/19 05:38 Calcium 8.5 mg/dL (8.5-10.1) 01/30/19 05:11 Corrected Calcium 9.3 mg/dL (8.5-10.1) 01/30/19 05:11 Magnesium 1.1 mg/dL (1.7-2.9) L 01/30/19 05:11 Total Bilirubin 2.10 mg/dL (0.2-1.0) H 01/30/19 05:11 Direct Bilirubin 4.00 mg/dL (0-0.2) H 01/25/19 04:32 Indirect Bilirubin 1.60 mg/dL (0.2-0.8) H 01/25/19 04:32 AST 14 Units/L (15-37) L 01/30/19 05:11 ALT 15 Units/L (12-78) 01/30/19 05:11 Alkaline Phosphatase 154 Units/L (46-116) H 01/30/19 05:11 Ammonia 42 umol/L (11-32) H 01/28/19 05:14 Creatine Kinase 25 Units/L (39-308) L 01/17/19 16:35 CK-MB (CK-2) < 1.0 ng/mL (0-4.0) 01/17/19 16:35 CK/CKMB % Calc 4.0 % (<4) 01/17/19 16:35 Troponin I < 0.02 ng/mL (0-1.5) 01/17/19 16:35 C-Reactive Protein 64.90 mg/L (0-3.0) H 01/23/19 05:08 Total Protein 6.5 g/dL (6.4-8.2) 01/30/19 05:11 Albumin 3.0 g/dL (3.4-5.0) L 01/30/19 05:11 Globulin 3.5 g/dL (2.5-4.5) 01/30/19 05:11 Albumin/Globulin Ratio 0.9 Ratio (1.1-2.1) L 01/30/19 05:11 Amylase 57 Units/L (25-115) 01/28/19 05:14 Lipase 190 Units/L (73-393) 01/28/19 05:14 Specimen Type Catherized urine 01/24/19 12:18 Urine Color Yellow (YELLOW) 01/24/19 12:18 Urine Appearance Clear (CLEAR) 01/24/19 12:18 Urine pH 8.0 (5.0 - 8.0) 01/24/19 12:18 Ur Specific [place] 1.010 (1.000-1.030) 01/24/19 12:18 Urine Protein Negative (NEGATIVE) 01/24/19 12:18 Urine Glucose (UA) 1+ (NEGATIVE) 01/24/19 12:18 Urine Ketones Negative (NEGATIVE) 01/24/19 12:18 Urine Occult Blood Negative (NEGATIVE) 01/24/19 12:18 Urine Nitrite Negative (NEGATIVE) 01/24/19 12:18 Urine Bilirubin Negative (NEGATIVE) 01/24/19 12:18 Urine Urobilinogen Normal (NORMAL) 01/24/19 12:18 Ur Leukocyte Esterase Negative (NEGATIVE) 01/24/19 12:18 Urine RBC 0-2 /HPF (NONE SEEN) 01/17/19 19:11 Urine WBC None seen /HPF (NONE SEEN) 01/17/19 19:11 Ur Squamous Epith Cells Few /HPF (NEGATIVE) 01/17/19 19:11 Amorphous Sediment 1+ /HPF (NEGATIVE) 01/17/19 19:11 Urine Bacteria Trace /HPF (NEGATIVE) 01/17/19 19:11 Ur Culture Indicated? No/not indicated 01/17/19 19:11 Stool Description 85g,liquid,beige 01/22/19 14:14 Stl Occult Blood (IFOB) Negative (NEGATIVE) 01/22/19 14:14 Stool for White Cells Positive (NEGATIVE) A 01/22/19 14:08 Stl C. diff Tox B Gene Negative (NEGATIVE) 01/22/19 14:08 Stl C. diff 027-NAP1-BI Negative (NEGATIVE) 01/22/19 14:08 Urine Opiates Screen Positive (NEG=<300) 01/17/19 19:11 Urine Methadone Screen Negative (NEG=<300) 01/17/19 19:11 Ur Barbiturates Screen Negative (NEG=<200) 01/17/19 19:11 Ur Phencyclidine Scrn Negative (NEG=<25) 01/17/19 19:11 Ur Amphetamines Screen Negative (NEG=<1000) 01/17/19 19:11 U Benzodiazepines Scrn Negative (NEG=<200) 01/17/19 19:11 Urine Cocaine Screen Negative (NEG=<300) 01/17/19 19:11 U Marijuana (THC) Screen Negative (NEG=<50) 01/17/19 19:11 Acetone, Semi-Quant Negative (NEGATIVE) 01/17/19 16:35 Cryptosporid parvum Ag Negative (NEGATIVE) 01/22/19 14:14 Giardia lamblia Ag Negative (NEGATIVE) 01/22/19 14:14 Hepatitis A IgM Ab Negative (Negative) 01/22/19 08:50 Hep Bs Antigen Negative (Negative) 01/22/19 08:50 Hep Bs Ag Confirmation TNP 01/22/19 08:50 Hep B Core IgM Ab Negative (Negative) 01/22/19 08:50 Hepatitis C Ab Index 0.05 IV 01/22/19 08:50 Hepatitis C Interp Negative (Negative) 01/22/19 08:50 Hepatitis Interpret See note 01/22/19 08:50 Blood Type B POSITIVE 01/24/19 11:30 Antibody Screen Negative 01/24/19 11:30 - Plan (1) Sepsis Status: Acute Qualifiers: Sepsis type: Escherichia coli Qualified Code(s): A41.51 - Sepsis due to Escherichia coli [E. coli] Plan: IV FLUIDS, IV ANTIBIOTICS, MONITOR LABS (2) Pyelonephritis due to Escherichia coli Status: Acute Plan: IV FLUIDS, IV ANTIBIOTICS, CONTINUE TO MONITOR (3) Leukocytosis Status: Acute Qualifiers: Leukocytosis type: unspecified Qualified Code(s): D72.829 - Elevated white blood cell count, unspecified (4) Dehydration Status: Acute Plan: IV FLUIDS, CONTINUE TO MONITOR (5) Abnormal liver function test Status: Acute Plan: CONTINUE TO MONITOR (6) Hypotension Status: Acute Qualifiers: Hypotension type: unspecified hypotension type Qualified Code(s): I95.9 - Hypotension, unspecified Plan: IV FLUIDS, CONTINUE TO MONITOR
[2019-01-30] MEDS ORDERED: PROTONIX TAB 40 MG PO SCH (10:00)
--- NOTE | 2019-01-30 10:32 | DR.PROGNOT ---
Hospital Progress Notes - Progress Note for Day of: Progress Note Date: 01/30/19 - Chief Complaint Chief Complaint: tolerating diet well , no nausea or vomiting . CT showed improvement and decompression of the extrahepatic ducts .. small fluid collection in the upper abdomen . bilirubin 2.1 and Alk Phos 154 . WBC 11.2 Hgb 8.3.. JESSE was removed .. - Past Medical Family Social History Past Med/Fam/Surg Hx: No changes since H&P Allergies: Allergies No Known Drug Allergies Allergy (Verified 10/05/18 09:42) - Review Of Systems ROS: No change since H&P - Vital Signs Vital Signs: Temperature 98.2 F Pulse Rate [Apical] 95 Pulse Rate 70 Respiratory Rate 14 Blood Pressure [Right Arm] 124/55 Blood Pressure [Left Arm] 121/60 Blood Pressure 136/67 O2 Sat by Pulse Oximetry 100 - Physical Exam Oriented: Normal Eyes: Other (mild jundice ) Ear: Normal Nose: Other (NG tube in place clamped) Throat: Normal Respiratory: Diminished Cardiovascular: Normal : Normal GI:Auscultation: Normal GI:Palpation: Normal GI: Tenderness: Other (soft abdomen , BS+ , no wound infection .. JESSE was removed .) Skin: Other (jaundice) Musculoskeletal: Normal Psychiatric: Normal Mood Description: Anxious Affect: Normal Speech Pattern: Clear, Appropriate - Laboratory and Diagnostics Result Diagrams: 01/30/19 05:11 01/30/19 05:11 Labs: 01/24/19 13:10 Aspirate Wound Culture - Final Escherichia Coli 01/22/19 14:14 Stool Stool Culture - Final 01/22/19 14:14 Stool - Final 01/17/19 16:35 Blood Blood Culture - Final Escherichia Coli 01/17/19 16:30 Blood Blood Culture - Final Escherichia Coli 01/18/19 15:30 Urine,Clean Catch Urine Culture - Final Laboratory WBC 11.2 X10^3/uL (3.6-10.0) H 01/30/19 05:11 RBC 2.69 X10^6/uL (4.7-6.0) L 01/30/19 05:11 Hgb 8.3 g/dL (13.5-18.0) L 01/30/19 05:11 Hct 24.9 % (42.0-54.0) L 01/30/19 05:11 MCV 92.5 fL (80.0-100.0) 01/30/19 05:11 MCH 30.9 pg (27.0-34.0) 01/30/19 05:11 MCHC 33.4 g/dL (33.0-35.0) 01/30/19 05:11 RDW 15.6 % (11.6-16.5) 01/30/19 05:11 Plt Count 393 X10^3/uL (150.0-450.0) 01/30/19 05:11 Plt Count Comment Adequate (ADEQUATE) 01/29/19 05:07 MPV 9.8 fL (7.4-11.0) 01/30/19 05:11 Neut % (Auto) 72.2 % (42.0-75.0) 01/30/19 05:11 Lymph % (Auto) 16.6 % (21.0-51.0) L 01/30/19 05:11 [place] % (Auto) 5.3 % (0.0-13.0) 01/30/19 05:11 Eos % (Auto) 4.4 % (0.9-2.9) H 01/30/19 05:11 Baso % (Auto) 1.5 % (0.2-1.0) H 01/30/19 05:11 Neut # (Auto) 8.1 x10^3/uL (2.2-4.8) H 01/30/19 05:11 Lymph # (Auto) 1.9 X10^3/uL (1.3-2.9) 01/30/19 05:11 [place] # (Auto) 0.6 x10^3/uL (0.3-0.8) 01/30/19 05:11 Eos # (Auto) 0.5 x10^3/uL (0.0-0.2) H 01/30/19 05:11 Baso # (Auto) 0.2 X10^3/uL (0.0-0.1) H 01/30/19 05:11 Absolute Nucleated RBC 0.0 /100WBC 01/30/19 05:11 Total Counted 100 01/27/19 05:34 Neutrophils % (Manual) 88 % (39-76) H 01/27/19 05:34 Band Neutrophils % 5 % (0-10) 01/25/19 04:32 Lymphocytes % (Manual) 9 % (13-43) L 01/27/19 05:34 Monocytes % (Manual) 3 % (4-9) L 01/27/19 05:34 Eosinophils % (Manual) 6 % (0-6) 01/23/19 05:08 Basophils % (Manual) 1 % (0-1) 01/21/19 03:58 Metamyelocytes % 2 01/22/19 04:00 Plt Morphology Comment Normal (NORMAL) 01/29/19 05:07 RBC Morphology Normal (NORMAL) 01/29/19 05:07 Hypochromasia 1+ A 01/27/19 05:34 INR Target Range - 01/18/19 05:08 INR 1.62 (0.8-1.3) H 01/18/19 05:08 APTT 37.1 SECONDS (22.9-36.5) H 01/18/19 05:08 PTT Comment - 01/18/19 05:08 Sodium 138 mmol/L (136-145) 01/30/19 05:11 Corrected Sodium 141 mmol/L (136-145) 01/30/19 05:11 Potassium 3.7 mmol/L (3.5-5.1) 01/30/19 05:11 Chloride 103 mmol/L (98-107) 01/30/19 05:11 Carbon Dioxide 26.6 mmol/L (21-32) 01/30/19 05:11 BUN 3 mg/dL (7-18) L 01/30/19 05:11 Creatinine 0.76 mg/dL (0.70-1.30) 01/30/19 05:11 Est GFR (MDRD) Af Amer > 60 (>60) 01/30/19 05:11 Est GFR (MDRD) Non-Af > 60 (>60) 01/30/19 05:11 Glucose 205 mg/dL (65-99) H 01/30/19 05:11 POC Glucose (mg/dL) 189 mg/dL (65-99) H 01/30/19 05:17 Lactic Acid 1.2 mmol/L (0.4-2.0) 01/19/19 05:38 Calcium 8.5 mg/dL (8.5-10.1) 01/30/19 05:11 Corrected Calcium 9.3 mg/dL (8.5-10.1) 01/30/19 05:11 Magnesium 1.1 mg/dL (1.7-2.9) L 01/30/19 05:11 Total Bilirubin 2.10 mg/dL (0.2-1.0) H 01/30/19 05:11 Direct Bilirubin 4.00 mg/dL (0-0.2) H 01/25/19 04:32 Indirect Bilirubin 1.60 mg/dL (0.2-0.8) H 01/25/19 04:32 AST 14 Units/L (15-37) L 01/30/19 05:11 ALT 15 Units/L (12-78) 01/30/19 05:11 Alkaline Phosphatase 154 Units/L (46-116) H 01/30/19 05:11 Ammonia 42 umol/L (11-32) H 01/28/19 05:14 Creatine Kinase 25 Units/L (39-308) L 01/17/19 16:35 CK-MB (CK-2) < 1.0 ng/mL (0-4.0) 01/17/19 16:35 CK/CKMB % Calc 4.0 % (<4) 01/17/19 16:35 Troponin I < 0.02 ng/mL (0-1.5) 01/17/19 16:35 C-Reactive Protein 64.90 mg/L (0-3.0) H 01/23/19 05:08 Total Protein 6.5 g/dL (6.4-8.2) 01/30/19 05:11 Albumin 3.0 g/dL (3.4-5.0) L 01/30/19 05:11 Globulin 3.5 g/dL (2.5-4.5) 01/30/19 05:11 Albumin/Globulin Ratio 0.9 Ratio (1.1-2.1) L 01/30/19 05:11 Amylase 57 Units/L (25-115) 01/28/19 05:14 Lipase 190 Units/L (73-393) 01/28/19 05:14 Specimen Type Catherized urine 01/24/19 12:18 Urine Color Yellow (YELLOW) 01/24/19 12:18 Urine Appearance Clear (CLEAR) 01/24/19 12:18 Urine pH 8.0 (5.0 - 8.0) 01/24/19 12:18 Ur Specific [place] 1.010 (1.000-1.030) 01/24/19 12:18 Urine Protein Negative (NEGATIVE) 01/24/19 12:18 Urine Glucose (UA) 1+ (NEGATIVE) 01/24/19 12:18 Urine Ketones Negative (NEGATIVE) 01/24/19 12:18 Urine Occult Blood Negative (NEGATIVE) 01/24/19 12:18 Urine Nitrite Negative (NEGATIVE) 01/24/19 12:18 Urine Bilirubin Negative (NEGATIVE) 01/24/19 12:18 Urine Urobilinogen Normal (NORMAL) 01/24/19 12:18 Ur Leukocyte Esterase Negative (NEGATIVE) 01/24/19 12:18 Urine RBC 0-2 /HPF (NONE SEEN) 01/17/19 19:11 Urine WBC None seen /HPF (NONE SEEN) 01/17/19 19:11 Ur Squamous Epith Cells Few /HPF (NEGATIVE) 01/17/19 19:11 Amorphous Sediment 1+ /HPF (NEGATIVE) 01/17/19 19:11 Urine Bacteria Trace /HPF (NEGATIVE) 01/17/19 19:11 Ur Culture Indicated? No/not indicated 01/17/19 19:11 Stool Description 85g,liquid,beige 01/22/19 14:14 Stl Occult Blood (IFOB) Negative (NEGATIVE) 01/22/19 14:14 Stool for White Cells Positive (NEGATIVE) A 01/22/19 14:08 Stl C. diff Tox B Gene Negative (NEGATIVE) 01/22/19 14:08 Stl C. diff 027-NAP1-BI Negative (NEGATIVE) 01/22/19 14:08 Urine Opiates Screen Positive (NEG=<300) 01/17/19 19:11 Urine Methadone Screen Negative (NEG=<300) 01/17/19 19:11 Ur Barbiturates Screen Negative (NEG=<200) 01/17/19 19:11 Ur Phencyclidine Scrn Negative (NEG=<25) 01/17/19 19:11 Ur Amphetamines Screen Negative (NEG=<1000) 01/17/19 19:11 U Benzodiazepines Scrn Negative (NEG=<200) 01/17/19 19:11 Urine Cocaine Screen Negative (NEG=<300) 01/17/19 19:11 U Marijuana (THC) Screen Negative (NEG=<50) 01/17/19 19:11 Acetone, Semi-Quant Negative (NEGATIVE) 01/17/19 16:35 Cryptosporid parvum Ag Negative (NEGATIVE) 01/22/19 14:14 Giardia lamblia Ag Negative (NEGATIVE) 01/22/19 14:14 Hepatitis A IgM Ab Negative (Negative) 01/22/19 08:50 Hep Bs Antigen Negative (Negative) 01/22/19 08:50 Hep Bs Ag Confirmation TNP 01/22/19 08:50 Hep B Core IgM Ab Negative (Negative) 01/22/19 08:50 Hepatitis C Ab Index 0.05 IV 01/22/19 08:50 Hepatitis C Interp Negative (Negative) 01/22/19 08:50 Hepatitis Interpret See note 01/22/19 08:50 Blood Type B POSITIVE 01/24/19 11:30 Antibody Screen Negative 01/24/19 11:30 - Assessment and Plan 1: OK to discharge from [facility] and to follow in one week . on oral Flagyl for one week . - Problem Patient Problems: Patient Problems Sepsis (Acute) A41.9 Leukocytosis (Acute) D72.829 Abnormal liver function test (Acute) R94.5 Dehydration (Acute) E86.0 Pyelonephritis due to Escherichia coli (Acute) N12, B96.20
[2019-01-30] MEDS ORDERED: XYLOCAINE 1 % (PLAIN) ONE ×2 (10:54→11:37)
--- NOTE | 2019-01-30 12:19 | DR.UPDATE ---
H&P Update History and Physical Update: History and Physical reviewed and patient examined. Changes noted: NO Yes with the following:agree with dr. chisholm's h and p. will place picc line. Procedures (ALL) - Central Line Placement PCM.CLCO: written consent Time out performed: Yes Patient placed pm monitor/pulse ox: Yes prep: mask, gown, gloves, other Centrial line prep: chlorhexidine scrub Local anesthsia used: lidocane 1% Ultrasound used for placement: Yes (left basilic id per ultrasound) Central line lumen ininserted: double (5 fr power picc. two attemps on left arm unsuccsessful. one attempt on right basilic successful. trimmed to 40 cm 0 exposed.) Post procedure: good blood return, all ports aspirated, flushed,capped, sterile dressing applied Post procedure xray: tip oc catheter in good position (appears to be in svc cxr pending) Patient tolerated procedure: Yes Complications: none
--- NOTE | 2019-01-30 12:34 | RAD ---
HISTORY: PICC placement Study: Chest AP portable Comparison: 01/10/2019 Findings: There is a right-sided PICC line present with its tip in the superior vena cava. The patient is status post median sternotomy and CABG. The heart is mildly enlarged. No congestive heart failure is noted. The lung carrasco are clear. The bony thorax is unremarkable. IMPRESSION: Right PICC tip superior vena cava, no pneumothorax Mild cardiomegaly without congestive heart failure Lungs clear Reported By:
[2019-01-30] MEDS: PERCOCET TAB 5/325 MG PO PRN (14:14)
[2019-01-30] MEDS ORDERED: STERILE WATER IRRIGATION IR ONE (14:50)
[2019-01-30] MEDS ORDERED: NS IRRIGATION 500 ML ONE (14:57)
[2019-01-30 17:40] VITALS: BP 121/58
--- NOTE | 2019-01-30 20:59 | PCM.PROG ---
Progress Note - Progress Note for Day of Date of Exam: 01/29/19 - Subjective Subjective: WAS ADMITTED FOR SEPSIS, DEHYDRATION, HYPOTENSION, PYELONEPHRITIS, AND ABNORMAL LIVER FUNCTION TESTS. HE IS STATUS POST CHOLEDOCHODUODENOSTOMY AND ANASTOMOSIS. NG TUBE HAS BEEN REMOVED. TODAY, HE IS ALERT AND ORIENTED, LYING IN BED ON MORNING ROUNDS. HE CONTINUES WITH GENERALIZED WEAKNESS AND DIFFUSE ABDOMINAL PAIN. HE HAS BEEN AMBULATING IN THE ROOM. ON EXAMINATION, HEART IS REGULAR IN RATE AND RHYTHM. BILATERAL LUNGS ARE NOTED WITH DIMINISHED LUNG SOUNDS THROUGHOUT. ABDOMEN IS ROUND, SOFT, AND NOTED WITH MILD SUPRAPUBIC TENDERNESS. JESSE DRAIN NOTED WITH MINIMAL DRAINAGE. BOWEL SOUNDS ARE NOTED IN ALL QUADRANTS. HIS VITALS THIS MORNING ARE: 99.6-64-23-100%-122/58. LABS WERE OBTAINED. ABNORMAL LAB VALUES INCLUDE THE FOLLOWING: WBC 14.6, RBC 2.58, HGB 7.9, HCT 23.7, POTASSIUM 3.4, BUN 2, GLUCOSE 211, CALCIUM 8.4, TOTAL BILI 2.70, ALK PHOS 167, ALBUMIN 6.1, GLOBULIN 2.8. BLO OD, URINE, AND WOUND CULTURES REPORT GROWTH OF E.COLI. HE IS CURRENTLY RECEIVING IV FLUIDS, IV INVANZ, AND HOME MEDICATIONS. WE WILL CONTINUE WITH CURRENT PLAN OF CARE TODAY. WE PLAN TO REPEAT AN ABDOMEN/PELVIS CT WITH CONTRAST ON WEDNESDAY. OTHERWISE, WE WILL FOLLOW-UP WITH AM LABS AND CONTINUE TO MONITOR. - Past Medical Family Social History Past Med/Fam/Surg Hx: No changes since H&P Allergies: Allergies No Known Drug Allergies Allergy (Verified 10/05/18 09:42) - Review of Systems ROS: No change since H&P - Vital Signs and I&O's Vital Signs: Temperature 98.4 F Pulse Rate [Apical] 95 Pulse Rate 72 Respiratory Rate 16 Blood Pressure [Right Arm] 124/55 Blood Pressure [Left Arm] 121/60 Blood Pressure 121/58 O2 Sat by Pulse Oximetry 98 Intake and Output: Intake & Output 01/28/19 01/29/19 01/30/19 01/31/19 11:59 11:59 11:59 11:59 Intake Total 3608 / 3608 3566 / 3566 3250 / 3250 2770 / 2770 Output Total 3220 / 3220 3800 / 3800 2488 / 2488 2755 / 2755 Balance 388 / 388 -234 / -234 762 / 762 - Physical Exam Oriented: Normal Eyes: Other (JAUNDICE) Ear: Normal Nose: Other (NG tube in place clamped) Throat: Normal Respiratory: Diminished Cardiovascular: Normal : Normal Auscultation: Bowel Sounds: Normal Tenderness: Other (soft abdomen , BS+ , no wound infection .. JESSE was removed .) Skin: Other (jaundice) Musculoskeletal: Normal Psychiatric: Normal Mood Description: Anxious Affect: Normal Speech Pattern: Clear, Appropriate - Laboratory and Diagnostics Result Diagrams: 01/30/19 05:11 01/30/19 05:11 Labs: 01/24/19 13:10 Aspirate Wound Culture - Final Escherichia Coli 01/22/19 14:14 Stool Stool Culture - Final 01/22/19 14:14 Stool - Final 01/17/19 16:35 Blood Blood Culture - Final Escherichia Coli 01/17/19 16:30 Blood Blood Culture - Final Escherichia Coli 01/18/19 15:30 Urine,Clean Catch Urine Culture - Final Laboratory WBC 11.2 X10^3/uL (3.6-10.0) H 01/30/19 05:11 RBC 2.69 X10^6/uL (4.7-6.0) L 01/30/19 05:11 Hgb 8.3 g/dL (13.5-18.0) L 01/30/19 05:11 Hct 24.9 % (42.0-54.0) L 01/30/19 05:11 MCV 92.5 fL (80.0-100.0) 01/30/19 05:11 MCH 30.9 pg (27.0-34.0) 01/30/19 05:11 MCHC 33.4 g/dL (33.0-35.0) 01/30/19 05:11 RDW 15.6 % (11.6-16.5) 01/30/19 05:11 Plt Count 393 X10^3/uL (150.0-450.0) 01/30/19 05:11 Plt Count Comment Adequate (ADEQUATE) 01/29/19 05:07 MPV 9.8 fL (7.4-11.0) 01/30/19 05:11 Neut % (Auto) 72.2 % (42.0-75.0) 01/30/19 05:11 Lymph % (Auto) 16.6 % (21.0-51.0) L 01/30/19 05:11 [place] % (Auto) 5.3 % (0.0-13.0) 01/30/19 05:11 Eos % (Auto) 4.4 % (0.9-2.9) H 01/30/19 05:11 Baso % (Auto) 1.5 % (0.2-1.0) H 01/30/19 05:11 Neut # (Auto) 8.1 x10^3/uL (2.2-4.8) H 01/30/19 05:11 Lymph # (Auto) 1.9 X10^3/uL (1.3-2.9) 01/30/19 05:11 [place] # (Auto) 0.6 x10^3/uL (0.3-0.8) 01/30/19 05:11 Eos # (Auto) 0.5 x10^3/uL (0.0-0.2) H 01/30/19 05:11 Baso # (Auto) 0.2 X10^3/uL (0.0-0.1) H 01/30/19 05:11 Absolute Nucleated RBC 0.0 /100WBC 01/30/19 05:11 Total Counted 100 01/27/19 05:34 Neutrophils % (Manual) 88 % (39-76) H 01/27/19 05:34 Band Neutrophils % 5 % (0-10) 01/25/19 04:32 Lymphocytes % (Manual) 9 % (13-43) L 01/27/19 05:34 Monocytes % (Manual) 3 % (4-9) L 01/27/19 05:34 Eosinophils % (Manual) 6 % (0-6) 01/23/19 05:08 Basophils % (Manual) 1 % (0-1) 01/21/19 03:58 Metamyelocytes % 2 01/22/19 04:00 Plt Morphology Comment Normal (NORMAL) 01/29/19 05:07 RBC Morphology Normal (NORMAL) 01/29/19 05:07 Hypochromasia 1+ A 01/27/19 05:34 INR Target Range - 01/18/19 05:08 INR 1.62 (0.8-1.3) H 01/18/19 05:08 APTT 37.1 SECONDS (22.9-36.5) H 01/18/19 05:08 PTT Comment - 01/18/19 05:08 Sodium 138 mmol/L (136-145) 01/30/19 05:11 Corrected Sodium 141 mmol/L (136-145) 01/30/19 05:11 Potassium 3.7 mmol/L (3.5-5.1) 01/30/19 05:11 Chloride 103 mmol/L (98-107) 01/30/19 05:11 Carbon Dioxide 26.6 mmol/L (21-32) 01/30/19 05:11 BUN 3 mg/dL (7-18) L 01/30/19 05:11 Creatinine 0.76 mg/dL (0.70-1.30) 01/30/19 05:11 Est GFR (MDRD) Af Amer > 60 (>60) 01/30/19 05:11 Est GFR (MDRD) Non-Af > 60 (>60) 01/30/19 05:11 Glucose 205 mg/dL (65-99) H 01/30/19 05:11 POC Glucose (mg/dL) 173 mg/dL (65-99) H 01/30/19 16:47 Lactic Acid 1.2 mmol/L (0.4-2.0) 01/19/19 05:38 Calcium 8.5 mg/dL (8.5-10.1) 01/30/19 05:11 Corrected Calcium 9.3 mg/dL (8.5-10.1) 01/30/19 05:11 Magnesium 1.1 mg/dL (1.7-2.9) L 01/30/19 05:11 Total Bilirubin 2.10 mg/dL (0.2-1.0) H 01/30/19 05:11 Direct Bilirubin 4.00 mg/dL (0-0.2) H 01/25/19 04:32 Indirect Bilirubin 1.60 mg/dL (0.2-0.8) H 01/25/19 04:32 AST 14 Units/L (15-37) L 01/30/19 05:11 ALT 15 Units/L (12-78) 01/30/19 05:11 Alkaline Phosphatase 154 Units/L (46-116) H 01/30/19 05:11 Ammonia 42 umol/L (11-32) H 01/28/19 05:14 Creatine Kinase 25 Units/L (39-308) L 01/17/19 16:35 CK-MB (CK-2) < 1.0 ng/mL (0-4.0) 01/17/19 16:35 CK/CKMB % Calc 4.0 % (<4) 01/17/19 16:35 Troponin I < 0.02 ng/mL (0-1.5) 01/17/19 16:35 C-Reactive Protein 64.90 mg/L (0-3.0) H 01/23/19 05:08 Total Protein 6.5 g/dL (6.4-8.2) 01/30/19 05:11 Albumin 3.0 g/dL (3.4-5.0) L 01/30/19 05:11 Globulin 3.5 g/dL (2.5-4.5) 01/30/19 05:11 Albumin/Globulin Ratio 0.9 Ratio (1.1-2.1) L 01/30/19 05:11 Amylase 57 Units/L (25-115) 01/28/19 05:14 Lipase 190 Units/L (73-393) 01/28/19 05:14 Specimen Type Catherized urine 01/24/19 12:18 Urine Color Yellow (YELLOW) 01/24/19 12:18 Urine Appearance Clear (CLEAR) 01/24/19 12:18 Urine pH 8.0 (5.0 - 8.0) 01/24/19 12:18 Ur Specific [place] 1.010 (1.000-1.030) 01/24/19 12:18 Urine Protein Negative (NEGATIVE) 01/24/19 12:18 Urine Glucose (UA) 1+ (NEGATIVE) 01/24/19 12:18 Urine Ketones Negative (NEGATIVE) 01/24/19 12:18 Urine Occult Blood Negative (NEGATIVE) 01/24/19 12:18 Urine Nitrite Negative (NEGATIVE) 01/24/19 12:18 Urine Bilirubin Negative (NEGATIVE) 01/24/19 12:18 Urine Urobilinogen Normal (NORMAL) 01/24/19 12:18 Ur Leukocyte Esterase Negative (NEGATIVE) 01/24/19 12:18 Urine RBC 0-2 /HPF (NONE SEEN) 01/17/19 19:11 Urine WBC None seen /HPF (NONE SEEN) 01/17/19 19:11 Ur Squamous Epith Cells Few /HPF (NEGATIVE) 01/17/19 19:11 Amorphous Sediment 1+ /HPF (NEGATIVE) 01/17/19 19:11 Urine Bacteria Trace /HPF (NEGATIVE) 01/17/19 19:11 Ur Culture Indicated? No/not indicated 01/17/19 19:11 Stool Description 85g,liquid,beige 01/22/19 14:14 Stl Occult Blood (IFOB) Negative (NEGATIVE) 01/22/19 14:14 Stool for White Cells Positive (NEGATIVE) A 01/22/19 14:08 Stl C. diff Tox B Gene Negative (NEGATIVE) 01/22/19 14:08 Stl C. diff 027-NAP1-BI Negative (NEGATIVE) 01/22/19 14:08 Urine Opiates Screen Positive (NEG=<300) 01/17/19 19:11 Urine Methadone Screen Negative (NEG=<300) 01/17/19 19:11 Ur Barbiturates Screen Negative (NEG=<200) 01/17/19 19:11 Ur Phencyclidine Scrn Negative (NEG=<25) 01/17/19 19:11 Ur Amphetamines Screen Negative (NEG=<1000) 01/17/19 19:11 U Benzodiazepines Scrn Negative (NEG=<200) 01/17/19 19:11 Urine Cocaine Screen Negative (NEG=<300) 01/17/19 19:11 U Marijuana (THC) Screen Negative (NEG=<50) 01/17/19 19:11 Acetone, Semi-Quant Negative (NEGATIVE) 01/17/19 16:35 Cryptosporid parvum Ag Negative (NEGATIVE) 01/22/19 14:14 Giardia lamblia Ag Negative (NEGATIVE) 01/22/19 14:14 Hepatitis A IgM Ab Negative (Negative) 01/22/19 08:50 Hep Bs Antigen Negative (Negative) 01/22/19 08:50 Hep Bs Ag Confirmation TNP 01/22/19 08:50 Hep B Core IgM Ab Negative (Negative) 01/22/19 08:50 Hepatitis C Ab Index 0.05 IV 01/22/19 08:50 Hepatitis C Interp Negative (Negative) 01/22/19 08:50 Hepatitis Interpret See note 01/22/19 08:50 Blood Type B POSITIVE 01/24/19 11:30 Antibody Screen Negative 01/24/19 11:30 - Plan (1) Sepsis Status: Acute Qualifiers: Sepsis type: Escherichia coli Qualified Code(s): A41.51 - Sepsis due to Escherichia coli [E. coli] Plan: IV FLUIDS, IV ANTIBIOTICS, MONITOR LABS (2) Pyelonephritis due to Escherichia coli Status: Acute Plan: IV FLUIDS, IV ANTIBIOTICS, CONTINUE TO MONITOR (3) Leukocytosis Status: Acute Qualifiers: Leukocytosis type: unspecified Qualified Code(s): D72.829 - Elevated white blood cell count, unspecified (4) Dehydration Status: Acute Plan: IV FLUIDS, CONTINUE TO MONITOR (5) Abnormal liver function test Status: Acute Plan: CONTINUE TO MONITOR (6) Hypotension Status: Acute Qualifiers: Hypotension type: unspecified hypotension type Qualified Code(s): I95.9 - Hypotension, unspecified Plan: IV FLUIDS, CONTINUE TO MONITOR
== END 2019-01-30 18:30 | disposition home or self-care (01) | DRG 872 ==
LOC: ER 15:59 → ICU 20:24
PROVIDERS: ADMIT Internal Medicine; ATTEND Internal Medicine
DX: R26.9 Unspecified abnormalities of gait and mobility; A41.51 Sepsis due to Escherichia coli [E. coli]; D68.8 Other specified coagulation defects; N10 Acute pyelonephritis; B96.20 Unspecified Escherichia coli [E. coli] as the cause of diseases classified elsewhere; Z98.890 Other specified postprocedural states; I87.2 Venous insufficiency (chronic) (peripheral); R10.9 Unspecified abdominal pain; R94.5 Abnormal results of liver function studies; K29.40 Chronic atrophic gastritis without bleeding; K80.50 Calculus of bile duct without cholangitis or cholecystitis without obstruction; I95.9 Hypotension, unspecified; R65.20 Severe sepsis without septic shock; R17 Unspecified jaundice; K83.09 Other cholangitis
CPT/HCPCS: 36415; 71010; 71045; 71260; 74176; 74177; 76000; 80048; 80053; 80074; 80076; 80307; 81001; 81003; 82009; 82140; 82150; 82270; 82550; 82553; 83605; 83630; 83690; 83735; 84132; 84484; 85025; 85610; 85730; 86140; 86850; 86900; 86901; 87040; 87045; 87070; 87075; 87077; 87086; 87186; 87328; 87329; 87427; 87449; 87493; 87899; 93005; 96365; 96367; 96374; 96375; 97110; 97116; 97162; 97166; 97530; 99284; A4216; A4222; C9113; J3490; P9047; S0030; G0434; J0330; J0690; J1100; J1170; J1335; J1650; J1815; J2250; J2270; J2370; J2405; J2543; J2560; J2704; J2710; J3010; J3411; J3475; J3480; J7030; J7040; J7050; J7120; J8499; S5010